=== PATIENT | male | born 1970 | race Caucasian/White ===

== ENCOUNTER 2023-11-21 22:45 | Emergency (ER) | payer OTHER, SELFPAY ==
--- NOTE | ~2023-11-21 | XR_ITS ---
EXAMINATION: XR FOOT, LEFT XR FOOT, RIGHT CLINICAL INDICATION: Reason for Exam pain question osteo over the index toe COMPARISON: None TECHNIQUE: 3 views of each foot. FINDINGS: Right foot: Osseous alignment is anatomic. There are degenerative changes of the midfoot. Plantar calcaneal spur is noted. No acute fracture is seen. No focal cortical irregularity to suggest osteomyelitis. There is suspected dorsal soft tissue swelling. Left foot: Osseous alignment is anatomic. No acute fracture seen. Posterior and plantar calcaneal spurs are present. Mild degenerative changes of the midfoot. No focal cortical irregularity to suggest osteomyelitis. No significant focal soft tissue abnormality identified. XR/XR foot LT min 3V IMPRESSION: No definite findings to suggest osteomyelitis though assessment on radiographs is relatively limited. If clinically warranted, this would be better assessed with MRI. Soft tissue swelling of the right foot.
--- NOTE | ~2023-11-21 | XR_ITS ---
EXAMINATION: XR FOOT, LEFT XR FOOT, RIGHT CLINICAL INDICATION: Reason for Exam pain question osteo over the index toe COMPARISON: None TECHNIQUE: 3 views of each foot. FINDINGS: Right foot: Osseous alignment is anatomic. There are degenerative changes of the midfoot. Plantar calcaneal spur is noted. No acute fracture is seen. No focal cortical irregularity to suggest osteomyelitis. There is suspected dorsal soft tissue swelling. Left foot: Osseous alignment is anatomic. No acute fracture seen. Posterior and plantar calcaneal spurs are present. Mild degenerative changes of the midfoot. No focal cortical irregularity to suggest osteomyelitis. No significant focal soft tissue abnormality identified. XR/XR foot RT min 3V IMPRESSION: No definite findings to suggest osteomyelitis though assessment on radiographs is relatively limited. If clinically warranted, this would be better assessed with MRI. Soft tissue swelling of the right foot.
[2023-11-21 22:52] VITALS: BP 160/86; PULSE 100; RESP 18; TEMP 36.9; O2SAT 96; BMI 39.4
[2023-11-22 01:06] LABS: MANUAL DIFF FLAG NO
[2023-11-22 01:07] LABS: Basophils Absolute Auto 0.1 X10*3/uL (0.0-0.2); Eosinophils Absolute Auto 0.6 X10*3/uL (0.0-0.4); Eosinophils Percent Auto 6.2 % (0-4); Hematocrit 34.8 % (42.0-52.0); Hemoglobin 10.3 g/dl (14.0-18.0); Imm Gran Abs Auto 0.02 X10*3/uL (0.00-0.03); Imm Gran Pct Auto 0.2 % (0.0-0.4); Lymphocytes Absolute Auto 1.4 X10*3/uL (1.2-4.9); Lymphocytes Percent Auto 13.3 % (20-40); Mean Corpuscular HGB Conc 29.6 g/dl (31.0-36.0); Mean Corpuscular Volume 70.9 fL (80.0-98.0); Mean Platelet Volume 10.4 fL (9.4-12.4); Monocytes Absolute Auto 0.9 X10*3/uL (0.1-1.2); Monocytes Percent Auto 8.9 % (2-11); Neutrophils Absolute Auto 7.3 x10*3/uL (2.0-8.3); Neutrophils Percent Auto 70.4 % (45-73); Platelet Count 353 X10*3/uL (160-400); Red Blood Count 4.91 X10*6/uL (4.60-5.80); Red Cell Distribution Width 16.3 % (11.0-16.0); White Blood Count 10.4 X10*3/uL (4.8-10.8)
[2023-11-22 01:24] LABS: Alanine Aminotransferase 15 U/L (0-40); Albumin Level 4.5 g/dL (3.5-5.0); Alkaline Phosphatase 73 U/L (39-117); Anion Gap 15 (12-20); Aspartate Amino Transferase 19 U/L (5-37); Bilirubin Total 0.2 mg/dL (0.0-1.0); Blood Urea Nitrogen 15 mg/dL (9-16); Carbon Dioxide 24 mmol/L (22-29); Chloride 107 mmol/L (96-108); Creatinine Clr Calc Pharmacy 107.7; Estimated Glomerular Filt Rate > 60; Glucose Random 152 mg/dL (60-115); Potassium 4.4 mmol/L (3.3-5.1); Sodium 142 mmol/L (135-145); Total Protein 7.2 g/dL (6.5-8.0)
--- NOTE | 2023-11-22 01:48 | ED.LOWEXIN ---
HPI - Extremity Injury (Lower) General Chief Complaint: Extremity Injury, Lower Stated Complaint: feet wounds/bleeding/swelling Time Seen by Provider: 11/22/23 01:15 History of Present Illness HPI Narrative: Patient is a 53-year-old male presents today with having bilateral foot pain that has been ongoing for a few months. Patient is from [place] been lost to the [facility] was [facility]. Patient was rescheduled for November. Complaining of pain continuing. There is redness to the index toe bilaterally. There is redness to the dorsum of bilateral feet. Patient denies any fever chills. No systemic complaints. Been compliant with taking his metformin. No nausea no vomiting. No chest pain or shortness of breath. No calf pain. Patient claims the gabapentin is not working Related Data Previous Rx's ?Medication ?Instructions ?Recorded doxycycline hyclate 100 mg capsule 100 mg PO BID cough 10 days #20 11/22/23 caps Allergies Allergy/AdvReac Type Severity Reaction Status Date / Time morphine Allergy Headache Verified 11/21/23 22:59 Review of Systems Review of Systems: Positive pain to bilateral feet PMFSH Past Medical History Attestation statement: The following information was validated with the patient. Social History Social History Advance Directives: No Advance Directives Information Provided: Yes Do you have a plan to hurt others: No Plan Physical Exam Vital Signs: Vital Signs: Last Vital Signs Temp 98.5 F 11/21/23 22:52 Pulse 100 11/21/23 22:52 Resp 18 11/21/23 22:52 BP 160/86 H 11/21/23 22:52 Pulse Ox 96 11/21/23 22:52 O2 Del Method Room Air 11/21/23 22:52 BMI result Body Mass Index 39.4 Appearance: Alert. Oriented X3. No acute distress. Eyes: Pupils equal, round and reactive to light. ENT: Pharynx normal. Neck: Normal inspection. Neck supple. No lymph nodes noted. No crepitus CVS: Normal heart rate and rhythm. Pulses normal. Normal S1 and S2 Respiratory: No respiratory distress. Breath sounds normal. No Wheezing. No rales Abdomen: Soft and nontender. No rigidity. No distention. good BS x4 Skin: See below Extremities: Examination of the bilateral feet show good pulses at dorsalis pedis bilaterally. Sensation over the toes intact bilaterally. Examination of the right foot showed a small abrasion over the dorsum of the right foot approximately 3 cm x 2 cm in size. There is mild surrounding erythema. There is no warmth to touch. There is redness over the index toe. No warmth to touch. Examination of the left foot also showed a small abrasion over the dorsum of the left foot. This 1 is more lateral the proximally 2 cm x 2 cm in size. Slight erythema noted surrounding the area. There is also area of redness surrounding the index and great toe. Neuro: Oriented X 3. No motor deficit. No sensory deficit. Moving all extermities. No slurred speech Medications Administered Discontinued Medications Generic Name Dose Route Start Last Admin Trade Name Freq PRN Reason Stop Dose Admin Doxycycline Monohydrate 100 mg 11/22/23 02:59 11/22/23 03:14 Doxycycline Monohydrate 100 Mg Capsule PO 11/22/23 03:00 100 mg ONCE ONE Administration Gabapentin 300 mg 11/22/23 02:04 11/22/23 02:12 Gabapentin 300 Mg Capsule PO 11/22/23 02:05 300 mg ONCE ONE Administration Medical Decision Making Medical Decision Making [facility] Narrative: X-ray of bilateral foot showed no acute evidence of fracture no signs of osteo. Patient's sed rate is normal. No evidence for osteo. White count is normal. Area of redness but patient claims it has been there for a long time. Patient's symptoms been ongoing for months. Will start patient on doxycycline for empiric coverage of possible cellulitis. Patient's wound was cleaned subsequently dressed. Will refer patient to wound care for further evaluation explained to patient if he develop fever worsening condition to return to the ED immediately. Currently in stable condition. Differential Diagnosis Differential Diagnoses: The differential diagnosis associated with the presentation includes Cellulitis, osteomyelitis Admission/Observation Consideration of admission/observation: Escalation of care including admission/observation considered Lab Data [facility] Lab Attestation statement: I reviewed the patient's lab results. 11/22/23 01:01 11/22/23 01:01 Labs: Lab Results 11/22/23 Range/Units 01:01 WBC 10.4 (4.8-10.8) X10*3/uL RBC 4.91 (4.60-5.80) X10*6/uL Hgb 10.3 L (14.0-18.0) g/dl Hct 34.8 L (42.0-52.0) % MCV 70.9 L (80.0-98.0) fL MCH 21.0 L (27.0-33.0) pg MCHC 29.6 L (31.0-36.0) g/dl RDW 16.3 H (11.0-16.0) % Plt Count 353 (160-400) X10*3/uL MPV 10.4 (9.4-12.4) fL Immature Gran % (Auto) 0.2 (0.0-0.4) % Neut % (Auto) 70.4 (45-73) % Lymph % (Auto) 13.3 L (20-40) % [place] % (Auto) 8.9 (2-11) % Eos % (Auto) 6.2 H (0-4) % Baso % (Auto) 1.0 (0-2) % Lymph # (Auto) 1.4 (1.2-4.9) X10*3/uL [place] # (Auto) 0.9 (0.1-1.2) X10*3/uL Eos # (Auto) 0.6 H (0.0-0.4) X10*3/uL Baso # (Auto) 0.1 (0.0-0.2) X10*3/uL Abs Immat Gran (auto) 0.02 (0.00-0.03) X10*3/uL Absolute Neuts (auto) 7.3 (2.0-8.3) x10*3/uL Absolute Nucleated RBC 0.000 (0.0-0.012) X10*3/uL Nucleated RBC % (auto) 0.0 (0.0-0.2) /100WBC ESR 7 (0-15) MM/HR Sodium 142 (135-145) mmol/L Potassium 4.4 (3.3-5.1) mmol/L Chloride 107 (96-108) mmol/L Carbon Dioxide 24 (22-29) mmol/L Anion Gap 15 (12-20) BUN 15 (9-16) mg/dL Creatinine 1.07 (0.5-1.4) mg/dL Estim Creat Clear Calc 107.7 Estimated GFR > 60 Random Glucose 152 H (60-115) mg/dL Calcium 10.0 (8.4-10.2) mg/dL Total Bilirubin 0.2 (0.0-1.0) mg/dL AST 19 (5-37) U/L ALT 15 (0-40) U/L Alkaline Phosphatase 73 (39-117) U/L Total Protein 7.2 (6.5-8.0) g/dL Albumin 4.5 (3.5-5.0) g/dL Independent Interpretation I performed an independent interpretation of an: Plain X-Ray (X-ray bilateral feet were both negative) Radiology Impression Discussion of test interpretation with radiology: I have reviewed the radiologist's reading. Chronic Conditions Patient?s care impacted by: Diabetes Discharge Plan Discharge Clinical Impression: Abrasion foot/toe, Diabetic foot infection Patient Disposition: Home, Self-Care Instructions: Cellulitis (ED), Foot Care for People with Diabetes (ED), Diabetes and Your Skin (ED) Prescriptions: New doxycycline hyclate 100 mg capsule 100 mg PO BID 10 Days Qty: 20 0RF Referrals: [facility] Group] (Diabetic foot management) Print Language: Nepali
[2023-11-22] MEDS: Gabapentin 300 MG CAPSULE PO (02:12)
[2023-11-22 02:31] LABS: Erythrocyte Sedimentation Rate 7 MM/HR (0-15)
[2023-11-22] MEDS: Doxycycline Monohydrate 100 MG CAPSULE PO (03:14)
[2023-11-22 04:01] VITALS: BP 129/78; PULSE 82; RESP 20; TEMP 36.8; O2SAT 98
[2023-11-22] MEDS: Bacitracin Oint 0.9 GM PACKET 1 APPL TOPICAL (04:16)
[2023-11-22 04:41] VITALS: BP 129/78; PULSE 82; RESP 20; TEMP 36.8; O2SAT 98
--- OUTSIDE RECORDS SUMMARY | 2023-11-22 11:28 | XMS_ITS | Continuity of Care Document ---
Author Organization [facility] Address [address] [address] Care Team Providers Care Senior Manufacturing Engineer Name Role Phone [facility], PCP Primary Care Physician Unavailab le Encounter [facility] [id number] Date(s): 07/18/20 - 07/18/20 [facility] [address] [address] [place] Encounter Diagnosis Degenerative arthritis of knee, bilateral(Discharge Diagnosis) - 07/14/20 Discharge Disposition: Discharged to Home Attending Physician: MD Stanton Vishnu Referring Physician: MD Stanton Vishnu Allergies, Adverse Reactions, Alerts Substance Reaction Severity Status morphine MIGRAINE Mild Active Assessment and Plan Future Scheduled Tests Referral* Return to Clinic - Orthopaedics 01/11/20 * Return to Clinic - Orthopaedics 01/11/20 * Return to Clinic - Orthopaedics 07/18/20 * Return to Clinic - Orthopaedics 12/10/19 Referrals to Other Providers Referred by: MD Satnton Vishnu Referred by: MD Stanton Vishnu Referred by: MD Stanton Vishnu Referred by: MD Stanton Vishnu Medications CeleBREX 1 tab, Oral, BID, 0 Refill(s) Start Date: 08/10/19 Status: Ordered traMADol 1 tab, Oral, every 6 hr, PRN pain-mild (1 to 3 pain scale), 0 Refill(s) Start Date: 09/15/19 Status: Ordered Voltaren 1% topical gel 2 g, Topical, QID, PRN as needed for pain, not to exceed 16 grams/day/single joint of lower extremities, # 100 g, 2 Refill(s), Pharmacy: [id number], [id number], 05/17/20 14:13:00 EST, Height/Length Measured, cm, 106.9, 05/17/20 14:13:00 EST, Weigh... Start Date: 05/17/20 Status: Ordered Voltaren 1% topical gel 2 g, Topical, QID, PRN as needed for pain, not to exceed 16 grams/day/single joint of lower extremities, # 100 g, 3 Refill(s), Pharmacy: [id number], [id number], 11/02/19 14:06:00 EDT, Height/Length Measured, cm, 121.4, 11/02/19 14:06:00 EDT, Weigh... Start Date: 11/02/19 Status: Ordered Problem List Condition Effective Dates Status Health Status Inform ant Degenerative arthritis of kn ee, bilateral(Confirmed) Active Bowel obstruction(Confirmed) Active Bilateral [place]-Schlatter's disease(Confirmed) Active Bilateral primary osteoarthr itis of knee(Confirmed) Active Procedures Procedure Date Related Diagnosis Body Site Status Hip 1 Completed Tendon 2 Completed Tonsillectomy Completed 1BILATERAL 2RIGHT THUMB Social History Social History Type Response Smoking Status Never (less than 100 in lifetime) entered on: 11/02/19 Sex
--- OUTSIDE RECORDS SUMMARY | 2023-11-22 11:28 | XMS_ITS | Continuity of Care Document ---
Author Organization [facility] Address [address] [place] [id number] Care Team Providers Care Interior Design Professor Name Role Phone [facility], PCP Primary Care Physician Unavailab le Encounter [facility] Date(s): 09/15/19 - 09/15/[address] [address] Discharge Disposition: Discharged to Home Attending Physician: MD Meza John B Admitting Physician: MD Meza John B Referring Physician: MD Meza John B Allergies, Adverse Reactions, Alerts Substance Reaction Severity Status morphine MIGRAINE Mild Active Assessment and Plan Future Appointments Appointment Date:10/06/2019 02:45:00 PM Scheduled Provider:MD Meza John B Location:[facility] Main OR Appointment Type:Surgery Medications CeleBREX 1 tab, Oral, BID, 0 Refill(s) Start Date: 08/10/19 Status: Ordered traMADol 1 tab, Oral, every 6 hr, PRN pain-mild (1 to 3 pain scale), 0 Refill(s) Start Date: 09/15/19 Status: Ordered Problem List Condition Effective Dates Status Health Status Inform ant Bowel obstruction(Confirmed) Active Procedures Procedure Date Related Diagnosis Body Site Status Hip 1 Completed Tendon 2 Completed Tonsillectomy Completed 1BILATERAL 2RIGHT THUMB Results Most recent to oldest [Reference Range]: 1 Height/Length Measured [124.5-243.8 cm] 178 cm (09/15/19 9:58 AM) Systolic Blood Pressure [90-140 mmHg] 15 0 mmHg *HI* (09/15/19 9:58 AM) Diastolic Blood Pressure [60-90 mmHg] 90 mmHg (09/15/19 9:58 AM) Respiratory Rate [14-20 br/min] 16 br/mi n (09/15/19 9:58 AM) Temperature Oral [35.8-37.3 Deg C] 37.1 Deg C (09/15/19 9:58 AM) Vital Signs Most recent to oldest [Reference Range]: 1 Temperature Oral [35.8-37.3 Deg C] 37.1 Deg C (09/15/19 9:58 AM) Peripheral Pulse Rate [60-100] 83 (09/15/19 9:58 AM) Respiratory Rate [14-20 br/min] 16 br/mi n (09/15/19 9:58 AM) Blood Pressure [90-140/60-90 mmHg] 150/9 0mmHg *HI* (09/15/19 9:58 AM) Social History Social History Type Response Smoking Status Never (less than 100 in lifetime) entered on: 08/10/19 Sex
--- OUTSIDE RECORDS SUMMARY | 2023-11-22 11:28 | XMS_ITS | Continuity of Care Document ---
Author Organization [facility] Address [address] [place] [address] Care Team Providers Care Central Processing Technician Name Role Phone [facility], PCP Primary Care Physician Unavail le Encounter [facility] [id number] Date(s): 11/25/19 - 11/25/19 [facility], [facility] [address] [place], [place] [address]- [phone] Encounter Diagnosis Incisional hernia without obstruction or gangrene(Discharge Diagnosis) - 11/25/19 Discharge Disposition: Discharged to Home Attending Physician: MD Meza John B Referring Physician: [facility], PCP Allergies, Adverse Reactions, Alerts Substance Reaction Severity Status morphine MIGRAINE Mild Active Assessment and Plan Future Appointments Appointment Date:02/01/2020 01:05:00 PM Scheduled Provider:MD Stanton Vishnu Location: Ortho Appointment Type:Ortho Est Patient Future Scheduled Tests Referral* Return to Clinic - Orthopaedics 02/01/20 Referrals to Other Providers Referred by: MD Stanton Vishnu Medications CeleBREX [...] extremities, # 100 g, 3 Refill(s), Pharmacy: [id number], [id number], 11/02/19 14:06:00 EDT, Height/Length [...] Most recent to oldest [Reference Range]: 1 Weight Measured 106.9 kg (11/25/19 11:38 AM) Height/Length Measured [124.5-243.8 cm] 172 cm (11/25/19 11:38 AM) Body Mass Index Measured 36.13 kg/m2 (11/25/19 11:38 AM) Systolic Blood Pressure [90-140 mmHg] 12 0 mmHg (11/25/19 11:38 AM) Diastolic Blood Pressure [60-90 mmHg] 75 mmHg (11/25/19 11:38 AM) Respiratory Rate [14-20 br/min] 18 br/mi n (11/25/19 11:38 AM) Temperature Oral [35.8-37.3 Deg C] 37.0 Deg C (11/25/19 11:38 AM) Vital Signs Most recent to oldest [Reference Range]: 1 Temperature Oral [35.8-37.3 Deg C] 37.0 Deg C (11/25/19 11:38 AM) Temperature Oral [place] AMB 98.6 Deg F (11/25/19 11:38 AM) Peripheral Pulse Rate [60-100] 100 (11/25/19 11:38 AM) Respiratory Rate [14-20 br/min] 18 br/mi n (11/25/19 11:38 AM) Blood Pressure [90-140/60-90 mmHg] 120/7 5mmHg (11/25/19 11:38 AM) Social History Social History Type Response Smoking Status Never (less than 100 in lifetime) entered on: 11/02/19 Sex
--- OUTSIDE RECORDS SUMMARY | 2023-11-22 11:28 | XMS_ITS | Continuity of Care Document ---
Author Organization [facility], [facility] Address [address] [address] Care Team Providers Care Habitat Management Coordinator Name Role Phone David Jaquez Primary Care Physician Unavailab le Encounter [facility] Date(s): 08/10/19 - 08/10/[address] [facility], [facility] [address] [address]- Encounter Diagnosis Incarcerated umbilical hernia(Discharge Diagnosis) - 08/10/19 Discharge Disposition: Discharged to Home Attending Physician: MD Meza John B Referring Physician: MD Jaquez Derralyn Allergies, Adverse Reactions, Alerts Substance Reaction Severity Status morphine Mild Active Assessment and Plan Future Appointments Appointment Date:08/24/2019 12:30:00 PM Scheduled Provider:MD Meza John B Location: [facility]Care Appointment Type:Surgical Care Est Patient Medications CeleBREX Oral, 0 Refill(s) Start Date: 08/10/19 Status: Ordered Problem List Condition Effective Dates Status Health Status Inform ant Bowel obstruction(Confirmed) Active Procedures Procedure Date Related Diagnosis Body Site Status Hip Completed Results Most recent to oldest [Reference Range]: 1 Weight Measured 121.4 kg (08/10/19 1:49 PM) Height/Length Measured [124.5-243.8 cm] 178 cm (08/10/19 1:49 PM) Body Mass Index Measured 38.32 kg/m2 (08/10/19 1:49 PM) Systolic Blood Pressure [90-140 mmHg] 16 3 mmHg *HI* (08/10/19 1:49 PM) Diastolic Blood Pressure [60-90 mmHg] 91 mmHg *HI* (08/10/19 1:49 PM) Respiratory Rate [14-20 br/min] 18 br/mi n (08/10/19 1:49 PM) Temperature Oral [35.8-37.3 Deg C] 36.8 Deg C (08/10/19 1:49 PM) Vital Signs Most recent to oldest [Reference Range]: 1 Temperature Oral [35.8-37.3 Deg C] 36.8 Deg C (08/10/19 1:49 PM) Temperature Oral [place] AMB 98.24 Deg F (08/10/19 1:49 PM) Peripheral Pulse Rate [60-100] 87 (08/10/19 1:49 PM) Respiratory Rate [14-20 br/min] 18 br/mi n (08/10/19 1:49 PM) Blood Pressure [90-140/60-90 mmHg] 163/9 1mmHg *HI* (08/10/19 1:49 PM) Social History Social History Type Response Smoking Status Never (less than 100 in lifetime) entered on: 08/10/19 Sex
--- OUTSIDE RECORDS SUMMARY | 2023-11-22 11:28 | XMS_ITS | Continuity of Care Document ---
Author Organization [facility] Address [address] [address] Care Team Providers Care Manager Resource Name Role Phone [facility], PCP Primary Care Physician Unavailab le Encounter [facility] [id number] Date(s): 01/11/20 - 01/11/20 [facility] [address] [address] [place] Discharge Disposition: Discharged to Home Attending Physician: MD Stanton Vishnu Referring Physician: MD Stanton Vishnu Allergies, Adverse Reactions, Alerts Substance Reaction Severity Status morphine MIGRAINE Mild Active Assessment and Plan Future Scheduled Tests Referral* Return to Clinic - Orthopaedics 01/11/20 * Return to Clinic - Orthopaedics 01/11/20 * Return to Clinic - Orthopaedics 12/10/19 Referrals to Other Providers Referred by: MD Stanton Vishnu Referred by: [...] extremities, # 100 g, 3 Refill(s), Pharmacy: [id number], [id number], 11/02/19 14:06:00 EDT, Height/Length Measured, cm, 121.4, 11/02/19 14:06:00 EDT, Weigh... Start Date: 11/02/19 Status: Ordered Problem List Condition Effective Dates Status Health Status Inform ant Degenerative arthritis of kn ee, bilateral(Confirmed) Active Bowel obstruction(Confirmed) Active Bilateral [place]-Schlatter's disease(Confirmed) Active Bilateral primary osteoarthr itis of knee(Confirmed) Active Procedures Procedure Date Related Diagnosis Body Site Status Hip 1 Completed Tendon 2 Completed Tonsillectomy Completed 1BILATERAL 2RIGHT THUMB Results Most recent to oldest [Reference Range]: 1 Weight Measured 106.9 kg (01/11/20 2:17 PM) Height/Length Measured [124.5-243.8 cm] 172 cm (01/11/20 2:17 PM) Body Mass Index Measured 36.13 kg/m2 (01/11/20 2:17 PM) Social History Social History Type Response Smoking Status Never (less than 100 in lifetime) entered on: 11/02/19 Sex
--- OUTSIDE RECORDS SUMMARY | 2023-11-22 11:28 | XMS_ITS | Continuity of Care Document ---
Author Organization [facility] Address [address] [address] Care Team Providers Care Circulating Process Inspector Name Role Phone VA, PCP Primary Care Physician Unavailab le Encounter [facility] [id number] Date(s): 11/02/19 - 11/02/19 [facility] [address] [facility] [address] [address] [place] Encounter Diagnosis Degenerative arthritis of knee, bilateral(Discharge Diagnosis) - 11/02/19 Bilateral primary osteoarthritis of knee(Discharge Diagnosis) - 11/02/19 Bilateral [place]-Schlatter's disease(Discharge Diagnosis) - 11/02/19 Discharge Disposition: Discharged to Home Attending Physician: MD Stanton Vishnu Referring Physician: Bora Ruvalcaba Allergies, Adverse Reactions, Alerts Substance Reaction Severity Status morphine MIGRAINE Mild Active Assessment and Plan Future Appointments Appointment Date:12/01/2019 06:15:00 AM Scheduled Provider:MD Meza John B Location:[facility] Main OR Appointment Type:Surgery Appointment Date:02/01/2020 01:05:00 PM Scheduled Provider:MD Stanton [...] extremities, # 100 g, 3 Refill(s), Pharmacy: [id number], 178, 11/02/19 14:06:00 EDT, Height/Length [...] [Reference Range]: 1 Weight Measured 121.4 kg (11/02/19 2:06 PM) Height/Length Measured [124.5-243.8 cm] 178 cm (11/02/19 2:06 PM) Body Mass Index Measured 38.32 kg/m2 (11/02/19 2:06 PM) Social History Social History Type Response Smoking Status Never (less than 100 in lifetime) entered on: 11/02/19 Sex
--- OUTSIDE RECORDS SUMMARY | 2023-11-22 11:28 | XMS_ITS | Continuity of Care Document ---
Author Organization [email or web address] Address [address] [address] Care Team Providers Care Cooker Operator Name Role Phone [facility], PCP Primary Care Physician Unavailab le Encounter [facility] [id number] Date(s): 12/10/19 - 12/10/19 [facility] [address] [address] [place] Encounter Diagnosis Bilateral primary osteoarthritis of knee(Discharge Diagnosis) - 12/09/19 Discharge Disposition: Discharged to Home Attending Physician: MD Stanton Vishnu Referring Physician: MD Stanton Vishnu Allergies, Adverse Reactions, Alerts Substance Reaction Severity Status morphine MIGRAINE Mild Active Assessment and Plan Future Scheduled Tests Referral* Return to Clinic - Orthopaedics 12/10/19 Referrals [...] extremities, # 100 g, 3 Refill(s), [id number] 178, 11/02/19 14:06:00 EDT, Height/Length [...]
--- OUTSIDE RECORDS SUMMARY | 2023-11-22 11:28 | XMS_ITS | Continuity of Care Document ---
Author Organization [facility] Surg[facility] [place], [facility] Address [address] [address] Care Team Providers Care Optical Coating Technician Name Role Phone David Jaquez Primary Care Physician Unavailab le Encounter STFR Date(s): 08/24/19 - 08/24/19 [facility] Surgical Care, [facility] [address] [facility] [address] [address]- [phone] Discharge Disposition: Discharged to Home Attending Physician: MD Meza John B Referring Physician: MD Jaquez Derralyn Allergies, Adverse Reactions, Alerts Substance Reaction Severity Status morphine Mild Active Assessment and Plan Future Appointments Appointment Date:09/15/2019 01:00:00 PM Scheduled Provider: Location:[facility] PAT Appointment Type:Surgery PAT - STFR Appointment Date:09/22/2019 06:00:00 AM Scheduled Provider:MD Meza John B Location:[facility] Main OR Appointment Type:Surgery Medications CeleBREX Oral, 0 Refill(s) Start Date: 08/10/19 Status: Ordered Problem List Condition Effective Dates Status Health Status Inform ant Bowel obstruction(Confirmed) Active Procedures Procedure Date Related Diagnosis Body Site Status Hip Completed Social History Social History Type Response Smoking Status Never (less than 100 in lifetime) entered on: 08/10/19 Sex
== END 2023-11-22 04:20 | disposition home or self-care (01) ==
PROVIDERS: Emergency Provider Emergency Medicine Emergency Medical Services
DX: S90.811A Abrasion, right foot, initial encounter (principal); S90.812A Abrasion, left foot, initial encounter; M79.672 Pain in left foot; M79.671 Pain in right foot; X58.XXXA Exposure to other specified factors, initial encounter; Y93.9 Activity, unspecified; Y92.9 Unspecified place or not applicable; Y99.8 Other external cause status; Z79.899 Other long term (current) drug therapy; Z79.84 Long term (current) use of oral hypoglycemic drugs
CPT/HCPCS: 36415; 73630; 80053; 85025; 85652; 99283; 99284

== ENCOUNTER 2024-01-13 14:15 | Outpatient (RCR) | payer OTHER, SELFPAY | END 2024-04-24 14:58 | disposition other institution (70) | LOC: HO.WCC 14:15 | PROVIDERS: Visit Provider Physician Assistant | DX: I87.331 Chronic venous hypertension (idiopathic) with ulcer and inflammation of right lower extremity (principal); L97.512 Non-pressure chronic ulcer of other part of right foot with fat layer exposed; L97.312 Non-pressure chronic ulcer of 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; L97.521 Non-pressure chronic ulcer of other part of left foot limited to breakdown of skin; I73.9 Peripheral vascular disease, unspecified; G62.9 Polyneuropathy, unspecified; Z79.899 Other long term (current) drug therapy | CPT/HCPCS: 11042; 97602; 99212; 99213; 99214 ==

== ENCOUNTER 2024-05-18 16:51 | Outpatient (REF) | payer OTHER, SELFPAY ==
[2024-05-18 17:23] LABS: Blood Urea Nitrogen 14 mg/dL (9-16); Estimated Glomerular Filt Rate > 60
== END 2024-05-18 16:52 | disposition home or self-care (01) ==
LOC: HO.LAB 16:51
PROVIDERS: Visit Provider Radiology Vascular & Interventional Radiology
DX: R79.89 Other specified abnormal findings of blood chemistry (principal); R94.4 Abnormal results of kidney function studies
CPT/HCPCS: 36415; 82565; 84520

== ENCOUNTER 2024-08-24 14:13 | Outpatient (AMB) | payer OTHER, SELFPAY ==
--- NOTE | 2024-08-24 14:14 | A.OFFVIS_ITS ---
Vital Signs 08/24/24 14:15 Height 5 ft 11 in Weight 233 lb 4 oz BMI 32.5 BP 163/85 H Blood Pressure Location Rt brachial Position Sitting Respiration 16 Pulse 73 Pulse Source Pulse Oximeter Pulse Oximetry (%) 96 Oxygen Delivery Method Room Air Intake Visit Reasons: Bilateral Knee pain Jukebox Route Driver Required: No Allergies morphine Allergy (Verified 08/24/24 14:21) Headache HPI Comments Details: Boo is very pleasant 54 years old gentleman who presents in my office with complains on pain in bilateral knees. He is [employer] and he is referred here by [facility]. He reports his pain severity 6 to 7/10. Because of his pain he is unable to do activities of daily living of function normally. But he can take care of himself and he can not sleep normally. 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 Movements aggravate his pain. Topical medications and oral medications make his pain better. In terms of tissue damage he describes his pain as pulsing throbbing pounding, dull, sore, hurting, aching, heavy sensation. He in the past had multiple images of the bilateral knees. He had multiple sessions of physical therapy and he continues home exercise program. He reports minimal help for short period of time after home exercises, he received multiple steroid injections and Hyalgan/Synvisc injections. He reports that steroid injections help him for about 45 days and hyaluronic acid preparations help him for 2-3 m onths. He received at [facility] genicular nerve block diagnostic and reported great results pain absent for 3 days. He is here in my office to discuss radiofrequency ablation of bilateral knees. Past medical history: Diabetes past surgical history uncomplicated bilateral total hip replacement. Denies smoking cigarettes drinks 2 drinks of alcohol every other day, drinks 1 cup of coffee a day and denies recreational drugs. He is currently taking metformin for diabetes. He is taking diclofenac, tramadol, and gabapentin. [facility] Social History Alcohol intake: unknown Review of Systems Const All systems reviewed & are unremarkable except as noted in HPI and below ENT Reports Normal hearing present Neuro Reports Normal hearing present, Denies Abnormal speech present, Denies confusion and Denies Sensory deficit (Neuro) Psych Denies confusion Physical Exam Vital Signs: Last Vital Signs Pulse 73 08/24/24 14:15 Resp 16 08/24/24 14:15 BP 163/85 H 08/24/24 14:15 Pulse Ox 96 08/24/24 14:15 Oxygen Delivery Method Room Air 08/24/24 14:15 BMI result Body Mass Index 32.5 Const General: no acute distress; No confusion Orientation/consciousness: patient oriented x3 and No confusion Eyes General: appearance normal, both eyes and all related structures Pupils: Equal, round and reactive pupils present EOM: EOMs intact bilaterally Neck Neck: Yes full ROM Chest Chest palpation & inspection: normal inspection of the chest Resp Effort & Inspection: normal respiratory effort, able to speak in complete sentences, normal respiratory pattern, no audible wheezes and no cough Cardio Jugular venous distension: no JVD GI Inspection: Yes normal to inspection Neuro General: patient oriented x3, gait normal and No confusion Cranial nerves: Yes CN's II-XII intact bilaterally, Yes Equal, round and reactive pupils present, Yes Normal hearing present and Yes Ability to bilaterally elevate shoulders present Speech: No Abnormal speech present Gait exam (Neuro): Normal gait present Motor exam (neuro): 5/5 motor strength present throughout Sensory Exam: No Sensory deficit (Neuro) Extrem Other: Full range of motion of bilateral knees. The gait is not affected. General: No pedal edema Psych Speech and movement: Normal speech and movement present Affect: normal affect Attitude: cooperative Thought process: Normal thought process present Thought content: Normal thought content present Insight: Good insight present (Psych) Judgement: Good judgement present (Psych) Assessment & Plan Assessment & Plan (1) Bilateral knee pain: Code(s): M25.561 - Pain in right knee; M25.562 - Pain in left knee Category: Medical (2) Osteoarthritis of knees, bilateral: Code(s): M17.0 - Bilateral primary osteoarthritis of knee Category: Medical (3) Chronic pain syndrome: Code(s): G89.4 - Chronic pain syndrome Category: Medical Plan The patient was asking multiple questions about different other ways to treat his pain in the knees. Peripheral nerve stimulation was explained to the patient. Platelet rich plasma was explained to the patient. I will schedule the patient for right and after that left radiofrequency ablation of genicular nerves. Risks and benefits were explained to the patient. Alternatives were explained to the patient as above. Patient Instructions: I hereby testify that I spent 48 minutes in conversation with this patient as well as planning his care and organizing this note. Coding Level of Care Code New Pt Level 4 (95526) Diagnoses Bilateral knee pain M25.561; M25.562 Osteoarthritis of knees, bilateral M17.0 Chronic pain syndrome G89.4
[2024-08-24 14:15] VITALS: BP 163/85; PULSE 73; RESP 16; O2SAT 96; BMI 32.5
--- OUTSIDE RECORDS SUMMARY | 2024-08-24 16:16 | XMS_ITS ---
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 05/07/2024 Goals Goal Patient Goal Type Associated Problems Recent Progress Patient-Stated? Author Decrease Wound Volume by X% by date (in notes) Care Plan Impaired Tissue On track( 025 3:57 PM EST) No Jadyn Altamirano, RN Note: 07/02/24- paper rx for optilock [facility]. Pt states he only needs optilock at this time 08/13/24- unable to tolerate debridement, stating he's been saving a couple antibiotics every time he's been prescribed them and has been taking the left overs for the past 10 days. 08/20/24- Puraply AM 2x2 #1 Patient and Caregiver Understand Wound Care Education Care Plan Impaired Tissue On track( 025 2:55 PM EST) No Jadyn Altamirano, fitness director volume breakdown reduced by X% by week 4 Care Plan Impaired Tissue No Jadyn Altamirano, fitness director volume breakdown reduced by X% by week 8 Care Plan Impaired Tissue No Jadyn Altamirano RN Wound volume breakdown reduced by X% by week 12 Care Plan Impaired Tissue No Jadyn Altamirano RN Quit using tobacco (cigarettes, smokeless, etc) Care Plan Education needed on impact of smoking on wound No Jadyn Altamirano RN Reduce tobacco use (cigarettes, smokeless, etc) Care Plan Education needed on impact of smoking on wound No Jadyn Altamirano RN Decrease Wound Volume by X% by date (in notes) Care Plan Education needed on impact of smoking on wound No Jadyn Altamirano RN Patient and Caregiver Understand Wound Care Education Care Plan Education needed related to ulceration/comp romised skin integrity. No Jadyn Altamirano RN Interventions Care Plan Interventions Intervention Entry Date Outcome Provide caregiver with wound care procedure information 05/07/2024 Educate caregiver on proper wound care procedures 05/07/2024 Give provider list of wound care supplies 05/07/2024 Refill wound care supplies 05/07/2024 Send Wound Care Supplies 05/07/2024 Give provider list of wound care supplies 05/07/2024 Refill wound care supplies 05/07/2024 Send Wound Care Supplies 05/07/2024 Provide caregiver with wound care procedure information 05/07/2024 Educate caregiver on proper wound care procedures 05/07/2024 Document patient eligibility for HBO 05/07/2024 Assess patient for HBO treatment 05/07/2024 Record wound depth 05/07/2024 Record total wound area 05/07/2024 Measure wound progress 05/07/2024 Create an action plan identifying patient strengths and supports 05/07/2024 Establish quit date with patient 05/07/2024 Discuss prior cessation attempts 05/07/2024 Discuss preferred method of cessation and plan 05/07/2024 Discuss barriers to smoking cessation 05/07/2024 Discuss smoking status with patient 05/07/2024 Create an action plan identifying patient strengths and supports 05/07/2024 Establish quit date with patient 05/07/2024 Discuss prior cessation attempts 05/07/2024 Discuss preferred method of cessation and plan 05/07/2024 Discuss barriers to smoking cessation 05/07/2024 Discuss smoking status with patient 05/07/2024 Provide caregiver with wound care procedure information 05/07/2024 Educate caregiver on proper wound care procedures 05/07/2024 Document patient eligibility for HBO 05/07/2024 Assess patient for HBO treatment 05/07/2024 Record wound depth 05/07/2024 Record total wound area 05/07/2024 Measure wound progress 05/07/2024 Provide caregiver with wound care procedure information 05/07/2024 Educate caregiver on proper wound care procedures 05/07/2024 Document patient eligibility for HBO 05/07/2024 Assess patient for HBO treatment 05/07/2024 Record wound depth 05/07/2024 Record total wound area 05/07/2024 Measure wound progress 05/07/2024 Provide caregiver with wound care procedure information 05/07/2024 Educate caregiver on proper wound care procedures 05/07/2024 Document patient eligibility for HBO 05/07/2024 Assess patient for HBO treatment 05/07/2024 Record wound depth 05/07/2024 Record total wound area 05/07/2024 Measure wound progress 05/07/2024 Provide caregiver with wound care procedure information 05/07/2024 Educate caregiver on proper wound care procedures 05/07/2024 Give provider list of wound care supplies 05/07/2024 Refill wound care supplies 05/07/2024 Send Wound Care Supplies 05/07/2024 Give provider list of wound care supplies 05/07/2024 Refill wound care supplies 05/07/2024 Send Wound Care Supplies 05/07/2024 Provide caregiver with wound care procedure information 05/07/2024 Educate caregiver on proper wound care procedures 05/07/2024 Document patient eligibility for HBO 05/07/2024 Assess patient for HBO treatment 05/07/2024 Record wound depth 05/07/2024 Record total wound area 05/07/2024 Measure wound progress 05/07/2024 Related Goals and Interventions Goal Associated Intervent ions Decrease Wound Volume by X% by date (in notes) Give provider list of wound care supplie s; Refill wound care supplies; Send Wound Care Supplies; Provide caregiver with wound care procedure information; Educate caregiver on proper wound care procedures; Document patient eligibility for HBO; Assess patient for HBO treatment; Record wound depth; Record total wound area; Measure wound progress Patient and Caregiver Unders tand Wound Care Education Provide caregiver with wound care proced ure information; Educate caregiver on proper wound care procedures; Give provider list of wound care supplies; Refill wound care supplies; Send Wound Care Supplies Wound volume breakdown reduc ed by X% by week 4 Provide caregiver with wound care proced ure information; Educate caregiver on proper wound care procedures; Document patient eligibility for HBO; Assess patient for HBO treatment; Record wound depth; Record total wound area; Measure wound progress Wound volume breakdown reduc ed by X% by week 8 Provide caregiver with wound care proced ure information; Educate caregiver on proper wound care procedures; Document patient eligibility for HBO; Assess patient for HBO treatment; Record wound depth; Record total wound area; Measure wound progress Wound volume breakdown reduc ed by X% by week 12 Provide caregiver with wound care proced ure information; Educate caregiver on proper wound care procedures; Document patient eligibility for HBO; Assess patient for HBO treatment; Record wound depth; Record total wound area; Measure wound progress Quit using tobacco (cigarett es, smokeless, etc) Create an action plan identifying patien t strengths and supports; Establish quit date with patient; Discuss prior cessation attempts; Discuss preferred method of cessation and plan; Discuss barriers to smoking cessation; Discuss smoking status with patient Reduce tobacco use (cigarett es, smokeless, etc) Create an action plan identifying patien t strengths and supports; Establish quit date with patient; Discuss prior cessation attempts; Discuss preferred method of cessation and plan; Discuss barriers to smoking cessation; Discuss smoking status with patient Decrease Wound Volume by X% by date (in notes) Give provider list of wound care supplie s; Refill wound care supplies; Send Wound Care Supplies; Provide caregiver with wound care procedure information; Educate caregiver on proper wound care procedures; Document patient eligibility for HBO; Assess patient for HBO treatment; Record wound depth; Record total wound area; Measure wound progress Patient and Caregiver Unders tand Wound Care Education Provide caregiver with wound care proced ure information; Educate caregiver on proper wound care procedures; Give provider list of wound care supplies; Refill wound care supplies; Send Wound Care Supplies
--- OUTSIDE RECORDS SUMMARY | 2024-08-24 16:16 | XMS_ITS | Encounter Summary ---
[facility] Organization [facility] Address [id number] [place] [phone] Care Team Providers Care Knife Cutter Name Role Phone Unavailable Primary Care Provider Unavailabl e Reason for Referral * Other Medical (Routine) - Pending Review Specialty Diagnoses / Procedures Referred By Contac t Referred To Contact Wound Care Diagnoses Type 2 diabetes mellitus with foot ulcer, unspecified whether roasterman insulin use (CMS/HCC) Non-pressure chronic ulcer of 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 (CMS/[facility]) Procedures Cellular Tissue Based Product Jameson Saravia MD [address] [place] [id number] Phone: tel: fax: Referral ID Status Reason Start Date Expiration Date V isits Requested Visits Authorized [id number] Pending Review 08/20/2024 08/20/2025 1 1 Reason for Visit * Reason Comments Wound Care * Auth/Cert (Routine) Specialty Diagnoses / Procedures Referred By Contac t Referred To Contact Diagnoses Abrasion, unspecified foot, initial encounter Procedures INITIAL INPATIENT CONSULT NEW/ESTAB PT 80 MIN [facility] [address] [place] [phone] Phone: tel: fax: Referral ID Status Reason Start Date Expiration Date Visits Re quested Visits Authorized [id number] Encounter Details Date Type Department Care Team (Late st Contact Info) Description 08/20/2024 2:00 PM EST Office Visit [facility] [address] [place] [phone] Jameson Saravia MD [address] [place] [phone] Type 2 diabetes mellitus with foot ulcer, unspecified whether chcf insulin use ([facility]) (Primary Dx); Non-pressure chronic ulcer of 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 ([facility]) Social History Tobacco Use Types Packs/Day Years Used Date Smoking Tobacco: Never Smokeless Tobacco: Never Alcohol Use Standard Drinks/Week Comments Yes 1 (1 standard drink = 0.6 oz pur e alcohol) Sex and Gender Information Value Date Recorded Sex Assigned at Male 04/30/2024 1:23 PM EST Legal Sex Male 3:44 PM EDT Gender Identity Male 04/30/2024 1:23 PM EST Sexual Orientation Straight 04/30/2024 1: 23 PM EST documented as of this encounter Last Filed Vital Signs Vital Sign Reading Time Taken Comments Blood Pressure 144/69 08/20/2024 3:10 PM EST Pulse 66 08/20/2024 3:10 PM EST Temperature 36.6 ??C (97.9 ??F) 08/20/2024 3:10 PM ES T Respiratory Rate 16 08/20/2024 3:10 PM EST Oxygen Saturation 100% 08/20/2024 3:10 PM EST Inhaled Oxygen Concentration - - Weight - - Height - - Body Mass Index - - documented in this encounter Progress Notes * Jadyn Altamirano RN - 08/20/2024 2:00 PM EST PHYSICIAN ORDERS Go to ER if you are presenting with fever, chills, increased redness, pain, swelling, warmth aroundwound area and/or foul smelling odor. If you have any questions or concerns, please contact the [facility] at . Follow up(s)/ Referrals: Vascular: [facility]- as scheduled [facility]: N/A Additional Orders: Patient to probiotics or live cultured yogurt daily while taking your antibiotic, Finish taking your antibiotic as prescribed, Increase protein in your diet to help promote wound healing, Maintain good blood sugar control Edema Control: (If your compression wrap(s) feel to tight, please elevate your leg(s) about heart level. If your wrap(s) are becoming painful and/or you loose sensation of toes/ are having toe discoloration (a change from your baseline), please remove / unwrap compression and notify [facility] at . ) Wear own home compression. Apply first thing in the morning prior to getting out of bed, OK to remove at bedtime. Offloading: Limit pressure to wound as much as possible Cellular/Tissue Based Products: Puraply AM, Cellular or tissue based product applied, protective layer applied over top. DO NOT REMOVE protective layer. May change outer dressing as directed. , Please keep dressing dry and intact. May change outer dressing ONLY as directed. DO NOT bathe without protective moisture barrier , DO NOT keep cellular or tissue product in place for more than 10 days. If you have not been seen at the wound care center in greater than 10 days and were not given removal instructions please call wound care center ([phone]). Bathing / Showering / Hygiene: May shower with protection but DO NOT get wound dressing(s) wet. Protect dressing(s) with water repellant cover ( for example- large plastic bag or cast bag) and then may take shower. Non-wound Condition/ Other Skin Care: Moisturize skin daily, avoiding wound area Wound Location(s): Wound #1 (Right Medial Ankle): Cleanser: N/A Periwound: N/A Topical: N/A Primary dressing: N/A Secondary dressing: Optilock Secure with: 4 conforming gauze roll , 1 paper tape Compression Therapy: Tubigrip E Dressing Change Frequency: Once each week ( if dressing has not been changed in 10 days call Wound Care Center [phone]) * Jessie Whipple RN - 08/20/2024 2:00 PM EST Patient states he had cortisone injections to bilateral knees this past Saturday. * Jameson Saravia MD - 08/20/2024 2:00 PM ESTAssociated Order(s): Debridement Diabetic Ulcer Right;Medial Ankle; Cellular Tissue Based Product Post-Procedure Diagnose(s): Non-pressure chronic ulcer of 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 (CMS/HCC); Type 2 diabetes mellitus with foot ulcer, unspecified whether roasterman insulin use (CMS/HCC) Images from the original note were not included. [facility] at [address] [phone] Office Visit Visit Date: 08/20/2024 Patient Name: Boo Hugo Date of : 1970 PCP: No primary care provider on file. HPI: Eitan is a 53-year-old male with history of lower extremity ulcers in the past, prediabetes but taking twice daily metformin has been seen at the wound care center since January for multiple wounds. Currently all wounds have healed except the right medial ankle wound. He has had multiple ablations done by endovascular and has been wearing compression and putting mupirocin on the wound bed. No fevers or chills. Taking Cipro as directed. Continued gentamicin to the wound bed and continues to report pain but thinks the wound is improving. No fevers or chills. Venous ultrasound, 02/05/2024, diffuse reflux and dilatation of GSV bilaterally Right GSV ablation, 02/18/2024, [facility] Below knee GSV ablation 02/26/24, [facility] Left GSV ablation, 03/11/24: [facility] Left below knee GSV ablation, 03/17/24, MIGUEL A Assessment and Plan: Right medial ankle ulcer with venous etiology has improved this week. He will complete the course of antibiotics and continue with wearing his compression stockings. PuraPly applied today and will follow-up in 1 week. Type 2 diabetes mellitus with foot ulcer, unspecified whether roasterman insulin use (CMS/HCC) (Primary) Non-pressure chronic ulcer of 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 (CMS/HCC) Other orders - Debridement - Debridement - Cellular Tissue Based Product All questions were answered to his satisfaction. He was counseled regarding my impressions, instructions for management, and the importance of compliance with treatment. Follow up in about 1 week (around 08/27/2024) for Puraply SUKHJINDER/ >>>>>>>>>>>>>>>>>>>>>>>>>>>>>>>>>>>>>>>>>>>>>>>>>>> Vital Signs: Visit Vitals BP (!) 141/77 (BP Location: Right arm, Patient Position: Sitting, BP Cuff Size: Adult) Pulse 67 Temp 36.6 ??C (97.9 ??F) (Temporal) Resp 16 Review of Systems: Review of Systems Constitutional: Negative for chills and fever. PHYSICAL EXAM Physical Exam Vitals and nursing note reviewed. Constitutional: Appearance: Normal appearance. He is not ill-appearing. Pulmonary: Effort: Pulmonary effort is normal. Skin: Comments: Right medial ankle ulcer has hypergranulation tissue within the wound bed with one 2 cm erythema surrounding the wound. Edema is well-controlled. No tunneling or undermining. WOUND ASSESSMENT If photograph of wound not visible on this note, please check under Media tab. Wound Diabetic Ulcer 01/14/24 Ankle Right;Medial (Active) Date First Assessed: 01/14/24 Primary Wound Type: Diabetic Ulcer Wound Approximate Age at First Assessment (Weeks): 6 weeks Hand Hygiene Completed: Yes Diabetic Ulcer Grading: Grade 1 Location: AnkleWound Location Orientation: Right;Medial Assessments 05/07/2024 11:03 AM 08/20/2024 2:25 PM Wound Image Wound Bed Tissue Assessment Granulation;Sloughing Granulation;Sloughing Stacy-Wound Assessment Clean;Maceration Red;Swollen (inflammed) Shape Irregular -- Wound Length (cm) 2.7 cm 2.4 cm Wound Width (cm) 2.4 cm 2.8 cm Wound Surface Area (cm^2) 6.48 cm^2 6.72 cm^2 Wound Depth (cm) 0.1 cm 0.1 cm Wound Volume (cm^3) 0.648 cm^3 0.672 cm^3 Wound Healing % -- -4 Drainage Description Serosanguineous Serosanguineous Drainage Amount Moderate Moderate Treatments Cleansed;Other (Comment) Cleansed Dressing -- Tubular stocking Dressing Status Old drainage -- Wound Bed Granulation (%) 25 % 50 % Wound Bed Epithelialization (%) 10 % 0 % Wound Bed Slough (%) 65 % 50 % Wound Bed Eschar (%) 0 % 0 % Tunneling 0 cm 0 cm Undermining -- 0 cm Edges Attached edges;Well-defined edges Well-defined edges;Attached edges Non-staged Wound Description -- Full thickness Active Orders Date Order Priority Status Authorizing Provider 08/20/24 1548 Debridement Routine Active Jameson Saravia MD 07/30/24 1457 Wound Care Supplies Routine Active Jameson Saravia MD - Wound Care Supplies: Optilock - Optilock Size: 4x4 - Days Supply:: 30 - Wound Care Refill Qty:: 1 - Debridement Performed:: Yes - Wound Drainage:: Moderate - Frequency of Dressing Change: daily - Face to face evaluation was performed on: 07/23/2024 Inactive Orders Date Order Priority Status Authorizing Provider 08/13/24 1518 Debridement Diabetic Ulcer Right;Medial Ankle Routine Completed Jameson Saravia MD 07/23/24 1523 Debridement Diabetic Ulcer Right;Medial Ankle Routine Completed Jameson Saravia MD 07/09/24 1441 Debridement Diabetic Ulcer Right;Medial Ankle Routine Completed JEREMIAH Garcia 07/02/24 1630 Debridement Diabetic Ulcer Right;Medial Ankle Routine Completed Jameson Saravia MD 06/12/24 1728 Cellular Tissue Based Product Diabetic Ulcer Right;Medial Ankle Routine Completed Jameson Saravia MD 06/12/24 1728 Debridement Diabetic Ulcer Right;Medial Ankle Routine Completed Jameson Saravia MD 06/04/24 1500 Cellular Tissue Based Product Diabetic Ulcer Right;Medial Ankle Routine Completed Jameson Saravia MD 06/04/24 1459 Debridement Diabetic Ulcer Right;Medial Ankle Routine Completed Jameson Saravia MD 05/26/24 1547 Debridement Diabetic Ulcer Right;Medial Ankle Routine Completed JEREMIAH Garcia 05/07/24 1210 Cellular Tissue Based Product Diabetic Ulcer Right;Medial Ankle Routine Completed Jameson Saravai MD 05/07/24 1210 Debridement Diabetic Ulcer Right;Medial Ankle Routine Completed Jameson Saravia MD Debridement Note: Debridement Diabetic Ulcer Right;Medial Ankle Performed by: Jameson Saravia MD Authorized by: Jameson Saravia MD Associated wounds: Wound Diabetic Ulcer 01/14/24 Ankle Right;Medial Consent: Consent obtained: Verbal Consent given by: Patient Risks discussed: Yes Time out: Immediately prior to the procedure a time out was called Debridement Details: Performed by: Physician Type: surgical Level: subcutaneous tissue Pain control: Lidocaine 4% Pain control administration: topical anesthesia Severity of Tissue Pre Debridement: Fat layer exposed Severity of Tissue Post Debridement: Fat layer exposed Time taken: 08/20/2024 2:25 PM Length (cm): 2.4 Width (cm): 2.8 Depth (cm): 0.1 Area (cm^2): 6.72 Time taken: 08/20/2024 2:26 PM Length (cm): 2.4 Width (cm): 2.8 Depth (cm): 0.2 Percent Debrided (%): 100 Surface Area (cm^2): 6.72 Area Debrided (cm^2): 6.72 Volume (cm^3): 1.34 Tissue and other material debrided: dermis, epidermis and subcutaneous tissue Devitalized tissue debrided: slough Instrument: Curette Amount of bleeding: small Hemostasis obtained with: Pressure Procedural pain: 0 Post-procedural pain: 0 Response to treatment: Procedure was tolerated well Cellular Tissue Based Product Date/Time: 08/20/2024 3:49 PM Performed by: Jameson Saravia MD Authorized by: Jameson Saravia MD Consent: Consent obtained: Written Consent given by: Patient Risks discussed: Bleeding, infection, poor cosmetic result and pain Alternatives discussed: No treatment, delayed treatment, observation and alternative treatment [place] protocol: Procedure explained and questions answered to patient or proxy's satisfaction: yes Relevant documents present and verified: yes Test results available and properly labeled: yes Imaging studies available: yes Immediately prior to procedure a time out was called: yes Patient identity confirmed: Verbally with patient Procedure details: Product applied: [employer] Product lot #: [id number] Product expiration: 10/26/2025 Amount used (cm^2): 4 Amount wasted (cm^2): 0 Secured: Yes Secured with: Mepitel, steri strips Post-procedure details: Patient tolerance of procedure: Tolerated well, no immediate complications PROVIDER ORDERS Patient Instructions PHYSICIAN ORDERS Go to ER if you are presenting with fever, chills, increased redness, pain, swelling, warmth aroundwound area and/or foul smelling odor. If you have any questions or concerns, please contact the [facility] at . Follow up(s)/ Referrals: Vascular: [facility]- as scheduled [facility]: N/A Additional Orders: Patient to probiotics or live cultured yogurt daily while taking your antibiotic, Finish taking your antibiotic as prescribed, Increase protein in your diet to help promote wound healing, Maintain good blood sugar control Edema Control: (If your compression wrap(s) feel to tight, please elevate your leg(s) about heart level. If your wrap(s) are becoming painful and/or you loose sensation of toes/ are having toe discoloration (a change from your baseline), please remove / unwrap compression and notify [facility] [place] at . ) Wear own home compression. Apply first thing in the morning prior to getting out of bed, OK to remove at bedtime. Offloading: Limit pressure to wound as much as possible Cellular/Tissue Based Products: Puraply AM, Cellular or tissue based product applied, protective layer applied over top. DO NOT REMOVE protective layer. May change outer dressing as directed. , Please keep dressing dry and intact. May change outer dressing ONLY as directed. DO NOT bathe without protective moisture barrier , DO NOT keep cellular or tissue product in place for more than 10 days. If you have not been seen at the wound care center in greater than 10 days and were not given removal instructions please call wound care center ([phone]). Bathing / Showering / Hygiene: May shower with protection but DO NOT get wound dressing(s) wet. Protect dressing(s) with water repellant cover ( for example- large plastic bag or cast bag) and then may take shower. Non-wound Condition/ Other Skin Care: Moisturize skin daily, avoiding wound area Wound Location(s): Wound #1 (Right Medial Ankle): Cleanser: N/A Periwound: N/A Topical: N/A Primary dressing: N/A Secondary dressing: Optilock Secure with: 4 conforming gauze roll , 1 paper tape Compression Therapy: Tubigrip E Dressing Change Frequency: Once each week ( if dressing has not been changed in 10 days call Wound Care Center [phone]) 08/20/2024 3:50 PM EST Jameson Saravia MD * Georgina Vargas RN - 08/20/2024 2:00 PM EST Discharge Patient directed to check out at ict help desk officer and collect visit summary with wound care directions and book follow up as directed. Dressings applied: Wound #1 (Right Medial Ankle): Primary dressing: Puraply AM, mepitel Secondary dressing: Optilock Secure with: 4 conforming gauze roll , 1 paper tape Compression Therapy: Tubigrip E Dressing technique was demonstrated and explained. Patient questions answered. Pt discharge from wound care center without issue or incidence. documented in this encounter Plan of Treatment Upcoming Encounters Date Type Department Care Team (Late st Contact Info) Description 08/27/2024 2:00 PM EDT Clinical Support [facility] [address] [place] [phone] 09/03/2024 2:15 PM EDT Clinical Support [facility] [address] [place] [phone] 09/10/2024 2:00 PM EDT Clinical Support [facility] [address] [phone] 09/17/2024 2:00 PM EDT Clinical Support [facility] [address] [place] [phone] 09/24/2024 2:00 PM EDT Clinical Support [facility] [address] [place] [phone] 10/01/2024 2:00 PM EDT Clinical Support [facility] [address] [place] [phone] 10/15/2024 2:00 PM EDT Clinical Support [facility] [address] [place] [phone] Scheduled Orders Name Type Priority Associated Diagnoses Orde r Schedule Debridement Procedures Routine Ordered: 11/2024 documented as of this encounter Goals Goal Patient Goal Type Associated Problems Recent Progress Patient-Stated? Author Decrease Wound Volume by X% by date (in notes) Care Plan Impaired Tissue On track( 3:57 PM EST) Jadyn Romero RN Note: 07/02/24- paper rx for optilock [...] Education Care Plan Impaired Tissue On track( 2:55 PM EST) Jadyn Romero RN Wound volume breakdown reduced by X% by week 4 Care Plan Impaired Tissue No Jadyn Altamirano [...] romised skin integrity. No Jadyn Altamirano RN documented as of this encounter Procedures Procedure Name Priority Date/Time Associated Diagnosis Comments CELLULAR TISSUE BASED PRODUCT Routine 08/20/2024 3:49 PM EST Type 2 diabetes mellitus with foot ulcer, unspecified whether roasterman insulin use ([facility]) Non-pressure chronic ulcer of 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 ([facility]) DEBRIDEMENT Routine 08/20/2024 2:00 PM EST Type 2 diabetes mellitus with foot ulcer, unspecified whether roasterman insulin use ([facility]) Non-pressure chronic ulcer of 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 (CMS/HCC) documented in this encounter Results * Cellular Tissue Based Product (08/20/2024 3:49 PM EST) Narrative Jameson Saravia MD - 08/20/2024 3:49 PM EST Jameson Saravia MD ? 08/20/2024 ??3:50 PM Cellular Tissue Based Product Date/Time: 08/20/2024 3:49 PM Performed by: Jameson Saravia MD Authorized by: Jameson Saravia MD ?? Consent: ??Consent obtained: ??Written ??Consent given by: ??Patient ??Risks discussed: ??Bleeding, infection, poor cosmetic result and pain ??Alternatives discussed: ??No treatment, delayed treatment, observation and alternative treatment [place] protocol: ??Procedure explained and questions answered to patient or proxy's satisfaction: yes ?Relevant documents present and verified: yes ?Test results available and properly labeled: yes ?Imaging studies available: yes ?Immediately prior to procedure a time out was called: yes ?Patient identity confirmed: ??Verbally with patient Procedure details: ??Product applied: ??PuraPly ??Product lot #: ??[id number] ??Product expiration: ??10/26/2025 ??Amount used (cm^2): ??4 ??Amount wasted (cm^2): ??0 ??Secured: Yes ?Secured with: ??Mepitel, steri strips Post-procedure details: ??Patient tolerance of procedure: ??Tolerated well, no immediate complications us Jaemson Saravia MD IN CLINIC/BEDSIDE ORDERAB LES Final Result * Debridement Diabetic Ulcer Right;Medial Ankle (08/20/2024 2:00 PM EST) Narrative Jameson Saravia MD - 08/20/2024 2:00 PM EST Jameson Saravia MD ? 08/20/2024 ??3:50 PM Debridement Diabetic Ulcer Right;Medial Ankle Performed by: Jameson Saravia MD Authorized by: Jameson Saravia MD ??Associated wounds: Wound Diabetic Ulcer 01/14/24 Ankle Right;Medial Consent: ??Consent obtained: ??Verbal ??Consent given by: ??Patient ??Risks discussed: Yes ?? Time out: Immediately prior to the procedure a time out was called ?? Debridement Details: ??Performed by: ??Physician ??Type: surgical ?Level: subcutaneous tissue ?Pain control: ??Lidocaine 4% ??Pain control administration: topical anesthesia ?Severity of Tissue Pre Debridement: ??Fat layer exposed ??Severity of Tissue Post Debridement: ??Fat layer exposed ??Time taken: ??08/20/2024 2:25 PM ??Length (cm): ??2.4 ??Width (cm): ??2.8 ??Depth (cm): ??0.1 ??Area (cm^2): ??6.72 ??Time taken: ??08/20/2024 2:26 PM ??Length (cm): ??2.4 ??Width (cm): ??2.8 ??Depth (cm): ??0.2 ??Percent Debrided (%): ??100 ??Surface Area (cm^2): ??6.72 ??Area Debrided (cm^2): ??6.72 ??Volume (cm^3): ??1.34 ??Tissue and other material debrided: dermis, epidermis and subcutaneous tissue ?Devitalized tissue debrided: slough ?Instrument: ??Curette ??Amount of bleeding: small ?Hemostasis obtained with: ??Pressure ??Procedural pain: ??0 ??Post-procedural pain: ??0 ??Response to treatment: ??Procedure was tolerated well us Jameson Saravia MD IN CLINIC/BEDSIDE ORDERAB LES Final Result documented in this encounter Visit Diagnoses Diagnosis Type 2 diabetes mellitus with foot ulcer, unspecified whether roasterman insulin use (CMS/HCC)- Primary Non-pressure chronic ulcer of 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 (CMS/HCC) documented in this encounter Additional Health Concerns Active Problems Noted Date Diagnosed Date Impaired Tissue 05/07/2024 Education needed on impact of smoking on wound 1 07/07/2023 Education needed related to ulceration/compromised skin integrity. 05/07/2024 documented as of this encounter
--- OUTSIDE RECORDS SUMMARY | 2024-08-24 16:16 | XMS_ITS | Clinical Summary ---
Author Organization [facility] Address [address] [place] [phone] Phone Care Team Providers Care Bookmaker'S Clerk Name Role Phone Unavailable Primary Care Provider Unavailabl e Allergies Active Allergy Reactions Criticality Noted Date Comments Morphine Headache High 05/07/2024 Medications diclofenac (VOLTAREN) 25 mg EC tablet Take 1 tablet (25 mg total) by mouth 2 (two) times a day. Do not crush, chew, or split. Active gabapentin (NEURONTIN) 100 mg capsule Take 1 capsule (100 mg total) by mouth 2 (two) times a day. Active metFORMIN (GLUCOPHAGE) 500 mg tablet Take 1 tablet (500 mg total) by mouth 2 (two) times a day. Active ferrous sulfate 325 mg (65 mg elemental iron) tablet Take 1 tablet (325 mg total) by mouth 1 (one) time each day with breakfast. Active gentamicin (GARAMYCIN) 0.1 % ointment Apply topically 3 (three) times a day. 15 g 2 5 07/02/19 26 Active ciprofloxacin (Cipro) 500 mg tablet Take 1 tablet (500 mg total) by mouth 2 (two) times a day for 10 days. 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 05/07/2024 Type 2 diabetes mellitus with foot ulcer 024 Chronic venous hypertension (idiopathic) with ulcer of right lower extremity 05/07/2024 Resolved Problems Problem Noted Date Diagnosed Date Resolved Date Type 2 diabetes mellitus with foot ulcer 05/07/2024 05/07/2024 Encounters Date Type Department Care Team Description 08/20/2024 2:00 PM EST Office Visit [facility] [address] [place] [phone] Jameson Saravia MD Type 2 diabetes mellitus with foot ulcer, unspecified whether exterminator insulin use (CMS/HCC) (Primary Dx); Non-pressure chronic ulcer of 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 (CMS/HCC) 08/13/2024 2:00 PM EST Office Visit [facility] [address] [place] [phone] Jameson Saravia MD Non-pressure chronic ulcer of 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 (CMS/HCC) (Primary Dx); Type 2 diabetes mellitus with foot ulcer, without long-term current use of insulin (CMS/HCC); Chronic venous hypertension (idiopathic) with ulcer of right lower extremity (CMS/HCC); Cellulitis of right lower leg 07/23/2024 1:45 PM EST Office Visit [facility] [address] [place] [phone] Jameson Saravia MD Non-pressure chronic ulcer of 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 (CMS/HCC) (Primary Dx); Type 2 diabetes mellitus with foot ulcer, without long-term current use of insulin (CMS/HCC); Chronic venous hypertension (idiopathic) with ulcer of right lower extremity (CMS/HCC) 07/09/2024 2:00 PM EST Office Visit [facility] [address] [place] [phone] Seng Paulson PA Non-pressure chronic ulcer of 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 (CMS/HCC) (Primary Dx); Type 2 diabetes mellitus with foot ulcer, without long-term current use of insulin (CMS/HCC) 07/02/2024 2:45 PM EST Office Visit [facility] [address] [place] [phone] Jameson Saravia MD Chronic venous hypertension (idiopathic) with ulcer of right lower extremity (CMS/HCC) (Primary Dx); Non-pressure chronic ulcer of 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 (CMS/HCC); Type 2 diabetes mellitus with foot ulcer, without long-term current use of insulin (CMS/HCC) 06/25/2024 2:00 PM EST Office Visit [facility] [address] [place] [phone] Jameson Saravia MD Chronic venous hypertension (idiopathic) with ulcer of right lower extremity (CMS/HCC) (Primary Dx); Non-pressure chronic ulcer of 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 (CMS/HCC) 06/18/2024 2:15 PM EST Office Visit [facility] [address] [place] [phone] Jameson Saravia MD Chronic venous hypertension (idiopathic) with ulcer of right lower extremity (CMS/HCC) (Primary Dx); Non-pressure chronic ulcer of 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 (CMS/HCC); Type 2 diabetes mellitus with foot ulcer, without long-term current use of insulin (CMS/HCC) 06/12/2024 2:15 PM EST Office Visit [facility] [address] [place] [phone] Jameson Saravia MD Chronic venous hypertension (idiopathic) with ulcer of right lower extremity (CMS/HCC) (Primary Dx); Non-pressure chronic ulcer of 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 (CMS/HCC); Type 2 diabetes mellitus with foot ulcer, without long-term current use of insulin (CMS/HCC) 06/04/2024 2:00 PM EST Office Visit [facility] [address] [place] [phone] Jameson Saravia MD Chronic venous hypertension (idiopathic) with ulcer of right lower extremity (CMS/HCC) (Primary Dx); Non-pressure chronic ulcer of 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 (CMS/HCC); Type 2 diabetes mellitus with foot ulcer, without long-term current use of insulin (CMS/HCC) 05/26/2024 3:00 PM EST Office Visit [facility] [address] [place] [phone] Seng Paulson PA Chronic venous hypertension (idiopathic) with ulcer of right lower extremity (CMS/HCC) (Primary Dx); Non-pressure chronic ulcer of 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 (CMS/HCC); Type 2 diabetes mellitus with foot ulcer, without long-term current use of insulin ([facility]) from Last 3 Months Surgical History Surgery Date Site/Laterality Comments REVISION TOTAL HIP ARTHROPLASTY 03/17/2019 - 04/16/2019 Bilateral Medical History Medical History Date Comments Arthritis Delayed wound healing Social History Tobacco Use Types Packs/Day Years Used Date Smoking Tobacco: Never Smokeless Tobacco: Never Tobacco Cessation:Counseling Given: Not Answered Alcohol Use Standard Drinks/Week Comments Yes 1 (1 standard drink = 0.6 oz pur e alcohol) Sex and Gender Information Value Date Recorded Sex Assigned at Male 04/30/2024 1:23 PM EST Legal Sex Male 3:44 PM EDT Gender Identity Male 04/30/2024 1:23 PM EST Sexual Orientation Straight 04/30/2024 1: 23 PM EST Obstetrics History Last Filed Vital Signs Vital Sign Reading Time Taken Comments Blood Pressure 144/69 08/20/2024 3:10 PM EST Pulse 66 08/20/2024 3:10 PM EST Temperature 36.6 ??C (97.9 ??F) 08/20/2024 3:10 PM ES T Respiratory Rate 16 08/20/2024 3:10 PM EST Oxygen Saturation 100% 08/20/2024 3:10 PM EST Inhaled Oxygen Concentration - - Weight 109 kg (240 lb) 05/07/2024 10:52 AM EST Height 180.3 cm (5' 11 ) 05/07/2024 10:52 AM EST Body Mass Index 33.47 05/07/2024 10:52 AM EST Plan of Treatment Upcoming Encounters Date Type Department Care Team (Late st Contact Info) Description 08/27/2024 2:00 PM EDT Clinical Support [facility] [address] [place] [phone] 09/03/2024 2:15 PM EDT Clinical Support [facility] [address] [place] [phone] 09/10/2024 2:00 PM EDT Clinical Support [facility] [address] [place] [phone] 09/17/2024 2:00 PM EDT Clinical Support [facility] [address] [place] [phone] 09/24/2024 2:00 PM EDT Clinical Support [facility] [address] [place] [phone] 10/01/2024 2:00 PM EDT Clinical Support [facility] [address] [place] [phone] 10/15/2024 2:00 PM EDT Clinical Support [facility] [address] [place] [phone] Health Maintenance Due Date Last Done Comments Diabetes: Annual GFR (Glomer ular Filtration Rate) 1969 Diabetes: Annual Foot Exam 1979 Diabetes: Annual Retina Eye Exam 1979 DTaP,Tdap,and Td Vaccines (1 - Tdap) 1988 Hepatitis B Vaccines (1 of 3 - 19+ 3-dose series) 1988 Pneumococcal Vaccine: 50+ Ye ars (1 of 2 - PCV) 1988 Pneumococcal Vaccine: Pediat rics (0 to 5 Years) and At-Risk Patients (6 to 64 Years) (1 of 2 - PCV) 1988 Zoster Vaccines (1 of 2) 2019 COVID-19 Vaccine (2023-2 5 season) 2024 Influenza Vaccine (#1) 2024 Cholesterol Screening (Lipid Panel) 03/25/2024 Colorectal Cancer Screening: Colonoscopy 03/25/2024 Depression Screening 03/25/2024 Diabetes: Annual Urine Albumin-Creatinine Ratio (uACR) 03/25/2024 Diabetes: Blood Sugar Contro l Test (HGBA1C) 03/25/2024 HIV Screening 03/25/2024 Hepatitis C Screening 03/25/2024 Social Influencers of Health Screening 03/25/2024 HIB Vaccines Aged Out No longer eligi ble based on patient's age to complete this topic HPV Vaccines Aged Out No longer eligi ble based on patient's age to complete this topic Hepatitis A Vaccines Aged Out No long er eligible based on patient's age to complete this topic IPV Vaccines Aged Out No longer eligi ble based on patient's age to complete this topic MMR Vaccines Aged Out No longer eligi ble based on patient's age to complete this topic Meningococcal ACWY Vaccine Aged Out N o longer eligible based on patient's age to complete this topic Meningococcal B Vacine Aged Out No lo nger eligible based on patient's age to complete this topic RSV Immunization Patients Un becky 20 months Aged Out No longer eligible b ased on patient's age to complete this topic Varicella Vaccines Aged Out No longer eligible based on patient's age to complete this topic Goals Goal Patient Goal Type Associated Problems Recent Progress Patient-Stated? Author Decrease Wound Volume by X% by date (in notes) Care Plan Impaired Tissue On track( 3:57 PM EST) No Jadyn Altamirano RN Note: 07/02/24- paper rx for optilock [...] Impaired Tissue On track( 2:55 PM EST) No Jadyn Altamirano RN Wound volume breakdown [...] to ulceration/comp romised skin integrity. No Jadyn Altamirano, sales branch manager Procedure Name Priority Date/Time Associated Diagnosis Comments CELLULAR TISSUE BASED PRODUCT Routine 08/20/2024 3:49 PM EST Type 2 diabetes mellitus with foot ulcer, unspecified whether exterminator insulin use (CMS/HCC) Non-pressure chronic ulcer of 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 (CMS/HCC) DEBRIDEMENT Routine 08/20/2024 2:00 PM EST Type 2 diabetes mellitus with foot ulcer, unspecified whether exterminator insulin use (CMS/HCC) Non-pressure chronic ulcer of 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 (CMS/HCC) DEBRIDEMENT Routine 08/13/2024 2:00 PM EST Non-pressure chronic ulcer of 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 (CMS/HCC) Type 2 diabetes mellitus with foot ulcer, without long-term current use of insulin (CMS/HCC) DEBRIDEMENT Routine 07/23/2024 1:45 PM EST Non-pressure chronic ulcer of 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 (CMS/HCC) Type 2 diabetes mellitus with foot ulcer, without long-term current use of insulin (CMS/HCC) Chronic venous hypertension (idiopathic) with ulcer of right lower extremity (CMS/HCC) DEBRIDEMENT Routine 07/09/2024 2:00 PM EST Non-pressure chronic ulcer of 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 (CMS/HCC) Type 2 diabetes mellitus with foot ulcer, without long-term current use of insulin (CMS/HCC) DEBRIDEMENT Routine 07/02/2024 2:45 PM EST Chronic venous hypertension (idiopathic) with ulcer of right lower extremity (CMS/HCC) Non-pressure chronic ulcer of 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 (CMS/HCC) Type 2 diabetes mellitus with foot ulcer, without long-term current use of insulin (CMS/HCC) CELLULAR TISSUE BASED PRODUCT Routine 06/12/2024 5:28 PM EST Chronic venous hypertension (idiopathic) with ulcer of right lower extremity (CMS/HCC) Non-pressure chronic ulcer of 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 (CMS/HCC) DEBRIDEMENT Routine 06/12/2024 2:15 PM EST Chronic venous hypertension (idiopathic) with ulcer of right lower extremity (CMS/HCC) Non-pressure chronic ulcer of 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 (CMS/HCC) CELLULAR TISSUE BASED PRODUCT Routine 06/04/2024 3:00 PM EST Chronic venous hypertension (idiopathic) with ulcer of right lower extremity (CMS/HCC) Non-pressure chronic ulcer of 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 (CMS/HCC) DEBRIDEMENT Routine 06/04/2024 2:00 PM EST Chronic venous hypertension (idiopathic) with ulcer of right lower extremity (CMS/HCC) Non-pressure chronic ulcer of 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 (CMS/HCC) DEBRIDEMENT Routine 05/26/2024 3:00 PM EST Chronic venous hypertension (idiopathic) with ulcer of right lower extremity (CMS/HCC) Non-pressure chronic ulcer of 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 (CMS/HCC) Type 2 diabetes mellitus with foot ulcer, without long-term current use of insulin (CMS/HCC) from Last 3 Months Results * Cellular Tissue Based Product (08/20/2024 [...] treatment, delayed treatment, observation and alternative treatment [facility] protocol: ??Procedure explained and questions answered to patient or proxy's satisfaction: yes ?Relevant documents present and verified: yes ?Test results available and properly labeled: yes ?Imaging studies available: yes ?Immediately prior to procedure a time out was called: yes ?Patient identity confirmed: ??Verbally with patient Procedure details: ??Product applied: ??PuraPly ??Product lot #: ??[id number] ??Product expiration: ??10/26/2025 ??Amount used (cm^2): ??4 ??Amount wasted (cm^2): ??0 ??Secured: Yes ?Secured with: ??Mepitel, steri strips Post-procedure details: ??Patient tolerance of procedure: ??Tolerated well, no immediate complications us Jameson Saravia MD IN CLINIC/BEDSIDE ORDERAB LES Final Result * Debridement Diabetic Ulcer Right;Medial Ankle (08/20/2024 2:00 PM EST) Jameson Metz MD - 08/20/2024 2:00 PM EST Jameson [...] Result * Debridement Diabetic Ulcer Right;Medial Ankle (08/13/2024 2:00 PM EST) Narrative Jameson Saravia MD - 08/13/2024 2:00 PM EST Jameson Saravia MD ? 08/14/2024 ??8:09 AM Debridement Diabetic Ulcer Right;Medial Ankle Performed by: [...] of Tissue Post Debridement: ??Fat layer exposed ??Length (cm): ??2.7 ??Width (cm): ??2.2 ??Depth (cm): ??0.1 ??Area (cm^2): ??5.94 ??Length (cm): ??2.7 ??Width (cm): ??2.2 ??Depth (cm): ??0.1 ??Percent Debrided (%): ??100 ??Surface Area (cm^2): ??5.94 ??Area Debrided (cm^2): ??5.94 ??Volume (cm^3): ??0.59 ??Tissue and other material debrided: dermis, epidermis and subcutaneous tissue ?Devitalized tissue debrided: slough ?Instrument: ??Curette ??Amount of bleeding: small ?Hemostasis obtained with: ??Pressure ??Procedural pain: ??0 ??Post-procedural pain: ??0 ??Response to treatment: ??Procedure was tolerated well us Jameson Saravia MD IN CLINIC/BEDSIDE ORDERAB LES Edited Result - Final * Debridement Diabetic Ulcer Right;Medial Ankle (07/23/2024 1:45 PM EST) Narrative Jameson Saravia MD - 07/23/2024 1:45 PM EST Jameson Saravia MD ? 07/23/2024 ??3:24 PM Debridement Diabetic Ulcer Right;Medial Ankle Performed by: Jameson Saravia MD Authorized by: Jameson Saravia MD ?? Associated wounds: Wound Diabetic Ulcer 01/14/24 Ankle [...] Post Debridement: ??Fat layer exposed ??Time taken: ??07/23/2024 2:08 PM ??Length (cm): ??2.9 ??Width (cm): ??2.4 ??Depth (cm): ??0.1 ??Area (cm^2): ??6.96 ??Time taken: ??07/23/2024 2:09 PM ??Length (cm): ??2.9 ??Width (cm): ??2.4 ??Depth (cm): ??0.1 ??Percent Debrided (%): ??100 ??Surface Area (cm^2): ??6.96 ??Area Debrided (cm^2): ??6.96 ??Volume (cm^3): ??0.7 ??Tissue and other material debrided: dermis, epidermis and subcutaneous tissue ?Devitalized tissue debrided: slough ?Instrument: ??Curette ??Amount of bleeding: small ?Hemostasis obtained with: ??Pressure ??Procedural pain: ??0 ??Post-procedural pain: ??0 ??Response to treatment: ??Procedure was tolerated well us Jameson Saravia MD IN CLINIC/BEDSIDE ORDERAB LES Final Result * Debridement Diabetic Ulcer Right;Medial Ankle (07/09/2024 2:00 PM EST) Narrative Jameson Saravia MD - 07/09/2024 2:00 PM EST JEREMIAH Garcia ? 07/09/2024 ??2:43 PM Debridement Diabetic Ulcer Right;Medial Ankle Performed by: JEREMIAH Garcia Authorized by: JEREMIAH Garcia ?? Associated wounds: Wound Diabetic Ulcer 01/14/24 Ankle Right;Medial Consent: ??Consent obtained: ??Verbal ??Consent given by: ??Patient ??Risks discussed: Yes ?? Time out: Immediately prior to the procedure a time out was called ?? Debridement Details: ??Performed by: ??PA ??Type: surgical ?Level: subcutaneous tissue ?Pain control: ??Lidocaine 4% ??Pain control administration: topical anesthesia ?Severity of Tissue Pre Debridement: ??Fat layer exposed ??Severity of Tissue Post Debridement: ??Fat layer exposed ??Time taken: ??07/09/2024 2:21 PM ??Length (cm): ??2.9 ??Width (cm): ??2.5 ??Depth (cm): ??0.1 ??Area (cm^2): ??7.25 ??Time taken: ??07/09/2024 2:22 PM ??Length (cm): ??2.9 ??Width (cm): ??2.5 ??Depth (cm): ??0.1 ??Percent Debrided (%): ??100 ??Surface Area (cm^2): ??7.25 ??Area Debrided (cm^2): ??7.25 ??Volume (cm^3): ??0.73 ??Tissue and other material debrided: dermis, epidermis and subcutaneous tissue ?Devitalized tissue debrided: biofilm and slough ?Instrument: ??Curette ??Amount of bleeding: none ?Hemostasis obtained with: ??Not applicable ??Procedural pain: ??4 ??Post-procedural pain: ??2 ??Response to treatment: ??Procedure was tolerated well us Seng DANIELS IN CLINIC/BEDSIDE ORDERABLE S Final Result * Debridement Diabetic Ulcer Right;Medial Ankle (07/02/2024 2:45 PM EST) Narrative Jameson Saravia MD - 07/02/2024 2:45 PM EST Jamesno Saravia MD ? 07/02/2024 ??4:30 PM Debridement Diabetic Ulcer Right;Medial Ankle Performed by: Jameson Saravia MD Authorized by: Jameson Saravia MD ?? Associated wounds: Wound Diabetic Ulcer 01/14/24 Ankle [...] Post Debridement: ??Fat layer exposed ??Time taken: ??07/02/2024 2:47 PM ??Length (cm): ??3.1 ??Width (cm): ??2.8 ??Depth (cm): ??0.1 ??Area (cm^2): ??8.68 ??Time taken: ??07/02/2024 2:48 PM ??Length (cm): ??3.1 ??Width (cm): ??2.8 ??Depth (cm): ??0.1 ??Percent Debrided (%): ??100 ??Surface Area (cm^2): ??8.68 ??Area Debrided (cm^2): ??8.68 ??Volume (cm^3): ??0.87 ??Tissue and other material debrided: dermis, epidermis and subcutaneous tissue ?Devitalized tissue debrided: slough ?Instrument: ??Curette ??Amount of bleeding: small ?Hemostasis obtained with: ??Pressure ??Procedural pain: ??0 ??Post-procedural pain: ??0 ??Response to treatment: ??Procedure was tolerated well us Jameson Saravia MD IN CLINIC/BEDSIDE ORDERAB LES Final Result * Cellular Tissue Based Product Diabetic Ulcer Right;Medial Ankle (06/12/2024 5:28 PM EST) Jameson Metz MD - 06/12/2024 5:28 PM EST Jameson Saravia MD ? 06/12/2024 ??5:30 PM Cellular Tissue Based Product Diabetic Ulcer Right;Medial Ankle Date/Time: 06/12/2024 5:28 PM Performed by: Jameson Saravia MD Authorized by: Jameson Saravia MD ?? Associated wounds: Wound Diabetic Ulcer 01/14/24 Ankle Right;Medial Consent: ??Consent obtained: ??Written ??Consent given by: ??Patient ??Risks discussed: ??Bleeding, infection, poor cosmetic result and pain ??Alternatives discussed: ??No treatment, delayed treatment, observation and alternative treatment [facility] protocol: ??Procedure explained and questions answered to patient or proxy's satisfaction: yes ?Relevant documents present and verified: yes ?Test results available and properly labeled: yes ?Imaging studies available: yes ?Immediately prior to procedure a time out was called: yes ?Patient identity confirmed: ??Verbally with patient Anesthesia (see MAR for exact dosages): ??Anesthesia method: ??Topical application ??Topical anesthetic: ??Lidocaine gel Procedure details: ??Product applied: ??Epifix ??Product lot #: ??[id number] ??Product expiration: ??12/15/2028 ??Amount used (cm^2): ??6 ??Amount wasted (cm^2): ??0 ??Secured: Yes ?Secured with: ??Mepitel, steri strips Post-procedure details: ??Patient tolerance of procedure: ??Tolerated well, no immediate complications us Jameson Saravia MD IN CLINIC/BEDSIDE ORDERAB LES Final Result * Debridement Diabetic Ulcer Right;Medial Ankle (06/12/2024 2:15 PM EST) Narrative Jameson Saravia MD - 06/12/2024 2:15 PM EST Jameson Saravia MD ? 06/12/2024 ??5:30 PM Debridement Diabetic Ulcer Right;Medial Ankle Performed by: Jameson Saravia MD Authorized by: Jameson Saravia MD ?? Associated wounds: Wound Diabetic Ulcer 01/14/24 Ankle [...] Post Debridement: ??Fat layer exposed ??Time taken: ??06/12/2024 2:57 PM ??Length (cm): ??3.6 ??Width (cm): ??3 ??Depth (cm): ??0.1 ??Area (cm^2): ??10.8 ??Time taken: ??06/12/2024 2:58 PM ??Length (cm): ??3.6 ??Width (cm): ??3.6 ??Depth (cm): ??0.1 ??Percent Debrided (%): ??100 ??Surface Area (cm^2): ??12.96 ??Area Debrided (cm^2): ??12.96 ??Volume (cm^3): ??1.3 ??Tissue and other material debrided: dermis, epidermis and subcutaneous tissue ?Devitalized tissue debrided: slough ?Instrument: ??Curette ??Amount of bleeding: small ?Hemostasis obtained with: ??Pressure ??Procedural pain: ??0 ??Post-procedural pain: ??0 ??Response to treatment: ??Procedure was tolerated well us Jameson Saravia MD IN CLINIC/BEDSIDE ORDERAB LES Final Result * Cellular Tissue Based Product Diabetic Ulcer Right;Medial Ankle (06/04/2024 3:00 PM EST) Narrative Jameson Saravia MD - 06/04/2024 3:00 PM EST Jameson Saravia MD ? 06/04/2024 ??3:40 PM Cellular Tissue Based Product Diabetic Ulcer Right;Medial Ankle Date/Time: 06/04/2024 3:00 PM Performed by: Jameson Saravia MD Authorized by: Jameson Saravia MD ?? Associated wounds: Wound Diabetic Ulcer 01/14/24 Ankle Right;Medial Consent: ??Consent obtained: ??Written ??Consent given by: ??Patient ??Risks discussed: ??Bleeding, infection, poor cosmetic result and pain ??Alternatives discussed: ??No treatment, delayed treatment, observation and alternative treatment [facility] protocol: ??Procedure explained and questions answered to patient or proxy's satisfaction: yes ?Relevant documents present and verified: yes ?Test results available and properly labeled: yes ?Imaging studies available: yes ?Immediately prior to procedure a time out was called: yes ?Patient identity confirmed: ??Verbally with patient Anesthesia (see MAR for exact dosages): ??Anesthesia method: ??Topical application ??Topical anesthetic: ??Lidocaine gel Procedure details: ??Product applied: ??Epifix ??Product lot #: ??[id number] ??Product expiration: ??11/15/2028 ??Amount used (cm^2): ??6 ??Amount wasted (cm^2): ??0 ??Secured: Yes ?Secured with: ??Mepitel, steri strips Post-procedure details: ??Patient tolerance of procedure: ??Tolerated well, no immediate complications us Jameson Saravia MD IN CLINIC/BEDSIDE ORDERAB LES Final Result * Debridement Diabetic Ulcer Right;Medial Ankle (06/04/2024 2:00 PM EST) Narrative Jameson Saravia MD - 06/04/2024 2:00 PM EST Jameson Saravia MD ? 06/04/2024 ??3:40 PM Debridement Diabetic Ulcer Right;Medial Ankle Performed by: Jameson Saravia MD Authorized by: Jameson Saravia MD ?? Associated wounds: Wound Diabetic Ulcer 01/14/24 Ankle [...] Post Debridement: ??Fat layer exposed ??Time taken: ??06/04/2024 2:16 PM ??Length (cm): ??3.1 ??Width (cm): ??3.2 ??Depth (cm): ??0.1 ??Area (cm^2): ??9.92 ??Time taken: ??06/04/2024 2:17 PM ??Length (cm): ??3.1 ??Width (cm): ??3.2 ??Depth (cm): ??0.1 ??Percent Debrided (%): ??100 ??Surface Area (cm^2): ??9.92 ??Area Debrided (cm^2): ??9.92 ??Volume (cm^3): ??0.99 ??Tissue and other material debrided: dermis, epidermis and subcutaneous tissue ?Devitalized tissue debrided: slough ?Instrument: ??Curette ??Amount of bleeding: small ?Hemostasis obtained with: ??Pressure ??Procedural pain: ??0 ??Post-procedural pain: ??0 ??Response to treatment: ??Procedure was tolerated well us Jameson Saravia MD IN CLINIC/BEDSIDE ORDERAB LES Final Result * Debridement Diabetic Ulcer Right;Medial Ankle (05/26/2024 3:00 PM EST) Jameson Metz MD - 05/26/2024 3:00 PM EST JEREMIAH Garcia ? 05/26/2024 ??3:51 PM Debridement Diabetic Ulcer Right;Medial Ankle Performed by: JEREMIAH Garcia Authorized by: JEREMIAH Garcia ?? Associated wounds: Wound Diabetic Ulcer 01/14/24 Ankle Right;Medial Consent: ??Consent obtained: ??Verbal ??Consent given by: ??Patient ??Risks discussed: Yes ?? Time out: Immediately prior to the procedure a time out was called ?? Debridement Details: ??Performed by: ??PA ??Type: selective ?Pain control: ??Lidocaine 4% ??Pain control administration: topical anesthesia ?Severity of Tissue Pre Debridement: ??Fat layer exposed ??Severity of Tissue Post Debridement: ??Fat layer exposed ??Time taken: ??05/26/2024 3:34 PM ??Length (cm): ??3.4 ??Width (cm): ??3 ??Depth (cm): ??0.1 ??Area (cm^2): ??10.2 ??Time taken: ??05/26/2024 3:35 PM ??Length (cm): ??3.4 ??Width (cm): ??3 ??Depth (cm): ??0.1 ??Percent Debrided (%): ??100 ??Surface Area (cm^2): ??10.2 ??Area Debrided (cm^2): ??10.2 ??Volume (cm^3): ??1.02 ??Tissue and other material debrided: hypergranulation and subcutaneous tissue ?Devitalized tissue debrided: biofilm, exudate, fibrin and slough ?Instrument: ??Curette ??Amount of bleeding: none ?Hemostasis obtained with: ??Not applicable ??Procedural pain: ??0 ??Post-procedural pain: ??0 ??Response to treatment: ??Procedure was not tolerated well Seng DANIELS IN CLINIC/BEDSIDE ORDERABLE S Final Result from Last 3 Months Additional Health Concerns Active Problems Noted Date Diagnosed Date Impaired Tissue 05/07/2024 Education needed on impact of smoking on wound 1 07/07/2023 Education needed related to ulceration/compromised skin integrity. 05/07/2024 Insurance [id number] [place] [address] [facility]
--- OUTSIDE RECORDS SUMMARY | 2024-08-24 16:16 | XMS_ITS | Encounter Summary ---
Author Organization [employer] Address [address] [place] [address] Care Team Providers Care [employer] Driver Name Role Phone Unavailable Primary Care Provider Unavailabl e Reason for Visit * Reason Comments Wound Care Encounter Details Date Type Department Care Team (Late st Contact Info) Description 07/23/2024 1:45 PM EST Office Visit 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) (Primary Dx); Type 2 diabetes mellitus with foot ulcer, without long-term current use of insulin (CMS/HCC); Chronic venous hypertension (idiopathic) with ulcer of right lower extremity (CMS/HCC) Social History Tobacco Use Types Packs/Day Years [...] Sign Reading Time Taken Comments Blood Pressure 133/82 07/23/2024 2:10 PM EST Pulse 86 07/23/2024 2:10 PM EST Temperature 36.7 ??C (98.1 ??F) 07/23/2024 2:10 PM ES T Respiratory Rate 17 07/23/2024 2:10 PM EST Oxygen Saturation 100% 07/23/2024 2:10 PM EST Inhaled Oxygen Concentration - - Weight - - Height - - Body Mass Index - - documented in this encounter Progress Notes * Cece Altamirano RN - 07/23/2024 1:45 PM EST PHYSICIAN ORDERS Go to ER if you are presenting with fever, chills, increased redness, pain, swelling, warmth aroundwound area and/or foul smelling odor. If you have any questions or concerns, please contact the [facility] at . Follow up(s)/ Referrals: Vascular: [facility]- as scheduled Snf: N/A Additional Orders: Increase protein in your diet to help promote wound healing, Maintain good blood sugar control Edema Control: (If your compression wrap(s) feel to tight, please elevate your leg(s) about heart level. If your wrap(s) are becoming painful and/or you loose sensation of toes/ are having toe discoloration (a change from your baseline), please remove / unwrap compression and notify [facility] at . ) Wear own home compression. Apply first thing in the morning prior to getting out of bed, OK to remove at bedtime. Offloading: Limit pressure to wound as much as possible Cellular/Tissue Based Products: N/A Bathing / Showering / Hygiene: May shower with protection but DO NOT get wound dressing(s) wet. Protect dressing(s) with water repellant cover ( for example- large plastic bag or cast bag) and then may take shower. Non-wound Condition/ Other Skin Care: Moisturize skin daily, avoiding wound area Wound Location(s): Wound #1 (Right Medial Ankle): Cleanser: N/A Periwound: Apply Zinc Oxide to stacy wound Topical: Gentamicin 0.1% ointment- Apply a thin layer to wound bed Primary dressing: N/A Secondary dressing: Optilock Secure with: 4 conforming gauze roll , 1 paper tape Compression Therapy: Tubigrip E Dressing Change Frequency: Daily * Cece Altamirano RN - 07/23/2024 1:45 PM ESTAddended by: CECE ALTAMIRANO on: 07/30/2024 02:58 PM Modules accepted: Orders * Jameson Saravia MD - 07/23/2024 1:45 PM ESTAssociated Order(s): Debridement Diabetic Ulcer Right;Medial Ankle Post-Procedure Diagnose(s): Non-pressure chronic ulcer of 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 (CMS/HCC); Chronic venous hypertension (idiopathic) with ulcer of right lower extremity (CMS/HCC); Type 2 diabetes mellitus with foot ulcer, without long-term current use of insulin (CMS/HCC) Images from the original note were not included. [facility] [place] [address] Office Visit Visit Date: 07/23/2024 Patient Name: Boo Hugo Date of : [...] the wound bed. No fevers or chills. Finished Cipro and has been using Santyl centrally on the wound bed with gentamicin around it. No fevers or chills. Continues to have some pain and some drainage from the wound bed. Venous ultrasound, 02/05/2024, diffuse reflux and dilatation of GSV bilaterally Right GSV ablation, 02/18/2024, [facility] Below knee GSV ablation 02/26/24, [facility] Left GSV ablation, 03/11/24: [facility] Left below knee GSV ablation, 03/17/24, MIGUEL A Assessment and Plan: Right medial ankle venous ulcer is improving with Santyl and gentamicin. I think gentamicin as a solo treatment would be appropriate. He will continue with compression with his own stockings. Follow-up in 1 week. Non-pressure chronic ulcer of 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 (CMS/HCC) (Primary) Type 2 diabetes mellitus with foot ulcer, without long-term current use of insulin (CMS/HCC) Chronic venous hypertension (idiopathic) with ulcer of right lower extremity (CMS/HCC) Other orders - Debridement All questions were answered to his satisfaction. He was counseled regarding my impressions, instructions for management, and the importance of compliance with treatment. Follow up in about 1 week (around 07/30/2024), or >>>>>>>>>>>>>>>>>>>>>>>>>>>>>>>>>>>>>>>>>>>>>>>>>>> Vital Signs: Visit Vitals BP 133/82 Pulse 86 Temp 36.7 ??C (98.1 ??F) (Temporal) Resp 17 Review of Systems: Review of Systems Constitutional: Negative for chills and fever. PHYSICAL EXAM Physical Exam Vitals and nursing note reviewed. Constitutional: Appearance: Normal appearance. He is not ill-appearing. Pulmonary: Effort: Pulmonary effort is normal. Skin: Comments: Right medial ankle venous ulcer has some hypergranulation tissue within the wound bed that is covered with yellow fibrinous exudate. The periwound erythema is much improved compared with last visit. 1+ edema to the leg. WOUND ASSESSMENT If photograph of wound not visible on this note, please check under Media tab. Wound Diabetic Ulcer 01/14/24 Ankle Right;Medial (Active) Date First Assessed: 01/14/24 Primary Wound Type: Diabetic Ulcer Wound Approximate Age at First Assessment (Weeks): 6 weeks Hand Hygiene Completed: Yes Diabetic Ulcer Grading: Grade 1 Location: AnkleWound Location Orientation: Right;Medial Assessments 05/07/2024 11:03 AM 07/23/2024 2:08 PM Wound Image Wound Bed Tissue Assessment Granulation;Sloughing Sloughing;Granulation Stacy-Wound Assessment Clean;Maceration Red;Macerated Shape Irregular -- Wound Length (cm) 2.7 cm 2.9 cm Wound Width (cm) 2.4 cm 2.4 cm Wound Surface Area (cm^2) 6.48 cm^2 6.96 cm^2 Wound Depth (cm) 0.1 cm 0.1 cm Wound Volume (cm^3) 0.648 cm^3 0.696 cm^3 Wound Healing % -- -7 Drainage Description Serosanguineous Serosanguineous Drainage Amount Moderate Moderate Treatments Cleansed;Other (Comment) Cleansed;Other (Comment) Dressing -- Tubular stocking Dressing Status Old drainage Removed Wound Bed Granulation (%) 25 % 10 % Wound Bed Epithelialization (%) 10 % -- Wound Bed Slough (%) 65 % 90 % Wound Bed Eschar (%) 0 % 0 % Tunneling 0 cm 0 cm Undermining -- 0 cm Edges Attached edges;Well-defined edges Well-defined edges;Attached edges Non-staged Wound Description -- Full thickness Active Orders Date Order Priority Status Authorizing Provider 07/23/24 1523 Debridement Routine Active Jameson Saravia MD Inactive Orders Date Order Priority Status Authorizing Provider 07/09/24 1441 Debridement Diabetic Ulcer Right;Medial Ankle [...] Right;Medial Ankle Routine Completed Jameson Saravia MD 05/07/24 1210 Debridement Diabetic Ulcer Right;Medial [...] Post Debridement: Fat layer exposed Time taken: 07/23/2024 2:08 PM Length (cm): 2.9 Width (cm): 2.4 Depth (cm): 0.1 Area (cm^2): 6.96 Time taken: 07/23/2024 2:09 PM Length (cm): 2.9 Width (cm): 2.4 Depth (cm): 0.1 Percent Debrided (%): 100 Surface Area (cm^2): 6.96 Area Debrided (cm^2): 6.96 Volume (cm^3): 0.7 Tissue and other material debrided: dermis, epidermis and subcutaneous tissue Devitalized tissue debrided: slough Instrument: Curette Amount of bleeding: small Hemostasis obtained with: Pressure Procedural pain: 0 Post-procedural pain: 0 Response to treatment: Procedure was tolerated well PROVIDER ORDERS Patient Instructions PHYSICIAN ORDERS Go to ER if you are presenting with fever, chills, increased redness, pain, swelling, warmth aroundwound area and/or foul smelling odor. If you have any questions or concerns, please contact the [facility] at . Follow up(s)/ Referrals: Vascular: [facility]- as scheduled Snf: N/A Additional Orders: Increase protein in your diet to help promote wound healing, Maintain good blood sugar control Edema Control: (If your compression wrap(s) feel to tight, please elevate your leg(s) about heart level. If your wrap(s) are becoming painful and/or you loose sensation of toes/ are having toe discoloration (a change from your baseline), please remove / unwrap compression and notify [facility] at . ) Wear own home compression. Apply first thing in the morning prior to getting out of bed, OK to remove at bedtime. Offloading: Limit pressure to wound as much as possible Cellular/Tissue Based Products: N/A Bathing / Showering / Hygiene: May shower with protection but DO NOT get wound dressing(s) wet. Protect dressing(s) with water repellant cover ( for example- large plastic bag or cast bag) and then may take shower. Non-wound Condition/ Other Skin Care: Moisturize skin daily, avoiding wound area Wound Location(s): Wound #1 (Right Medial Ankle): Cleanser: N/A Periwound: Apply Zinc Oxide to stacy wound Topical: Gentamicin 0.1% ointment- Apply a thin layer to wound bed Primary dressing: N/A Secondary dressing: Optilock Secure with: 4 conforming gauze roll , 1 paper tape Compression Therapy: Tubigrip E Dressing Change Frequency: Daily 07/23/2024 3:23 PM EST Jameson Saravia MD * Georgina Vargas RN - 07/23/2024 1:45 PM EST Discharge Patient directed to check out at front desk agent and collect visit summary with wound care directions and book follow up as directed. Dressings applied: Wound #1 (Right Medial Ankle): Cleanser: Normal saline Topical: Gentamicin 0.1% ointment- Apply a thin layer to wound bed Secondary dressing: Optilock Secure with: 4 conforming gauze roll , 1 paper tape Compression Therapy: Tubigrip E Dressing technique was demonstrated and explained. Patient questions answered. Pt discharge from wound care center without issue or incidence. documented in this encounter Plan of Treatment Upcoming Encounters Date Type Department Care Team (Late st Contact Info) Description 08/27/2024 2:00 PM EDT Clinical Support [facility] [address] [place] [phone] 09/03/2024 2:15 PM EDT Clinical Support [facility] [address] [place] [phone] 09/10/2024 2:00 PM EDT Clinical Support [facility] [address] [place] [phone] 09/17/2024 2:00 PM EDT Clinical Support [facility] [address] [place] [phone] 09/24/2024 2:00 PM EDT Clinical Support [facility] [address] [place] [phone] 10/01/2024 2:00 PM EDT Clinical Support [facility] [address] [place] [phone] 10/15/2024 2:00 PM EDT Clinical Support [facility] [address] [place] [phone] documented as of this encounter Goals Goal Patient Goal Type Associated Problems Recent Progress Patient-Stated? Author Decrease Wound Volume by X% by date (in notes) Care Plan Impaired Tissue On track( 3:57 PM EST) Cece Romero RN Note: 07/02/24- paper rx for [...] Tissue On track( 2:55 PM EST) No Cece Altamirano RN Wound volume breakdown reduced by X% by week 4 Care Plan Impaired Tissue No Cece Altamirano RN Wound volume breakdown reduced by X% by week 8 Care Plan Impaired Tissue No Cece Altamirano RN Wound volume breakdown reduced by X% by week 12 Care Plan Impaired Tissue No Cece Altamirano RN Quit using tobacco (cigarettes, smokeless, etc) Care Plan Education needed on impact of smoking on wound No Cece Altamirano RN Reduce tobacco use (cigarettes, smokeless, etc) Care Plan Education needed on impact of smoking on wound No Cece Altamirano RN Decrease Wound Volume by X% by date (in notes) Care Plan Education needed on impact of smoking on wound No Cece Altamirano RN Patient and Caregiver Understand Wound Care Education Care Plan Education needed related to ulceration/comp romised skin integrity. No Cece Altamirano, TYREE documented as of this encounter Procedures Procedure Name Priority Date/Time Associated Diagnosis Comments DEBRIDEMENT Routine 07/23/2024 1:45 PM EST Non-pressure chronic ulcer of 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 (CMS/HCC) Type 2 diabetes mellitus with foot ulcer, without long-term current use of insulin (CMS/HCC) Chronic venous hypertension (idiopathic) with ulcer of right lower extremity (CMS/HCC) documented in this encounter Results * Debridement Diabetic Ulcer Right;Medial Ankle (07/23/2024 1:45 PM EST) Jameson Metz MD - 07/23/2024 1:45 PM EST Jamesno Saravia MD ? 07/23/2024 ??3:24 PM Debridement [...] documented in this encounter Visit Diagnoses Diagnosis Non-pressure chronic ulcer of 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 (CMS/HCC)- Primary Type 2 diabetes mellitus with foot ulcer, without long-term current use of insulin (CMS/HCC) Chronic venous hypertension (idiopathic) with ulcer of right lower extremity (CMS/HCC) documented in this encounter Orders General Supply Count Last Ordered Date First Or dered Date WOUND CARE SUPPLIES 1 07/30/2024 documented in this encounter Additional Health Concerns Active Problems Noted Date Diagnosed Date Impaired Tissue 05/07/2024 Education needed on impact of smoking on wound 1 07/07/2023 Education needed related to ulceration/compromised skin integrity. 05/07/2024 documented as of this encounter
--- OUTSIDE RECORDS SUMMARY | 2024-08-24 16:16 | XMS_ITS | Encounter Summary ---
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) (Primary Dx); Type 2 diabetes mellitus with foot ulcer, without long-term current use of insulin (CMS/HCC); Chronic venous hypertension (idiopathic) with ulcer of right lower extremity (CMS/HCC); Cellulitis of right lower leg Social History Tobacco Use Types Packs/Day Years [...] Sign Reading Time Taken Comments Blood Pressure 139/85 08/13/2024 2:45 PM EST Pulse 81 08/13/2024 2:45 PM EST Temperature 36.6 ??C (97.8 ??F) 08/13/2024 2:45 PM ES T Respiratory Rate 18 08/13/2024 2:45 PM EST Oxygen Saturation 98% 08/13/2024 2:45 PM EST Inhaled Oxygen Concentration - - Weight - - Height - - Body Mass Index - - documented in this encounter Ordered Prescriptions Prescription Sig Dispense Quantity Refills Last Filled Start Date End Date ciprofloxacin (Cipro) 500 mg tablet Take 1 tablet (500 mg total) by mouth 2 (two) times a day for 10 days. 20 each 08/13/2024 08/23/2024 documented in this encounter Progress Notes * Jadyn Altamirano RN - 08/13/2024 2:00 PM EST PHYSICIAN ORDERS Go to ER if you are presenting with fever, chills, increased redness, pain, swelling, warmth aroundwound area and/or foul smelling odor. If you have any questions or concerns, please contact the [facility] at . Follow up(s)/ Referrals: Vascular: [facility]- as scheduled [facility]: N/A Additional Orders: Take your antibiotic as prescribed, Patient to probiotics or live cultured yogurt daily while taking your antibiotic, Increase protein in your diet to help promote wound healing, Maintain good blood sugar control Edema Control: (If your compression wrap(s) feel to tight, please elevate your leg(s) about heart level. If your wrap(s) are becoming painful and/or you loose sensation of toes/ are having toe discoloration (a change from your baseline), please remove / unwrap compression and notify [facility] at . ) Wear own home compression. [...] Location(s): Wound #1 (Right Medial Ankle): Cleanser: Cleanse with Normal Saline Periwound: Apply Zinc Oxide to stacy wound Topical: Gentamicin 0.1% ointment- Apply a thin layer to wound bed Primary dressing: N/A Secondary dressing: Optilock Secure with: 4 conforming gauze roll , 1 paper tape Compression Therapy: Tubigrip E Dressing Change Frequency: Daily * Jameson Guerrero MD - 08/13/2024 2:00 PM ESTAddended by: JAMESON GUERRERO on: 08/13/2024 04:10 PM Modules accepted: Orders * Jameson Guerrero MD - 08/13/2024 2:00 PM ESTAssociated Order(s): Debridement Diabetic Ulcer Right;Medial Ankle Post-Procedure Diagnose(s): Non-pressure chronic ulcer of 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 (CMS/HCC); Type 2 diabetes mellitus with foot ulcer, without long- term current use of insulin (CMS/HCC) Images from the original note were not included. [facility] [place] [address] Office Visit Visit Date: 08/13/2024 Patient Name: Boo Hugo Date of : [...] the wound bed. No fevers or chills. Continues to use Santyl and gentamicin on the wound bed. He has been wearing his compression stockings. Reports increased pain and redness surrounding the wound. No fevers or chills, but reports he has been taking low-dose antibiotics that he saved up over the course of the year once daily despite typical treatment regimens. Venous ultrasound, 02/05/2024, diffuse reflux and dilatation of GSV bilaterally Right GSV ablation, 02/18/2024, [facility] Below knee GSV ablation 02/26/24, [facility] Left GSV ablation, 03/11/24: [facility] Left below knee GSV ablation, 03/17/24, [facility] Assessment and Plan: Right medial ankle ulcer, venous etiology, complicated by recurrent infection. Will submit for PuraPly as the wound seems to be chronically infected and would likely benefit from decreased bacterial burden. Since he is already been taking antibiotics I will prescribe a course of antibiotics and we discussed that he needs to follow the complete treatment and take the whole course. He will continuewith his own compression. Will continue with gentamicin as solo treatment. Follow-up in 1 week. Non-pressure chronic ulcer of 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 (CMS/HCC) (Primary) - Debridement Diabetic Ulcer Right;Medial Ankle Type 2 diabetes mellitus with foot ulcer, without long-term current use of insulin (CMS/HCC) - Debridement Diabetic Ulcer Right;Medial Ankle Chronic venous hypertension (idiopathic) with ulcer of right lower extremity (CMS/HCC) Cellulitis of right lower leg Other orders - ciprofloxacin (Cipro) 500 mg tablet; Take 1 tablet (500 mg total) by mouth 2 (two) times a day for 10 days. Dispense: 20 each; Refill: 0 All questions were answered to his satisfaction. He was counseled regarding my impressions, instructions for management, and the importance of compliance with treatment. Follow up in about 1 week (around 08/20/2024). >>>>>>>>>>>>>>>>>>>>>>>>>>>>>>>>>>>>>>>>>>>>>>>>>>> Vital Signs: Visit Vitals BP 139/85 (BP Location: Left arm, Patient Position: Sitting, BP Cuff Size: Adult) Pulse 81 Temp 36.6 ??C (97.8 ??F) (Temporal) Resp 18 Review of Systems: Review of Systems Constitutional: Negative for chills and fever. PHYSICAL EXAM Physical Exam Vitals and nursing note reviewed. Constitutional: Appearance: Normal appearance. He is not ill-appearing. Pulmonary: Effort: Pulmonary effort is normal. Skin: Comments: Right medial ankle ulcer does not have much depth and has hypergranulation tissue within the wound bed as well as some slough and exudate. Periwound erythema is 1 to 2 inches surrounding the wound and there is slight induration as well. 1+ edema to the leg. WOUND ASSESSMENT [...] Location Orientation: Right;Medial Assessments 05/07/2024 11:03 AM 08/13/2024 2:05 PM Wound Image Wound Bed Tissue Assessment Granulation;Sloughing Granulation;Sloughing Stacy-Wound Assessment Clean;Maceration Red Shape Irregular -- Wound Length (cm) 2.7 cm 2.7 cm Wound Width (cm) 2.4 cm 2.2 cm Wound Surface Area (cm^2) 6.48 cm^2 5.94 cm^2 Wound Depth (cm) 0.1 cm 0.1 cm Wound Volume (cm^3) 0.648 cm^3 0.594 cm^3 Wound Healing % -- 8 Drainage Description Serosanguineous Serosanguineous Drainage Amount Moderate Small Treatments Cleansed;Other (Comment) Cleansed;Other (Comment) Dressing -- Tubular stocking Dressing Status Old drainage Removed Wound Bed Granulation (%) 25 % 40 % Wound Bed Epithelialization (%) 10 % -- Wound Bed Slough (%) 65 % 60 % Wound Bed Eschar (%) 0 % 0 % Tunneling 0 cm 0 cm Undermining -- 0 cm Edges Attached edges;Well-defined edges Well-defined edges;Attached edges Non-staged Wound Description -- Full thickness Active Orders Date Order Priority Status Authorizing Provider 07/30/24 1457 Wound Care Supplies Routine Active Jameson Guerrero MD - Wound Care Supplies: Optilock - Optilock Size: 4x4 - Days Supply:: 30 - Wound Care Refill Qty:: 1 - Debridement Performed:: Yes - Wound Drainage:: Moderate - Frequency of Dressing Change: daily - Face to face evaluation was performed on: 07/23/2024 Inactive Orders Date Order Priority Status Authorizing Provider 08/13/24 1518 Debridement Diabetic Ulcer Right;Medial Ankle Routine Completed Jameson Guerrero MD 07/23/24 1523 Debridement Diabetic Ulcer Right;Medial Ankle Routine Completed Jameson Guerrero MD 07/09/24 1441 Debridement Diabetic Ulcer Right;Medial Ankle Routine Completed JEREMIAH Garcia 07/02/24 1630 Debridement Diabetic Ulcer Right;Medial Ankle Routine Completed Jameson Guerrero MD 06/12/24 1728 Cellular Tissue Based Product Diabetic Ulcer Right;Medial Ankle Routine Completed Jameson Guerrero MD 06/12/24 1728 Debridement Diabetic Ulcer Right;Medial Ankle Routine Completed Jameson Guerrero MD 06/04/24 1500 Cellular Tissue Based Product Diabetic Ulcer Right;Medial Ankle Routine Completed Jameson Guerrero MD 06/04/24 1459 Debridement Diabetic Ulcer Right;Medial Ankle Routine Completed Jameson Guerrero MD 05/26/24 1547 Debridement Diabetic Ulcer Right;Medial Ankle Routine Completed JEREMIAH Garcia 05/07/24 1210 Cellular Tissue Based Product Diabetic Ulcer Right;Medial Ankle Routine Completed Jameson Guerrero MD 05/07/24 1210 Debridement Diabetic Ulcer Right;Medial Ankle Routine Completed Jameson Guerrero MD Debridement Note: Debridement Diabetic Ulcer Right;Medial Ankle Performed by: Jameson Guerrero MD Authorized by: Jameson Guerrero MD Associated wounds: Wound Diabetic Ulcer 01/14/24 [...] of Tissue Post Debridement: Fat layer exposed Length (cm): 2.7 Width (cm): 2.2 Depth (cm): 0.1 Area (cm^2): 5.94 Length (cm): 2.7 Width (cm): 2.2 Depth (cm): 0.1 Percent Debrided (%): 100 Surface Area (cm^2): 5.94 Area Debrided (cm^2): 5.94 Volume (cm^3): 0.59 Tissue and other material debrided: dermis, epidermis [...] any questions or concerns, please contact the [facility] at . Follow up(s)/ Referrals: Vascular: [facility]- as scheduled [facility]: N/A Additional Orders: Take your antibiotic as prescribed, Patient to probiotics or live cultured yogurt daily while taking your antibiotic, Increase protein in your diet to help promote wound healing, Maintain good blood sugar control Edema Control: (If your compression wrap(s) feel to tight, please elevate your leg(s) about heart level. If your wrap(s) are becoming painful and/or you loose sensation of toes/ are having toe discoloration (a change from your baseline), please remove / unwrap compression and notify [facility] at . ) Wear own home compression. 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 Dressings applied: Wound #1 (Right Medial Ankle): Cleanser: Cleanse with Normal Saline Periwound: Apply Zinc Oxide to stacy wound Topical: Gentamicin 0.1% ointment Secondary dressing: Optilock Secure with: 4 conforming gauze roll , 1 paper tape Compression Therapy: Tubigrip E Dressing technique was demonstrated and explained. Patient questions answered. Pt discharge from wound care center without issue or incidence. documented in this encounter Plan of Treatment Upcoming Encounters Date Type Department Care Team (Late st Contact Info) Description 08/27/2024 2:00 PM EDT Clinical Support [facility] [address] [place] [phone] 09/03/2024 2:15 PM EDT Clinical Support [facility] [address] [place] [phone] 09/10/2024 2:00 PM EDT Clinical Support [facility] [address] [place] [phone] 09/17/2024 2:00 PM EDT Clinical Support [facility] [address] [place] [phone] 09/24/2024 2:00 PM EDT Clinical Support [facility] [address] [place] [phone] 10/01/2024 2:00 PM EDT Clinical Support [facility] [address] [place] [phone] 10/15/2024 2:00 PM EDT Clinical Support [facility] [address] [place] [phone] documented as of this encounter Goals Goal Patient Goal Type Associated Problems Recent Progress Patient-Stated? Author Decrease Wound Volume by X% by date (in notes) Care Plan Impaired Tissue On track( 025 3:57 PM EST) Jadyn Romero RN Note: [...] Tissue On track( 025 2:55 PM EST) Jadyn Romero RN Wound [...] Priority Date/Time Associated Diagnosis Comments DEBRIDEMENT Routine 08/13/2024 2:00 PM EST Non-pressure chronic ulcer of 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 ([facility]) Type 2 diabetes mellitus with foot ulcer, without long-term current use of insulin ([facility]) documented in this encounter Results * Debridement Diabetic Ulcer Right;Medial Ankle (08/13/2024 2:00 PM EST) Narrative Jameson Guerrero MD - 08/13/2024 2:00 PM EST Jameson Guerrero MD ? 08/14/2024 ??8:09 AM Debridement Diabetic Ulcer Right;Medial Ankle Performed by: Jameson Guerrero MD Authorized by: Jameson Guerrero MD ??Associated wounds: Wound Diabetic Ulcer 01/14/24 [...] treatment: ??Procedure was tolerated well us Jameson Guerrero MD IN CLINIC/BEDSIDE ORDERAB LES Edited Result - Final documented in this encounter Visit Diagnoses Diagnosis Non-pressure chronic ulcer of 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 (CMS/HCC)- Primary Type 2 diabetes mellitus with foot ulcer, without long-term current use of insulin (CMS/HCC) Chronic venous hypertension (idiopathic) with ulcer of right lower extremity (CMS/HCC) Cellulitis of right lower leg documented in this encounter Additional Health Concerns Active Problems Noted Date Diagnosed Date Impaired Tissue 05/07/2024 Education needed on impact of smoking on wound 1 07/07/2023 Education needed related to ulceration/compromised skin integrity. 05/07/2024 documented as of this encounter
== END 2024-08-24 15:05 | disposition home or self-care (01) ==
PROVIDERS: Visit Provider Anesthesiology
DX: M25.561 Pain in right knee (principal); M25.562 Pain in left knee; M17.0 Bilateral primary osteoarthritis of knee; G89.4 Chronic pain syndrome
CPT/HCPCS: 99204

== ENCOUNTER → 2024-08-24 14:13 | Outpatient (BNVA) | payer OTHER, SELFPAY | PROVIDERS: Visit Provider Anesthesiology | DX: M25.561 Pain in right knee (principal); M25.562 Pain in left knee; M17.0 Bilateral primary osteoarthritis of knee; G89.4 Chronic pain syndrome | CPT/HCPCS: 99202 ==

== ENCOUNTER 2024-10-12 16:17 | Outpatient (REF) | payer OTHER, SELFPAY ==
[2024-10-12 17:34] LABS: Blood Urea Nitrogen 20 mg/dL (9-16); Estimated Glomerular Filt Rate > 60
--- OUTSIDE RECORDS SUMMARY | 2024-10-12 18:57 | XMS_ITS | Encounter Summary ---
Author Name [facility] [place] Organization [facility] [place] Address [address] [place] [address] Care Team Providers Care Cooperative Education Director Name Role Phone PIPO MEDEIROS Primary Care Provider LENY Suarez Primary Care Provider RICH Valencia Primary Care Provider Thien weber Selected Encounter This section includes the information on record at [place] for the Encounter. Date/Time Encounter Type Encounter Description Reason Pro vider Source November 08, 2023 02:45 PM Outpatient Encounter ADMIN PAT ACTIVTIES (MASNONCT) IHE Encounter Template Text not used by [place] Plan of Treatment: Future Appointments (+ 6 months) and Future Tests (+/- 45 days) The Plan of Treatment section includes future care activities for the patient from all [place] treatmentfacilities. This section includes future appointments and future orders which are active, pending or scheduled. Future Appointments This section includes appointments that were scheduled to occur 6 months from the date of the Encounter, up to a maximum of 20 appointments. The data comes from all [place] treatment facilities. Appointment Date/Time Appointment Type Appointme nt Facility Name Nov 28, 2023 07:30 AM [facility]ORY - [facility] Dec 02, 2023 01:30 PM [facility] Dec 11, 2023 02:00 PM [facility] Dec 11, 2023 02:30 PM [facility] Dec 11, 2023 02:45 PM [facility] Dec 13[facility] 2023 12:00 PM [facility] Dec 16, 2023 10:30 AM [facility] [place] Dec 16, 2023 11:45 AM [facility] Dec 23[facility] 2023 02:30 PM [facility] [place] Dec 26, 2023 07:30 AM [facility] Dec 30, 2023 02:30 PM AMBULATORY - NONE [facility] Jan 14, 2024 12:30 PM [facility] [place] Jan 29, 2024 03:00 PM [facility] [place] [facility] Jan 30, 2024 01:30 PM [facility] [place] [facility] Jan 31, 2024 03:30 PM [facility] [place] Feb 18, 2024 03:00 PM AMBULATORY - NONE [facility] [place] Feb 20, 2024 10:00 AM [facility] [place] [facility] Mar 13, 2024 12:30 PM [facility] [place] Mar 25, 2024 03:00 PM [facility] [place] Mar 27, 2024 08:00 AM AM[facility]ULATORY - [facility] Active, Pending, and Scheduled Orders This section includes a listing of several types of active, pending, and scheduled orders, including clinic medications orders, diagnostic test orders, procedure orders and consult orders; where the start date of the order is 45 days before the date of the Encounter or 45 days after the date of theEncounter. The data comes from all [place] treatment facilities. Test Date/Time Test Type Test Details Facility Name Nov 16, 2023 12:00 AM Laboratory - Chemi stry Order CBC (WITH DIFF)_ BLOOD (EDTA WB) [facility] Nov 16, 2023 12:00 AM Laboratory - Chemi stry Order B12 & FOLATE_ SERUM (GOLD) [facility] Nov 16, 2023 12:00 AM Laboratory - Chemi stry Order LIPID PROFILE_ SERUM (GOLD) [facility] Nov 16, 2023 12:00 AM Laboratory - Chemi stry Order IRON PANEL (FE & UIBC)_ SERUM (GOLD) [facility] Nov 16, 2023 12:00 AM Laboratory - Chemi stry Order BASIC METABOLIC PROFILE_ SERUM (GOLD) [facility] Nov 16, 2023 12:00 AM Laboratory - Chemi stry Order HEMOGLOBIN A1C BLOOD (EDTA WB) [facility] Nov 16, 2023 12:00 AM Laboratory - Chemi stry Order GENERAL TOX (URINE)_ URINE (TOX) [facility] Advance Directives: All historical and current Section Date Range: From patient's date of to the date document was created. This section includes ALL of a patient's completed or amended [place] Advance and Rescinded Directives. The entries below indicate that a directive exists for the patient, but an actual copy is not included with this document. The data comes from all [place] facilities. Date Advance Directives Provider Source November 12, 2023 ADVANCE DIRECTIVE DISCUSSION JESSICA MESA [facility] Encounter Notes: All associated encounter notes This section contains the clinical notes associated to the Encounter. Date/Time Encounter Note(s) Provider Source November 08, 2023 02:45 PM NURSING NOTE: LOCAL TITLE: TRAVELING/RELOCATING COORDINATOR STANDARD TITLE: NURSING NOTE DATE OF NOTE: NOVEMBER 08, 2023@14:45 ENTRY DATE: NOVEMBER 08, 2023@14:45:06 AUTHOR: JOSESITO VICENTE EXP COSIGNER: URGENCY: STATUS: COMPLETED To whom this may concern, Oanh reached out to me and told me he has traveled to [place] and he will probably be there for the remainder of the year. He stated his PCP Dr. Ruvalcaba has retired and he told his team that he would be traveling. He needs a traveling vet consult and states he has a lot going on, not to be seen by a PCP while there. The address where he is should be included on the consult: [address] [place] [address] [address], [place] [id number]. His phone # . /es/ JOSESITO LOCO RN Signed: 11/08/2023 14:51 Receipt Acknowledged By: 11/12/2023 12:19 /es/ Hermila Osorio M.D. Staff Physician, Primary Care for PIPO MEDEIROS 11/12/2023 09:16 /es/ JAMES EMMANUEL 11/08/2023 15:31 /es/ VINCE RITCHIE REGISTERED NURSE 11/08/2023 15:14 /es/ Gino Mesa LMSW PACT [employer] P[employer] Machine Operator JOSESITO VICENTE [facility]
--- OUTSIDE RECORDS SUMMARY | 2024-10-12 18:57 | XMS_ITS ---
Author Name [facility] [place] Organization [place] Address [address] [place] [address] Care Team Providers Care Campaign Director Name Role Phone DAVID JAQUEZ Primary Care Provider LENY Suarez Primary Care Provider RICH Valencia Primary Care Provider Thien weber Selected Encounter This section includes the information on record at [place] for the Encounter. Date/Time Encounter Type Encounter Description Reason Pro vider Source Nov 26, 2023 03:43 PM Outpatient Encounter ADMIN PAT ACTIVTIES (MASNONCT) IHE Encounter Template Text not used by [place] Plan of Treatment: Future Appointments (+ 6 months) and Future Tests (+/- 45 days) The Plan of Treatment section includes future care activities for the patient from all [place] treatmentfacilities. This section includes future appointments and future orders which are active, pending or scheduled. Future Appointments This section includes appointments that were scheduled to occur 6 months from the date of the Encounter, up to a maximum of 20 appointments. The data comes from all [place] treatment facilities. Appointment Date/Time Appointment Type Appointme nt Facility Name Nov 28, 2023 07:30 AM [facility]ATORY - [facility]INE [facility] Dec 02, 2023 01:30 PM [facility] [place] [facility] Dec 11, 2023 02:00 PM [facility] [place] [facility] Dec 11, 2023 02:30 PM [facility] Dec 11, 2023 02:45 PM [facility] Dec 13, 2023 12:00 PM [facility] Dec 16, 2023 10:30 AM [facility] [place] [facility] Dec 16, 2023 11:45 AM [facility] Dec 23, 2023 02:30 PM [facility] [place] [facility] Dec 26, 2023 07:30 AM [facility] Dec 30, 2023 02:30 PM AMBULATORY - NONE [facility] [place] [facility] Jan 14, 2024 12:30 PM [facility] MEDICINE [facility] [place] [facility] Jan 29, 2024 03:00 PM [facility]ICINE [facility] [place] [facility] Jan 30, 2024 01:30 PM [facility] MEDICINE [facility] [place] [facility] Jan 31, 2024 03:30 PM [facility] MEDICINE [facility] [place] [facility] Feb 18, 2024 03:00 PM AMBULATORY - NONE [facility] [place] [facility] Feb 20, 2024 10:00 AM [facility]ORY [facility] MEDICINE [facility] [place] [facility] Mar 13, 2024 12:30 PM [facility]ULAT[facility] MEDICINE [facility] [place] [facility] Mar 25, 2024 03:00 PM AM[facility]ORY [facility] MEDICINE [facility] [place] [facility] Mar 27, 2024 08:00 AM AMBULATORY - REHAB [facility] Active, Pending, and Scheduled Orders This section includes a listing of several types of active, pending, and scheduled orders, including clinic medications orders, diagnostic test orders, procedure orders and consult orders; where the start date of the order is 45 days before the date of the Encounter or 45 days after the date of theEncounter. The data comes from all [place] treatment facilities. Test Date/Time Test Type Test Details Facility Name Nov 16, 2023 12:00 AM Laboratory - Chemi stry Order CBC (WITH DIFF)_ BLOOD (EDTA WB) [facility] Nov 16, 2023 12:00 AM Laboratory - Chemi stry Order IRON PANEL (FE & UIBC)_ SERUM (GOLD) [facility] Nov 16, 2023 12:00 AM Laboratory - Chemi stry Order B12 & FOLATE_ SERUM (GOLD) [facility] Nov 16, 2023 12:00 AM Laboratory - Chemi stry Order LIPID PROFILE_ SERUM (GOLD) [facility] Nov 16, 2023 12:00 AM Laboratory - Chemi stry Order BASIC METABOLIC PROFILE_ SERUM (GOLD) [facility] Nov 16, 2023 12:00 AM Laboratory - Chemi stry Order HEMOGLOBIN A1C BLOOD (EDTA WB) [facility] Nov 16, 2023 12:00 AM Laboratory - Chemi stry Order GENERAL TOX (URINE)_ URINE (TOX) [facility] Lab Results: +/- 30 days of the encounter This section includes the Chemistry and Hematology Lab Results on record with [place] for the patient. Radiology Reports and Pathology Reports are provided separately, in subsequent sections. Lab Results This section contains the Chemistry/Hematology Results that were resulted 30 days before or 30 daysafter the date of the Encounter. Date/Time Source Result Type Result - Unit Interpretation Reference Range Specimen Type Comment Dec 24, 2023 02:35 PM [facility] LIPID PANEL FASTING SERUM Specimen Type: SERUM No comment entered. Ordering Provider: ELI DUDLEY Report Released Date/Time: Dec 23, 2023 04:10 PM Reporting Lab: [address] [address] Performing Lab: [address] [address] CHOLESTEROL 133 mg/dL TRIGLYCERIDE 74 mg/dL 0-150 LDL calculated 83 mg/dL 0-129 CHOL/HDL 3.8 HDL CHOLESTEROL 35 mg/dL L 40-60 Dec 24, 2023 02:35 PM [facility] LIVER FUNCTION SERUM Specimen Type: SERUM No comment entered. Ordering Provider: ELI DUDLEY Report Released Date/Time: Dec 23, 2023 04:10 PM Reporting Lab: [address] [address] Performing Lab: [facility] [address] [facility] [address] PROTEIN,TOTAL 7.1 g/dL 6.0-8.3 ALBUMIN 4.3 g/dL 3.5-5.0 ALKALINE PHOSPHATASE 69 U/L 40-150 AST 21 U/L 5-34 ALT 22 U/L BILIRUBIN, TOTAL 0.4 mg/dL 0.2-1.2 Dec 24, 2023 02:35 PM [facility] BASIC METABOLIC PANEL (fasting) SERUM Specime n Type: SERUM No comment entered. Ordering Provider: ELI DUDLEY Report Released Date/Time: Dec 23, 2023 04:11 PM Reporting Lab: [address] [address] Performing Lab: [address] [address] UREA NITROGEN 14 mg/dL 7-25 GLUCOSE 102 mg/dL H 65-100 SODIUM 140 mmol/L 135-145 POTASSIUM 4.8 mmol/L 3.5-5.0 CHLORIDE 107 mmol/L 100-110 CO2 22 meq/L 20-30 CREATININE, Serum 0.85 mg/dL 0.50-1.40 eGFR(CKD-EPI 2020) >90 mL/min >60 Dec 24, 2023 02:35 PM [facility] MICROALBUMIN CREATININE RATIO PANEL URINE Spe cimen Type: URINE No comment entered. Ordering Provider: ELI DUDLEY Report Released Date/Time: Dec 23, 2023 04:11 PM Reporting Lab: [facility] [address] [facility] [address] Performing Lab: [address] [address] MICROALBUMIN/CREATININE RATIO 8.2 mg/g 0 -29.9 MICROALBUMIN,QUANTITATIVE 1.2 mg/dL RR U NAVAIL CREATININE URINE 146.77 mg/dL Dec 24, 2023 02:35 PM [facility] HEMOGLOBIN A1C PANEL BLOOD Specimen Type: BLO OD Comment: Values obtained from A1C measurements can vary. For atypical A1C assays, a reported value of 7.0 could actually be between 6.72 and 7.28 if measured by a reference method. A reported value of 9.0 could actually be between 8.73 and 9.27. Ref: http://www.ngsp.org/CAPdata.asp Ordering Provider: ELI DUDLEY Report Released Date/Time: Dec 23, 2023 04:11 PM Reporting Lab: [facility] [address] [facility] [address] Performing Lab: [place] [facility] [address] [address] HEMOGLOBIN A1C 5.7 H 4.0-5.6 Dec 24, 2023 02:35 PM [facility] TSH SERUM Specimen Type: SERUM No comment entered. Ordering Provider: ELI DUDLEY Report Released Date/Time: Dec 23, 2023 04:11 PM Reporting Lab: [facility] [place] [address] [address] Performing Lab: [facility] [place] [facility] [address] [facility] [address] TSH 1.64 u[IU]/mL 0.35-5.00 Dec 24, 2023 02:35 PM [facility] PSA SERUM Specimen Type: SERUM No comment entered. Ordering Provider: ELI DUDLEY Report Released Date/Time: Dec 23, 2023 04:11 PM Reporting Lab: [facility] [place] [address] [address] Performing Lab: [facility] [address] [address] PSA 1.80 ng/mL 0.00-4.00 Dec 24, 2023 02:35 PM [facility] CBC AND DIFF (AUTO) BLOOD Specimen Type: BLOO D No comment entered. Ordering Provider: ELI DUDLEY Report Released Date/Time: Dec 23, 2023 04:11 PM Reporting Lab: [facility] [address] [address] Performing Lab: [facility] [address] [facility] [address] WBC 6.05 10*3/uL 4.50-11.00 RBC 4.99 10*6/uL 4.23-5.66 HGB 10.4 g/dL L 12.8-17 HCT 34.7 L 39.2-50.4 MCV 69.5 fL L 82-99 MCHC 30.0 g/dL L 30.8-35.1 PLT 373 10*3/uL H 140-360 RDW-CV 17.3 H 12.0-16.0 MONO, ABS 0.60 10*3/uL 0.30-1.10 MCH 20.8 pg L 26.2-32.6 NEUT % 67.6 43.7-75.8 LYMPH % 16.0 14.0-42.3 MONO % 9.9 5.1-13.7 EOS % 5.0 0.4-6.8 BASO % 1.0 0.1-2.0 NEUT, ABS 4.09 10*3/uL 2.20-7.60 LYMPH, ABS 0.97 10*3/uL L 1.00-3.20 EOS, ABS 0.30 10*3/uL 0.03-0.44 BASO, ABS 0.06 10*3/uL 0.01-0.13 IMMATURE GRAN % 0.5 0.0-0.7 IMMATURE GRAN, ABS 0.03 10*3/uL 0.00-0.0 6 NRBC % 0.5 H 0.0-0.0 NRBC, ABS 0.03 10*3/uL H 0.00-0.00 Dec 24, 2023 02:35 PM [facility] SMEAR EXAMINATION BLOOD Specimen Type: BLOOD Comment: LARGE PLATELETS SEEN Ordering Provider: ELI DUDLEY Report Released Date/Time: Dec 23, 2023 04:11 PM Reporting Lab: [address] [address] Performing Lab: [address] [address] PLT (smear review) ADEQ 10*3/uL MICROCYTOSIS 2+ HYPOCHROMIA 2+ OVALOCYTES 1+ Advance Directives: All historical and current Section Date Range: From patient's date of to the date document was created. This section includes ALL of a patient's completed or amended [place] Advance and Rescinded Directives. The entries below indicate that a directive exists for the patient, but an actual copy is not included with this document. The data comes from all [place] facilities. Date Advance Directives Provider Source November 12, 2023 ADVANCE DIRECTIVE DISCUSSION JESSICA MESA [facility] Encounter Notes: All associated encounter notes This section contains the clinical notes associated to the Encounter. Date/Time Encounter Note(s) Provider Source Nov 26, 2023 03:43 PM NURSING NOTE: LOCAL TITLE: TRAVELING/RELOCATING COORDINATOR STANDARD TITLE: NURSING NOTE DATE OF NOTE: NOV 26, 2023@15:43 ENTRY DATE: NOV 26, 2023@15:43:14 AUTHOR: JOSESITO VICENTE COSIGNER: URGENCY: STATUS: COMPLETED Hello Team, [place] Oanh is now assigned to your PACT Team, since Dr. Ruvalcaba has retired. The has relocated to [place]. The needs a traveling vet consult submitted as soon as possible and it should say to establish primary care. I put a note in [facility]S dated on 11/08/23 with all the details. Can someone submit a consult so that I can forward it over to [facility] and it should read, establish care on the consult along with destination address. Refer to note in CPRS dated for 11/08/23 with address details. Thank you. /jim/ JOSESITO LOCO RN Signed: 11/26/2023 15:48 Receipt Acknowledged By: 11/26/2023 17:10 /es/ David Jaquez M.D. Primary Care Physician 11/29/2023 10:57 /es/ VINCE RITCHIE REGISTERED NURSE 11/27/2023 09:27 /jim/ Gino Mesa LMSW PACT Embedded Software Programmer JOSESITO VICENTE [facility]
--- OUTSIDE RECORDS SUMMARY | 2024-10-12 18:57 | XMS_ITS | Encounter Summary ---
Author Name [facility] [place] Organization [place] Address [address] [place] [address] Care Team Providers Care Armature Winder Name Role Phone PIPO MEDEIROS Primary Care Provider LENY Suarez Primary Care Provider RICH Valencia Primary Care Provider Thien weber Selected Encounter This section includes the information on record at [place] for the Encounter. Date/Time Encounter Type Encounter Description Reason Provider Source Jul 21, 2024 01:00 PM [facility] IVNTJ GRP EA ADDL WEIGHT MGMT & MOVE! PROG - GRP ICD-10-CM E66.811 Obesity, class 1 UDAY MILLER Caitlin Encounter Template Text not used by [place] Assessments - Encounter Diagnoses This section includes the primary and secondary diagnoses documented for the Encounter. Date/Time Primary/Secondary Diagnosis Diagnosis Name Provider Source Jul 21, 2024 03:03 PM PRIMARY Obesity, class 1 UDAY MILLER ([facility]) Jul 21, 2024 03:03 PM SECONDARY Body mass index [BMI] 33.0-33.9, adult UDAY MILLER ([facility]) Plan of Treatment: Future Appointments (+ 6 months) and Future Tests (+/- 45 days) The Plan of Treatment section includes future care activities for the patient from all [place] [facility]. This section includes future appointments and future orders which are active, pending or scheduled. Future Appointments This section includes appointments that were scheduled to occur 6 months from the date of the Encounter, up to a maximum of 20 appointments. The data comes from all [place] treatment facilities. Appointment Date/Time Appointment Type Appointme nt Facility Name Jul 22, 2024 10:00 AM AMBULATORY [facility] MEDICINE [facility] [place] [facility] Jul 22, 2024 02:00 PM AMBULATORY - REHAB MEDICIN E [facility] [place] [facility] Jul 28, 2024 01:00 PM AMBULATORY - NONE [facility] Aug 04, 2024 01:00 PM AMBULATORY - NONE [facility] Aug 11, 2024 01:00 PM AMBULATORY - NONE [facility] Aug 17, 2024 07:15 AM AMBULATORY [facility] MEDICINE [facility] [place] [facility] Aug 24, 2024 02:00 PM AMBULATORY - MEDICINE [facility] [place] [facility] Aug 31, 2024 03:30 PM AMBULATORY - MEDICINE [facility] [place] [facility] Sep 14, 2024 11:30 AM AMBULATORY - MEDICINE [facility] [place] [facility] Sep 29, 2024 02:30 PM AMBULATORY - MEDICINE [facility] Oct 08, 2024 10:00 AM AMBULATORY - REHAB [facility]ICIN [facility] Oct 08, 2024 01:00 PM AMBULATORY - NONE [facility] [place] [facility] Oct 08, 2024 01:45 PM AMBULATORY - NONE [facility] [place] [facility] Oct 12, 2024 11:30 AM AMBULATORY - MEDICINE [facility] [place] [facility] October 15, 2024 07:00 AM AMBULATORY - MEDICINE [facility] [place] [facility] October 16, 2024 01:00 PM AMBULATORY - MEDICINE [facility] [place] [facility] October 21, 2024 03:00 PM AMBULATORY - MEDICINE [facility] [place] [facility] October 22, 2024 01:00 PM AMBULATORY - REHAB MEDICIN E [facility] [place] [facility] November 02, 2024 02:00 PM AMBULATORY - MEDICINE [facility] Nov 18, 2024 09:30 AM AMBULATORY - MEDICINE [facility] Active, Pending, and Scheduled Orders This section includes a listing of several types of active, pending, and scheduled orders, including clinic medications orders, diagnostic test orders, procedure orders and consult orders; where the start date of the order is 45 days before the date of the Encounter or 45 days after the date of theEncounter. The data comes from all [place] treatment facilities. Test Date/Time Test Type Test Details Facility Name Jun 12, 2024 02:35 PM Consult Order TELE-EYE S CREENING CONSULT - CBC [facility] Aug 03, 2024 01:06 PM Consult Order COMMUNITY CARE-PAIN MANAGEMENT [facility] Aug 24, 2024 12:00 AM Laboratory - Chemistry Order OCCULT BLOOD FIT X1 SCREEN (MFP ONLY) [facility]OOL [facility] Vital Signs: All taken on the encounter date This section contains inpatient and outpatient Vital Signs collected on the date of the Encounter. Date/Time Temperature Pulse Blood Pressure Respiratory Rate SP02 Pain Height Weight Body Mass Index Source Jul 21, 2024 01:00 PM 239 33 [facility] ([facility]) Advance Directives: All historical and current Section Date Range: From patient's date of to the date document was created. This section includes ALL of a patient's completed or amended [place] Advance and Rescinded Directives. The entries below indicate that a directive exists for the patient, but an actual copy is not included with this document. The data comes from all [place] facilities. Date Advance Directives Provider Source November 12, 2023 ADVANCE DIRECTIVE DISCUSSION JESSICA MESA [facility] Radiology Reports: +/- 30 days of the encounter Radiology Reports For cases when an order for radiology services may have been completed prior to the date of the Encounter, the report list includes the Radiology Reports that were completed up to 30 days before dateof the Encounter. For cases when an order for radiology services may have been completed after the date of the Encounter, the report list also includes the Radiology Reports that were completed up to30 days after date of the Encounter. The data comes from all [place] treatment facilities. Date/Time Radiology Report Provider Source Jul 22, 2024 02:20 PM FLUOROSCOPIC RODNEY NCE FOR NEEDLE PLACEMENT: COLLETTE ROSE [id number] [id number] M Exm Date: JUL 22, 2024@14:20 Req Phys: LEXI MONTOYA Pat Loc: [facility] MED REHAB BETY BORJAS MD (Req' Img Loc: [facility]/BUILDING 1 Service: [place] [address] (Case [id number] COMPLETE) FLUOROSCOPIC GUIDANCE FOR NEEDLE (RAD Detailed) CPT:46241 Reason for Study: genicular nerve block Clinical History: Report Status: Verified Date Reported: JUL 22, 2024 Date Verified: JUL 22, 2024 Roller Mechanic E-Sig:/ES/CLAUDIA MÉNDEZ JR Report: Study: Pain injection of the left knee. Findings: Fluoroscopic guidance was provided to Pain Management for interventional pain injection. No dictation provided for this study. Images captured for documentation only. Total fluoroscopy time used was 49.7 seconds. Total cumulative air kerma dose is 6.27 mGy. Impression: Fluoroscopic guidance for interventional pain injection. Primary Diagnostic Code: No immediate attention required Primary Interpreting Staff: CLAUDIA MÉNDEZ JR, Radiologist (Roller Mechanic) /CLAUDIA VALLES JR [facility] Encounter Notes: All associated encounter notes This section contains the clinical notes associated to the Encounter. Date/Time Encounter Note(s) Provider Source Jul 21, 2024 01:00 PM MOVE NOTE: LOCAL TITLE: WEIGHT MANAGEMENT/MOVE! OUTPATIENT GROUP NOTE STANDARD TITLE: MOVE NOTE DATE OF NOTE: JUL 21, 2024@13:00 ENTRY DATE: JUL 21, 2024@14:35 AUTHOR: UDAY MILLER COSIGNER: URGENCY: STATUS: COMPLETED Veterans participated in MOVE! Group Counseling via [facility] on: 07/21/24 The [place] was provided with information on VVC and has given verbal consent to use group VVC services for their healthcare. The copy of the Group Telehealth Agreement has been mailed to the [place]. The 's location/emergency contact number were confirmed. The Emergency Call Relay Center (E911) was available. The visit was locked for security and privacy. identified with 2 identifiers: [x] Full Name [x] Address Veterans attended the 60-minute MOVE! group session on this date via [facility] or by phone. MOVE! is a program designed to provide education about weight management skills to overweight and obese veterans. Veterans submitted their stated weights to staff. The group facilitators began the session by reviewing the previous weeks topic (Finesse Your Food). Participants were asked to share their respective progress toward achieving their respective goals and to share their experiences with keeping a food and physical activity log over the past week. Positive feedback was given to the Veterans for their efforts. Session #12 (Dust Yourself Off) was then conducted using the MOVE! Workbook. Facilitators discussed slips and setbacks that occur during a weight management program. Veterans were asked to share how theyve handled slips in the past and how it affected their success. Facilitators explained how to recognize when a slip is occurring and how to respond to a slip to prevent a relapse to old unhealthy behaviors and habits. The difference between a slip and relapse was explained. Finally, participants were encouraged to plan to prevent slips ahead of time. The objectives accomplished at todays session were: 1. Discussed that slips are a normal part of lifestyle change. 2. Assisted Veterans with recognizing what may trigger a slip. 3. Helped Veterans identify how to handle slips and get back on their feet to avoid relapsing. Participants were asked to set one healthy eating and physical activity goal to work on this week, continue recording weight daily, to log all food and beverages consumed daily, and to also log all physical activities daily. They were instructed to continue to bring their completed Food and Physical Activity Logs to every session. The next MOVE! group meeting will be held on 07/28/24. Today's Weight: 239 lb Weight Gain of + .0 lb from last visit Dx: Obesity, Class I E66.811, Z68.33 /jim/ Uday Miller, PhD Clinical Psychologist Signed: 07/21/2024 15:09 Receipt Acknowledged By: 07/21/2024 15:55 /jim/ SIMÓN CARVALHO RD,LDN STAFF DIETITIAN UDAY MILLER ([facility])
--- OUTSIDE RECORDS SUMMARY | 2024-10-12 18:57 | XMS_ITS ---
Author Name [facility] Organization [facility] [place] Address [address] [place] [address] Care Team Providers Care Aircraft Shipping Checker Name Role Phone PIPO MEDEIROS Primary Care Provider LENY Suarez Primary Care Provider RICH Valencia Primary Care Provider Thien weber Selected Encounter This section includes the information on record at [place] for the Encounter. Date/Time Encounter Type Encounter Description Reason Pro vider Source Jun 25, 2024 01:00 PM Outpatient Encounter AUDIOLOGY IHE Encounter Template Text not used by [place] Plan of Treatment: Future Appointments (+ 6 months) and Future Tests (+/- 45 days) The Plan of Treatment section includes future care activities for the patient from all [place] treatmentfacilities. This section includes future appointments and future orders which are active, pending or scheduled. Future Appointments This section includes appointments that were scheduled to occur 6 months from the date of the Encounter, up to a maximum of 20 appointments. The data comes from all [place] treatment facilities. Appointment Date/Time Appointment Type Appointme nt Facility Name Jul 03, 2024 02:00 PM AMBULATORY [facility]INE [facility] Jul 14, 2024 01:00 PM AMBULATORY - NONE [facility] ([facility]) Jul 21, 2024 01:00 PM AMBULATORY - NONE [place] ([facility]) Jul 22, 2024 10:00 AM [facility] [place] [facility] Jul 22, 2024 02:00 PM AMBULATORY - [facility]AB [facility]ICIN [facility] [place] [facility] Jul 28, 2024 01:00 PM AMBULATORY - NONE [place] ([facility]) Aug 04, 2024 01:00 PM AMBULATORY - NONE [place] [facility] ([facility]) Aug 11, 2024 01:00 PM AMBULATORY - NONE [place] [facility] ([facility]) Aug 17, 2024 07:15 AM [facility]UL[facility] [place] [facility] Aug 24, 2024 02:00 PM [facility] [place] [facility] Aug 31, 2024 03:30 PM [facility] [place] [facility] Sep 14, 2024 11:30 AM AM[facility]UL[facility]ORY [facility] [place] [facility] Sep 29, 2024 02:30 PM AMBULATORY - MEDICINE [facility] Oct 08, 2024 10:00 AM AMBULATORY - RE[facility]IN [facility] [place] Oct 08, 2024 01:00 PM AMBULATORY - NONE [facility] [place] [facility] Oct 08, 2024 01:45 PM AMBULATORY - NONE [facility] [place] [facility] Oct 12, 2024 11:30 AM AM[facility]UL[facility] [place] [facility] October 15, 2024 07:00 AM AMBULATORY - MEDICINE [facility] [place] [facility] October 16, 2024 01:00 PM AM[facility]ULATORY [facility] [place] [facility] October 21, 2024 03:00 PM AM[facility]ULATORY - [facility]IC[facility] [place] [facility] Active, Pending, and Scheduled Orders This section includes a listing of several types of active, pending, and scheduled orders, including clinic medications orders, diagnostic test orders, procedure orders and consult orders; where the start date of the order is 45 days before the date of the Encounter or 45 days after the date of theEncounter. The data comes from all [place] treatment facilities. Test Date/Time Test Type Test Details Facility Name Jun 12, 2024 02:35 PM Consult Order TELE-EYE S CREENING CONSULT - CBC Cons Electroencephalographic Technologist's [facility] Aug 03, 2024 01:06 PM Consult Order COMMUNITY CARE-PAIN MANAGEMENT Cons Electroencephalographic Technologist's [facility] Advance Directives: All historical and current Section Date Range: From patient's date of to the date document was created. This section includes ALL of a patient's completed or amended [place] Advance and Rescinded Directives. The entries below indicate that a directive exists for the patient, but an actual copy is not included with this document. The data comes from all [place] facilities. Date Advance Directives Provider Source November 12, 2023 ADVANCE DIRECTIVE DISCUSSION JESSICA MESA [facility] Radiology Reports: +/- 30 days of the [...] the Encounter. The data comes from all [place] treatment facilities. Date/Time Radiology Report Provider Source Jul 22, 2024 02:20 PM FLUOROSCOPIC RODNEY NCE FOR NEEDLE PLACEMENT: COLLETTE ROSE [id number] -[id number] M Ex Date: JUL 22, 2024@14:20 Req Phys: LEXI MONTOYA THI Pat Loc: [facility] MED REHAB SPN INDIO THOMAS (Req' Img Loc: [facility] 1 Service: [place] [address] (Case [id number] COMPLETE) FLUOROSCOPIC GUIDANCE FOR NEEDLE (RAD Detailed) CPT:28160 Reason for Study: genicular nerve block Clinical History: Report Status: Verified Date Reported: JUL 22, 2024 Date Verified: JUL 22, 2024 Supervisor Aircraft Cleaning E-Sig:/ES/CLAUDIA MÉNDEZ JR Report: Study: Pain injection [...] Primary Interpreting Staff: CLAUDIA MÉNDEZ JR, Radiologist (Supervisor Aircraft Cleaning) /CLAUDIA VALLES JR [facility] Encounter Notes: All associated encounter notes This section contains the clinical notes associated to the Encounter. Date/Time Encounter Note(s) Provider Source Jun 25, 2024 01:40 PM CLERICAL NOTE: LOCAL TITLE: APPOINTMENT NO SHOW STANDARD TITLE: CLERICAL NOTE DATE OF NOTE: JUN 25, 2024@13:40 ENTRY DATE: JUN 25, 2024@13:40:21 AUTHOR: DUSTY MICHELLE EXP COSIGNER: URGENCY: STATUS: COMPLETED Patient Name: COLLETTE ROSE Patient SSN: [id number] Date and time of Appointment No show : 06/25/24 13:00 PATIENT PHONE - PHONE NUMBER [CELLULAR] - Patient's medical record was reviewed. Follow-up actions were determined and initiated: Please check/complete as applies: [ ]Telephoned Directly [ ]Re-scheduled for next available appt [X]Sent a N0-show letter ( must call for appointment) [ ]Other (Emergent/Overbook, etc.): Additional Comments: Future Clinic Visits 06/25/2024 14:00 CWM/NO/OTOLARYNGOLOGY 06/29/2024 13:00 CWM/SO/PACT 1 COMMUNICATIONS LEAD 07/02/2024 15:30 CWM/SO/PHYSICAL THERAPY B 07/03/2024 14:00 CWM/SO/TELE/PHARM/PACT 1 07/22/2024 14:00 CWM/NO/MED REHAB/SPINE IN 10/21/2024 15:00 NHM/OPTOMETRY/GUERRA/ /jim/ Marcie CHOWDARY, [facility]-A STAFF PATROL DEPUTY SHERIFF Signed: 06/25/2024 13:40 Receipt Acknowledged By: 06/25/2024 13:41 /es/ ELI EATON LEAD MOBILE HEAVY EQUIPMENT MECHANIC DUSTY MICHELLE [facility]
--- OUTSIDE RECORDS SUMMARY | 2024-10-12 18:57 | XMS_ITS | Encounter Summary ---
Author Name [facility] Organization [facility] [place] [place] Address [address] [place] [address] Care Team Providers Care Hospital Secretary Name Role Phone PIPO MEDEIROS Primary Care Provider LENY Suarez Primary Care Provider RICH Valencia Primary Care Provider Thien weber Selected Encounter This section includes the information on record at [place] for the Encounter. Date/Time Encounter Type Encounter Description Reason Provider Source Dec 16, 2023 11:45 AM OFFICE O/P [facility] 30 MIN PODIATRY ICD-10-CM L60.0 Ingrowing nail PAUL JHA Caitlin Encounter Template Text not used by [place] Assessments - Encounter Diagnoses This section includes the primary and secondary diagnoses documented for the Encounter. Date/Time Primary/Secondary Diagnosis Diagnosis Name Provider Source Dec 16, 2023 04:41 PM PRIMARY Ingrowing nail PAUL JHA Dec 16, 2023 04:41 PM SECONDARY Type 2 diabetes w diabetic peripheral angiopath w/o gangrene PAUL JHA Plan of Treatment: Future Appointments (+ 6 months) and Future Tests (+/- 45 days) The Plan of Treatment section includes future care activities for the patient from all [facility] treatmentfacilities. This section includes future appointments and future orders which are active, pending or scheduled. Future Appointments This section includes appointments that were scheduled to occur 6 months from the date of the Encounter, up to a maximum of 20 appointments. The data comes from all [place] treatment facilities. Appointment Date/Time Appointment Type Appointme nt Facility Name Dec 23, 2023 02:30 PM [facility] Dec 26, 2023 07:30 AM AMBULATORY - MEDICINE [facility] Dec 30, 2023 02:30 PM AMBULATORY - NONE [facility] [place] [facility] Jan 14, 2024 12:30 PM AM[facility]ULATORY [facility] [place] [facility] Jan 29, 2024 03:00 PM AM[facility]ULATORY [facility]INE [facility] [place] [facility] Jan 30, 2024 01:30 PM [facility] [place] [facility] Jan 31, 2024 03:30 PM [facility] [place] [facility] Feb 18, 2024 03:00 PM AMBULATORY - NONE [facility] [place] [facility] Feb 20, 2024 10:00 AM [facility]ULATORY [facility] [place] [facility] Mar 13, 2024 12:30 PM [facility]ORY [facility] [place] [facility] Mar 25, 2024 03:00 PM [facility] [place] [facility] Mar 27, 2024 08:00 AM [facility] [place] [place] Apr 17, 2024 03:00 PM [facility] Apr 21, 2024 01:00 PM AMBULATORY - NONE [place] [facility] Apr 21, 2024 02:30 PM [facility] [place] Apr 23, 2024 01:00 PM AMBULATORY - [place]INE [place] [facility] [place] [facility] Apr 23, 2024 02:00 PM AMBULATORY - MEDICINE [place] [facility] [place] [facility] Apr 24, 2024 02:30 PM [facility] [place] Apr 28, 2024 01:00 PM AMBULATORY - NONE [place] [facility] Apr 28, 2024 02:30 [facility] Active, Pending, and Scheduled Orders This section includes a listing of several types of active, pending, and scheduled orders, including clinic medications orders, diagnostic test orders, procedure orders and consult orders; where the start date of the order is 45 days before the date of the Encounter or 45 days after the date of theEncounter. The data comes from all [facility] facilities. Test Date/Time Test Type Test Details Facility Name Nov 16, 2023 12:00 AM Laboratory - Chemi stry Order CBC (WITH DIFF)_ BLOOD (EDTA WB) [facility] Nov 16, 2023 12:00 AM Laboratory - Chemi stry Order B12 & FOLATE_ SERUM (GOLD) [facility] Nov 16, 2023 12:00 AM Laboratory - Chemi stry Order IRON PANEL (FE & UIBC)_ SERUM (GOLD) [facility] Nov 16, 2023 12:00 AM Laboratory - Chemi stry Order LIPID PROFILE_ SERUM (GOLD) [facility] Nov 16, 2023 12:00 AM Laboratory - Chemi stry Order BASIC METABOLIC PROFILE_ SERUM (GOLD) [facility] Nov 16, 2023 12:00 AM Laboratory - Chemi stry Order HEMOGLOBIN A1C BLOOD (EDTA WB) [facility] Nov 16, 2023 12:00 AM Laboratory - Chemi stry Order GENERAL TOX (URINE)_ URINE (TOX) [facility] Lab Results: +/- 30 days of the encounter This section includes the Chemistry and Hematology Lab Results on record with [place] for the patient. Radiology Reports and Pathology Reports are provided separately, in subsequent sections. Lab Results This section contains the Chemistry/Hematology Results that were resulted 30 days before or 30 daysafter the date of the Encounter. Date/Time Source Result Type Result - Unit Interpretation Reference Range Specimen Type Comment Dec 24, 2023 02:35 PM [facility] LIPID PANEL FASTING SERUM Specimen Type: SERUM No comment entered. Ordering Provider: ELI DUDLEY Report Released Date/Time: Dec 23, 2023 04:10 PM Reporting Lab: [facility] Taskmit [facility] [address] [address] Performing Lab: [address] [address] CHOLESTEROL 133 mg/dL TRIGLYCERIDE 74 mg/dL 0-150 LDL calculated 83 mg/dL 0-129 CHOL/HDL 3.8 HDL CHOLESTEROL 35 mg/dL L 40-60 Dec 24, 2023 02:35 PM [facility] LIVER FUNCTION SERUM Specimen Type: SERUM No comment entered. Ordering Provider: ELI DUDLEY Report Released Date/Time: Dec 23, 2023 04:10 PM Reporting Lab: [address] [address] Performing Lab: [address] [address] PROTEIN,TOTAL 7.1 g/dL 6.0-8.3 ALBUMIN 4.3 g/dL 3.5-5.0 ALKALINE PHOSPHATASE 69 U/L 40-150 AST 21 U/L 5-34 ALT 22 U/L BILIRUBIN, TOTAL 0.4 mg/dL 0.2-1.2 Dec 24, 2023 02:35 PM [facility] BASIC METABOLIC PANEL (fasting) SERUM Specime n Type: SERUM No comment entered. Ordering Provider: ELI DUDLEY Report Released Date/Time: Dec 23, 2023 04:11 PM Reporting Lab: [address] [address] Performing Lab: [address] [address] UREA NITROGEN 14 mg/dL 7-25 GLUCOSE 102 mg/dL H 65-100 SODIUM 140 mmol/L 135-145 POTASSIUM 4.8 mmol/L 3.5-5.0 CHLORIDE 107 mmol/L 100-110 CO2 22 meq/L 20-30 CREATININE, Serum 0.85 mg/dL 0.50-1.40 eGFR(CKD-EPI 2020) >90 mL/min >60 Dec 24, 2023 02:35 PM [facility] MICROALBUMIN CREATININE RATIO PANEL URINE Spe cimen Type: URINE No comment entered. Ordering Provider: ELI DUDLEY Report Released Date/Time: Dec 23, 2023 04:11 PM Reporting Lab: [address] [address] Performing Lab: [address] [place] [address] MICROALBUMIN/CREATININE RATIO 8.2 mg/g 0 -29.9 MICROALBUMIN,QUANTITATIVE 1.2 mg/dL RR U NAVAIL CREATININE URINE 146.77 mg/dL Dec 24, 2023 02:35 PM [facility] HEMOGLOBIN A1C PANEL BLOOD Specimen Type: BLO [...] Dec 23, 2023 04:11 PM Reporting Lab: [facility] [address] [address] Performing Lab: [facility] [address] [address] HEMOGLOBIN A1C 5.7 H 4.0-5.6 Dec 24, 2023 02:35 PM [facility] TSH SERUM Specimen Type: SERUM No comment entered. Ordering Provider: ELI DUDLEY Report Released Date/Time: Dec 23, 2023 04:11 PM Reporting Lab: [facility] [address] [address] Performing Lab: [facility] [address] [address] TSH 1.64 u[IU]/mL 0.35-5.00 Dec 24, 2023 02:35 PM [facility] PSA SERUM Specimen Type: SERUM No comment entered. Ordering Provider: ELI DUDLEY Report Released Date/Time: Dec 23, 2023 04:11 PM Reporting Lab: [facility] [address] [address] Performing Lab: [facility] [address] PSA 1.80 ng/mL 0.00-4.00 Dec 24, 2023 02:35 PM [facility] SMEAR EXAMINATION BLOOD Specimen Type: BLOOD Comment: LARGE PLATELETS SEEN Ordering Provider: ELI DUDLEY Report Released Date/Time: Dec 23, 2023 04:11 PM Reporting Lab: [address] [address] Performing Lab: [address] [address] PLT (smear review) ADEQ 10*3/uL MICROCYTOSIS 2+ HYPOCHROMIA 2+ OVALOCYTES 1+ Dec 24, 2023 02:35 PM [facility] CBC AND DIFF (AUTO) BLOOD Specimen Type: BLOO D No comment entered. Ordering Provider: ELI DUDLEY Report Released Date/Time: Dec 23, 2023 04:11 PM Reporting Lab: [address] [address] Performing Lab: [address] [address] WBC 6.05 10*3/uL 4.50-11.00 RBC 4.99 10*6/uL [...] 0.0-0.0 NRBC, ABS 0.03 10*3/uL H 0.00-0.00 Advance Directives: All historical and current Section Date Range: From patient's date of to the date document was created. This section includes ALL of a patient's completed or amended [place] Advance and Rescinded Directives. The entries below indicate that a directive exists for the patient, but an actual copy is not included with this document. The data comes from all [place] facilities. Date Advance Directives Provider Source November 12, 2023 ADVANCE DIRECTIVE DISCUSSION JESSICA MESA [facility] Radiology Reports: +/- 30 days of the [...] the Encounter. The data comes from all [place] treatment facilities. Date/Time Radiology Report Provider Source Dec 30, 2023 03:56 PM KNEE 3 VIEWS (LEFT ): COLLETTE ROSE [id number] -[phone] M Ex Date: DEC 30, 2023@15:56 Req Phys: ALEN SANCHEZ Pat Loc: COM CARE-RADIOLOGY X-RAY (Req' Img Loc: [facility] 1 Service: Unknown [facility] , (Case 64 COMPLETE) KNEE 1 OR 2 VIEWS (LEFT) (RAD Detailed) CPT:31244 Reason for Study: osteoarthritis knee (Case 65 COMPLETE) KNEES BILATERAL STANDING (RAD Detailed) CPT:61644 (Case 66 COMPLETE) KNEE 1 OR 2 VIEWS (RIGHT) (RAD Detailed) CPT:45349 Clinical History: Traveling request Report Status: Verified Date Reported: DEC 30, 2023 Date Verified: DEC 30, 2023 Oil Spot Washer E-Sig:/ES/CLAUDIA MÉNDEZ JR Report: Study: AP weight-bearing views of the knees with lateral and sunrise views of the left and right knees. Comparison: None. Findings: Severe bilateral lateral joint compartment degenerative osteoarthritic versus post traumatic arthritic changes are present with [id number] appearance of the lateral femur and the lateral tibia with prominent joint line hypertrophic osteophyte formation. There is compensatory widening of the medial joint compartments and valgus deformities of the lower legs resulting. Moderate to severe narrowing is present to the patellofemoral joints bilaterally with mild lateral subluxation of the right patella. Prominent hypertrophic osteophyte formation is present to the inferior and superior poles of both patellae. The left superior patellar enthesophyte shows a lucency through it with no displacement which could represent artifact versus nondisplaced fracture. Prominent degenerative hypertrophic bony changes are also seen to the distal femurs, right greater than left. No significant suprapatellar knee joint effusion is identified. Trace vascular calcifications are present bilaterally. Impression: Knee changes, as described above. Primary Diagnostic Code: No immediate attention required Primary Interpreting Staff: CLAUDIA MÉNDEZ JR, Radiologist (Oil Spot Washer) /CLAUDIA VALLES JR [facility] Encounter Notes: All associated encounter notes This section contains the clinical notes associated to the Encounter. Date/Time Encounter Note(s) Provider Source Dec 16, 2023 04:16 PM PODIATRY CONSULT: LOCAL TITLE: CONSULT REPORT/PODIATRY STANDARD TITLE: PODIATRY CONSULT DATE OF NOTE: DEC 16, 2023@16:16 ENTRY DATE: DEC 16, 2023@16:17:04 AUTHOR: PAUL JHA COSIGNER: URGENCY: STATUS: COMPLETED NAME: COLLETTE ROSE DATE: DEC 16, 2023 : Jul PCP: LAST SEEN: INITIAL CONSULT VISIT TODAY HPI: Pt. is a 53 yo alert WDWN CAUC MALE who presents for initial podiatric examination with Dr. Jha for treatment of a presenting complaint of painful ingrown toenails as well as several superficial wounds that were initially treated at our walk-in clinic and seen by Scar Lacey & Martha Cee with a referral to wound care for follow-up care at [facility]. Patient states that he does NOT have has TYPE II DM & is at risk of injury with self or other non- professional care whic is in contrast to his PMH(see below). HE IS SEEN TODAY AN EM[facility]Y [facility] FO IS LAST APPOINTMENT ON SATURDAY WITH A NEED TO BE RE-SCHEDULED. Patient has been referred by: MARTHA CEE NP Location of symptoms are: NAILS 1-2-3-4-5 BILATERAL. THERE IS A RESIDUAL HEALING LESION DORSUM RT FOOT THAT IS 2CM IN DIAMETER AND VERY SUPERFICIAL WITH NO EXUDATE NOTED. A SIMILAR LESION ON THE LEFT FOOT HAS RESOLVED. THERE IS A NEW CONCERN OF A MILD PAINFUL EXUDATE MEDIAL RT HEEL MEASURING 2CM IN DIAMETER WITH NO OPEN AREAS JUST A MILD SEROUS EXUDATE AND AN INTERDIGITAL SKIN CRACK BETWEEN 2ND AND 3RD LEFT TOES WITH BACITRACIN ON ALL AREAS SO IT IS DIFFICULT TO DETERMINE EXUDATE FROM BACITRACIN. Onset of symptoms has been several months(SINCE SEPTEMBER) due to this being a recent condition that has been exacerbating over the past few weeks. Duration of symptoms is daily with periods of exacerbation and remission. Description of symptoms is of an aching-nature. HE IS FROM [place] BUT IS HERE ON BUSINESS UNTIL THE END OF THE YEAR [facility] IS PLANNING TO OPEN A RESTAUR[employer] AT THE [employer] TO COMPLIMENT HIS FACILITY IN [place]. Contributing factors are: shoes and increased activity. Previous treatment: SEE TIFF'S NOTED AT WALK-IN. PMH: Active problems - Computerized Problem List is the source for the followin. Erectile dysfunction 2. Type 2 diabetes mellitus 3. Osteoarthritis 4. Umbilical hernia 5. Obesity 6. Edema 7. Colonoscopy Screening *NOTE: REVIEWED ABOVE, NOTING NON-CONTRIBUTORY TO THE CC OTHER THAN THE PRESENCE OF TYPE II DM Family History: Non-contributory Social History: N/A Current medications: Active Outpatient Medications (including Supplies): *NOTE: DENIES ANY RECENT CHANGES IN MEDS UPON QUESTIONING TODAY-SEE RECONCILIATION PERFOMED THIS DATE BELOW TOBACCO USE = NONE Active Outpatient Medications Status = 1) BACITRACIN 500 UNT/GM TOP OINT APPLY SMALL AMOUNT ACTIVE TOPICALLY TWICE DAILY FOR INFECTION APPLY TO FOOT WOUNDS 2) GABAPENTIN 300MG CAP TAKE ONE CAPSULE BY MOUTH THREE ACTIVE TIMES A DAY Active Non-VA Medications Status = 1) Non-VA DICLOFENAC NA 1% TOP GEL 2 GRAMS TOPICALLY ACTIVE FOUR TIMES A DAY 2) Non-VA DICLOFENAC NA 75MG EC TAB 75MG BY MOUTH TWICE ACTIVE DAILY 3) Non-VA METFORMIN (ONCE DAILY) TAB,SA 500MG BY MOUTH ACTIVE TWICE DAILY 4) Non-VA SILDENAFIL CITRATE 100MG TAB 100MG BY MOUTH ACTIVE ONCE DAILY NEEDED 6 Total Medications Allergies:CLINDAMYCIN, MORPHINE Previous Surgery/Hospitalization: N/A TO THE CC HEIGHT: WEIGHT: REVIEW OF SYSTEMS: DEFERRED BEING NON-CONTRIBUTORY TO THE CC & I HAVE REVIEWED THE PCP NOTES & PMH WELL. O: DERMATOLOGICAL: Exam reveals skin color & TEMP ARE WNL. TEXTURE IS THINAND SHINY WITH OPEN AREAS DESCRIBED ABOVE. There is absence of hair noted. Nails are WNLBUT ELONGATED AND IN NEED OF CARE. THE AFFECTED NAILS ARE 1-2-3-4-5 BILATERAL. There are NO superficial painful hyperkeratotic lesions noted at this time. There are no rashes, ulcers, indurations or nodules noted OTHER THAN DESCRIBED ABOVE. VASCULAR: Exam reveals DP & PT pulses to be absent non-palpable bilateral. CFT is <3 sec x 10. There are superficial varices noted and there is +2 edema noted BILATERAL. MUSCULOSKELETAL: Exam reveals muscle strength and tone to be equal & symmetrical bilaterally & WNL for an individual of this age and present physical-medical condition. There is pain free ROM at all joints distal to and including the ankle. NEUROLOGICAL: Exam DEFERRED DUE TO HYPERSENSITIVITY TO EVEN MILD TOUCH AND PATIENTS INDICATES THAT HE IS VERY APPREHENSIVE ABOUT TOUCH TO HIS FEET. BIOMECHANICAL: Exam is deferred at this time due to the presence of pain as WELL BEING non-contributory to the cc . A: Clinical Impression is painful onychocryptic nails in the presence of DM-PVD WELL OTHER WOUNDS. P: Treatment consists of TRIMMING-reduction of all nails via manual & electric means with excision of the offending nail borders. Additional treatment consists of THE APPLICATION OF PROMOGRAN AND MICROPORE TAPE WELL BACITRACIN AND OLIVER'S WOOL TO THE INTERSPACE BETWEEN TOES 2 & 3. All care rendered without complications & the patient is progressing well after podiatric care this date and A RATHER LENGTHY DISCUSSION WAS THEN ENGAGED I WAS ATTEMPTING TO HAVE HEV SEEN AT WOUND CARE AT [facility] AND HE INDICATES THAT HE HAD AN APPOINTMNET THERE TODAY BUT DID NOT GO SO HE COULD SEE ME. I ADVISED HIM THAT I COULD NOT CONTINUE WOUND CARE FOR HIS FEET I WAS AWAY AFTER SATURDAY AND THAT HE SHOULD BE SEEN AT WOUND CARE. HE THEN STATED THAT WOUND CARE INSISTED THAYT HE BE SEEN BY PODIATRY . I ADVISED HIM THAT I DID NOT HAVE THE AVAILABILITY TO SEE HIM PRIOR TO MY LEAVBING ON SATURDAY AND HE THEN INDICATED THAT HE HAS AN APPOINTMENT ON DECEMBER 22, WITH DR. DUDLEY. I DRESSED HIS WOUNDS AND SUGGESTED CHANGING IN 2 DAYS AND PROVIDED HIM WITH MATERIALS AND RONNIE CERTAIN TO SEE DR. DUDLEY TO DISCUSS FUTURE CARE AT THE WOUND CARE CENTER WHO CAN BEST PROVIDE THESERVICES THAT HE MIGHT REQUIRE. I AM NOT CERTAIN THAT HE HAS A FUKK GRASP OF HIS SITUATION HE HAS MISSED 2 PREVIOUS PCP VISITS WELL BEING LATE AND HAVING TO BE SEEN AT THE WALK-IN CLINIC LAST WEEK. NOTE: DURING NAIL CARE HE WAS EXTREMELY SENSITIVE BEYOND WHAT WOULD ORDINARILY BE EXPECTED THE NAILS WERE NORMAL IN NATURE BUT EVEN THE SLIGHTEST TOUCH ELICITED A PAINFUL OUTCRY. I DISCUSSED THE FINDINGS & PLAN WITH PATIENT (UNCHANGED SINCE PREVIOUS VISIT) & PATIENT AGREES AND UNDERSTANDS PLAN DUE TO CONVERSATION WAS NOT ABLE TO ENGAGE IN A SUICIDE SCREEN AT THIS TIME. PAVE Foot Check: A complete foot check was completed at this encounter. VISUAL INSPECTION: Includes inspection for skin breaks, deformity, erythema, trauma, pallor on elevation, dependent rubor, nail deformities, extensive callus and pitting edema. Visual exam results: Abnormal Observations: Non-healing wound PEDAL PULSES: Includes palpation of dorsalis and posterior tibial pulses and signs/symptoms of vascular compromise like pain, pallor, parasthesia or paralysis. Absent: Comment: DP & PT PULSES ARE ABSENT NON-PALPABLE BILAT SENSORY CHECK: Includes 10 gram Monofilament (Lindstrom-Paul) test of sensation. Intact (Greater than or equal to 80% of sites checked) Abnormal (Less than 80% of sites checked): Intact Comment: UNABLE TO DOCUMENT AT THIS TIME HIGH-RISK: HIGH RISK INFORMATION PROVIDED: 1. Advised patient that extra depth footwear with soft molded inserts and braces may be required. 2. Advised patient not to walk barefoot. 3. Explained the importance of daily foot checks. 4. Stressed the importance of daily foot hygiene, including bathing, complete drying and thorough inspection for changes. Patient is established patient of Podiatry and/or Vascular: Last scheduled appointment: DEC 13, 2023@12:00 GERTRUDE/JAMEL/PODIATRY/ABHIJEET Comment: 12/16/2023 /jim/ PAUL JHA DPM SENIOR LANDSCAPE ARCHITECT Signed: 12/16/2023 16:43 PAUL JHA
--- OUTSIDE RECORDS SUMMARY | 2024-10-12 18:57 | XMS_ITS | Encounter Summary ---
Author Name [facility] [place] Organization [place] Address [address] [place] [address] Care Team Providers Care Bridge Teacher Name Role Phone PIPO MEDEIROS Primary Care Provider LENY Suarez Primary Care Provider RICH Valencia Primary Care Provider Thien weber Selected Encounter This section includes the information on record at [place] for the Encounter. Date/Time Encounter Type Encounter Description Reason Pro vider Source Oct 12, 2024 01:24 PM Outpatient Encounter TELEPHONE TRIAGE IHE Encounter Template Text not used by [place] Plan of Treatment: Future Appointments (+ 6 months) and Future Tests (+/- 45 days) The Plan of Treatment section includes future care activities for the patient from all [place] treatmentfacilities. This section includes future appointments and future orders which are active, pending or scheduled. Future Appointments This section includes appointments that were scheduled to occur 6 months from the date of the Encounter, up to a maximum of 20 appointments. The data comes from all [place] treatment facilities. Appointment Date/Time Appointment Type Appointme nt Facility Name October 15, 2024 07:00 AM AMBULATORY [facility] MEDICINE [facility] October 16, 2024 01:00 PM AMBULATORY - MEDICINE [facility] October 21, 2024 03:00 PM AM[facility] [place] [facility] October 22, 2024 01:00 PM AMBULATORY - REHAB MEDICIN [facility] [place] [facility] November 02, 2024 02:00 PM AMBULATORY - MEDICINE [facility] Nov 18, 2024 09:30 AM [facility] Active, Pending, and Scheduled Orders This section includes a listing of several types of active, pending, and scheduled orders, including clinic medications orders, diagnostic test orders, procedure orders and consult orders; where the start date of the order is 45 days before the date of the Encounter or 45 days after the date of theEncounter. The data comes from all [place] treatment facilities. Test Date/Time Test Type Test Details Facility Name Sep 13, 2024 10:39 AM Consult Order COMMUNITY CARE-VASCULAR SURGERY Cons Manufacturing Systems Engineer's Choice [facility] Sep 29, 2024 12:00 AM Laboratory - Chemi stry Order VITAMIN D (25-OH) BLOOD (SST-SERUM) [facility] Sep 29, 2024 12:00 AM Laboratory - Chemi stry Order CBC AND DIFF (AUTO) BLOOD (LAV-BLOOD) [facility] Sep 29, 2024 12:00 AM Laboratory - Chemi stry Order TSH BLOOD (SST-SERUM) [facility] Sep 29, 2024 12:00 AM Laboratory - Chemi stry Order HEMOGLOBIN A1C PANEL BLOOD (LAV-BLOOD) [facility] Sep 29, 2024 12:00 AM Laboratory - Chemi stry Order PSA BLOOD (SST-SERUM) [facility] Sep 29, 2024 12:00 AM Laboratory - Chemi stry Order LIPID PANEL FASTING BLOOD (SST-SERUM) [facility] Sep 29, 2024 12:00 AM Laboratory - Chemi stry Order BASIC METABOLIC PANEL (fasting) BLOOD (SST-SERUM) [facility] Sep 29, 2024 12:00 AM Laboratory - Chemi stry Order LIVER FUNCTION BLOOD (SST-SERUM) [facility] Sep 29, 2024 12:00 AM Laboratory - Chemi stry Order MICROALBUMIN CREATININE RATIO PANEL URINE (RANDOM) [facility] Oct 08, 2024 06:02 PM Consult Order COMMUNITY CARE-ORTHO SURGICAL Cons Manufacturing Systems Engineer's [facility] Advance Directives: All historical and current Section Date Range: From patient's date of to the date document was created. This section includes ALL of a patient's completed or amended [place] Advance and Rescinded Directives. The entries below indicate that a directive exists for the patient, but an actual copy is not included with this document. The data comes from all [place] facilities. Date Advance Directives Provider Source November 12, 2023 ADVANCE DIRECTIVE DISCUSSION JESSICA MESA [facility] Radiology Reports: +/- 30 days of the [...] the Encounter. The data comes from all [place] treatment facilities. Date/Time Radiology Report Provider Source Oct 08, 2024 02:23 PM SHOULDER,COMPLETE(RIGHT): COLLETTE ROSE SYLVAIN [id number] -1970 M Ex Date: OCT 08, 2024@14:23 Req Phys: LENY AGUILERA Loc: [facility] PACT 1 ZIPPER SLIDE ATTACHER (Req'g Loc) Img Loc: [facility] 1 Service: Unknown [facility] [place] [address] (Case [id number] COMPLETE) SHOULDER,COMPLETE(RIGHT) (RAD Detailed) CPT:88168 Reason for Study: Possible biceps tendinopathy. Unable to lift right arm Clinical History: Report Status: Verified Date Reported: OCT 08, 2024 Date Verified: OCT 08, 2024 General Foreman E-Sig:/ES/CLAUDIA MÉNDEZ JR Report: Study: AP internally and externally rotated and Axillary views of the right shoulder. Comparison: None. Findings: The visualized lung and ribs appear normal. The bony mineralization is normal. There is an abnormal high riding appearance to the proximal humerus beneath the acromion which can be seen with full-thickness rotator cuff tears. 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 There is marginal spurring arising from the undersurface of the AC joint. In the correct clinical scenario, this could cause impingement upon the shoulder rotator cuff tendons and be a source of pain and/or tendinopathy. Clinical correlation is recommended. There is no bony fracture, dislocation or subluxation. Impression: Shoulder changes, as described above. Primary Diagnostic Code: No immediate attention required Primary Interpreting Staff: CLAUDIA MÉNDEZ JR, Radiologist (General Foreman) /EAD CLAUDIA MÉNDEZ JR [facility] Oct 08, 2024 01:14 PM MRI SHOULDER W/O CONTRAST (RIGHT): COLLETTE ROSE [id number] -1970 M Ex Date: OCT 08, 2024@13:14 Req Phys: LENY AGUILERA Loc: [facility] PACT 1 ZIPPER SLIDE ATTACHER (Req'g Loc) Img Loc: [facility] MRI Service: [place] [address] (Case [id number] COMPLETE) MRI SHOULDER W/O CONTRAST (RIGHT)(MRI Detailed) CPT:64865 Reason for Study: Possible biceps tendon tear. Unknown trauma. Clinical History: Unable to lift right arm Report Status: Verified Date Reported: OCT 08, 2024 Date Verified: OCT 08, 2024 General Foreman E-Sig:/ES/CLAUDIA MÉNDEZ JR Report: Study: MRI of the right shoulder. Comparison: Right shoulder radiographs from October 08, 2024. Technique: Multisequence and multiplanar imaging was performed through the shoulder without the use of gadolinium contrast agent. Findings: The study is suboptimal secondary to patient motion despite repetitive coaching. 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 There is a small AC joint effusion present. Prominent bony hyperostotic changes are also present superiorly from the AC joint. There is an abnormal high riding appearance to the proximal humerus again present secondary to chronic-appearing full-thickness tears of the supraspinatus and infraspinatus tendons with retraction of the torn tendons to the level of the glenoid. There is significant supraspinatus and infraspinatus muscular atrophy. The teres minor tendon appears intact with mild teres minor muscular atrophy. The subscapularis tendon appears intact with mild atrophy of the subscapularis muscle. There is moderate degenerative thinning and maceration of the glenoid present without focal glenoid tear. Prominent medial head compensatory osteophyte of the humerus secondary to osteoarthritic changes of the glenohumeral joint space again seen. There is a small joint effusion present. The long head of the biceps tendon is not well seen within the bicipital groove or within the rotator cuff interval and may be torn. No acute bony abnormality is seen. The suprascapular and spinoglenoid notches are normal. Impression: Abnormal shoulder findings, as described above. Primary Diagnostic Code: Significant Abnormality Attention Needed Primary Interpreting Staff: CLAUDIA MÉNDEZ JR, Radiologist (General Foreman) /EAD CLAUDIA MÉNDEZ JR [facility] Encounter Notes: All associated encounter notes This section contains the clinical notes associated to the Encounter. Date/Time Encounter Note(s) Provider Source Oct 12, 2024 01:24 PM RN PROGRESS NOTE: LOCAL TITLE: CCC: CLINICAL TRIAGE STANDARD TITLE: RN PROGRESS NOTE DATE OF NOTE: OCT 12, 2024@13:24:14 ENTRY DATE: OCT 12, 2024@13:24:15 AUTHOR: ISAAC NEVES COSIGNER: URGENCY: STATUS: COMPLETED Caller Verification Call Back Number: [phone] Caller/Recipient Relation to Patient: Self Caller Name: COLLETTE ROSE Emergency Contact: RAFAELA ROSE Triage Summary Utilized the Triage Tool: No Patient Disposition Patient/Caregiver agrees to plan of care: Yes Patient WHERE: Clinic/[facility] Nursing Plan and Disposition Unable to assist patient Comments: Pt contacted PACT here, is traveling in end of October. Other course(s) of action Generated msg to PACT/Provider Provided guidance for worsening symptoms: *Caller/Patient* advised to call facilities [place] Clinical Contact Center or seek immediate medical attention for new or worsening symptoms Nurse Summary Nurse Summary: PT states he is calling for a traveling vet consult. Pt states he lives in [facility], states he is living there, but is only temporarily here for work. He states he is temporary status in [place]. He states he used to be established in [place]. Declines need for triage. He states he spoke with his [place] provider team advised him to contact the provider in [place] provider, he returns back to [place] in the end of October. He was told to update the provider team here with the information. She advised. PT may be reached at [phone]. Non-Triage/Non-Symptom Call Provided patient w/ administrative Info Generated msg to PACT/Provider-NonTriage Clinical Contact Center Codes Clinic/Location: V1 CWM PHONE DEEPAK RN IMPORTANT: This note was created by [facility] Clinical Contact Center staff. Please do not alert the staff member by adding them as a signer for future communications. Alerts are not monitored by this user. /jim/ ISAAC NEVES RN,BSN VISN 1 DEEPAK RN Signed: 10/12/2024 13:24 Receipt Acknowledged By: * AWAITING SIGNATURE * VALENTE ELIZONDO * AWAITING SIGNATURE * TANIA CALDERON [facility]
--- OUTSIDE RECORDS SUMMARY | 2024-10-12 18:57 | XMS_ITS ---
Author Name [facility] [place] Organization [place] Address [address] [place] [address] Care Team Providers Care Kettle Cook Name Role Phone WALDEMAR PIPO Primary Care Provider LENY Suarez Primary Care Provider RICH Valencia Primary Care Provider Thien weber Selected Encounter This section includes the information on record at [place] for the Encounter. Date/Time Encounter Type Encounter Description Reason Pro vider Source Aug 10, 2024 03:45 PM Outpatient Encounter ADMIN PAT ACTIVTIES (MASNONCT) [...] Date/Time Appointment Type Appointme nt Facility Name Aug 11, 2024 01:00 PM AMBULATORY - NONE [facility] ([facility]) Aug 17, 2024 07:15 AM AMBULATORY [place] MEDICINE [facility] [place] [facility] Aug 24, 2024 02:00 PM AMBULATORY - MEDICINE [facility] [place] [facility] Aug 31, 2024 03:30 PM AMBULATORY - MEDICINE [facility] [place] [facility] Sep 14, 2024 11:30 AM AMBULATORY - MEDICINE [facility] [place] [facility] Sep 29, 2024 02:30 PM AMBULATORY - MEDICINE [facility] Oct 08, 2024 10:00 AM AMBULATORY - REHAB MEDICIN E [place] Oct 08, 2024 01:00 PM AMBULATORY - NONE [facility] [place] [facility] Oct 08, 2024 01:45 PM AMBULATORY - NONE [facility] [place] [facility] Oct 12, 2024 11:30 AM AMBULATORY - MEDICINE [facility] [place] [place] [facility] October 15, 2024 07:00 AM AMBULATORY - MEDICINE [facility] [place] [facility] October 16, 2024 01:00 PM AMBULATORY - MEDICINE [facility] [place] [facility] October 21, 2024 03:00 PM AMBULATORY - MEDICINE [facility] [place] [facility] October 22, 2024 01:00 PM AMBULATORY - REHAB MEDICIN E [facility] [place] [facility] November 02, 2024 02:00 PM AMBULATORY - MEDICINE [facility] Nov 18, 2024 09:30 AM AMBULATORY - MEDICINE [facility] [place] [facility] Active, Pending, and Scheduled Orders This section [...] Date/Time Test Type Test Details Facility Name Aug 03, 2024 01:06 PM Consult Order COMMUNITY CARE-PAIN MANAGEMENT Cons Customer Engineering Specialist's Choice [facility] [place] [facility] Aug 24, 2024 12:00 AM Laboratory - Chemistry Order OCCULT BLOOD FIT X1 SCREEN (MFP ONLY) [facility] [place] Sep 13, 2024 10:39 AM Consult Order COMMUNITY CARE-VASCULAR SURGERY Cons Customer Engineering Specialist's Choice [place] Advance Directives: All historical and current Section Date Range: From patient's date of to the date document was created. This section includes ALL of a patient's completed or amended [place] Advance and Rescinded Directives. The entries below indicate that a directive exists for the patient, but an actual copy is not included with this document. The data comes from all [place] facilities. Date Advance Directives Provider Source November 12, 2023 ADVANCE DIRECTIVE DISCUSSION JESSICA MESA [facility] Radiology Reports: +/- 30 days of the [...] the Encounter. The data comes from all [place] treatment facilities. Date/Time Radiology Report Provider Source Jul 22, 2024 02:20 PM FLUOROSCOPIC RODNEY NCE FOR NEEDLE PLACEMENT: COLLETTE ROSE [id number] -1970 M Ex Date: JUL 22, 2024@14:20 Req Phys: LEXI MONTOYA THI Pat Loc: [facility] REH[facility] SPN INDIO THOMAS (Req' Img Loc: [facility] 1 Service: [place] [address] (Case [id number] COMPLETE) FLUOROSCOPIC GUIDANCE FOR NEEDLE (RAD Detailed) CPT:75658 Reason for Study: genicular nerve block Clinical History: Report Status: Verified Date Reported: JUL 22, 2024 Date Verified: JUL 22, 2024 Public Relations Director E-Sig:/ES/CLAUDIA MÉNDEZ JR Report: Study: Pain injection [...] Primary Interpreting Staff: CLAUDIA MÉNDEZ JR, Radiologist (Public Relations Director) /CLAUDIA VALLES JR [facility] Encounter Notes: All associated encounter notes This section contains the clinical notes associated to the Encounter. Date/Time Encounter Note(s) Provider Source Aug 25, 2024 12:41 PM ADDENDUM: LOCAL TITLE: Addendum STANDARD TITLE: ADDENDUM DATE OF NOTE: AUG 25, 2024@12:41:06 ENTRY DATE: AUG 25, 2024@12:41:08 AUTHOR: TATIANA JOSEPH EXP COSIGNER: URGENCY: STATUS: COMPLETED Please note; again requesting renewals for: [id number] KERLIX 4.5IN STERILE [id number] TAPE,MEDIPORE H SOFT 1IN X 10YD 3M#[id number] GAUZE PAD 4IN X 4IN 8-PLY STER[place] Please review and renew if appropriate. If renewals are not appropriate, please consider updating [place]. /es/ Tatiana Joseph CPhT Criminal Judge, [place]/Pharmacy Customer Care Signed: 08/25/2024 12:42 Receipt Acknowledged By: 08/25/2024 14:45 /es/ VALENTE ELIZONDO REGISTERED NURSE 08/25/2024 12:55 /es/ LENY AGUILERA NP NURSE PRACTITIONER ====== --- Original Document --- 08/10/24 V1 PHARMACY CUSTOMER CARE MEDICATION RENEWAL: Date: Jul Division: [facility] referred by Pharmacy Call Center for medication renewal: Non-controlled/maintenan ce medication , Controlled substance Medications requested: [id number] METFORMIN HCL 500MG 24HR SA TAB [id number] KERLIX 4.5IN STERILE [id number] TAPE,MEDIPORE H SOFT 1IN X 10YD 3M#[id number] GAUZE PAD 4IN X 4IN 8-PLY STERILE [id number] PHENTERMINE 7.5/TOPIRAMATE 46MG SA CAP Defer to primary care provider To be mailed . Please review and renew if appropriate. *This note was generated by [facility] Pharmacy Customer Care. If you have any questions or need assistance, do not contact this author. Please refer all questions to your local, on-site pharmacy departments. /jim/ AYSE SANTIZO CPhT Criminal Judge, [place]/Pharmacy Customer Care Signed: 08/10/2024 15:45 Receipt Acknowledged By: 08/10/2024 16:01 /jim/ LEORA LYNNN,RN-BC REGISTERED NURSE (RN) for VALENTE ELIZONDO 08/12/2024 12:06 /jim/ LENY AGUILERA NP NURSE PRACTITIONER [facility] Aug 10, 2024 03:46 PM PHARMACY NOTE: LOCAL TITLE: V1 PHARMACY CUSTOMER CARE MEDICATION RENEWAL STANDARD TITLE: PHARMACY NOTE DATE OF NOTE: AUG 10, 2024@15:46 ENTRY DATE: AUG 10, 2024@15:46:11 AUTHOR: AYSE SANTIZO EXP COSIGNER: URGENCY: STATUS: COMPLETED Date: Jul Division: [place] Pt referred by Pharmacy Call Center for medication renewal: Controlled substance Medications requested: [id number] TRAMADOL HCL 50MG TAB Defer to specialty clinic To be mailed . Please review and renew if appropriate. *This note was generated by [facility] Pharmacy Customer Care. If you have any questions or need assistance, do not contact this author. Please refer all questions to your local, on-site pharmacy departments. /jim/ AYSE SANTIZO CPhT Criminal Judge, [place]/Pharmacy Customer Care Signed: 08/10/2024 15:46 Receipt Acknowledged By: 08/10/2024 15:52 /jim/ BRIAN HERRERA PAC,[facility] AYSE [facility]IZO [facility] Aug 10, 2024 03:45 PM PHARMACY NOTE: LOCAL TITLE: V1 PHARMACY CUSTOMER CARE MEDICATION RENEWAL STANDARD TITLE: PHARMACY NOTE DATE OF NOTE: AUG 10, 2024@15:45 ENTRY DATE: AUG 10, 2024@15:45:38 AUTHOR: AYSE SANTIZO EXP COSIGNER: URGENCY: STATUS: COMPLETED V1 PHARMACY CUSTOMER CARE MEDICATION RENEWAL Has ADDENDA Date: Jul Division: [place] Pt referred by Pharmacy Call Center for medication renewal: Non-controlled/maintenan ce medication , Controlled substance Medications requested: [id number] METFORMIN HCL 500MG 24HR SA TAB [id number] KERLIX 4.5IN STERILE [id number] TAPE,MEDIPORE H SOFT 1IN X 10YD 3M#[id number] GAUZE PAD 4IN X 4IN 8-PLY STER[place] [id number] PHENTERMINE 7.5/TOPIRAMATE 46MG SA CAP Defer to primary care provider To be mailed . Please review and renew if appropriate. *This note was generated by [facility]/[place] Pharmacy Customer Care. If you have any questions or need assistance, do not contact this author. Please refer all questions to your local, on-site pharmacy departments. /jim/ AYSE SANTIZO CPhT Criminal Judge, [place]/Pharmacy Customer Care Signed: 08/10/2024 15:45 Receipt Acknowledged By: 08/10/2024 16:01 /jim/ LEORA LYNNN,RN-BC REGISTERED NURSE (RN) for VALENTE ELIZONDO 08/12/2024 12:06 /jim/ LENY AGUILERA NP NURSE PRACTITIONER 08/25/2024 ADDENDUM STATUS: COMPLETED Please note; [place] again requesting renewals for: [id number] KERLIX 4.5IN STERILE [id number] TAPE,MEDIPORE H SOFT 1IN X 10YD 3M#[id number] GAUZE PAD 4IN X 4IN 8-PLY ST[place] Please review and renew if appropriate. If renewals are not appropriate, please consider updating [place]. /jim/ Tatiana Joseph CPhT Criminal Judge, [place]/Pharmacy Customer Care Signed: 08/25/2024 12:42 Receipt Acknowledged By: * AWAITING SIGNATURE * VALENTE ELIZONDO * AWAITING SIGNATURE * LENY AGUILERA [facility]
--- OUTSIDE RECORDS SUMMARY | 2024-10-12 18:57 | XMS_ITS | Encounter Summary ---
Author Name [facility] [place] [place] Address [address] [place] [address] Care Team Providers Care Press Worker Helper Name Role Phone PIPO MEDEIROS Primary Care Provider LENY Suarez Primary Care Provider RICH Valencia Primary Care Provider Thien weber Selected Encounter This section includes the information on record at [place] for the Encounter. Date/Time Encounter Type Encounter Description Reason Pro vider Source Apr 14, 2024 03:00 PM Outpatient Encounter PHYSICAL THERAPY [facility] Encounter Template Text not used by [place] Plan of Treatment: Future Appointments (+ 6 months) and Future Tests (+/- 45 days) The Plan of Treatment section includes future care activities for the patient from all [place] treatmentfacilities. This section includes future appointments and future orders which are active, pending or scheduled. Future Appointments This section includes appointments that were scheduled to occur 6 months from the date of the Encounter, up to a maximum of 20 appointments. The data comes from all [place] treatment facilities. Appointment Date/Time Appointment Type Appointme nt Facility Name Apr 17, 2024 03:00 PM AMBULATORY - REHAB MEDICIN [facility] Apr 21, 2024 01:00 PM AMBULATORY - NONE [place] [facility] Apr 21, 2024 02:30 PM AMBULATORY - RE[facility]AB MEDICIN [facility] [place] Apr 23, 2024 01:00 PM [facility] [place] [facility] Apr 23, 2024 02:00 PM [facility] [place] [facility] Apr 24, 2024 02:30 PM AMBULATORY - REHAB MEDICIN [facility] [place] Apr 28, 2024 01:00 PM AMBULATORY - NONE [place] [facility] Apr 28, 2024 02:30 PM AMBULATORY - REHAB MEDICIN [facility] [place] Apr 29, 2024 01:30 PM [facility] May 04, 2024 03:30 PM [facility]INE [facility] May 05, 2024 01:00 PM AMBULATORY - NONE [place] [facility] May 12, 2024 01:00 PM AMBULATORY - NONE [place] [facility] May 13, 2024 01:30 PM [facility] [place] [facility] May 20, 2024 01:00 PM AMBULATORY - REHAB MEDICIN [facility] [place] [facility] May 21, 2024 03:00 PM AMBULATORY - REHAB MEDICIN [facility] [place] Jun 02, 2024 01:00 PM AMBULATORY - NONE [place] [facility] Jun 05, 2024 02:30 PM AMBULATORY - REHAB MEDICIN [facility] [place] Jun 19, 2024 07:30 AM [facility]ORY [facility] [place] [facility] Jun 23, 2024 11:30 AM AM[facility]ULATORY [facility] MEDIC[facility] [place] [facility] Jun 25, 2024 01:00 PM [facility] Active, Pending, and Scheduled Orders This section includes a listing of several types of active, pending, and scheduled orders, including clinic medications orders, diagnostic test orders, procedure orders and consult orders; where the start date of the order is 45 days before the date of the Encounter or 45 days after the date of theEncounter. The data comes from all [place] treatment facilities. Test Date/Time Test Type Test Details Facility Name Apr 01, 2024 09:23 AM Consult Order COMMUNITY CARE-WOUND Cons Flatbed Press Operator's Choice [place] May 08, 2024 12:00 AM Laboratory - Chemi stry Order URINE DRUG PROFILE_ UA CUP URINE SP [facility] May 08, 2024 12:00 AM Laboratory - Chemi stry Order CBC (WITH DIFF)_ BLOOD (EDTA WB) [facility] May 08, 2024 12:00 AM Laboratory - Chemi stry Order LIPID PROFILE_ SERUM (GOLD) [facility] May 08, 2024 12:00 AM Laboratory - Chemi stry Order TSH SERUM (GOLD) [facility] May 08, 2024 12:00 AM Laboratory - Chemi stry Order MICROALBUMIN:CREAT RATIO_ UA CUP URINE [facility] May 08, 2024 12:00 AM Laboratory - Chemi stry Order HEMOGLOBIN A1C BLOOD (EDTA WB) SP [facility] May 08, 2024 12:00 AM Laboratory - Chemi stry Order COMP.METABOLIC PROFILE_ SERUM (GOLD) [facility] May 08, 2024 12:00 AM Laboratory - Chemi stry Order URINALYSIS_ UA CUP URINE [facility] Lab Results: +/- 30 days of the encounter This section includes the Chemistry and Hematology Lab Results on record with [place] for the patient. Radiology Reports and Pathology Reports are provided separately, in subsequent sections. Lab Results This section contains the Chemistry/Hematology Results that were resulted 30 days before or 30 daysafter the date of the Encounter. Date/Time Source Result Type Result - Unit Interpretation Reference Range Specimen Type Comment Apr 23, 2024 03:19 PM [facility] IRON & TIBC PANEL SERUM Specimen Type: SERUM No comment entered. Ordering Provider: ELI DUDLEY Report Released Date/Time: Feb 20, 2024 06:51 AM Reporting Lab: [facility] [address] [facility] [address] Performing Lab: [facility] [address] [facility] [address] TIBC 528 ug/dL H 204-475 IRON 25 ug/dL L 40-160 Transferrin Saturation 4.7 L 20.0-50.0 Transferrin (TRF) 400 mg/dL H 200-360 Apr 23, 2024 03:19 PM [facility] FERRITIN SERUM Specimen Type: SERUM No comment entered. Ordering Provider: ELI DUDLEY Report Released Date/Time: Feb 20, 2024 06:51 AM Reporting Lab: [facility] [address] [facility] [address] Performing Lab: [facility] [address] [facility] [address] FERRITIN 7 ng/mL L 20-300 Apr 23, 2024 03:19 PM [facility] CBC AND DIFF (AUTO) BLOOD Specimen Type: BLOO D No comment entered. Ordering Provider: ELI DUDLEY Report Released Date/Time: Feb 20, 2024 06:51 AM Reporting Lab: [facility] [address] [facility] [address] Performing Lab: [facility] [address] [facility] [address] WBC 8.03 10*3/uL 4.50-11.00 RBC 4.88 10*6/uL 4.23-5.66 HGB 10.6 g/dL L 12.8-17 HCT 35.1 L 39.2-50.4 MCV 71.9 fL L 82-99 MCHC 30.2 g/dL L 30.8-35.1 PLT 340 10*3/uL 140-360 RDW-CV 16.2 H 12.0-16.0 MONO, ABS 0.73 10*3/uL 0.30-1.10 MCH 21.7 pg L 26.2-32.6 NEUT % 74.6 43.7-75.8 LYMPH % 12.5 L 14.0-42.3 MONO % 9.1 5.1-13.7 EOS % 3.0 0.4-6.8 BASO % 0.6 0.1-2.0 NEUT, ABS 5.99 10*3/uL 2.20-7.60 LYMPH, ABS 1.00 10*3/uL 1.00-3.20 EOS, ABS 0.24 10*3/uL 0.03-0.44 BASO, ABS 0.05 10*3/uL 0.01-0.13 IMMATURE GRAN % 0.2 0.0-0.7 IMMATURE GRAN, ABS 0.02 10*3/uL 0.00-0.0 6 NRBC % 0.0 0.0-0.0 NRBC, ABS 0.00 10*3/uL 0.00-0.00 Apr 23, 2024 03:19 PM [facility] RETICULOCYTES BLOOD Specimen Type: BLOOD No comment entered. Ordering Provider: ELI DUDLEY Report Released Date/Time: Feb 20, 2024 06:51 AM Reporting Lab: [facility] [address] [facility] [address] Performing Lab: [facility] [address] [facility] [address] RETIC % 0.8 0.6-2.0 RETIC, ABS 37.6 10*3/uL 30.0-90.0 RET-HE % 24.1 L 27.9-42.0 Social History: Smoking Status (Most current) and Tobacco Use (All prior to encounter date) This section includes the most current, and the historical, smoking and tobacco- related health factors from the [place] facility where the Encounter took place. Current Smoking Status This section includes the most current smoking, or tobacco-related health factor, from the [place] facility where the Encounter took place. Date/Time Current Smoking Status Comment Izyz ramirez Dec 23, 2023 02:30 PM VA-TOBACCO NEVER USED [place] Advance Directives: All historical and current Section Date Range: From patient's date of to the date document was created. This section includes ALL of a patient's completed or amended [place] Advance and Rescinded Directives. The entries below indicate that a directive exists for the patient, but an actual copy is not included with this document. The data comes from all [place] facilities. Date Advance Directives Provider Source November 12, 2023 ADVANCE DIRECTIVE DISCUSSION JESSICA MESA [facility] Encounter Notes: All associated encounter notes This section contains the clinical notes associated to the Encounter. Date/Time Encounter Note(s) Provider Source Apr 14, 2024 03:36 PM CLERICAL NOTE: LOCAL TITLE: APPOINTMENT NO SHOW STANDARD TITLE: CLERICAL NOTE DATE OF NOTE: APR 14, 2024@15:36 ENTRY DATE: APR 14, 2024@15:36:18 AUTHOR: LISSET MENJIVAR COSIGNER: URGENCY: STATUS: COMPLETED APPOINTMENT NO SHOW Has ADDENDA Patient Name: COLLETTE ROSE Patient SSN: [id number] Date and time of Appointment No show : 04/14/24 15:00 PATIENT PHONE - PHONE NUMBER [CELLULAR] - Patient's medical record was reviewed. Follow-up actions were determined and initiated: Please check/complete as applies: [ ]Telephoned Directly [ ]Re-scheduled for next available appt [X]Sent a N0-show letter ( must call for appointment) [ ]Other (Emergent/Overbook, etc.): Additional Comments: Future Clinic Visits 04/17/2024 15:00 CWM/SO/PHYSICAL THERAPY B 04/21/2024 13:00 CWM/GO/VVC/MOVE GROUP 04/21/2024 14:30 CWM/SO/PHYSICAL THERAPY B 04/23/2024 13:00 CWM/NO/OTOLARYNGOLOGY 04/23/2024 14:00 CWM/NO/MED REHAB 1 PA 04/24/2024 14:30 CWM/SO/PHYSICAL THERAPY B 04/28/2024 14:30 CWM/SO/PHYSICAL THERAPY B 04/29/2024 13:30 V01 PH [facility] PACT CPS 02 05/01/2024 14:30 CWM/SO/PHYSICAL THERAPY B 05/04/2024 15:30 CWM/SO/PACT 1 VP DIRECTOR OF FINANCE 10/21/2024 15:00 NHM/OPTOMETRY/GUERRA/ /jim/ LISSET MENJIVAR DPT Physical Therapist Signed: 04/14/2024 15:36 Receipt Acknowledged By: 04/14/2024 15:38 /es/ JACQUELINE OLIVARES 04/14/2024 ADDENDUM STATUS: COMPLETED [place] called at 3:22 to cancel his 3 pm appointment. /jim/ LISSET MENJIVAR DPT Physical Therapist Signed: 04/14/2024 15:40 04/14/2024 ADDENDUM STATUS: COMPLETED Called at 3:22 to cancel appt /jim/ JACQUELINE OLIVARES Signed: 04/14/2024 15:40 LISSET MENJIVAR [place]
--- OUTSIDE RECORDS SUMMARY | 2024-10-12 18:57 | XMS_ITS | Encounter Summary ---
Author Name [facility] [place] [place] Organization [place] Address [address] [place] [address] Care Team Providers Care Milled Lumber Grader Name Role Phone PIPO MEDEIROS Primary Care Provider LENY Suarez Primary Care Provider RICH Valencia Primary Care Provider Thien weber Selected Encounter This section includes the information on record at [place] for the Encounter. Date/Time Encounter Type Encounter Description Reason Pro vider Source May 04, 2024 03:30 PM Outpatient Encounter PRIMARY CARE/MEDICINE E Encounter Template Text not used by [place] Plan of Treatment: Future Appointments (+ 6 months) and Future Tests (+/- 45 days) The Plan of Treatment section includes future care activities for the patient from all [place] treatmentfacilities. This section includes future appointments and future orders which are active, pending or scheduled. Future Appointments This section includes appointments that were scheduled to occur 6 months from the date of the Encounter, up to a maximum of 20 appointments. The data comes from all [place] treatment facilities. Appointment Date/Time Appointment Type Appointme nt Facility Name May 05, 2024 01:00 PM AMBULATORY - NONE [facility] May 12, 2024 01:00 PM AMBULATORY - NONE [place] [facility] May 13, 2024 01:30 PM AMBULATORY - MEDICINE [facility] [place] [facility] May 20, 2024 01:00 PM AMBULATORY - REHAB MEDICIN [place] [facility] [place] [facility] May 21, 2024 03:00 PM AMBULATORY - REHAB MEDICIN E [place] Jun 02, 2024 01:00 PM AMBULATORY - NONE [place] [facility] Jun 05, 2024 02:30 PM AMBULATORY - REHAB MEDICIN E [place] Jun 19, 2024 07:30 AM AMBULATORY - MEDICINE [place] [facility] [place] [facility] Jun 23, 2024 11:30 AM AMBULATORY - MEDICINE [place] [place] [facility] Jun 25, 2024 01:00 PM AMBULATORY - REHAB MEDICIN E [place] [facility] [place] [facility] Jun 25, 2024 02:00 PM AMBULATORY - MEDICINE [place] [facility] [place] [facility] Jul 03, 2024 02:00 PM AMBULATORY - MEDICINE [place] [facility] [place] [facility] Jul 14, 2024 01:00 PM AMBULATORY - NONE [place] [facility] Jul 21, 2024 01:00 PM AMBULATORY - NONE [place] [facility] Jul 22, 2024 10:00 AM AMBULATORY - MEDICINE [place] [facility] [place] [facility] Jul 22, 2024 02:00 PM AMBULATORY - REHAB MEDICIN E [facility] [place] [facility] Jul 28, 2024 01:00 PM AMBULATORY - NONE [place] [facility] Aug 04, 2024 01:00 PM AMBULATORY - NONE [place] [facility] Aug 11, 2024 01:00 PM AMBULATORY - NONE [place] [facility] Aug 17, 2024 07:15 AM AMBULATORY - MEDICINE [facility] [place] [facility] Active, Pending, and Scheduled Orders This section includes a listing of several types of active, pending, and scheduled orders, including clinic medications orders, diagnostic test orders, procedure orders and consult orders; where the start date of the order is 45 days before the date of the Encounter or 45 days after the date of theEncounter. The data comes from all [place] treatment facilities. Test Date/Time Test Type Test Details Facility Name Apr 01, 2024 09:23 AM Consult Order COMMUNITY CARE-WOUND Cons Fine Arts Chair's Choice [place] May 08, 2024 12:00 AM Laboratory - Chemi stry Order URINE DRUG PROFILE_ UA CUP URINE [facility] May 08, 2024 12:00 AM Laboratory - Chemi stry Order LIPID PROFILE_ SERUM (GOLD) [facility] May 08, 2024 12:00 AM Laboratory - Chemi stry Order CBC (WITH DIFF)_ BLOOD (EDTA WB) [facility] May 08, 2024 12:00 AM Laboratory - Chemi stry Order TSH SERUM (GOLD) [facility] May 08, 2024 12:00 AM Laboratory - Chemi stry Order HEMOGLOBIN A1C BLOOD (EDTA WB) [facility] May 08, 2024 12:00 AM Laboratory - Chemi stry Order MICROALBUMIN:CREAT RATIO_ UA CUP URINE [facility] May 08, 2024 12:00 AM Laboratory - Chemi stry Order COMP.METABOLIC PROFILE_ SERUM (GOLD) [facility] May 08, 2024 12:00 AM Laboratory - Chemi stry Order URINALYSIS_ UA CUP URINE [facility] Jun 12, 2024 02:35 PM Consult Order TELE-EYE S CREENING CONSULT - CBC Cons Fine Arts Chair's [facility] Lab Results: +/- 30 days of the encounter This section includes the Chemistry and Hematology Lab Results on record with [place] for the patient. Radiology Reports and Pathology Reports are provided separately, in subsequent sections. Lab Results This section contains the Chemistry/Hematology Results that were resulted 30 days before or 30 daysafter the date of the Encounter. Date/Time Source Result Type Result - Unit Interpretation Reference Range Specimen Type Comment Apr 23, 2024 03:19 PM [facility] IRON & TIBC PANEL SERUM Specimen Type: SERUM No comment entered. Ordering Provider: ELI DUDLEY Report Released Date/Time: Feb 20, 2024 06:51 AM Reporting Lab: [address] [address] Performing Lab: [address] [address] TIBC 528 ug/dL H 204-475 IRON 25 ug/dL L 40-160 Transferrin Saturation 4.7 L 20.0-50.0 Transferrin (TRF) 400 mg/dL H 200-360 Apr 23, 2024 03:19 PM [facility] CBC AND DIFF (AUTO) BLOOD Specimen Type: BLOO D No comment entered. Ordering Provider: ELI DUDLEY Report Released Date/Time: Feb 20, 2024 06:51 AM Reporting Lab: [address] [address] Performing Lab: [facility] [address] [facility] [address] WBC 8.03 10*3/uL 4.50-11.00 RBC 4.88 10*6/uL [...] 10*3/uL 0.00-0.00 Apr 23, 2024 03:19 PM [facility] FERRITIN SERUM Specimen Type: SERUM No comment entered. Ordering Provider: ELI DUDLEY Report Released Date/Time: Feb 20, 2024 06:51 AM Reporting Lab: [facility] [place] [facility] [address] [facility] [address] Performing Lab: [facility] [address] [facility] [address] FERRITIN 7 ng/mL L 20-300 Apr 23, 2024 03:19 PM [facility] RETICULOCYTES BLOOD Specimen Type: BLOOD No comment entered. Ordering Provider: ELI DUDLEY Report Released Date/Time: Feb 20, 2024 06:51 AM Reporting Lab: [place] [facility] [address] [facility] [address] Performing Lab: [facility] [address] [facility] [address] RETIC % 0.8 0.6-2.0 RETIC, ABS 37.6 10*3/uL 30.0-90.0 RET-HE % 24.1 L 27.9-42.0 Social History: Smoking Status (Most current) and Tobacco Use (All prior to encounter date) This section includes the most current, and the historical, smoking and tobacco- related health factors from the [place] facility where the Encounter took place. Current Smoking Status This section includes the most current smoking, or tobacco-related health factor, from the [place] facility where the Encounter took place. Date/Time Current Smoking Status Comment Izzy ramirez Dec 23, 2023 02:30 PM VA-TOBACCO NEVER USED [place] Advance Directives: All historical and current Section Date Range: From patient's date of to the date document was created. This section includes ALL of a patient's completed or amended [place] Advance and Rescinded Directives. The entries below indicate that a directive exists for the patient, but an actual copy is not included with this document. The data comes from all [place] facilities. Date Advance Directives Provider Source November 12, 2023 ADVANCE DIRECTIVE DISCUSSION JESSICA MESA [facility] Encounter Notes: All associated encounter notes This section contains the clinical notes associated to the Encounter. Date/Time Encounter Note(s) Provider Source May 04, 2024 03:51 PM ADMINISTRATIVE NOT E: LOCAL TITLE: ADMINISTRATIVE NOTE STANDARD TITLE: ADMINISTRATIVE NOTE DATE OF NOTE: MAY 04, 2024@15:51 ENTRY DATE: MAY 04, 2024@15:51:53 AUTHOR: TANIA CALDERON EXP COSIGNER: URGENCY: STATUS: COMPLETED was a no show for today's scheduled appointment. /jim/ TANIA CALDERON LPN LPN Signed: 05/04/2024 15:52 TANIA CALDERON [place]
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
--- OUTSIDE RECORDS SUMMARY | 2024-10-12 18:58 | XMS_ITS | Encounter Summary ---
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 Date/Time Encounter Type Encounter Description Reason Provider Source Apr 21, 2024 01:00 PM [facility] IVNTJ GRP EA ADDL WEIGHT MGMT & MOVE! PROG - GRP ICD-10-CM E66.812 Obesity, class 2 UDAY MILLER Caitlin Encounter Template Text not used by [place] Assessments - Encounter Diagnoses This section includes the primary and secondary diagnoses documented for the Encounter. Date/Time Primary/Secondary Diagnosis Diagnosis Name Provider Source Apr 22, 2024 04:31 PM PRIMARY Obesity, class 2 UDAY MILLER ([facility]) Apr 22, 2024 04:31 PM SECONDARY Body mass index [BMI] 35.0-35.9, adult UDAY MILLER ([facility]) Plan of Treatment: Future Appointments (+ 6 months) and Future Tests (+/- 45 days) The Plan of Treatment section includes future care activities for the [facility] This section includes future appointments and future orders which are active, pending or scheduled. Future Appointments This section includes appointments that were scheduled to occur 6 months from the date of the Encounter, up to a maximum of 20 appointments. The data comes from all [place] treatment facilities. Appointment Date/Time Appointment Type Appointme nt Facility Name Apr 23, 2024 01:00 PM [facility] [place] [facility] [place] [facility] Apr 23, 2024 02:00 PM [facility] [place] [place] [facility] [place] [facility] Apr 24, 2024 02:30 PM AMBULATORY - [facility] Apr 28, 2024 01:00 PM AMBULATORY - NONE [facility] ([facility]) Apr 28, 2024 02:30 PM [facility]ULATORY - [facility] Apr 29, 2024 01:30 PM [facility] [place] [facility] [place] [facility] May 04, 2024 03:30 PM AMBULATORY - MEDICINE [facility] May 05, 2024 01:00 PM AMBULATORY - NONE [place] [facility] ([facility]) May 12, 2024 01:00 PM AMBULATORY - NONE [place] ([facility]) May 13, 2024 01:30 PM AM[facility]UL[facility]ORY [place] [facility] [place] [facility] May 20, 2024 01:00 PM AMBUL[facility] - [facility] [place] [facility] May 21, 2024 03:00 PM [facility]BULATORY - [facility] [place] Jun 02, 2024 01:00 PM AMBULATORY - NONE [facility] ([facility]) Jun 05, 2024 02:30 PM AMBULATORY - [facility] [place] Jun 19, 2024 07:30 AM AM[facility] [place] [place] [facility] [place] [facility] Jun 23, 2024 11:30 AM AM[facility]UL[facility]ORY [place] [facility] [place] [facility] Jun 25, 2024 01:00 PM AMBULATORY - REHAB MEDICIN [facility] [place] [facility] Jun 25, 2024 02:00 PM AMBULATORY - MEDICINE [facility] [place] [facility] Jul 03, 2024 02:00 PM AM[facility]ORY [place]INE [place] [facility] [place] [facility] Jul 14, 2024 01:00 PM AMBULATORY - NONE [facility] ([facility]) Active, Pending, and Scheduled Orders This section includes a listing of several types of active, pending, and scheduled orders, including clinic medications orders, diagnostic test orders, procedure orders and consult orders; where the start date of the order is 45 days before the date of the Encounter or 45 days after the date of theEncounter. The data comes from all [place] treatment facilities. Test Date/Time Test Type Test Details Facility Name Apr 01, 2024 09:23 AM Consult Order COMMUNITY CARE-WOUND Cons Fleet Administrator's Choice [facility] May 08, 2024 12:00 AM Laboratory - Chemi stry Order URINE DRUG PROFILE_ UA CUP URINE [facility] May 08, 2024 12:00 AM Laboratory - Chemi stry Order LIPID PROFILE_ SERUM (GOLD) [facility] May 08, 2024 12:00 AM Laboratory - Chemi stry Order CBC (WITH DIFF)_ BLOOD (EDTA WB) [facility] May 08, 2024 12:00 AM Laboratory - Chemi stry Order TSH SERUM (GOLD) [facility] May 08, 2024 12:00 AM Laboratory - Chemi stry Order HEMOGLOBIN A1C BLOOD (EDTA WB) [facility] May 08, 2024 12:00 AM Laboratory - Chemi stry Order MICROALBUMIN:CREAT RATIO_ UA CUP URINE [facility] May 08, 2024 12:00 AM Laboratory - Chemi stry Order COMP.METABOLIC PROFILE_ SERUM (GOLD) [facility] May 08, 2024 12:00 AM Laboratory - Chemi stry Order URINALYSIS_ UA CUP URINE [facility] Lab Results: +/- 30 days of the encounter This section includes the Chemistry and Hematology Lab Results on record with [place] for the patient. Radiology Reports and Pathology Reports are provided separately, in subsequent sections. Lab Results This section contains the Chemistry/Hematology Results that were resulted 30 days before or 30 daysafter the date of the Encounter. Date/Time Source Result Type Result - Unit Interpretation Reference Range Specimen Type Comment Apr 23, 2024 03:19 PM [place] [employer] [facility] [place] [facility] IRON & TIBC PANEL SERUM Specimen Type: SERUM No comment entered. Ordering Provider: ELI DUDLEY Report Released Date/Time: Feb 20, 2024 06:51 AM Reporting Lab: [facility] [address] [address] Performing Lab: [facility] [place] [facility] [address] [address] TIBC 528 ug/dL H 204-475 IRON 25 ug/dL L 40-160 Transferrin Saturation 4.7 L 20.0-50.0 Transferrin (TRF) 400 mg/dL H 200-360 Apr 23, 2024 03:19 PM [facility] FERRITIN SERUM Specimen Type: SERUM No comment entered. Ordering Provider: ELI DUDLEY Report Released Date/Time: Feb 20, 2024 06:51 AM Reporting Lab: [facility] [address] [address] Performing Lab: [facility] [address] [address] FERRITIN 7 ng/mL L 20-300 Apr 23, 2024 03:19 PM [facility] RETICULOCYTES BLOOD Specimen Type: BLOOD No comment entered. Ordering Provider: ELI DUDLEY Report Released Date/Time: Feb 20, 2024 06:51 AM Reporting Lab: [address] [address] Performing Lab: [facility] [address] [address] RETIC % 0.8 0.6-2.0 RETIC, ABS 37.6 10*3/uL 30.0-90.0 RET-HE % 24.1 L 27.9-42.0 Apr 23, 2024 03:19 PM [facility] CBC AND DIFF (AUTO) BLOOD Specimen Type: BLOO D No comment entered. Ordering Provider: ELI DUDLEY Report Released Date/Time: Feb 20, 2024 06:51 AM Reporting Lab: [facility] [place] [place] [facility] [address] [address] Performing Lab: [facility] [address] [address] WBC 8.03 10*3/uL 4.50-11.00 RBC 4.88 10*6/uL [...] Height Weight Body Mass Index Source Apr 21, 2024 02:49 PM 253 [address] [facility] Advance Directives: All historical and current Section Date Range: From patient's date of to the date document was created. This section includes ALL of a patient's completed or amended [place] Advance and Rescinded Directives. The entries below indicate that a directive exists for the patient, but an actual copy is not included with this document. The data comes from all [place] facilities. Date Advance Directives Provider Source November 12, 2023 ADVANCE DIRECTIVE DISCUSSION JESSICA MESA [facility] Encounter Notes: All associated encounter notes This section contains the clinical notes associated to the Encounter. Date/Time Encounter Note(s) Provider Source Apr 25, 2024 01:26 PM MOVE CONSULT: LOCAL TITLE: CONSULT REPORT/MOVE! STANDARD TITLE: MOVE CONSULT DATE OF NOTE: APR 25, 2024@13:26 ENTRY DATE: APR 25, 2024@13:26:50 AUTHOR: SIMÓN CARVALHO EXP COSIGNER: URGENCY: STATUS: COMPLETED Patient attended MOVE group on 04/21/24. Please see Weight Managment note of 04/21/24. /es/ SIMÓN CARVALHO, LIBIA,LDN STAFF DIETITIAN Signed: 04/25/2024 13:27 SIMÓN CARVALHO ([facility]) Apr 21, 2024 01:00 PM MOVE NOTE: LOCAL TITLE: WEIGHT MANAGEMENT/MOVE! OUTPATIENT GROUP NOTE STANDARD TITLE: MOVE NOTE DATE OF NOTE: APR 21, 2024@13:00 ENTRY DATE: APR 22, 2024@16:22:06 AUTHOR: UDAY MILLER EXP COSIGNER: URGENCY: STATUS: COMPLETED Veterans participated in MOVE! Group Counseling via VVC on: 04/21/2024 The [place] was provided with information on VVC and has given verbal consent to use group VVC services for their healthcare. The copy of the Group Telehealth Agreement has been mailed to the . The 's location/emergency contact number were confirmed. The Emergency Call Relay Center (E911) was available. The visit was locked for security and privacy. [place] identified with 2 identifiers: [x] Full Name [x] Address Veterans attended the first 60-minute MOVE! group session on this date via VVC or by phone. MOVE! is a program designed to provide education about weight management skills to overweight and obese veterans. Group members submitted their stated weighted to group facilitators. It was explained that the weights are collected for demonstrating patterns to each individual over time. Group facilitators then introduced themselves. Session #1 (Welcome to MOVE!) was conducted at today's MOVE! group meeting using the MOVE! [place] Workbook. The group facilitators explained the MOVE! Program along with the program guidelines, reviewed motivation and reasons for weight loss, and explored ambivalence for change using Motivational Interviewing techniques. Steps to behavior change were reviewed along with the keys to weight management success. Finally, the importance of goal setting was explained, and opportunities were provided to set program goals. The objectives accomplished at today's session were: 1. Discussed [place] motivation and reasons for losing weight. 2. Described the behavior-change process. 3. Assisted Veterans in setting weight-loss goals. The group participants were provided with the MOVE! Workbook by mail prior to today's session and were instructed to have it available during each subsequent [facility] MOVE! group meeting. The MOVE! Food and Physical Activity Log was also mailed to the [place] prior to today's session. Participants were asked to begin recording weight daily, to log all food and beverages consumed daily, and to also log all physical activities daily. They were instructed to have their Food and Physical Activity Log to available during each session. Additional Materials Provided by mail: MOVE Participant Guidelines handout My Weight Sheet Chart [facility] Group Consent The next [facility] MOVE! group meeting will be held on 04/28/2024. Today's Weight: 253 lb Dx: Obesity, Class II E66.812, Z68.35 /es/ Uday Miller, PhD Clinical Psychologist Signed: 04/22/2024 16:36 Receipt Acknowledged By: 04/22/2024 17:15 /es/ SIMÓN CARVALHO RD,LDN STAFF DIETITIAN UDAY MILLER ([facility])
--- OUTSIDE RECORDS SUMMARY | 2024-10-12 18:58 | XMS_ITS | Data Portability ---
Author Organization [place] - [facility], Main Office - [facility] Address [address] [place] [address] Assessment No assessment recorded. Plan of Treatment Reminders Order Date Submit Date Provider Last Modified By Organization Details Last Modified Time Details Appointments None recorded. Lab None recorded. Referral occupationa l therapist referral - Continue Routine Therapy 2012 013 [facility] ([facility]), [address] [place] [address], [phone], 3 04:08:22 occupationa l therapist referral - Continue Routine Therapyincr ease flexion on the dorsal block please stay in contact with BRITTON Boggs/Rimma, T for protocol 2012 013 [facility] [address] [place] [address], [phone], 3 04:05:47 Procedures None recorded. Surgeries None recorded. Imaging None recorded. Medication Orders None recorded. Patient TargetsNo targets recorded. Patient Instructions Encounter Date Encounter Id Patient Instructions Last Modified By Organization Details Last Modified Time 09/24/2012 [id number] Right thumb FPL and ulnar digital nerve repair August 28: he is seeing the therapist at the [facility]. Has adynamic traction dorsal blocking splint. Tendon repair is intact. Continue routine therapy splinting precautions restrictions. Work restrictions: No use right hand, splint mandatory. Impairment deferred, MMI 4-6 months. [email or web address] Not available 09/24/2012 14:24:52 10/27/2012 [id number] Right thumb FPL and ulnar digital nerve repair August 28: He is done extremely well. FPL repair is functioning well. no sign of neuroma formation. continue routine therapy precautions restrictions Work restrictions: No use right hand splint mandatory impairment deferred MMI 3-4 months [email or web address] Not available 10/27/2012 14:05:12 11/24/2012 [id number] right thumb FPL and ulnar digital nerve repair August 28 weeks: He continues to do very well. FPL repair is functioning well. He does have some decreased pull-through of the tendon is very strong. Still with altered sensation ulnar digital nerve. Absolutely no sign of neuroma or CRPS. Plan: He can continue with therapy on his own at home. Progress activity as tolerated Work restrictions: He can return to work without restriction. Splint is optional. Impairment deferred, MMI 1-2 months. I anticipate that he will have an impairment of the thumb secondary to the loss of motion and sensation. We willschedule an impairment rating when I place him at [facility]. [email or web address] Not available 11/24/2012 09:44:57 12/22/2012 [id number] right thumb FPL and ulnar digital nerve repair August 28: overall doing well. He has an advancing Tinel's on examination today. 2. discrimination approximately 10 mm. FPL is intact with excellent strength. He can continue with home exercises. Work restrictions: He can return to work without restriction. impairment deferred, MMI4 weeks. [email or web address] Not available 12/22/2012 09:58:21 01/19/2013 [id number] right thumb FPL and ulnar digital nerve repair August 28: Overall he is doing very well. He believes he is noticing some return of his sensation. Tendon is working well. He can progress activity as tolerated. Return as needed Work restrictions: He can return to work without restriction. He has reached MMI. we will obtain an impairment rating if requested to do so. [email or web address] Not available 01/19/2013 13:42:21 Reason for Referral Continue Routine Therapyincr ease flexion on the dorsal block please stay in contact with BRITTON Boggs/Rimma, T for protocol [phone] Referring Physician: Nirav Membreno, Orthopedic Surgery, Encounter Date: 09/24/2012 Continue Routine Therapy Referring Physician: Nirav Membreno, Orthopedic Surgery, Encounter Date: 10/27/2012 Problems Name Problem SNOMED Code Status Onset Date Resolution Date Notes Provider Name and Address Organization Details Recorded Time Open wound of finger with tendon involvement [id number] Active Not Available [facility] 3 03:06:01 Pain of joint of hand [id number] Active Not Available [facility] 3 03:06:01 Problem Notes None recorded. Procedures Surgical History Date Name Laterality Status Provider Name and Address Organization Details Recorded Time Tonsillectomy/Ad enoidectomy completed Julia Fleming [facility] 08/27/2012 14:24:18 Knee Arthroscopy completed Julia Fleming [facility] 08/27/2012 14:24:18 Imaging Results None recorded. Procedure Notes None recorded. Medical Equipment None Reported. Allergies No known drug allergies Medications Name Sig Start Date Stop Date Status Note LastModified by Organization Details LastModified Time hydrocodone 5 mg-acetamin ophen 325 mg tablet Take 1-2 tablet by oral route every 4-6 hours as needed for pain 2012 active called into pharmacy Not Available Not Available Not Available Percocet Dosage Unknown active Not Available Not Available No t Available Vitals None Recorded Social History Question Answer Notes LastModified by Organizat ion Details LastModified Time Tobacco Smoking Status [facility] 14:24:18 Do You Have An Advance Directive? No [email or web address] Information not available 08/27/2012 What Is Your Level Of Alcohol Consumption? Occasional [email or web address] Information not available 08/27/2012 How Many Years Have You Consumed Alcohol? 0 [email or web address] Information not available 08/27/2012 Is Blood Transfusion Acceptable In An Emergency? Yes [email or web address] Information not available 08/27/2012 How Much Tobacco Do You Chew? None [email or web address] Information not available 08/27/2012 Are You Currently Employed? Yes [email or web address] Information not available 08/27/2012 Which Illicit Or Recreational Drugs Have You Used? 0 [email or web address] Information not available 08/27/2012 Who Is Your Employer? 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 Right [email or web address] Information not available 08/27/2012 Single Or Multi-level Home/work? Single Level Home [email or web address] Information not available 08/27/2012 How Many Years Have You Used Illicit Or Recreational Drugs? 0 [email or web address] Information not available 08/27/2012 Live Alone Or With Others? With Others [email or web address] Information not available 08/27/2012 Orthodoxy Preference Hindu [email or web address] Information not available 08/27/2012 Ethnic Identity [email or web address] Informati on not available 08/27/2012 Diet Type Regular [email or web address] Information no t available 08/27/2012 Education Level High School [email or web address] Informat ion not available 08/27/2012 Marital Status [email or web address] Informatio n not available 08/27/2012 How Many Children Do You Have? 1 [email or web address] Information not available 08/27/2012 At What Age Did You Start Smoking Tobacco? 0 [email or web address] Information not available 08/27/2012 How Much Tobacco Do You Smoke? No [email or web address] Information not available 08/27/2012 What Types Of Sporting Activities Do You Participate In? None Information not available 08/27/2012 General Stress Level Low [email or web address] Information not available 08/27/2012 Sex: Unknown Functional Status Question Answer Note LastModified by Organization D etails LastModified Time Are you able to care for yourself? Yes Information n ot available 08/27/2012 What is your exercise level? None [email or web address] Information not available 08/27/2012 Mental Status None recorded. Family History Nothing Reported Notes:Per patient No Family Medical History....08/27/2012...reviewed with patient...ccw Medical History Condition Response Pancreatitis N HEME - Anemia N Gout N Hyperthyroidism N Rheumatoid arthritis N Osteoarthrosis N Irritable bowel syndrome N HEENT - Wears corrective lenses Y Depression N COPD N Pneumonia N History of head and neck tumor N Peptic ulcer disease N NEURO - Cerebral palsy N Skin infection N Active aids N Mitral valve prolapse N Renal failure N HIV positive N GI - GERD N Joint injury N Hypercholesterolemia N Hypoparathyroidism N MS - Fracture N Fibromyalgia N Cerebrovascular accident N PSYCHE - Claustrophobia N Neuromuscular disease N Poliomyelitis / post polio N ENDOCRINE - Obesity N Hearing impairment N Dysvascular amputation LE N Other diagnosis N Anxiety disorder N Deformity N CHEST - Sleep apnea N Crohn's disease N Pulmonary embolism N Psychosis N Chronic venous stasis disease N Coagulopathy N Asthma N Cardiac valvular disease N Fragility fracture N Vertigo N Hepatitis N Coronary artery disease N Pressure sore N Diabetes Type II (NIDDM) N Skin ulceration N Bipolar disorder N Legally blind N Glaucoma N Hypothyroidism N Peripheral vascular disease N Pacemaker N Sinusitis / sinus infection N Cystic fibrosis N Cholecystitis N Sickle cell N VASCULAR - Deep venous thrombosis N Osteomyelitis N SKIN - Rash N INFECTIOUS - Current active infection N Heart murmur N Previous myocadial infarction N Itp / ttp N Lupus Arthritis N Congestive heart failure N Skin bruising N Diabetes Type I (IDDM) N HEART - Arrhythmia N Chemically anticoagulated N Fracture non-union N Dental caries / gingivitis N Dysvascular gangrene N - Cystitis N Renal dialysis N Dementia N Diverticulitis N Ulcerative colitis N MISC - Cancer N Seizure disorder N Organ transplant N Hypertension N Osteoporosis N Past Encounters Encounter ID Performer Location Encounter Start Date Encounter Closed Date Diagnosis/Indication Diagnosis SNOMED-CT Code Diagnosis ICD10 Code Diagnosis Note [id number] Nirav Membreno MD [address] [address] 08/27/2012 12:14:51 08/27/2012 13:53:34 [id number] Bruce Allen [address] [address] 09/10/2012 15:30:54 09/10/2012 17:29:22 [id number] Nirav Membreno MD [address] [address] 09/24/2012 13:29:59 09/24/2012 14:30:21 [id number] Nirav Membreno MD [address] [address] 10/27/2012 13:44:48 10/27/2012 14:24:31 [id number] Nirav Membreno MD [address] [address] 11/24/2012 09:13:25 11/24/2012 09:49:45 [id number] Nirav Membrneo MD Main [address] [address] 12/22/2012 09:22:55 12/22/2012 10:06:01 [id number] Bell Villalobos [facility] Office - [facility] [address] [place] [address] 01/19/2013 13:15:37 01/19/2013 15:14:44 Health Concerns Section Related Observation LastModified by Organization Detai ls LastModified Time None Recorded Concern Status LastModified by Organization Details LastModified Time None Recorded Advance Directives Directive N: Payers Encounter Date Sequence Insurance Name Policy Number Policy Dinero Covered Member ID Dinero Member ID Guarantor Name 09/24/2012 1 *SELF PAY* Ja mes T Hugo 10/27/2012 1 *SELF PAY* Ja mes T Hugo 11/24/2012 1 *SELF PAY* Ja mes T Hugo 12/22/2012 1 *SELF PAY* Ja mes T Hugo 01/19/2013 1 *SELF PAY* Ja mes T Hugo Notes Date Note Type Note Provider Name and Address Organization Details Recorded Time 09/24/2012 text/html Over all doing well. He is currently participating in OT at [facility]. He is here today in a well fitting custom fabricated orthosis. Nirav Membreno MD [address] [place] [address], [phone], [facility], 09/24/2012 14:38:44 10/27/2012 text/html HPI None recorded. Nirav Membreno MD [address] [place] [address], [phone], [facility], 10/27/2012 14:08:31 11/24/2012 text/html Patient states h is thumb is improving. Nirav Membreno MD [address] [place] [address], [phone], [facility], 11/24/2012 10:43:27 12/22/2012 text/html Over all doing well. He states he has seen no significant change in the right thumb from his previous visit. Nirav Membreno MD [address] [place], [phone], [facility], 12/22/2012 10:46:29 01/19/2013 text/html Over all doing well. No significant complaints. No significant changes from previous visit. Nirav Membreno MD [address] [facility], [place], [phone], [facility] - [facility], 01/19/2013 14:38:04
--- OUTSIDE RECORDS SUMMARY | 2024-10-12 18:58 | XMS_ITS | Encounter Summary ---
Author Name [facility] [place] [facility] [place] [facility] [place] Address [address] [place] [address] Care Team Providers Care Oil Lease Broker Name Role Phone WALDEMAR PIPO Primary Care Provider LENY Suarez Primary Care Provider RICH Valencia Primary Care Provider Thien weber Selected Encounter This section includes the information on record at [place] for the Encounter. Date/Time Encounter Type Encounter Description Reason Provider Source Aug 17, 2024 07:15 AM OFFICE O/P EST LOW 20 MIN PM&RS PHYSICIAN ICD-10-CM M17.0 Bilateral primary osteoarthritis of knee CONSTANTIN THAYER [facility] Encounter Template Text not used by [place] Assessments - Encounter Diagnoses This section includes the primary and secondary diagnoses documented for the Encounter. Date/Time Primary/Secondary Diagnosis Diagnosis Name Provider Source Aug 17, 2024 07:42 AM PRIMARY Bilateral primary osteoarthritis of knee [place]ST[place] THAYER [place] [facility] Aug 17, 2024 07:42 AM SECONDARY Obesity, class 1 [place] THAYER [place] [facility] [facility] [facility] Plan of Treatment: Future Appointments (+ 6 months) and Future Tests (+/- 45 days) The Plan of Treatment section includes future care activities for the patient from all [place] treatmentfacilities. This section includes future appointments and future orders which are active, pending or scheduled. Future Appointments This section includes appointments that were scheduled to occur 6 months from the date of the Encounter, up to a maximum of 20 appointments. The data comes from all [place] treatment [facility]. Appointment Date/Time Appointment Type Appointme nt Facility Name Aug 24, 2024 02:00 PM AM[place]ULATORY [place]ICINE [place] [facility] [place] [facility] Aug 31, 2024 03:30 PM AM[place]ATORY [place]IC[place] [facility] [place] [facility] Sep 14, 2024 11:30 AM AM[place]UL[place]ORY [place] [facility] [place] [facility] Sep 29, 2024 02:30 PM AMBULATORY - MEDICINE [facility] Oct 08, 2024 10:00 AM AMBULATORY - REHAB MEDICIN [facility] Oct 08, 2024 01:00 PM AMBULATORY - NONE [place] [facility] [place] [facility] Oct 08, 2024 01:45 PM AMBULATORY - NONE [place] [facility] [facility] Oct 12, 2024 11:30 AM AM[place]UL[place]ORY [place] [facility] [place] [facility] October 15, 2024 07:00 AM AM[place]UL[place]ORY [place]INE [place] [facility] [place] [facility] October 16, 2024 01:00 PM AMBUL[place]ORY [place]ICINE [place] [facility] [facility] October 21, 2024 03:00 PM AM[place]UL[place]ORY [place] [facility] [place] [facility] October 22, 2024 01:00 PM AMBULATORY - [place]ICIN [place] [facility] [place] [facility] November 02, 2024 02:00 PM AMBULATORY - MEDICINE [facility] Nov 18, 2024 09:30 AM AM[place]UL[place]ORY [place] [facility] [facility] Active, Pending, and Scheduled Orders This section includes a listing of several types of active, pending, and scheduled orders, including clinic medications orders, diagnostic test orders, procedure orders and consult orders; where the start date of the order is 45 days before the date of the Encounter or 45 days after the date of theEncounter. The data comes from all [facility]. Test Date/Time Test Type Test Details Facility Name Aug 03, 2024 01:06 PM Consult Order COMMUNITY CARE-PAIN MANAGEMENT Cons Machine Adjuster Helper's Choice [facility] [place] [facility] Aug 24, 2024 12:00 AM Laboratory - Chemistry Order OCCULT BLOOD FIT X1 SCREEN (MFP ONLY) [facility] Sep 13, 2024 10:39 AM Consult Order [facility] Cons Machine Adjuster [facility] Sep 29, 2024 12:00 AM Laboratory - Chemistry Order VITAMIN D (25-OH) BLOOD (SST-SERUM) [facility] Sep 29, 2024 12:00 AM Laboratory - Chemistry Order CBC AND DIFF (AUTO) BLOOD (LAV-BLOOD) [facility] Sep 29, 2024 12:00 AM Laboratory - Chemistry Order TSH BLOOD (SST-SERUM) [facility] Sep 29, 2024 12:00 AM Laboratory - Chemistry Order HEMOGLOBIN A1C PANEL BLOOD (LAV-BLOOD) [facility] Sep 29, 2024 12:00 AM Laboratory - Chemistry Order PSA BLOOD (SST-SERUM) [facility] Sep 29, 2024 12:00 AM Laboratory - Chemistry Order LIPID PANEL FASTING BLOOD (SST-SERUM) [facility] Sep 29, 2024 12:00 AM Laboratory - Chemistry Order BASIC METABOLIC PANEL (fasting) BLOOD (SST-SERUM) [facility] Sep 29, 2024 12:00 AM Laboratory - Chemistry Order LIVER FUNCTION BLOOD (SST-SERUM) [facility] Sep 29, 2024 12:00 AM Laboratory - Chemistry Order MICROALBUMIN CREATININE RATIO PANEL URINE (RANDOM) [facility] Vital Signs: All taken on the encounter date This section contains inpatient and outpatient Vital Signs collected on the date of the Encounter. Date/Time Temperature Pulse Blood Pressure Respiratory Rate SP02 Pain Height Weight Body Mass Index Source Aug 17, 2024 07:17 AM 6 [facility] Advance Directives: All historical and current Section Date Range: From patient's date of to the date document was created. This section includes ALL of a patient's completed or amended [place] Advance and Rescinded Directives. The entries below indicate that a directive exists for the patient, but an actual copy is not included with this document. The data comes from all [place] facilities. Date Advance Directives Provider Source November 12, 2023 ADVANCE DIRECTIVE DISCUSSION JESSICA MESA [facility] Radiology Reports: +/- 30 days of the [...] the Encounter. The data comes from all [place] treatment facilities. Date/Time Radiology Report Provider Source Jul 22, 2024 02:20 PM FLUOROSCOPIC RODNEY NCE FOR NEEDLE PLACEMENT: COLLETTE ROSE [id number] -[id number] M Exm Date: JUL 22, 2024@14:20 Req Phys: LEXI MONTOYA THI Pat Loc: [facility] MED REHAB SPN INDIO THOMAS (Req' Img Loc: [facility]/BUILDING 1 Service: [place] [address] (Case [id number] COMPLETE) FLUOROSCOPIC GUIDANCE FOR NEEDLE (RAD Detailed) CPT:65818 Reason for Study: genicular nerve block Clinical History: Report Status: Verified Date Reported: JUL 22, 2024 Date Verified: JUL 22, 2024 Oil Burner Installer E-Sig:/ES/CLAUDIA MÉNDEZ JR Report: Study: Pain injection [...] Interpreting Staff: CLAUDIA MÉNDEZ JR, Radiologist (Oil Burner Installer) /CLAUDIA VALLES JR [facility] Encounter Notes: All associated encounter notes This section contains the clinical notes associated to the Encounter. Date/Time Encounter Note(s) Provider Source Aug 17, 2024 07:31 AM PHYSICAL MEDICINE REHAB NOTE: LOCAL TITLE: PM&R BACK/JOINT PROCEDURE NOTE STANDARD TITLE: PHYSICAL MEDICINE REHAB NOTE DATE OF NOTE: AUG 17, 2024@07:31 ENTRY DATE: AUG 17, 2024@07:31:26 AUTHOR: JIMMIE THAYER COSIGNER: URGENCY: STATUS: COMPLETED PROCEDURE: Bilateral intra-articular knee injection with cortisone. INDICATION: Knee pain. ANESTHESIA: None. INFORMED CONSENT: Obtained verbally, and through [facility]. I had a lengthy conversation with on Saturday afternoon regarding his care. He was frustrated with the inability to get corticosteroid injections. He has an ulcer in the foot that is currently under care from wound program. No infection. No fevers or chills over the weekend. This has been many months that it is taken for healing. He has had a revascularization procedure to of the legs. He continues to get some swelling in the legs. Pain in the knee has been fairly significant and he is anxiously awaiting an opportunity to move forward with total joint replacement. He had a diagnostically positive genicular nerve block and would like to proceed with Coulee procedure. He had 3 months of relief with the previous hyaluronic acid injection and then symptoms recurred with the same degree of intensity. He is involved in the moves program and is working on weight management. Current weight is down quite a bit and he would be within acceptable range for total joint replacement if it were not for the ulcer in the lower extremity. Knee examination shows tenderness over the medial joint line and lateral joint line. Parapatellar tenderness was noted. Positive patella compression test. Range of motion is 120 degrees of flexion with terminal extension. He has a great deal of external rotation at the hips despite bilateral hip replacement. He ambulates with a waddling gait. There is no effusion redness or warmth of the knees today. The steps of the procedure, potential risks and benefits of the intra-articular knee injection, as well as alternatives were discussed with patient. The potential risks include, but not limited to: local injection reaction, pain, bruising/hematoma, nerve damage, temporary increase in blood sugar (if applicable), adverse side effects to cortisone or lidocaine including rash/itching, infection, and swelling of the knee. Patient agreed to proceed with the injection. TIME OUT NOTE TIME:Aug@07:20 [place] correctly stated: [X]Full name: COLLETTE ROSE [X]Last of #: [id number] [X]: Jul PROVIDER NAME: Jimmie Thayer PA-c STAFF NAME: Doretha Marte RN Lot #: [id number] Exp: May 2025 The procedure was performed with the patient in the seated position. Chlorhexidine x 3 to the right knee. Anteromedial approach with a 25-gauge 1-1/2 inch needle. Needle was directed into the intercondylar notch. With loss of resistance injected with 2 cc of 1% lidocaine 1 cc of bupivacaine and 40 mg of triamcinolone. Needle was withdrawn and Band-Aid applied. Attention then to the left knee. The same procedure was then performed using an anteromedial approach. No complications. No blood loss. The patient tolerated the procedure well without any immediate adverse side effects. Patient was instructed on the use of ice prn post injection pain/swelling. The patient was able to ambulate out of the office today, and was discharged home with instructions to monitor for any adverse reactions/side effects, and to contact me with any issues. Pre-procedure pain level: 610 Post-procedure pain level: 210 Assessment and plan: 54-year-old here for bilateral osteoarthritis of the knees. Recommendation was made to proceed with Coolief procedure. Specifically due to the impaired vascularization of the lower extremities we did discuss the risk of infection associated with chronic corticosteroid use. Article regarding infection risk and safety of corticosteroid use in chronic rheumatological infections was also discussed. He understands and assumes the risk. We discussed the option of foregoing on injection and moving towards the procedure but he felt that he would like to get the relief and now and minimize the use of pain medication. Currently he is using the Ultram at 50 mg daily. He is using this in anticipation of exercise and has found it to be helpful. PDMP was reviewed prior to fill. /jim/ [facility] Signed: 08/17/2024 07:42 [place]E THAYER [place] [facility]
--- OUTSIDE RECORDS SUMMARY | 2024-10-12 18:58 | XMS_ITS ---
Author Name [facility] [place] Organization [facility] [place] [facility] [place] Address [address] [place] [address] Care Team Providers Care Senior Cisco Network Engineer Name Role Phone WALDEMAR PIPO Primary Care Provider LENY Suarez Primary Care Provider RICH Valencia Primary Care Provider Thien weber Selected Encounter This section includes the information on record at [place] for the Encounter. Date/Time Encounter Type Encounter Description Reason Provider Source Apr 23, 2024 02:00 PM OFFICE O/P NEW [place] 60 MIN PM&RS PHYSICIAN ICD-10-CM M19.90 Unspecified osteoarthritis, unspecified site KADY THAYER [facility] Encounter Template Text not used by [place] Assessments - Encounter Diagnoses This section includes the primary and secondary diagnoses documented for the Encounter. Date/Time Primary/Secondary Diagnosis Diagnosis Name Provider Source Apr 23, 2024 03:39 PM PRIMARY Unspecified osteoarthritis, unspecified site [facility] [place] [facility] Apr 23, 2024 03:39 PM SECONDARY Obesity, unspecified [facility] [place] [facility] Plan of Treatment: Future Appointments (+ 6 months) and Future Tests (+/- 45 days) The Plan of Treatment section includes future care activities for the patient from all [place] [facility] hospital. This section includes future appointments and [...] 02:30 PM AMBULATORY - REHAB MEDICIN E [place] Apr 28, 2024 01:00 PM AMBULATORY - NONE [facility] ([facility] Apr 28, 2024 02:30 PM AMBULATORY - REHAB MEDICIN E [place] Apr 29, 2024 01:30 PM AMBULATORY - MEDICINE [place] [facility] [place] [facility] May 04, 2024 03:30 PM AMBULATORY - MEDICINE [facility] May 05, 2024 01:00 PM AMBULATORY - NONE [place] [facility] ([facility] May 12, 2024 01:00 PM AMBULATORY - NONE [place] [facility] May 13, 2024 01:30 PM AMBULATORY - MEDICINE [place] [facility] [place] [facility] May 20, 2024 01:00 PM AMBULATORY - REHAB MEDICIN E [place] [facility] [place] [facility] May 21, 2024 03:00 PM AMBULATORY - REHAB MEDICIN E [place] Jun 02, 2024 01:00 PM AMBULATORY - NONE [place] [facility] Jun 05, 2024 02:30 PM AMBULATORY - REHAB MEDICIN E [place] Jun 19, 2024 07:30 AM AMBULATORY - MEDICINE [place] [facility] [place] [facility] Jun 23, 2024 11:30 AM AMBULATORY - MEDICINE [place] [facility] [place] [facility] Jun 25, 2024 01:00 PM AMBULATORY - REHAB MEDICIN E [facility] [place] [facility] Jun 25, 2024 02:00 PM AMBULATORY - MEDICINE [place] [facility] [place] [facility] Jul 03, 2024 02:00 PM AMBULATORY - MEDICINE [place] [facility] [place] [facility] Jul 14, 2024 01:00 PM AMBULATORY - NONE [place] [facility] Jul 21, 2024 01:00 PM AMBULATORY - NONE [place] [facility] Jul 22, 2024 10:00 AM AMBULATORY - MEDICINE [facility] C [facility] Active, Pending, and Scheduled Orders This [...] 09:23 AM Consult Order COMMUNITY CARE-WOUND Cons [facility] [place] May 08, 2024 12:00 AM Laboratory - Chemi stry Order URINE DRUG PROFILE_ UA CUP URINE [facility]IC[facility] May 08, 2024 12:00 AM Laboratory - Chemi stry Order LIPID PROFILE_ SERUM (GOLD) [facility] May 08, 2024 12:00 AM Laboratory - Chemi stry Order CBC (WITH DIFF)_ BLOOD (EDTA WB) [facility] May 08, 2024 12:00 AM Laboratory - Chemi stry Order TSH SERUM (GOLD) [facility] May 08, 2024 12:00 AM Laboratory - Chemi stry Order HEMOGLOBIN A1C BLOOD (EDTA WB) [facility] May 08, 2024 12:00 AM Laboratory - Chemi stry Order MICROALBUMIN:CREAT RATIO_ UA CUP URINE [facility] May 08, 2024 12:00 AM Laboratory - Chemi stry Order COMP.METABOLIC PROFILE_ SERUM (GOLD) [facility] May 08, 2024 12:00 AM Laboratory - Chemi stry Order URINALYSIS_ UA CUP URINE [facility] Lab Results: +/- 30 days of the encounter This section includes the Chemistry and Hematology Lab Results on record with [place] for the patient. Radiology Reports and Pathology Reports are provided separately, in subsequent sections. Lab Results This section contains the Chemistry/Hematology Results that were resulted 30 days before or 30 daysafter the date of the Encounter. Date/Time Source Result Type Result - Unit Interpretation Reference Range Specimen Type Comment Apr 23, 2024 03:19 PM [place] [employer] [facility] IRON & TIBC PANEL SERUM Specimen Type: SERUM No comment entered. Ordering Provider: ELI DUDLEY Report Released Date/Time: Feb 20, 2024 06:51 AM Reporting Lab: [facility] [place] [facility] [address] [address] Performing Lab: [facility] [address] [address] TIBC 528 ug/dL H 204-475 IRON 25 ug/dL L 40-160 Transferrin Saturation 4.7 L 20.0-50.0 Transferrin (TRF) 400 mg/dL H 200-360 Apr 23, 2024 03:19 PM [facility] FERRITIN SERUM Specimen Type: SERUM No comment entered. Ordering Provider: ELI DUDLEY Report Released Date/Time: Feb 20, 2024 06:51 AM Reporting Lab: [address] [address] Performing Lab: [facility]USE[address] [address] FERRITIN 7 ng/mL L 20-300 Apr 23, 2024 03:19 PM [facility] RETICULOCYTES BLOOD Specimen Type: BLOOD No comment entered. Ordering Provider: ELI DUDLEY Report Released Date/Time: Feb 20, 2024 06:51 AM Reporting Lab: [address] [address] Performing Lab: [facility]PITALUSETS [address] [address] RETIC % 0.8 0.6-2.0 RETIC, ABS 37.6 10*3/uL 30.0-90.0 RET-HE % 24.1 L 27.9-42.0 Apr 23, 2024 03:19 PM [facility] CBC AND DIFF (AUTO) BLOOD Specimen Type: BLOO D No comment entered. Ordering Provider: ELI DUDLEY Report Released Date/Time: Feb 20, 2024 06:51 AM Reporting Lab: [facility]PITALUSETS [address] [address] Performing Lab: [facility] [address] [address] WBC 8.03 10*3/uL 4.50-11.00 RBC 4.88 10*6/uL [...] Apr 23, 2024 02:07 PM 140/90 3 [facility] Apr 23, 2024 01:40 PM 98 65 152/66 18 97 0 253.2 35 [facility] Advance Directives: All historical and current Section Date Range: From patient's date of to the date document was created. This section includes ALL of a patient's completed or amended [place] Advance and Rescinded Directives. The entries below indicate that a directive exists for the patient, but an actual copy is not included with this document. The data comes from all [place] facilities. Date Advance Directives Provider Source November 12, 2023 ADVANCE DIRECTIVE DISCUSSION JESSICA MESA [facility] Encounter Notes: All associated encounter notes This section contains the clinical notes associated to the Encounter. Date/Time Encounter Note(s) Provider Source Apr 23, 2024 03:06 PM PHYSICAL MEDICINE REHAB CONSULT: LOCAL TITLE: CONSULT REPORT/PM&R STANDARD TITLE: PHYSICAL MEDICINE REHAB CONSULT DATE OF NOTE: APR 23, 2024@15:06 ENTRY DATE: APR 23, 2024@15:07:06 AUTHOR: JIMMIE THAYER EXP COSIGNER: URGENCY: STATUS: COMPLETED CONSULT REPORT/PM&R Has ADDENDA APR 23, 2024 COLLETTE ROSE is a 53 y/o RHD WHITE MALE, previously in [employer] FROM Mar TO Aug from [employer]IOD OF [employer]ICE - [employer], who was seen today for consultation requested by _ today for chief complaint of bilateral knee pain. had avascular necrosis bilaterally of the hips and has severe arthritis of the knees. Has been treated in [place] as well as [place] help with injections. Corticosteroid injections as well as hyaluronic acid injections. He found that the hyaluronic acid injections were more helpful but this was only for a few months. More recently he had a vascular procedure done to address the bilateral lower extremity swelling and impaired vascularity to the lower extremities. He had an ulcer over the medial malleolus which is now healing things to the wound clinic. Last injection was provided in June. He states that it did help for a few weeks. He is currently going to physical therapy for his hips. He had total joint replacement for the hips in 2017 2018. He never completed physical therapy and he is walking much better now that he has been participating in physical therapy. 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 He has several locations that is quite a bit of traveling. Daily activities/exercise: He enjoys participating in physical therapy. He additionally has started appointment with the move group. His weight currently is 250 and is highest it was 288. After his hip surgery he really felt quite a bit better and weight was down around 218. In the past he did use low-dose tramadol periodically for severe pain. He did ask whether this might be possible. No previous history of alcoholism. No history of addiction. No family history by his report. Pertinent prior procedures and/or imaging: PMHx as obtained from Chart: Active problems - Computerized Problem List is the source for the followin. Erectile dysfunction 2. Type 2 diabetes mellitus 3. Osteoarthritis 4. Umbilical hernia 5. Obesity 6. Edema 7. Colonoscopy Screening PSxHx: Bilateral total hip replacement. Radiofrequency ablation bilateral lower extremities. Right knee arthroscopy 1996 Fam Hx: Noncontributory Soc Hx: MARITAL STATUS - [employer] FROM Mar TO Aug Service Connected Disabilities with % Eligibility: NSC VERIFIED ALL: CLINDAMYCIN, MORPHINE MEDS: Active Outpatient Medications (including Supplies): COLLAGENASE [...] WOUND TAPE,MEDIPORE H SOFT 1IN X 10YD 3M#1098 USE 1 PIECE ACTIVE TOPICALLY ONCE DAILY FOR WOUND CARE DIRECTED TRAMADOL HCL 50MG TAB TAKE ONE TABLET BY MOUTH TWICE DAILY PENDING NEEDED Non-VA DICLOFENAC NA 1% TOP GEL 2 GRAMS TOPICALLY FOUR ACTIVE TIMES A DAY Non-VA DICLOFENAC NA 75MG EC TAB 75MG BY MOUTH TWICE DAILY ACTIVE Non-VA METFORMIN (ONCE DAILY) TAB,SA 500MG BY MOUTH TWICE ACTIVE DAILY Non-VA SILDENAFIL CITRATE 100MG TAB 100MG BY MOUTH ONCE ACTIVE DAILY NEEDED Active Medications from [employer] GABAPENTIN 300MG CAP Sig: TAKE ONE CAPSULE BY MOUTH THREE TIMES A DAY NEEDED FOR CHRONIC PAIN. Quantity: 90 Days Supply: 30 Original # of Refills: 5 Rx Expiration: 05/20/24 Last filled 01/23/24 at [facility] (Active) METFORMIN HCL 500MG 24HR TAB,SA Sig: TAKE ONE TABLET BY MOUTH TWICE A DAY FOR PREDIABETES. *QUANTITY REDUCED DUE TO LIMITED SUPPLY* Quantity: 60 Days Supply: 30 Original # of Refills: 2 Rx Expiration: 01/20/25 Last filled 04/13/24 at [facility] (Active) SILDENAFIL CITRATE 100MG TAB Sig: TAKE ONE TABLET BY MOUTH EVERY DAY NEEDED FOR ERECTILE DYSFUNCTION 1 HOUR PRIOR TO SEXUAL ACTIVITY (DO NOT EXCEED ONE DOSE IN A 24 HOUR PERIOD) Quantity: 18 Days Supply: 90 Original # of Refills: 1 Rx Expiration: 04/14/25 Last filled 04/13/24 at [facility] (Active) DICLOFENAC NA 75MG TAB,EC Sig: TAKE ONE TABLET BY MOUTH TWICE A DAY WITH MEALS FOR OSTEOARTHRITIS (DON'T CRUSH,BREAK OR CHEW) Quantity: 180 Days Supply: 90 Original # of Refills: 3 Rx Expiration: 08/27/24 Last filled 05/15/24 at [facility] (Active/Suspended) ROS: Constitutional - Denies fever or chills, night sweats, or unexplained weight loss. Head/Eyes/Ears/Neck- Denies headaches, dizziness, visual changes. Cardiovascular - Denies chest pain/palpitations, lower extremity swelling. Respiratory - Denies shortness of breath, or cough. GI - Denies nausea, vomiting, or loss of bowel fx/control. - Denies urinary difficulties or loss of bladder function. Musculoskeletal - See HPI. Neuro - See HPI. Psychiatric - See PMHx. Denies mood swings or change in behavior. Sleep - Denies nocturnal pain or excessive daytime fatigue. Skin/integuments - Denies rashes, lesions, or skin breakdown in the extremities. All other systems reviewed and are negative. PHYSICAL EXAMINATION: Vitals in chart. GEN: WD, WN. Awake, alert, cooperative with exam. In NAD. PSYCH: Good eye contact. Normal mood. Appropriately concerned. CVS: Extremities warm/well perfused. No lower extremity edema appreciated. PULM: Breathing unlabored, no accessory muscle use. ABD: Nondistended. EXTREMITIES: No cyanosis or edema of bilateral upper and lower extremities. SKIN: No rashes, lesions, or skin breakdown over exposed areas. MUSCULOSKELETAL/NEURO EXAM: Exam shows that he walks with a wide-based gait. Somewhat of a waddle. He is not experiencing any back pain. Lumbar maneuvers are tolerated well. Hips are slightly externally rotated. Bilateral valgus alignment right greater than left. There is crepitus with flexion and extension as well as with valgus stress. No significant effusion noted. Lower extremities are covered. Compression stockings were brought down and he has trace pedal edema. The wound was not undressed. Gait: abnormal, symmetric, negative Trendelenburg. Not Able to perform tandem walk and heel/toe walk. Labs: Collection DT Spec WBC HGB HCT PLT K+/Pot Sodium HGBA1c 12/24/2023 14:35 BLOOD 5.7 H 12/24/2023 14:35 BLOOD 6.05 10.4 L 34.7 L 373 H 12/24/2023 14:35 SERUM 4.8 140 Collection DT Spec GLUCOSE CREATIN AST ALT T BILI ALK PEGGY CHOL 12/24/2023 14:35 SERUM 102 H 0.85 21 22 0.4 69 133 Collection DT Spec LDL-c HDL TRIG TSH 12/24/2023 14:35 SERUM 83 35 L 74 1.64 CHEM 7 TREND LAB CUMULATIVE SELECTED Collection DT Spec GLUCOSE BUN CREATIN Sodium K+/Pot CL CO2 12/24/2023 14:35 SERUM 102 H 14 0.85 140 4.8 107 22 LAB CUMULATIVE SELECTED 2 No selection items chosen for this component. CHEM 7 Results Collection DT Spec Sodium K+/Pot CL CO2 GLUCOSE BUN 12/24/2023 14:35 SERUM 140 4.8 107 22 102 H 14 Liver Function Tests Collection DT Spec AST ALT ALK PEGGY ALBUMIN T BILI T. PROT 12/24/2023 14:35 SERUM 21 22 69 4.3 0.4 7.1 HEMOGLOBIN A1C TREND Collection DT Spec HGBA1c 12/24/2023 14:35 BLOOD 5.7 H Diagnostic Studies: X-rays show severe lateral compartment arthritis with severe patellofemoral arthrosis. ASSESSMENT/PLAN: Patient is a 53-year-old that presents with bilateral severe osteoarthritis. He is improvement was very temporary with hyaluronic acid injections as well as with cortisone. Recommendation was made to consider genicular nerve block and possible Coolief procedure. Additionally the lateral compartment is relatively well-preserved. Would suggest offloader braces bilaterally. He is involved in physical therapy and he can be sized there. He would like to hold off for at least another year before considering total joint replacement. His work schedule currently is very arduous. We did discuss risks and benefits to opioid use and he is going to be afforded tramadol 10-day supply 50 mg twice daily as needed. PDMP completed. FOLLOW-UP: After MBB without steroid. Potential risks and side effects of any medication(s) prescribed today was reviewed with . Patient had many excellent questions, which I answered to the best of my ability and to patient's apparent satisfaction. MDM: 60 minutes which includes reviewing records, evaluating patient, documenting in medical record, educating, counseling and coordinating care. Medication Reconciliation: Outpatient: Has the patient been taking medications as documented in the EMLR? YES: The patient has been taking medications as documented in the EMLR. Essential Medication List for Review used to complete this medication reconciliation. INCLUDED IN THIS LIST: Alphabetical list of active outpatient prescriptions dispensed from this [facility] (local) and dispensed from another VA or DoD facility (remote) as well as [...] Allergies/ADRs (Tool #5) FACILITY ALLERGY/ADR -------- [facility] CLINDAMYCIN [facility] CLINDAMYCIN [facility] MORPHINE Med Recon NoGlossary (Tool #1) INCLUDED IN THIS LIST: Alphabetical list of active outpatient prescriptions dispensed from this [place] (local) and dispensed from another [place] or [facility] facility (remote) as well as inpatient orders (local pending and active), local clinic medications, locally documented non-VA medications, and local prescriptions that have or been discontinued in the past 90 days. Non-VA Meds Last Documented On: Dec 02, 2023 NOTE The display of VA prescriptions dispensed from another VA or DoD facility (remote) is limited to active outpatient prescription entries matched to National Drug File at the originating site and may not include some items such as investigational drugs, compounds, etc. NOT INCLUDED IN THIS LIST: Medications self-entered by the patient into personal health records (i.e. [employer]) are NOT included in this list. Non-VA medications documented outside this [place], remote inpatient orders (regardless of status) and remote clinic medications are NOT included in this list. The patient and provider must always discuss medications the patient is taking, regardless of where the medication was dispensed or obtained. OUTPT BACITRACIN 500 UNT/GM TOP OINT (Status = ) APPLY SMALL AMOUNT TOPICALLY TWICE DAILY FOR INFECTION APPLY TO FOOT WOUNDS Rx# [id number] Last Released: 12/11/23 Qty/Days Supply: 90 Rx Expiration Date: 03/10/24 Refills Remainin Indication: FOR INFECTION OUTPT CETIRIZINE HCL 10MG TAB (Status = ) TAKE ONE TABLET BY MOUTH ONCE DAILY FOR ALLERGIES Rx# [id number] Last Released: 12/23/23 Qty/Days Supply: 90 Rx Expiration Date: 03/22/24 Refills Remainin Indication: FOR ALLERGIES OUTPT COLLAGENASE 250 UNT/GM TOP OINT (Status = Active) APPLY NICKEL-THICK LAYER TOPICALLY ONCE DAILY TO FOOT WOUNDS Rx# [id number] Last Released: 04/22/24 Qty/Days Supply: 150/30 Rx Expiration Date: 01/27/25 Refills Remainin Indication: FOR SKIN ULCER Non-VA DICLOFENAC NA 1% TOP GEL APPLY 2 GRAMS TOPICALLY FOUR TIMES A DAY Patient wants to buy from Non-VA pharmacy. [...] OR CHEW) Last Filled: 05/15/24 (Active/Suspended at [facility]) Rx Expiration Date: 08/27/24 Days Supply: 90 OUTPT FLUTICASONE PROP 50MCG 120D NASAL INHL (Status = Pending) INSTILL 1 SPRAY INTO EACH NOSTRIL TWICE DAILY [employer] Login Date: 04/23/24 Qty/Days Supply: Refills Ordered: 3 Remote GABAPENTIN 300MG CAP TAKE ONE CAPSULE BY MOUTH THREE TIMES A DAY NEEDED FOR CHRONIC PAIN. Last Filled: 01/23/24 (Active at [facility]) Rx Expiration Date: 05/20/24 Days Supply: 30 OUTPT GABAPENTIN 300MG CAP (Status = ) TAKE ONE CAPSULE BY MOUTH THREE TIMES A DAY Rx# [id number] Last Released: 12/11/23 Qty/Days Supply: 270/90 Rx Expiration Date: 03/10/24 Refills Remainin Indication: FOR NERVE PAIN OUTPT LEVOFLOXACIN 500MG TAB (Status = ) TAKE ONE TABLET BY MOUTH ONCE DAILY FOR 14 DAYS FOR INFECTION CAUSED BY BACTERIA Rx# [id number] Last Released: Qty/Days Supply: Rx Expiration Date: 02/29/24 Refills Remainin Indication: FOR INFECTION CAUSED BY BACTERIA OUTPT LIDOCAINE HCL 4% TOP SOLN (Status = ) APPLY DIRECTED TOPICALLY ONCE DAILY PRIOR TO DRESSING CHANGE Rx# [id number] Last Released: 01/28/24 Qty/Days Supply: 100 Rx Expiration Date: 02/21/24 Refills Remainin Non-VA METFORMIN (ONCE DAILY) TAB,SA TAKE 500MG BY MOUTH TWICE DAILY Patient wants to buy from Non-[place] pharmacy. Medication prescribed by Non-[place] provider. Indication: FOR TYPE 2 DIABETES MELLITUS OUTPT METFORMIN HCL 500MG 24HR SA TAB (Status = Active) TAKE ONE TABLET BY MOUTH TWICE DAILY Rx# [id number] Last Released: 03/25/24 Qty/Days Supply: 180/ Rx Expiration Date: 01/10/25 Refills Remainin Indication: FOR TYPE 2 DIABETES MELLITUS Remote METFORMIN HCL 500MG 24HR TAB,SA TAKE ONE TABLET BY MOUTH TWICE A DAY FOR PREDIABETES. *QUANTITY REDUCED DUE TO LIMITED SUPPLY* Last Filled: 04/13/24 (Active at [facility]) Rx Expiration Date: 01/20/25 Days Supply: 30 OUTPT METHYLPREDNISOLONE 4MG TAB (Status = Pending) TAKE SIX TABLETS BY MOUTH ONCE DAILY FOR 1 DAYS THEN TAKE FIVE TABLETS BY MOUTH ONCE DAILY FOR 1 DAYS THEN TAKE FOUR TABLETS BY MOUTH ONCE DAILY FOR 1 DAYS THEN TAKE THREE TABLETS BY MOUTH ONCE DAILY FOR 1 DAYS THEN TAKE TWO TABLETS BY MOUTH ONCE DAILY FOR 1 DAYS THEN TAKE ONE TABLET BY MOUTH ONCE DAILY FOR 1 DAYS Take 6 pills x 1 day 5 pills x 1 day 4 pills x 1 day 3 pills x 1 day 2 pills x 1 day 1 pill x 1 day Login Date: 04/23/24 Qty/Days Supply: 05/12 Refills Ordered: 0 OUTPT MUPIROCIN 2% OINT (Status = Active) APPLY SMALL AMOUNT TOPICALLY ONCE DAILY FOR OPEN WOUNDS Rx# [id number] Last Released: 04/22/24 Qty/Days Supply: Rx Expiration Date: 02/13/25 Refills Remainin Indication: FOR OPEN WOUNDS Remote SILDENAFIL CITRATE 100MG TAB TAKE ONE TABLET BY MOUTH EVERY DAY NEEDED FOR ERECTILE DYSFUNCTION 1 HOUR PRIOR TO SEXUAL ACTIVITY (DO NOT EXCEED ONE DOSE IN A 24 HOUR PERIOD) Last Filled: 04/13/24 (Active at [facility]) Rx Expiration Date: 04/14/25 Days Supply: 90 Non-RI SILDENAFIL CITRATE 100MG TAB TAKE ONE TABLET BY MOUTH ONCE DAILY NEEDED Patient wants to buy from Non-[place] pharmacy. Medication prescribed by Non-[place] provider. Indication: FOR ERECTILE DYSFUNCTION OUTPT SODIUM CHLORIDE 0.9% PF INJ SYR 10ML (Status = Active) INJECT 1 SYRINGE TOPICALLY ONCE DAILY PER WOUND Rx# [id number] Last Released: 04/17/24 Qty/Days Supply: Rx Expiration Date: 02/13/25 Refills Remainin Indication: CLEAN WOUND OUTPT TRAMADOL HCL 50MG TAB (Status = Pending) TAKE ONE TABLET BY MOUTH TWICE DAILY NEEDED call for refill Login Date: 04/23/24 Qty/Days Supply: 20 Refills Ordered: 0 SUPPLIES OUTPT GAUZE PAD 2IN X 2IN 8-PLY STERILE (Status = Active) APPLY 1 PAD TOPICALLY ONCE DAILY FOR WOUND CARE Rx# [id number] Last Released: 04/17/24 Qty/Days Supply: 100 Rx Expiration Date: 02/13/25 Refills Remainin Indication: FOR WOUND CARE OUTPT GAUZE PAD 4IN X 4IN 8-PLY STERILE (Status = Active) APPLY GAUZE TOPICALLY ONCE DAILY FOR WOUND CARE Rx# [id number] Last Released: 04/16/24 Qty/Days Supply: Rx Expiration Date: 02/13/25 Refills Remainin Indication: FOR WOUND CARE OUTPT GLOVE VINYL LARGE PWDR-FREE NONSTERILE (Status = Active) USE GLOVE(S) ONCE DAILY NEEDED TO PROTECT HANDS Rx# [id number] Last Released: 04/16/24 Qty/Days Supply: Rx Expiration Date: 02/13/25 Refills Remainin Indication: TO PROTECT HANDS OUTPT KERLIX 4.5IN STERILE (Status = Active) USE 1 ROLL TOPICALLY ONCE DAILY FOR WOUND CARE DIRECTED Rx# [id number] Last Released: 04/16/24 Qty/Days Supply: 04/15 Rx Expiration Date: 02/13/25 Refills Remainin Indication: FOR WOUND CARE OUTPT TAPE,MEDIPORE H SOFT 1IN X 10YD 3M#2861 (Status = Active) USE 1 PIECE TOPICALLY ONCE DAILY FOR WOUND CARE DIRECTED Rx# [id number] Last Released: 04/16/24 Qty/Days Supply: 04/15 Rx Expiration Date: 02/13/25 Refills Remainin Indication: FOR WOUND CARE /jim/ JIMMIE TAHYER [facility] Signed: 04/23/2024 15:39 05/26/2024 ADDENDUM STATUS: COMPLETED Spoke with patient on the phone - he mentioned that he had a tramadol prescription, and it was very helpful with his knee pain. He was hoping to get a refill. /es/ TYSON YUSUF Clinical Industry Segment Specialist Signed: 05/26/2024 13:25 08/10/2024 ADDENDUM STATUS: COMPLETED [place] requested DILL injections but they were only helpful for a couple months so would not be indicated with suboptimal relief. /jim/ JIMMIE THAYER [facility] Signed: 08/10/2024 16:27 JIMMIE THAYER [place] [facility] [place] [facility] Apr 23, 2024 02:37 PM ACCOUNTING OF DISCLOSURES NOTE: LOCAL TITLE: STATE PRESCRIPTION DRUG MONITORING PROGRAM STANDARD TITLE: ACCOUNTING OF DISCLOSURES NOTE DATE OF NOTE: APR 23, 2024@14:37:22 ENTRY DATE: APR 23, 2024@14:37:22 AUTHOR: JIMMIE THAYER EXP COSIGNER: URGENCY: STATUS: COMPLETED This PDMP query was submitted by Jimmie Thayer. The clinical justification for this PDMP query is to review controlled substances prescribed outside of the [facility], and any additional information that may become available, as an important component of standard clinical care, and in accordance with [facility] policy. Patient information was shared with the PDMP [place]. No prescription(s) for controlled substances outside the [facility] were found in the last 90 days. /jim/ JIMMIE THAYER [facility] Signed: 04/23/2024 14:48 JIMMIE THAYER RI [facility]
--- OUTSIDE RECORDS SUMMARY | 2024-10-12 18:58 | XMS_ITS | Encounter Summary ---
Author Name [facility] [place] Organization [place] Address [address] [place] [address] Care Team Providers Care Relationship Management Lead Name Role Phone PIPO MEDEIROS Primary Care Provider LENY Suarez Primary Care Provider RICH Valencia Primary Care Provider Thien weber Selected Encounter This section includes the information on record at [place] for the Encounter. Date/Time Encounter Type Encounter Description Reason Provider Source Oct 11, 2024 02:25 PM Outpatient Encounter TELEPHONE TRIAGE DELONTE RUSSELL Caitlin Encounter Template Text not used by [place] Plan of Treatment: Future Appointments (+ 6 months) and Future Tests (+/- 45 days) The Plan of Treatment section includes future care activities for the patient from all [place] treatmentfacilities. This section includes future appointments and future orders which are active, pending or scheduled. Future Appointments This section includes appointments that were scheduled to occur 6 months from the date of the Encounter, up to a maximum of 20 appointments. The data comes from all [place] treatment facilities. Appointment Date/Time Appointment Type Appointme nt Facility Name Oct 12, 2024 11:30 AM AMBULATORY - MEDICINE [facility] October 15, 2024 07:00 AM AMBULATORY - MEDICINE [facility] October 16, 2024 01:00 PM [facility]ATORY [facility]ICINE [facility] [place] [facility] October 21, 2024 03:00 PM AMBULATORY [facility] MEDICINE [facility] [place] [facility] October 22, 2024 01:00 PM AMBULATORY - REHAB MEDICIN E [facility] [place] [facility] November 02, 2024 02:00 PM [facility]ORY - MEDICINE [facility] Nov 18, 2024 09:30 AM [facility] Active, Pending, and Scheduled Orders This section includes a listing of several types of active, pending, and scheduled orders, including clinic medications orders, diagnostic test orders, procedure orders and consult orders; where the start date of the order is 45 days before the date of the Encounter or 45 days after the date of theEncounter. The data comes from all [place] treatment facilities. Test Date/Time Test Type Test Details Facility Name Sep 13, 2024 10:39 AM Consult Order COMMUNITY CARE-VASCULAR SURGERY Cons [facility] Sep 29, 2024 12:00 AM Laboratory - Chemi stry Order VITAMIN D (25-OH) BLOOD (SST-SERUM) [facility] Sep 29, 2024 12:00 AM Laboratory - Chemi stry Order CBC AND DIFF (AUTO) BLOOD (LAV-BLOOD) [facility] Sep 29, 2024 12:00 AM Laboratory - Chemi stry Order TSH BLOOD (SST-SERUM) [facility] Sep 29, 2024 12:00 AM Laboratory - Chemi stry Order HEMOGLOBIN A1C PANEL BLOOD (LAV-BLOOD) [facility] Sep 29, 2024 12:00 AM Laboratory - Chemi stry Order PSA BLOOD (SST-SERUM) [facility] Sep 29, 2024 12:00 AM Laboratory - Chemi stry Order LIPID PANEL FASTING BLOOD (SST-SERUM) [facility] Sep 29, 2024 12:00 AM Laboratory - Chemi stry Order BASIC METABOLIC PANEL (fasting) BLOOD (SST-SERUM) [facility] Sep 29, 2024 12:00 AM Laboratory - Chemi stry Order LIVER FUNCTION BLOOD (SST-SERUM) [facility] Sep 29, 2024 12:00 AM Laboratory - Chemi stry Order MICROALBUMIN CREATININE RATIO PANEL URINE (RANDOM) [facility] Oct 08, 2024 06:02 PM Consult Order COMMUNITY CARE-ORTHO SURGICAL Cons [facility] Advance Directives: All historical and current Section Date Range: From patient's date of to the date document was created. This section includes ALL of a patient's completed or amended VA Advance and Rescinded Directives. The entries below indicate that a directive exists for the patient, but an actual copy is not included with this document. The data comes from all [place] facilities. Date Advance Directives Provider Source November 12, 2023 ADVANCE DIRECTIVE DISCUSSION JESSICA MESA [facility] Radiology Reports: +/- 30 days of the [...] the Encounter. The data comes from all [place] treatment facilities. Date/Time Radiology Report Provider Source Oct 08, 2024 02:23 PM SHOULDER,COMPLETE(RIGHT): ROSECOLLETTE NARAYAN [id number] -[id number] M Ex Date: OCT 08, 2024@14:23 Req Phys: LENY AGUILERA Loc: [facility] PACT 1 SWAHILI TEACHER (Req'g Loc) [facility] Loc: [facility] Service: Unknown [place] [address] (Case [id number] COMPLETE) SHOULDER,COMPLETE(RIGHT) (RAD Detailed) CPT:22379 Reason for Study: Possible biceps tendinopathy. Unable to lift right arm Clinical History: Report Status: Verified Date Reported: OCT 08, 2024 Date Verified: OCT 08, 2024 Enterprise Systems Architect E-Sig:/ES/CLAUDIA MÉNDEZ JR Report: Study: AP internally [...] Primary Interpreting Staff: CLAUDIA MÉNDEZ JR, Radiologist (Enterprise Systems Architect) /EACLAUDIA BOWMAN JR [facility] Oct 08, 2024 01:14 PM MRI SHOULDER W/O CONTRAST (RIGHT): COLLETTE ROSE [id number] -1970 M [facility] Date: OCT 08, 2024@13:14 Req Phys: LENY AGUILERA Loc: [facility] PACT 1 SWAHILI TEACHER (Req'g Loc) Img Loc: [facility] MRI Service: [place] [address] (Case [id number] COMPLETE) MRI SHOULDER W/O CONTRAST (RIGHT)(MRI Detailed) CPT:87411 Reason for Study: Possible biceps tendon tear. Unknown trauma. Clinical History: Unable to lift right arm Report Status: Verified Date Reported: OCT 08, 2024 Date Verified: OCT 08, 2024 Enterprise Systems Architect E-Sig:/ES/CLAUDIA MÉNDEZ JR Report: Study: MRI of [...] Primary Interpreting Staff: CLAUDIA MÉNDEZ JR, Radiologist (Enterprise Systems Architect) /CLAUDIA VALLES JR [facility] Encounter Notes: All associated encounter notes This section contains the clinical notes associated to the Encounter. Date/Time Encounter Note(s) Provider Source Oct 11, 2024 01:25 PM RN PROGRESS NOTE: LOCAL TITLE: CCC: CLINICAL TRIAGE STANDARD TITLE: RN PROGRESS NOTE DATE OF NOTE: OCT 11, 2024@13:25:32 ENTRY DATE: OCT 11, 2024@13:25:32 AUTHOR: DELONTE RUSSELL COSIGNER: URGENCY: STATUS: COMPLETED Caller Verification Call Back Number: [phone] Caller/Recipient Relation to Patient: Self Caller Name: COLLETTE ROSE Emergency Contact: RAFAELA ROSE Patient Disposition Patient/Caregiver agrees to plan of care: Yes Nursing Plan and Disposition Other course(s) of action Alternative course of action Alternative courses of action: Administrative information provided, Message to new pt POC Nurse Summary Nurse Summary: [place]'s identity verified by full name, , and address. Received call from requesting a new PACT assignment at the [facility], [address] [place] [phone] Alerting new patient POCs to f/u with regarding a new appointment and time with PCP. Please assist. Non-Triage/Non-Symptom Call Provided patient w/ administrative Info Clinical Contact Center Codes Clinic/Location: VISN7 CAV PHONE CCC RN IMPORTANT: This note was created by [facility] Clinical Contact Center staff. Please do not alert the staff member by adding them as a signer for future communications. Alerts are not monitored by this user. /jim/ DELONTE RUSSELL DNP, RN VISN 07 [facility] CLINICAL TRIAGE NURSE Signed: 10/11/2024 13:25 Receipt Acknowledged By: * AWAITING SIGNATURE * ELVA MEDEIROS 10/12/2024 15:51 /jim/ STEPAN SIMMS Lead DELONTE DOWNING [facility]
--- OUTSIDE RECORDS SUMMARY | 2024-10-12 18:58 | XMS_ITS | Encounter Summary ---
Author Name [place] Organization [place] Address [address] [place] [address] Care Team Providers Care Resident Services Supervisor Name Role Phone PIPO MEDEIROS Primary Care Provider LENY Suarez Primary Care Provider RICH Valencia Primary Care Provider Thien weber Selected Encounter This section includes the information on record at [place] for the Encounter. Date/Time Encounter Type Encounter Description Reason Pro vider Source IHE Encounter Template Text not used by VA Advance Directives: All historical and current Section Date Range: From patient's date of to the date document was created. This section includes ALL of a patient's completed or amended VA Advance and Rescinded Directives. The entries below indicate that a directive exists for the patient, but an actual copy is not included with this document. The data comes from all [place] facilities. Date Advance Directives Provider Source November 12, 2023 ADVANCE DIRECTIVE DISCUSSION JESSICA MESA [facility]
--- OUTSIDE RECORDS SUMMARY | 2024-10-12 18:58 | XMS_ITS | Encounter Summary ---
Author Name [place] Address [address] [place] [address] Care Team Providers Care Belt Operator Name Role Phone PIPO MEDEIROS Primary Care Provider LENY Suarez Primary Care Provider RICH Valencia Primary Care Provider Thien weber Selected Encounter This section includes the information on record at [place] for the Encounter. Date/Time Encounter Type Encounter [...] this document. The data comes from all [place] facilities. Date Advance Directives Provider Source November 12, 2023 ADVANCE DIRECTIVE DISCUSSION JESSICA MESA [facility]
--- OUTSIDE RECORDS SUMMARY | 2024-10-12 18:58 | XMS_ITS | Encounter Summary ---
Author Name [facility] [place] Address [address] [place] [address] Care Team Providers Care Family Practice Nurse Practitioner Name Role Phone PIPO MEDEIROS Primary Care Provider LENY Suarez Primary Care Provider RICH Valencia Primary Care Provider Thien weber Selected Encounter This section includes the information on record at [place] for the Encounter. Date/Time Encounter Type Encounter Description Reason Pro vider Source Apr 28, 2024 02:30 PM Outpatient Encounter PHYSICAL THERAPY IHE Encounter Template Text not used by [place] Plan of Treatment: Future Appointments (+ 6 months) and Future Tests (+/- 45 days) The Plan of Treatment section includes future care activities for the patient from all [place] treatmentfacilities. This section includes future appointments and future orders which are active, pending or scheduled. Future Appointments This section includes appointments that were scheduled to occur 6 months from the date of the Encounter, up to a maximum of 20 appointments. The data comes from all [place] treatment facilities. Appointment Date/Time Appointment Type Appointme nt Facility Name Apr 29, 2024 01:30 PM AMBULATORY - MEDICINE [place] [facility] [place] [facility] May 04, 2024 03:30 PM AMBULATORY - MEDICINE [place] [place] May 05, 2024 01:00 PM AMBULATORY - NONE [facility] May 12, 2024 01:00 PM [facility]BULATORY - NONE [facility] May 13, 2024 01:30 PM AM[facility]ULATORY - MEDICINE [facility] [place] [facility] May 20, 2024 01:00 PM AMBULATORY - REHAB MEDICIN E [facility] [place] [facility] May 21, 2024 03:00 PM AMBULATORY - REHAB MEDICIN E [place] Jun 02, 2024 01:00 PM AMBULATORY - NONE [place] [facility] Jun 05, 2024 02:30 PM AMBULATORY - REHAB MEDICIN E [place] Jun 19, 2024 07:30 AM AMBULATORY - MEDICINE [facility] [place] [facility] Jun 23, 2024 11:30 AM AMBULATORY - MEDICINE [facility] [place] [facility] Jun 25, 2024 01:00 PM AMBULATORY - REHAB MEDICIN E [facility] [place] [facility] Jun 25, 2024 02:00 PM AMBULATORY - MEDICINE [facility] [place] [facility] Jul 03, 2024 02:00 PM AMBULATORY - MEDICINE [facility] [place] [facility] Jul 14, 2024 01:00 PM AMBULATORY - NONE [place] [facility] Jul 21, 2024 01:00 PM AMBULATORY - NONE [place] [facility] Jul 22, 2024 10:00 AM AMBULATORY - MEDICINE [facility] [place] [facility] Jul 22, 2024 02:00 PM AMBULATORY - REHAB MEDICIN E [facility] [place] [facility] Jul 28, 2024 01:00 PM AMBULATORY - NONE [place] [facility]) Aug 04, 2024 01:00 PM AMBULATORY - NONE [place]) Active, Pending, and Scheduled Orders This section includes a listing of several types of active, pending, and scheduled orders, including clinic medications orders, diagnostic test orders, procedure orders and consult orders; where the start date of the order is 45 days before the date of the Encounter or 45 days after the date of theEncounter. The data comes from all [place] treatment [facility]. Test Date/Time Test Type Test Details Facility Name Apr 01, 2024 09:23 AM Consult Order COMMUNITY CARE-WOUND Cons Change Of Address Clerk's Choice [place] May 08, 2024 12:00 AM Laboratory - Chemi stry Order CBC (WITH DIFF)_ BLOOD (EDTA WB) [facility] May 08, 2024 12:00 AM Laboratory - Chemi stry Order URINE DRUG PROFILE_ UA CUP URINE [facility] May 08, 2024 12:00 AM Laboratory - Chemi stry Order LIPID PROFILE_ SERUM (GOLD) [facility] May 08, 2024 12:00 AM Laboratory - Chemi stry Order HEMOGLOBIN A1C BLOOD (EDTA WB) [facility] May 08, 2024 12:00 AM Laboratory - Chemi stry Order TSH SERUM (GOLD) [facility] May 08, 2024 12:00 AM Laboratory - Chemi stry Order MICROALBUMIN:CREAT RATIO_ UA CUP URINE [facility] May 08, 2024 12:00 AM Laboratory - Chemi stry Order URINALYSIS_ UA CUP URINE [facility] May 08, 2024 12:00 AM Laboratory - Chemi stry Order COMP.METABOLIC PROFILE_ SERUM (GOLD) [facility] Jun 12, 2024 02:35 PM Consult Order TELE-EYE S CREENING CONSULT - CBC Cons Change Of Address Clerk's [facility] Lab Results: +/- 30 days of [...] Type Comment Apr 23, 2024 03:19 PM [facility] IRON & TIBC PANEL SERUM Specimen Type: SERUM No comment entered. Ordering Provider: ELI DUDLEY Report Released Date/Time: Feb 20, 2024 06:51 AM Reporting Lab: [address] [address] Performing Lab: [address] [address] TIBC 528 ug/dL H 204-475 IRON 25 ug/dL L 40-160 Transferrin Saturation 4.7 L 20.0-50.0 Transferrin (TRF) 400 mg/dL H 200-360 Apr 23, 2024 03:19 PM [facility] FERRITIN SERUM Specimen Type: SERUM No comment entered. Ordering Provider: ELI DUDLEY Report Released Date/Time: Feb 20, 2024 06:51 AM Reporting Lab: [facility] [address] [facility] [address] Performing Lab: [address] [address] FERRITIN 7 ng/mL L 20-300 Apr 23, 2024 03:19 PM [facility] CBC AND DIFF (AUTO) BLOOD Specimen Type: BLO OD No comment entered. Ordering Provider: ELI DUDLEY Report Released Date/Time: Feb 20, 2024 06:51 AM Reporting Lab: [facility] [address] [facility] [address] Performing Lab: [facility] [address] [facility] [address] WBC 8.03 10*3/uL 4.50-11.00 RBC 4.88 10*6/uL [...] 0.00-0.00 Apr 23, 2024 03:19 PM [facility] [place] [facility] RETICULOCYTES BLOOD Specimen Type: BLOOD No comment entered. Ordering Provider: ELI DUDLEY Report Released Date/Time: Feb 20, 2024 06:51 AM Reporting Lab: [facility] [address] [facility] [address] Performing Lab: [facility] [address] [facility] [address] RETIC % 0.8 0.6-2.0 RETIC, ABS 37.6 10*3/uL 30.0-90.0 RET-HE % 24.1 L 27.9-42.0 Social History: Smoking Status (Most current) and Tobacco Use (All prior to encounter date) This section includes the most current, and the historical, smoking and tobacco- related health factors from the [place] facility where the Encounter took place. Current Smoking Status This section includes the most current smoking, or tobacco-related health factor, from the [place] facility where the Encounter took place. Date/Time Current Smoking Status Comment Facil ity Dec 23, 2023 02:30 PM VA-TOBACCO NEVER USED [place] Advance Directives: All historical and current Section [...] 2023 ADVANCE DIRECTIVE DISCUSSION JESSICA MESA [facility] Encounter Notes: All associated encounter notes This section contains the clinical notes associated to the Encounter. Date/Time Encounter Note(s) Provider Source Apr 28, 2024 02:55 PM CLERICAL NOTE: LOCAL TITLE: APPOINTMENT NO SHOW STANDARD TITLE: CLERICAL NOTE DATE OF NOTE: APR 28, 2024@14:55 ENTRY DATE: APR 28, 2024@14:55:13 AUTHOR: LISSET MENJIVAR COSIGNER: URGENCY: STATUS: COMPLETED Patient Name: COLLETTE ROSE Patient SSN: [id number] Date and time of Appointment No show : 04/28/24 14:30 PATIENT PHONE - PHONE NUMBER [CELLULAR] - Patient's medical record was reviewed. Follow-up actions were determined and initiated: Please check/complete as applies: [ ]Telephoned Directly [ ]Re-scheduled for next available appt [X]Sent a N0-show letter ( must call for appointment) [ ]Other (Emergent/Overbook, etc.): Additional Comments: Future Clinic Visits 04/29/2024 13:30 V01 PH [facility] PACT CPS 02 05/04/2024 15:30 CWM/SO/PACT 1 ARBORICULTURIST 05/18/2024 14:30 CWM/SO/PHYSICAL THERAPY B 05/20/2024 13:00 CWM NO AUDIO EVAL D 05/20/2024 14:00 CWM/NO/OTOLARYNGOLOGY 05/21/2024 15:00 CWM/SO/PHYSICAL THERAPY B 06/19/2024 07:30 CWM/NO/OPTOMETRY 1 AM 07/22/2024 14:00 CWM/NO/MED REHAB/SPINE IN 10/21/2024 15:00 NHM/OPTOMETRY/GUERRA/ /es/ LISSET MENJIVAR DPT Physical Therapist Signed: 04/28/2024 15:27 Receipt Acknowledged By: 04/28/2024 15:42 /es/ LISSET ZAYAS [place]
--- OUTSIDE RECORDS SUMMARY | 2024-10-12 18:58 | XMS_ITS | Clinical Summary ---
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 ([facility] V24, [facility] V28) 05/07/2024 Type 2 diabetes mellitus wit h foot ulcer ([facility] V24, [facility] V28) 05/07/2024 Chronic venous hypertension (idiopathic) with ulcer of right lower extremity ([facility] V24, [facility] V28) 05/07/2024 Resolved Problems Problem Noted Date Diagnosed Date Resolved Date Type 2 diabetes mellitus wit h foot ulcer ([facility] V24, [facility] V28) 05/07/2024 05/07/2024 Encounters Date Type Department Care Team Description 10/01/2024 2:00 PM EDT Office Visit [facility] [address] [place] [phone] Jameson Saravia MD Non-pressure chronic ulcer of 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 ([facility] V24, [facility] V28) (Primary Dx); Type 2 diabetes mellitus with foot ulcer, without long-term current use of insulin ([facility]/HCC V24, [facility] V28) 09/17/2024 2:00 PM EDT Office Visit [facility] [address] [place] [phone] Jameson Saravia MD Type 2 diabetes mellitus with foot ulcer, unspecified whether long chain dyeing machine operator insulin use ([facility] V24, [facility] V28) (Primary Dx); Non-pressure chronic ulcer of 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 ([facility]/HCC V24, [facility] V28) 09/03/2024 2:15 PM EDT Office Visit [facility] [address] [place] [phone] Jameson Saravia MD Type 2 diabetes mellitus with foot ulcer, unspecified whether long chain dyeing machine operator insulin use ([facility] V24, [facility] V28) (Primary Dx); Non-pressure chronic ulcer of 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 ([facility] V24, [facility] V28) 08/27/2024 2:00 PM EDT Office Visit [facility] [address] [place] [phone] Jameson Saravia MD Non-pressure chronic ulcer of 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 ([facility] V24, [facility] V28) (Primary Dx); Type 2 diabetes mellitus with foot ulcer, without long-term current use of insulin ([facility] V24, [facility] V28) 08/20/2024 2:00 PM EST Office Visit [facility] [address] [place] [phone] Jameson Saravia MD Type 2 diabetes mellitus with foot ulcer, unspecified whether halfway insulin use ([facility] V24, [facility] V28) (Primary Dx); Non-pressure chronic ulcer of 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 ([facility] V24, [facility]/HCC V28) 08/13/2024 2:00 PM EST Office Visit [facility] [address] [place] [phone] Jameson Saravia MD Non-pressure chronic ulcer of 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 ([facility] V24, [facility]/H[facility] V28) (Primary Dx); Type 2 diabetes mellitus with foot ulcer, without long-term current use of insulin ([facility] V24, [facility] V28); Chronic venous hypertension (idiopathic) with ulcer of right lower extremity ([facility] V24, [facility] V28); Cellulitis of right lower leg 07/23/2024 1:45 PM EST Office Visit [facility] [address] [place] [phone] Jameson Saravia MD Non-pressure chronic ulcer of 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 ([facility] V24, [facility] V28) (Primary Dx); Type 2 diabetes mellitus with foot ulcer, without long-term current use of insulin ([facility] V24, [facility] V28); Chronic venous hypertension (idiopathic) with ulcer of right lower extremity ([facility] V24, [facility] V28) from Last 3 Months Surgical History Surgery [...] Sign Reading Time Taken Comments Blood Pressure 147/92 10/01/2024 3:21 PM EDT Pulse 82 10/01/2024 3:21 PM EDT Temperature 36.6 ??C (97.8 ??F) 10/01/2024 3:21 PM ED T Respiratory Rate 18 10/01/2024 3:21 PM EDT Oxygen Saturation 97% 10/01/2024 3:21 PM EDT Inhaled Oxygen Concentration - - Weight 109 kg (240 lb) 05/07/2024 10:52 AM EST Height 180.3 cm (5' 11 ) 05/07/2024 10:52 AM EST Body Mass Index 33.47 05/07/2024 10:52 AM EST Plan of Treatment Upcoming Encounters Date Type Department Care Team (Late st Contact Info) Description 10/15/2024 2:00 PM EDT Clinical Support [facility] [address] [place] [phone] 10/23/2024 2:00 PM EDT Clinical Support [facility] [address] [place] [phone] 10/30/2024 2:00 PM EDT Clinical Support [facility] [address] [place] [phone] Health Maintenance Due Date Last Done Comments [...] Vaccines (1 of 2) 2019 COVID-19 Vaccine ( - 2023-2 5 season) 2024 Cholesterol Screening (Lipid Panel) 03/25/2024 Colorectal Cancer Screening: Colonoscopy 03/25/2024 Depression Screening 03/25/2024 Diabetes: Annual Urine Albumin-Creatinine Ratio (uACR) 03/25/2024 Diabetes: Blood Sugar Contro l Test (HGBA1C) 03/25/2024 HIV Screening 03/25/2024 Hepatitis C Screening 03/25/2024 Social Influencers of Health Screening 03/25/2024 Influenza Vaccine (Season Ended) 2025 HIB Vaccines Aged Out No longer eligi [...] age to complete this topic Meningococcal B Vaccine Aged Out No l onger eligible based on patient's age to complete [...] date (in notes) Care Plan Impaired Tissue No change(2024 3:04 PM EDT) No Jadyn Altamirano, RN Note: 07/02/24- paper [...] 10 days. 08/20/24- Puraply AM 2x2 #1 08/27/24- Puraply AM kept in place Patient and Caregiver Understand Wound Care Education Care Plan Impaired Tissue On track( 025 3:04 PM EDT) No Jadyn Altamirano, digital media sales consultant volume breakdown reduced by X% by week 4 Care Plan Impaired Tissue No Jadyn Altamirano, digital media sales consultant volume breakdown reduced by X% by week 8 Care Plan Impaired Tissue No Jadyn Altamirano, digital media sales consultant volume breakdown reduced by X% by week 12 Care Plan Impaired Tissue No Jadyn Altamirano, RN Quit using tobacco (cigarettes, smokeless, etc) Care Plan Education needed on impact of smoking on wound No Jaydn Altamirano, RN Reduce tobacco use (cigarettes, smokeless, etc) [...] romised skin integrity. No Jadyn Altamirano RN Procedures Procedure Name Priority Date/Time Associated Diagnosis Comments WOUND CARE PROCEDURE Routine 10/01/2024 3:08 PM EDT Non-pressure chronic ulcer of 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 ([facility]/HCC V24, [facility]/HCC V28) Type 2 diabetes mellitus with foot ulcer, without long-term current use of insulin ([facility]/HCC V24, [facility]/HCC V28) CELLULAR TISSUE BASED PRODUCT Routine 09/03/2024 4:53 PM EDT Type 2 diabetes mellitus with foot ulcer, unspecified whether halfway insulin use ([facility]/HCC V24, [facility]/HCC V28) Non-pressure chronic ulcer of 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 ([facility]/HCC V24, [facility]/HCC V28) WOUND CARE PROCEDURE Routine 09/03/2024 3:16 PM EDT Type 2 diabetes mellitus with foot ulcer, unspecified whether long chain dyeing machine operator insulin use (CMS/HCC V24, [facility]/HCC V28) Non-pressure chronic ulcer of 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 (CMS/HCC V24, [facility]/HCC V28) DEBRIDEMENT Routine 09/03/2024 2:15 PM EDT Type 2 diabetes mellitus with foot ulcer, unspecified whether long chain dyeing machine operator insulin use (CMS/HCC V24, [facility]/HCC V28) Non-pressure chronic ulcer of 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 (CMS/HCC V24, [facility]/HCC V28) CELLULAR TISSUE BASED PRODUCT Routine 08/20/2024 3:49 PM EST Type 2 diabetes mellitus with foot ulcer, unspecified whether long chain dyeing machine operator insulin use (CMS/HCC V24, [facility]/HCC V28) Non-pressure chronic ulcer of 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 (CMS/HCC V24, [facility]/HCC V28) DEBRIDEMENT Routine 08/20/2024 2:00 PM EST Type 2 diabetes mellitus with foot ulcer, unspecified whether long chain dyeing machine operator insulin use (CMS/HCC V24, [facility]/HCC V28) Non-pressure chronic ulcer of 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 (CMS/HCC V24, [facility]/HCC V28) DEBRIDEMENT Routine 08/13/2024 2:00 PM EST Non-pressure chronic ulcer of 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 (CMS/HCC V24, [facility]/HCC V28) Type 2 diabetes mellitus with foot ulcer, without long-term current use of insulin (CMS/HCC V24, [facility]/HCC V28) DEBRIDEMENT Routine 07/23/2024 1:45 PM EST Non-pressure chronic ulcer of 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 (CMS/HCC V24, [facility]/HCC V28) Type 2 diabetes mellitus with foot ulcer, without long-term current use of insulin (CMS/HCC V24, [facility]/HCC V28) Chronic venous hypertension (idiopathic) with ulcer of right lower extremity ([facility]/HCC V24, [facility]/HCC V28) from Last 3 Months Results * Wound Care Procedure Diabetic Ulcer Right;Medial Ankle (10/01/2024 3:08 PM EDT) Jameson Metz MD - 10/01/2024 3:08 PM EDT Jameson Saravia MD ? 10/01/2024 ??4:39 PM Wound Care Procedure Diabetic Ulcer Right;Medial Ankle Date/Time: 10/01/2024 3:08 PM Performed by: Georgina Vargas RN Authorized by: Jameson Saravia MD ??Associated wounds: Wound Diabetic Ulcer 01/14/24 Ankle Right;Medial Consent: ??Consent obtained: ??Verbal ??Consent given by: ??Patient ??Risks, benefits, and alternatives were discussed: yes ?Risks discussed: ??Infection and pain ??Alternatives discussed: ??Delayed treatment Agency protocol: ??Procedure explained and questions answered to patient or proxy's satisfaction: yes ?Relevant documents present and verified: yes ?Patient identity confirmed: ??Verbally with patient Sedation: ??Sedation type: ??None Anesthesia: ??Anesthesia method: ??None Procedure details: ??Indications: open wounds ?Wound location: ??Leg ??Leg location: ??R lower leg ??Wound age (days): ??>14 Dressing: ??Dressing applied: ??Unna's boot Post-procedure details: ??Procedure completion: ??Tolerated us Jmaeson Saravia MD IN CLINIC/BEDSIDE ORDERAB LES Final Result * Cellular Tissue Based Product Diabetic Ulcer Right;Medial Ankle (09/03/2024 4:53 PM EDT) Narrative Jameson Saravia MD - 09/03/2024 4:53 PM EDT Jameson Saravia MD ? 09/03/2024 ??4:54 PM Cellular Tissue Based Product Diabetic Ulcer Right;Medial Ankle Date/Time: 09/03/2024 4:53 PM Performed by: Jameson Saravia MD Authorized by: Jameson Saravia MD ??Associated wounds: Wound Diabetic Ulcer 01/14/24 Ankle Right;Medial Consent: ??Consent obtained: ??Written ??Consent given by: ??Patient ??Risks discussed: ??Bleeding, infection, poor cosmetic result and pain ??Alternatives discussed: ??No treatment, delayed treatment, observation and alternative treatment Agency protocol: ??Procedure explained and questions answered to patient or proxy's satisfaction: yes ?Relevant documents present and verified: yes ?Test results available and properly labeled: yes ?Imaging studies available: yes ?Immediately prior to procedure a time out was called: yes ?Patient identity confirmed: ??Verbally with patient Anesthesia (see MAR for exact dosages): ??Anesthesia method: ??Topical application ??Topical anesthetic: ??Lidocaine gel Procedure details: ??Product applied: ??PuraPly ??Product lot #: ??[id number] ??Product expiration: ??11/30/2025 ??Amount used (cm^2): ??4 ??Amount wasted (cm^2): ??0 ??Secured: Yes ?Secured with: ??Mepitel Post-procedure details: ??Patient tolerance of procedure: ??Tolerated well, no immediate complications us Jameson Saravia MD IN CLINIC/BEDSIDE ORDERAB LES Final Result * Wound Care Procedure Diabetic Ulcer Right;Medial Ankle (09/03/2024 3:16 PM EDT) Narrative Jameson Saravia MD - 09/03/2024 3:16 PM EDT Jameson Saravia MD ? 09/03/2024 ??4:54 PM Wound Care Procedure Diabetic Ulcer Right;Medial Ankle Date/Time: 09/03/2024 3:16 PM Performed by: Jadyn Altamirano RN Authorized by: Jameson Saravia MD ??Associated wounds: Wound Diabetic Ulcer 01/14/24 Ankle Right;Medial Consent: ??Consent obtained: ??Verbal ??Consent given by: ??Patient ??Risks, benefits, and alternatives were discussed: yes ?Risks discussed: ??Infection and pain ??Alternatives discussed: ??Delayed treatment Agency protocol: ??Procedure explained and questions answered to patient or proxy's satisfaction: yes ?Relevant documents present and verified: yes ?Patient identity confirmed: ??Verbally with patient Sedation: ??Sedation type: ??None Anesthesia: ??Anesthesia method: ??None Procedure details: ??Indications: open wounds ?Wound location: ??Leg ??Leg location: ??R lower leg ??Wound age (days): ??>14 Dressing: ??Dressing applied: ??Unna's boot Post-procedure details: ??Procedure completion: ??Tolerated us Jameson Saravia MD IN CLINIC/BEDSIDE ORDERAB LES Final Result * Debridement Diabetic Ulcer Right;Medial Ankle (09/03/2024 2:15 PM EDT) Narrative Jameson Saravia MD - 09/03/2024 2:15 PM EDT Jameson Saravia MD ? 09/03/2024 ??4:54 PM Debridement Diabetic Ulcer Right;Medial Ankle Performed [...] Post Debridement: ??Fat layer exposed ??Time taken: ??09/03/2024 2:23 PM ??Length (cm): ??2.7 ??Width (cm): ??2.4 ??Depth (cm): ??0.1 ??Area (cm^2): ??6.48 ??Time taken: ??09/03/2024 2:24 PM ??Length (cm): ??2.7 ??Width (cm): ??2.4 ??Depth (cm): ??0.2 ??Percent Debrided (%): ??100 ??Surface Area (cm^2): ??6.48 ??Area Debrided (cm^2): ??6.48 ??Volume (cm^3): ??1.3 ??Tissue and other material debrided: dermis, epidermis and subcutaneous tissue ?Devitalized tissue debrided: slough ?Instrument: ??Curette ??Amount of bleeding: small ?Hemostasis obtained with: ??Pressure ??Procedural pain: ??0 ??Post-procedural pain: ??0 ??Response to treatment: ??Procedure was tolerated well us Jameson Saravia MD IN CLINIC/BEDSIDE ORDERAB LES Final Result * Cellular Tissue Based Product (08/20/2024 3:49 [...] treatment, delayed treatment, observation and alternative treatment Agency protocol: ??Procedure explained and questions answered to patient or proxy's satisfaction: yes ?Relevant documents present and verified: yes ?Test results available and properly labeled: yes ?Imaging studies available: yes ?Immediately prior to procedure a time out was called: yes ?Patient identity confirmed: ??Verbally with patient Procedure details: ??Product applied: ??PuraPly ??Product lot #: ??[id number] ??Product expiration: ??10/26/2025 ??Amount used (cm^2): ??4 [...] MD IN CLINIC/BEDSIDE ORDERAB LES Final Result from Last 3 Months Additional Health Concerns Active Problems Noted Date Diagnosed Date Impaired Tissue 05/07/2024 Education needed on impact of smoking on wound 1 07/07/2023 Education needed related to ulceration/compromised skin integrity. 05/07/2024 Insurance #[id number] [place] [address] [facility]LY [facility]
--- OUTSIDE RECORDS SUMMARY | 2024-10-12 18:58 | XMS_ITS | Encounter Summary ---
Author Name [facility] [place] Organization [facility] [place] Address [address] [place] [address] Care Team Providers Care Manager Erp Name Role Phone PIPO MEDEIROS Primary Care Provider LENY Suarez Primary Care Provider RICH Valencia Primary Care Provider Thien weber Selected Encounter This section includes the information on record at [place] for the Encounter. Date/Time Encounter Type Encounter Description Reason Provider Source Oct 12, 2024 11:30 AM MTMS BY PHARM LIFTER DRIVER 15 MIN TELEPHONE PRIMARY CARE ICD-10-CM E66.9 Obesity, unspecified CANDIDA,YARED E Encounter Template Text not used by [place] Assessments - Encounter Diagnoses This section includes the primary and secondary diagnoses documented for the Encounter. Date/Time Primary/Secondary Diagnosis Diagnosis Name Provider Source Oct 12, 2024 11:30 AM PRIMARY Obesity, unspecified CANDIDA,YARED DALIA Plan of Treatment: Future Appointments (+ 6 [...] 20 appointments. The data comes from all [facility]. Appointment Date/Time Appointment Type Appointme nt Facility Name October 15, 2024 07:00 AM AMBULATORY - MEDICINE [facility] [place] [facility] October 16, 2024 01:00 PM AMBULATORY - MEDICINE [facility] [place] [facility] October 21, 2024 03:00 PM AMBULATORY - MEDICINE [facility] [place] [facility] October 22, 2024 01:00 PM AMBULATORY - REHAB MEDICIN E [facility] [place] [facility] November 02, 2024 02:00 PM AMBULATORY - MEDICINE [facility] Nov 18, 2024 09:30 AM AMBULATORY - MEDICINE [place] [facility] [place] [facility] Active, Pending, and Scheduled Orders This section includes a listing of several types of active, pending, and scheduled orders, including clinic medications orders, diagnostic test orders, procedure orders and consult orders; where the start date of the order is 45 days before the date of the Encounter or 45 days after the date of theEncounter. The data comes from all [facility]. Test Date/Time Test Type Test Details Facility Name Sep 13, 2024 10:39 AM Consult Order COMMUNITY CARE-VASCULAR SURGERY Cons [facility] [place] Sep 29, 2024 12:00 AM Laboratory - Chemi stry Order CBC AND DIFF (AUTO) BLOOD (LAV-BLOOD) [facility] Sep 29, 2024 12:00 AM Laboratory - Chemi stry Order VITAMIN D (25-OH) BLOOD (SST-SERUM) [facility] Sep 29, 2024 12:00 AM Laboratory - Chemi stry Order HEMOGLOBIN A1C PANEL BLOOD (LAV-BLOOD) [facility] Sep 29, 2024 12:00 AM Laboratory - Chemi stry Order TSH BLOOD (SST-SERUM) [facility] Sep 29, 2024 12:00 AM Laboratory - Chemi stry Order PSA BLOOD (SST-SERUM) [facility] Sep 29, 2024 12:00 AM Laboratory - Chemi stry Order LIPID PANEL FASTING BLOOD (SST-SERUM) [facility] Sep 29, 2024 12:00 AM Laboratory - Chemi stry Order BASIC METABOLIC PANEL (fasting) BLOOD (SST-SERUM) [facility] Sep 29, 2024 12:00 AM Laboratory - Chemi stry Order LIVER FUNCTION BLOOD (SST-SERUM) [facility] Sep 29, 2024 12:00 AM Laboratory - Chemi stry Order MICROALBUMIN CREATININE RATIO PANEL URINE (RANDOM) [facility] Oct 08, 2024 06:02 PM Consult Order COMMUNITY CARE-ORTHO SURGICAL Cons [facility] [place] Social History: Smoking Status (Most current) and Tobacco Use (All prior to encounter date) This section includes the most current, and the historical, smoking and tobacco- related health factors from the [place] facility where the Encounter took place. Current Smoking Status This section includes the most current smoking, or tobacco-related health factor, from the [place] facility where the Encounter took place. Date/Time Current Smoking Status Comment Facil ity Dec 23, 2023 02:30 PM VA-TOBACCO NEVER USED [place] Advance Directives: All historical and current Section Date Range: From patient's date of to the date document was created. This section includes ALL of a patient's completed or amended VA Advance and Rescinded Directives. The entries below indicate that a directive exists for the patient, but an actual copy is not included with this document. The data comes from all [place] facilities. Date Advance Directives Provider Source November 12, 2023 ADVANCE DIRECTIVE DISCUSSION JESSICA M[facility] Radiology Reports: +/- 30 days of the [...] the Encounter. The data comes from all [place] treatment facilities. Date/Time Radiology Report Provider Source Oct 08, 2024 02:23 PM SHOULDER,COMPLETE(RIGHT): COLLETTE ROSE [id number] -[id number] M Ex Date: OCT 08, 2024@14:23 Req Phys: LENY AGUILERA Loc: [facility] PACT 1 LIFTER DRIVER (Req'g Loc) Img Loc: [facility]BUILD[facility] 1 Service: Unknown [place] [address] (Case [id number] COMPLETE) SHOULDER,COMPLETE(RIGHT) (RAD Detailed) CPT:22719 Reason for Study: Possible biceps tendinopathy. Unable to lift right arm Clinical History: Report Status: Verified Date Reported: OCT 08, 2024 Date Verified: OCT 08, 2024 Tableau Lead E-Sig:/ES/CLAUDIA MÉNDEZ JR Report: Study: AP internally [...] Primary Interpreting Staff: CLAUDIA MÉNDEZ JR, Radiologist (Tableau Lead) /CLAUDIA VALLES JR [facility] Oct 08, 2024 01:14 PM MRI SHOULDER W/O CONTRAST (RIGHT): COLLETTE ROSE [id number] -1970 M [facility] Date: OCT 08, 2024@13:14 Req Phys: LENY AGUILERA Loc: [facility] PACT 1 LIFTER DRIVER (Req'g Loc) Im Loc: [facility] MRI Service: [place] [address] (Case [id number] COMPLETE) MRI SHOULDER W/O CONTRAST (RIGHT)(MRI Detailed) CPT:30407 Reason for Study: Possible biceps tendon tear. Unknown trauma. Clinical History: Unable to lift right arm Report Status: Verified Date Reported: OCT 08, 2024 Date Verified: OCT 08, 2024 Tableau Lead E-Sig:/ES/CLAUDIA MÉNDEZ JR Report: Study: MRI of [...] Primary Interpreting Staff: CLAUDIA MÉNDEZ JR, Radiologist (Tableau Lead) /CLAUDIA VALLES JR [facility] Encounter Notes: All associated encounter notes This section contains the clinical notes associated to the Encounter. Date/Time Encounter Note(s) Provider Source Oct 12, 2024 11:40 AM ADDENDUM: LOCAL TITLE: Addendum STANDARD TITLE: ADDENDUM DATE OF NOTE: OCT 12, 2024@11:40:18 ENTRY DATE: OCT 12, 2024@11:40:18 AUTHOR: YARED SCHROEDER COSIGNER: URGENCY: STATUS: COMPLETED Will ask PCP to please renew; thank you! 09/14/2024 12:14 New Order entered by LENY AGUILERA (NURSE PRACTITIO) Order Text: PHENTERMINE/TOPIRAMATE PA-F CAP,SA PHENTERMINE 11.25/TOPIRAMATE 69MG SA CAP TAKE 1 CAPSULE BY MOUTH EVERY MORNING WITH OR WITHOUT FOOD Quantity: 30 Refills: 0 Indication: FOR WEIGHT LOSS MANAGEMENT Nature of Order: ELECTRONICALLY ENTERED Dig Signature: LENY AGUILERA (NURSE PRACTITIO) on 09/14/2024 12:15 /jim/ Yared Schroeder PharmD Clinical Pharmacy Practitioner Signed: 10/12/2024 11:41 Receipt Acknowledged By: 10/12/2024 14:45 /jim/ LENY AGUILERA NP NURSE PRACTITIONER == --- Original Document --- 10/12/24 PHARMACY CLINIC NOTE: COLLETTE ROSE is a 54 yo MALE transitioning care to PACT 1 CPP. HPI: S: At time of last visit, phentermine/topiramate was increased. Pt has not yet picked up RX that was mailed but will do so. Denies ADRs. Notes BP <140/90. Denies cardiac s/sx. Mostly interested in GLP-1 agonist but understands he does not meet current allocation guidelines at [facility]. Active problems - Computerized Problem List is the source for the followin. Erectile dysfunction 2. Type 2 diabetes mellitus 3. Osteoarthritis 4. Umbilical hernia 5. Obesity 6. Edema 7. Colonoscopy Screening BP: 131/84 (09/29/2024 14:51) HR: 78 (09/29/2024 14:51) HT: 71 in [180.3 cm] (09/29/2024 14:51) WT: 225 lb [102.06 kg] (09/29/2024 14:51) BMI: BMI: 31.4 Weight-related comorbidities: OA, HTN, pre-diabetes Weight Change: 03/13/2024: 264.6 lbs 04/23/2024: 253.2 lbs 05/12/2024: 253.0 lbs 06/23/2024: 242 lbs 07/22/24: 239 lbs 08/31/24: 230 lbs 09/14/24: 224 lbs 09/29/24: [address] note dated 02/18/2024: Food/Nutrition Related History: Met with who is concerned about his weight and risk for diabetes. He notes he has lost ~25 lbs recently. He notes he achieved this by decreasing his carb and added sugar intake. He notes he does the cooking and shopping. Eats 1 meals per day and some snacks. Drinks 3-4 cups of coffee and water during the day. 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 24 hour recall: L: egg bites, triple esspresso D: oysters, rice, water snacks: nutrigrain bar, protein shake Active Outpatient Medications (including Supplies): Active Outpatient Medications Status == 1) ASCORBIC ACID 500MG TAB TAKE ONE TABLET BY MOUTH ONCE DAILY ACTIVE FOR VITAMIN/NUTRITION SUPPLEMENT Indication: FOR INADEQUATE VITAMIN C 2) BACITRACIN 500 UNT/GM TOP OINT APPLY SMALL AMOUNT TOPICALLY ACTIVE TWICE DAILY APPLY TO FOOT WOUNDS Indication: FOR INFECTION 3) CETIRIZINE HCL 10MG TAB TAKE ONE TABLET BY MOUTH ONCE DAILY ACTIVE (S) Indication: FOR ALLERGIES 4) COLLAGENASE 250 UNT/GM TOP OINT APPLY NICKEL-THICK LAYER ACTIVE TOPICALLY ONCE DAILY TO FOOT WOUNDS Indication: FOR SKIN ULCER 5) DRESSING,OPTILOCK 4IN X 4IN #[id number] APPLY 1 DRESSING ACTIVE TOPICALLY ONCE DAILY 6) FERROUS SULFATE 325MG TAB TAKE ONE TABLET BY MOUTH ONCE ACTIVE DAILY Indication: TO SUPPLEMENT IRON 7) FLUTICASONE PROP 50MCG 120D NASAL INHL INSTILL 1 SPRAY INTO ACTIVE EACH NOSTRIL TWICE DAILY Indication: RHINITIS 8) GABAPENTIN 300MG CAP TAKE ONE CAPSULE BY MOUTH THREE TIMES A ACTIVE (S) DAY Indication: FOR NERVE PAIN 9) GAUZE PAD 2IN X 2IN 8-PLY STERILE APPLY 1 PAD TOPICALLY ONCE ACTIVE DAILY Indication: FOR WOUND CARE 10) GAUZE PAD 4IN X 4IN 8-PLY STERILE APPLY GAUZE TOPICALLY ONCE ACTIVE DAILY Indication: FOR WOUND CARE 11) GLOVE VINYL LARGE PWDR-FREE NONSTERILE USE GLOVE(S) ONCE ACTIVE DAILY NEEDED Indication: TO PROTECT HANDS 12) KERLIX 4.5IN STERILE USE 1 ROLL TOPICALLY ONCE DAILY ACTIVE DIRECTED Indication: FOR WOUND CARE 13) METFORMIN HCL 500MG 24HR SA TAB TAKE ONE TABLET BY MOUTH ACTIVE (S) TWICE DAILY Indication: FOR TYPE 2 DIABETES MELLITUS 14) MUPIROCIN 2% OINT APPLY SMALL AMOUNT TOPICALLY ONCE DAILY ACTIVE Indication: FOR OPEN WOUNDS 15) PHENTERMINE 11.25/TOPIRAMATE 69MG SA CAP TAKE 1 CAPSULE BY ACTIVE MOUTH EVERY MORNING WITH OR WITHOUT FOOD Indication: FOR WEIGHT LOSS MANAGEMENT 16) SODIUM CHLORIDE 0.9% PF INJ SYR 10ML INJECT 1 SYRINGE ACTIVE TOPICALLY ONCE DAILY PER WOUND Indication: CLEAN WOUND 17) TAPE,MEDIPORE H SOFT 1IN X 10YD 3M#[id number] USE 1 PIECE ACTIVE TOPICALLY ONCE DAILY DIRECTED Indication: FOR WOUND CARE Active Non-VA Medications Status == 1) Non-VA DICLOFENAC NA 1% TOP GEL 2 GRAMS TOPICALLY FOUR TIMES ACTIVE A DAY Indication: FOR OSTEOARTHRITIS 2) Non-VA DICLOFENAC NA 75MG EC TAB 75MG BY MOUTH TWICE DAILY ACTIVE Indication: osteoarthritis 3) Non-VA SILDENAFIL CITRATE 100MG TAB 100MG BY MOUTH ONCE ACTIVE DAILY NEEDED Indication: FOR ERECTILE DYSFUNCTION HEMOGLOBIN A1C TREND Collection DT Spec HGBA1c 12/24/2023 14:35 BLOOD 5.7 H LIPID PANEL TREND Collection DT Spec CHOL HDL CHO/HDL LDL-c TRIG 12/24/2023 14:35 SERUM 133 35 L 3.8 83 74 CREATININE-EGFR 12/24/23 14:35 0.85 A/P: From Previous Visits: ==== 03/25/2024: Patient with BMI of 37 seeking weight loss medication management. He is awaiting initial appointment with [facility]OVE! program in early April. We reviewed different medication options during today's visit. [place] option would be GLP-1 therapy given patient's BMI and A1c in pre-diabetic range (5.7%). If Wegovy remains unavailable at follow-up, could consider another oral option. Caution with use of either phentermine/topiramate or bupropion/naltrexone given recent elevated blood pressure reading in clinic, patient notes BP is typically elevated when he first arrives at clinic but is improved upon repeat check. Patient is willing to start monitoring BP at home, entered prosthetics consult and reviewed home BP technique with patient. 04/29/2024: Patient took home reading during phone call. Started out elevated, repeat was closer to goal of <130/80 mmHg. Patient to monitor home readings over the next two weeks prior to consideration of Qsymia prior authorization. GLP1 not currently an option as patient does not meet current scarce resource allocation priority groups. 05/13/2024: Patient reports home blood pressure readings have been right around 140/70 mmHg or below most days and are similar when taken in clinic. He is agreeable to continuing to monitor BP with addition of Qsymia and will contact clinic if BP readings increase. Would consider initiation of ACEi/ARB for BP management if home readings are any higher at follow-up. No contraindications to use of Qsymia. No history of glaucoma, hyperthyroidism, recent cardiac/cerebrovascular events, kidney stones, gall stones, denies SI. Enrolled in [facility]! program, last seen 05/12/2024. Will enter NF, if approved will work with PCP for prescribing. 07/03/23: Qysmia d/c'd d/t ADRs. Advised to monitor and ensure ADRs resolve and monitor BP. Osmar LI denied; use of tramadol. 07/22/24: Continued on Qysmia (pt never d/c'd). 08/31/24: Continued on Qysmia. 09/14/24: Increase Qysmia dose. ==== Today: Pt would like to continue Qysmia; tolerating without ADRs and intersted in dose increase. Weight loss reported. Pt will burr picker RX at post office today for increased dose. Continue with LSMs; has completed MOVE. Report if BP trending >140/90. Will further titrate at f/u if tolerated. ==== Follow-up: 4 weeks (telephone) Time Spent: 20 minutes PBM PharmD Pharmacotherapy Rem V12: PHARMACIST INTERVENTIONS: OBESITY/WEIGHT MANAGEMENT Medication monitoring, no dosage change required, continue to monitor and assess Medication reconciliation (changes to active VA and non-VA medication lists to reconcile differences) No changes to medication lists made (medication review completed, no discrepancies identified) /jim/ Yared Schroeder PharmD Clinical Pharmacy Practitioner Signed: 10/12/2024 11:34 YARED SCHROEDER [place] Oct 12, 2024 11:11 AM PHARMACY OUTPATIEN T NOTE: LOCAL TITLE: PHARMACY CLINIC NOTE STANDARD TITLE: PHARMACY OUTPATIENT NOTE DATE OF NOTE: OCT 12, 2024@11:11 ENTRY DATE: OCT 12, 2024@11:11:55 AUTHOR: YARED SCHROEDER EXP COSIGNER: URGENCY: STATUS: COMPLETED PHARMACY CLINIC NOTE Has ADDENDA COLLETTE ROSE is a 54 yo MALE transitioning care to PACT 1 CPP. HPI: S: At time of last visit, phentermine/topiramate was increased. Pt has not yet picked up RX that was mailed but will do so. Denies ADRs. Notes BP <140/90. Denies cardiac s/sx. Mostly interested in GLP-1 agonist but understands he does not meet current allocation guidelines at [facility]. Active problems - Computerized Problem List is the source for the followin. Erectile dysfunction 2. Type 2 diabetes mellitus 3. Osteoarthritis 4. Umbilical hernia 5. Obesity 6. Edema 7. Colonoscopy Screening BP: 131/84 (09/29/2024 14:51) HR: 78 (09/29/2024 14:51) HT: 71 in [180.3 cm] (09/29/2024 14:51) WT: 225 lb [102.06 kg] (09/29/2024 14:51) BMI: BMI: 31.4 Weight-related comorbidities: OA, HTN, pre-diabetes Weight Change: 03/13/2024: 264.6 lbs 04/23/2024: 253.2 lbs 05/12/2024: 253.0 lbs 06/23/2024: 242 lbs 07/22/24: 239 lbs 08/31/24: 230 lbs 09/14/24: 224 lbs 09/29/24: [address] note dated 02/18/2024: Food/Nutrition Related History: Met with who is concerned about his weight and risk for diabetes. He notes he has lost ~25 lbs recently. He notes he achieved this by decreasing his carb and added sugar intake. He notes he does the cooking and shopping. Eats 1 meals per day and some snacks. Drinks 3-4 cups of coffee and water during the day. 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 24 hour recall: L: egg bites, triple esspresso D: oysters, rice, water snacks: nutrigrain bar, protein shake Active Outpatient Medications (including Supplies): Active Outpatient Medications Status == 1) ASCORBIC ACID 500MG TAB TAKE ONE TABLET BY MOUTH ONCE DAILY ACTIVE FOR VITAMIN/NUTRITION SUPPLEMENT Indication: FOR INADEQUATE VITAMIN C 2) BACITRACIN 500 UNT/GM TOP OINT APPLY SMALL AMOUNT TOPICALLY ACTIVE TWICE DAILY APPLY TO FOOT WOUNDS Indication: FOR INFECTION 3) CETIRIZINE HCL 10MG TAB TAKE ONE TABLET BY MOUTH ONCE DAILY ACTIVE (S) Indication: FOR ALLERGIES 4) COLLAGENASE 250 UNT/GM TOP OINT APPLY NICKEL-THICK LAYER ACTIVE TOPICALLY ONCE DAILY TO FOOT WOUNDS Indication: FOR SKIN ULCER 5) DRESSING,OPTILOCK 4IN X 4IN #[id number] APPLY 1 DRESSING ACTIVE TOPICALLY ONCE DAILY 6) FERROUS SULFATE 325MG TAB TAKE ONE TABLET BY MOUTH ONCE ACTIVE DAILY Indication: TO SUPPLEMENT IRON 7) FLUTICASONE PROP 50MCG 120D NASAL INHL INSTILL 1 SPRAY INTO ACTIVE EACH NOSTRIL TWICE DAILY Indication: RHINITIS 8) GABAPENTIN 300MG CAP TAKE ONE CAPSULE BY MOUTH THREE TIMES A ACTIVE (S) DAY Indication: FOR NERVE PAIN 9) GAUZE PAD 2IN X 2IN 8-PLY STERILE APPLY 1 PAD TOPICALLY ONCE ACTIVE DAILY Indication: FOR WOUND CARE 10) GAUZE PAD 4IN X 4IN 8-PLY STERILE APPLY GAUZE TOPICALLY ONCE ACTIVE DAILY Indication: FOR WOUND CARE 11) GLOVE VINYL LARGE PWDR-FREE NONSTERILE USE GLOVE(S) ONCE ACTIVE DAILY NEEDED Indication: TO PROTECT HANDS 12) KERLIX 4.5IN STERILE USE 1 ROLL TOPICALLY ONCE DAILY ACTIVE DIRECTED Indication: FOR WOUND CARE 13) METFORMIN HCL 500MG 24HR SA TAB TAKE ONE TABLET BY MOUTH ACTIVE (S) TWICE DAILY Indication: FOR TYPE 2 DIABETES MELLITUS 14) MUPIROCIN 2% OINT APPLY SMALL AMOUNT TOPICALLY ONCE DAILY ACTIVE Indication: FOR OPEN WOUNDS 15) PHENTERMINE 11.25/TOPIRAMATE 69MG SA CAP TAKE 1 CAPSULE BY ACTIVE MOUTH EVERY MORNING WITH OR WITHOUT FOOD Indication: FOR WEIGHT LOSS MANAGEMENT 16) SODIUM CHLORIDE 0.9% PF INJ SYR 10ML INJECT 1 SYRINGE ACTIVE TOPICALLY ONCE DAILY PER WOUND Indication: CLEAN WOUND 17) TAPE,MEDIPORE H SOFT 1IN X 10YD #2861 USE 1 PIECE ACTIVE TOPICALLY ONCE DAILY DIRECTED Indication: FOR WOUND CARE Active Non-VA Medications Status == 1) Non-VA DICLOFENAC NA 1% TOP GEL 2 GRAMS TOPICALLY FOUR TIMES ACTIVE A DAY Indication: FOR OSTEOARTHRITIS 2) Non-VA DICLOFENAC NA 75MG EC TAB 75MG BY MOUTH TWICE DAILY ACTIVE Indication: osteoarthritis 3) Non-VA SILDENAFIL CITRATE 100MG TAB 100MG BY MOUTH ONCE ACTIVE DAILY NEEDED Indication: FOR ERECTILE DYSFUNCTION HEMOGLOBIN A1C TREND Collection DT Spec HGBA1c 12/24/2023 14:35 BLOOD 5.7 H LIPID PANEL TREND Collection DT Spec CHOL HDL CHO/HDL LDL-c TRIG 12/24/2023 14:35 SERUM 133 35 L 3.8 83 74 CREATININE-EGFR 12/24/23 14:35 0.85 A/P: From Previous Visits: ==== 03/25/2024: Patient with BMI of 37 seeking weight loss medication management. He is awaiting initial appointment with [facility]! program in early April. We reviewed different medication options during today's visit. [place] option would be GLP-1 therapy given patient's BMI and A1c in pre-diabetic range (5.7%). If Wegovy remains unavailable at follow-up, could consider another oral option. Caution with use of either phentermine/topiramate or bupropion/naltrexone given recent elevated blood pressure reading in clinic, patient notes BP is typically elevated when he first arrives at clinic but is improved upon repeat check. Patient is willing to start monitoring BP at home, entered prosthetics consult and reviewed home BP technique with patient. 04/29/2024: Patient took home reading during phone call. Started out elevated, repeat was closer to goal of <130/80 mmHg. Patient to monitor home readings over the next two weeks prior to consideration of Qsymia prior authorization. GLP1 not currently an option as patient does not meet current scarce resource allocation priority groups. 05/13/2024: Patient reports home blood pressure readings have been right around 140/70 mmHg or below most days and are similar when taken in clinic. He is agreeable to continuing to monitor BP with addition of Qsymia and will contact clinic if BP readings increase. Would consider initiation of ACEi/ARB for BP management if home readings are any higher at follow-up. No contraindications to use of Qsymia. No history of glaucoma, hyperthyroidism, recent cardiac/cerebrovascular events, kidney stones, gall stones, denies SI. Enrolled in MOVE! program, last seen 05/12/2024. Will enter NF, if approved will work with PCP for prescribing. 07/03/23: Qysmia d/c'd d/t ADRs. Advised to monitor and ensure ADRs resolve and monitor BP. Osmar DANIELS-Shlomo denied; use of tramadol. 07/22/24: Continued on Qysmia (pt never d/c'd). 08/31/24: Continued on Qysmia. 09/14/24: Increase Qysmia dose. ==== Today: Pt would like to continue Qysmia; tolerating without ADRs and intersted in dose increase. Weight loss reported. Pt will burr picker RX at post office today for increased dose. Continue with LSMs; has completed MOVE. Report if BP trending >140/90. Will further titrate at f/u if tolerated. ==== Follow-up: 4 weeks (telephone) Time Spent: 20 minutes PBM PharmD Pharmacotherapy Rem V12: PHARMACIST INTERVENTIONS: OBESITY/WEIGHT MANAGEMENT Medication monitoring, no dosage change required, continue to monitor and assess Medication reconciliation (changes to active VA and non-VA medication lists to reconcile differences) No changes to medication lists made (medication review completed, no discrepancies identified) /jim/ Yared Schroeder PharmD Clinical Pharmacy Practitioner Signed: 10/12/2024 11:34 10/12/2024 ADDENDUM STATUS: COMPLETED Will ask PCP to please renew; thank you! 09/14/2024 12:14 New Order entered by LENY AGUILERA (NURSE PRACTITIO) Order Text: PHENTERMINE/TOPIRAMATE PA-F CAP,SA PHENTERMINE 11.25/TOPIRAMATE 69MG SA CAP TAKE 1 CAPSULE BY MOUTH EVERY MORNING WITH OR WITHOUT FOOD Quantity: 30 Refills: 0 Indication: FOR WEIGHT LOSS MANAGEMENT Nature of Order: ELECTRONICALLY ENTERED Dig Signature: LENY AGUILERA (NURSE PRACTITIO) on 09/14/2024 12:15 /jim/ Yraed Schroeder PharmD Clinical Pharmacy Practitioner Signed: 10/12/2024 11:41 Receipt Acknowledged By: * AWAITING SIGNATURE * LENY AGUILERA [place]
--- OUTSIDE RECORDS SUMMARY | 2024-10-12 18:58 | XMS_ITS ---
Author Name [facility] of Vetera Affairs ([place]) Organization [facility] of Veter[facility] ([place]) Address [address] [place] [address] Care Team Providers Care Screen Room Operator Name Role Phone PIPO MEDEIROS Primary Care Provider LENY Suarez Primary Care Provider RICH Valencia Primary Care Provider Thien weber Selected Encounter This section includes the information on record at ID for the Encounter. Date/Time Encounter Type Encounter Description Reason Pro vider Source Aug 19, 2024 02:30 PM Outpatient Encounter PM&RS PHYSICIAN IHE Encounter Template Text not used by ID Plan of Treatment: Future Appointments (+ 6 months) and Future Tests (+/- 45 days) The Plan of Treatment section includes future care activities for the patient from all ID treatmentfacilities. This section includes future appointments and future orders which are active, pending or scheduled. Future Appointments This section includes appointments that were scheduled to occur 6 months from the date of the Encounter, up to a maximum of 20 appointments. The data comes from all ID treatment facilities. Appointment Date/Time Appointment Type Appointme nt Facility Name Aug 24, 2024 02:00 PM [facility] Aug 31, 2024 03:30 PM [facility] [place] [facility] Sep 14, 2024 11:30 AM AMBULATORY - MEDICINE [facility] [place] [facility] Sep 29, 2024 02:30 PM AM[facility]ATORY - MEDICINE [facility] Oct 08, 2024 10:00 AM AMBULATORY - REHAB MEDICIN E [facility] Oct 08, 2024 01:00 PM AMBULATORY - NONE [facility] [place] [facility] Oct 08, 2024 01:45 PM AMBULATORY - NONE [facility] [place] [facility] Oct 12, 2024 11:30 AM AMBULATORY - MEDICINE [facility] [place] [facility] October 15, 2024 07:00 AM AMBULATORY - MEDICINE [facility] [place] [facility] October 16, 2024 01:00 PM AMBULATORY - MEDICINE [facility] [place] [facility] October 21, 2024 03:00 PM AMBULATORY - MEDICINE [facility] [place] [facility] October 22, 2024 01:00 PM AMBULATORY - REHAB MEDICIN E [facility] [place] [facility] November 02, 2024 02:00 PM AMBULATORY - MEDICINE [facility] Nov 18, 2024 09:30 AM AMBULATORY - MEDICINE [facility] [place] [facility] Active, Pending, and Scheduled Orders This section includes a listing of several types of active, pending, and scheduled orders, including clinic medications orders, diagnostic test orders, procedure orders and consult orders; where the start date of the order is 45 days before the date of the Encounter or 45 days after the date of theEncounter. The data comes from all ID treatment facilities. Test Date/Time Test Type Test Details Facility Name Aug 03, 2024 01:06 PM Consult Order COMMUNITY CARE-PAIN MANAGEMENT Cons Store Operations Associate's Choice ID [facility] [place] [facility] Aug 24, 2024 12:00 AM Laboratory - Chemistry Order OCCULT BLOOD FIT X1 SCREEN (MFP ONLY) STOOL FECES [facility] Sep 13, 2024 10:39 AM Consult Order COMMUNITY CARE-VASCULAR SURGERY Cons Store Operations Associate's Choice [facility] Sep 29, 2024 12:00 AM Laboratory - Chemistry Order VITAMIN D (25-OH) BLOOD (SST-SERUM) SP ONCE [facility] Sep 29, 2024 12:00 AM Laboratory - Chemistry Order HEMOGLOBIN A1C PANEL BLOOD (LAV-BLOOD) [facility] Sep 29, 2024 12:00 AM Laboratory - Chemistry Order CBC AND DIFF (AUTO) BLOOD (LAV-BLOOD) [facility] Sep 29, 2024 12:00 AM Laboratory - Chemistry Order TSH BLOOD (SST-SERUM) [facility] Sep 29, 2024 12:00 AM Laboratory - Chemistry Order PSA BLOOD (SST-SERUM) [facility] Sep 29, 2024 12:00 AM Laboratory - Chemistry Order LIPID PANEL FASTING BLOOD (SST-SERUM) [facility] Sep 29, 2024 12:00 AM Laboratory - Chemistry Order BASIC METABOLIC PANEL (fasting) BLOOD (SST-SERUM) [facility] Sep 29, 2024 12:00 AM Laboratory - Chemistry Order LIVER FUNCTION BLOOD (SST-SERUM) [facility] Sep 29, 2024 12:00 AM Laboratory - Chemistry Order MICROALBUMIN CREATININE RATIO PANEL URINE (RANDOM) [facility] Advance Directives: All historical and current Section Date Range: From patient's date of to the date document was created. This section includes ALL of a patient's completed or amended ID Advance and Rescinded Directives. The entries below indicate that a directive exists for the patient, but an actual copy is not included with this document. The data comes from all [facility]. Date Advance Directives Provider Source November 12, 2023 ADVANCE DIRECTIVE DISCUSSION JESSICA MESA [facility] Radiology Reports: +/- 30 days of the [...] the Encounter. The data comes from all ID treatment facilities. Date/Time Radiology Report Provider Source Jul 22, 2024 02:20 PM FLUOROSCOPIC RODNEY NCE FOR NEEDLE PLACEMENT: COLLETTE ROSE [id number] -[id number] M Ex Date: JUL 22, 2024@14:20 Req Phys: LEXI MONTOYA Pat Loc: [facility] MED REHAB BETY BORJAS MD (Req' Img Loc: [facility]/BUILDING 1 Service: Unknown [facility] [place] [address] (Case [id number] COMPLETE) FLUOROSCOPIC GUIDANCE FOR NEEDLE (RAD Detailed) CPT:73116 Reason for Study: genicular nerve block Clinical History: Report Status: Verified Date Reported: JUL 22, 2024 Date Verified: JUL 22, 2024 Stock And Station Agent E-Sig:/JIM/CLAUDIA MÉNDEZ JR Report: Study: Pain injection of [...] Primary Interpreting Staff: CLAUDIA MÉNDEZ JR, Radiologist (Stock And Station Agent) /CLAUDIA VALLES JR [facility] Encounter Notes: All associated encounter notes This section contains the clinical notes associated to the Encounter. Date/Time Encounter Note(s) Provider Source Sep 09, 2024 01:48 PM ACCOUNTING OF DISCLOSURES NOTE: LOCAL TITLE: STATE PRESCRIPTION DRUG MONITORING PROGRAM STANDARD TITLE: ACCOUNTING OF DISCLOSURES NOTE DATE OF NOTE: SEP 09, 2024@13:48:07 ENTRY DATE: SEP 09, 2024@13:48:07 AUTHOR: JIMMIE HERRERA EXP COSIGNER: URGENCY: STATUS: COMPLETED This PDMP query was submitted by Jimmie Herrera. The clinical justification for this PDMP query is to review controlled substances prescribed outside of the ID, and any additional information that may become available, as an important component of standard clinical care, and in accordance with [facility] policy. Patient information was shared with the PDMP [employer] [place]. No prescription(s) for controlled substances outside the ID were found in the last 90 days. /jim/ JIMMIE HERRERA [facility] Signed: 09/09/2024 13:48 JIMMIE HERRERA [facility] Aug 14, 2024 04:31 PM ACCOUNTING OF DISCLOSURES NOTE: LOCAL TITLE: [facility] PRESCRIPTION DRUG MONITORING PROGRAM STANDARD TITLE: ACCOUNTING OF DISCLOSURES NOTE DATE OF NOTE: AUG 14, 2024@16:31:32 ENTRY DATE: AUG 14, 2024@16:31:32 AUTHOR: JIMMIE HERRERA EXP COSIGNER: URGENCY: STATUS: COMPLETED This PDMP query was submitted by Jimmie Herrera. The clinical justification for this PDMP query is to review controlled substances prescribed outside of the [facility], and any additional information that may become available, as an important component of standard clinical care, and in accordance with [facility] policy. Patient information was shared with the PDMP [employer] [place]. No prescription(s) for controlled substances outside the VA were found in the last 90 days. /jim/ JIMMIE HERRERA [facility] Signed: 08/14/2024 16:31 JIMMIE HERRERA ID [facility]
--- OUTSIDE RECORDS SUMMARY | 2024-10-12 18:58 | XMS_ITS ---
Author Name Department of Vetera ns Affairs ([place]) Organization Department of Vetera Affairs ([place]) Address [address] [place] [address] Care Team Providers Care Laborer Syrup Machine Name Role Phone WALDEMAR PIPO Primary Care Provider LENY Suarez Primary Care Provider RICH Valencia Primary Care Provider Thien weber Selected Encounter This section includes the information on record at OR for the Encounter. Date/Time Encounter Type Encounter Description Reason Pro vider Source Sep 08, 2024 12:49 PM Outpatient Encounter ADMIN PAT ACTIVTIES (MASNONCT) IHE Encounter Template Text not used by OR Plan of Treatment: Future Appointments (+ 6 months) and Future Tests (+/- 45 days) The Plan of Treatment section includes future care activities for the patient from all OR treatmentfacilities. This section includes future appointments and future orders which are active, pending or scheduled. Future Appointments This section includes appointments that were scheduled to occur 6 months from the date of the Encounter, up to a maximum of 20 appointments. The data comes from all [place] treatment facilities. Appointment Date/Time Appointment Type Appointme nt Facility Name Sep 14, 2024 11:30 AM AMBULATORY - MEDICINE [facility] Sep 29, 2024 02:30 PM AMBULATORY - MEDICINE [facility] Oct 08, 2024 10:00 AM AMBULATORY - REHAB MEDICIN E [facility] Oct 08, 2024 01:00 PM AMBULATORY - NONE [facility] [place] [facility] Oct 08, 2024 01:45 PM AMBULATORY - NONE [facility] [place] [facility] Oct 12, 2024 11:30 AM AMBULATORY - MEDICINE [facility] [place] [facility] October 15, 2024 07:00 AM AMBULATORY - MEDICINE [facility] [place] [facility] October 16, 2024 01:00 PM AMBULATORY - MEDICINE [facility] [place] [facility] October 21, 2024 03:00 PM AMBULATORY - MEDICINE [facility] [place] [facility] October 22, 2024 01:00 PM AMBULATORY - REHAB MEDICIN E [facility] [place] [facility] November 02, 2024 02:00 PM AMBULATORY - MEDICINE [facility] Nov 18, 2024 09:30 AM AMBULATORY - MEDICINE [facility] [place] [facility] Active, Pending, and Scheduled Orders This section includes a listing of several types of active, pending, and scheduled orders, including clinic medications orders, diagnostic test orders, procedure orders and consult orders; where the start date of the order is 45 days before the date of the Encounter or 45 days after the date of theEncounter. The data comes from all [place] treatment facilities. Test Date/Time Test Type Test Details Facility Name Aug 03, 2024 01:06 PM Consult Order COMMUNITY CARE-PAIN MANAGEMENT Cons Underwater Roboticist's Choice [place] [facility] [place] [facility] Aug 24, 2024 12:00 AM Laboratory - Chemistry Order OCCULT BLOOD FIT X1 SCREEN (MFP ONLY) STOOL FECES [facility] Sep 13, 2024 10:39 AM Consult Order COMMUNITY CARE-VASCULAR SURGERY Cons Underwater Roboticist's Choice [facility] Sep 29, 2024 12:00 AM Laboratory - Chemistry Order CBC AND DIFF (AUTO) BLOOD (LAV-BLOOD) [facility] Sep 29, 2024 12:00 AM Laboratory - Chemistry Order VITAMIN D (25-OH) BLOOD (SST-SERUM) SP ONCE [facility] Sep 29, 2024 12:00 AM Laboratory - Chemistry Order HEMOGLOBIN A1C PANEL BLOOD (LAV-BLOOD) [facility] Sep 29, 2024 12:00 AM Laboratory - Chemistry Order TSH BLOOD (SST-SERUM) [facility] Sep 29, 2024 12:00 AM Laboratory - Chemistry Order PSA BLOOD (SST-SERUM) [facility] Sep 29, 2024 12:00 AM Laboratory - Chemistry Order LIPID PANEL FASTING BLOOD (SST-SERUM) [facility] Sep 29, 2024 12:00 AM Laboratory - Chemistry Order BASIC METABOLIC PANEL (fasting) BLOOD (SST-SERUM) [facility] Sep 29, 2024 12:00 AM Laboratory - Chemistry Order LIVER FUNCTION BLOOD (SST-SERUM) [facility] Sep 29, 2024 12:00 AM Laboratory - Chemistry Order MICROALBUMIN CREATININE RATIO PANEL URINE (RANDOM) [facility] Oct 08, 2024 06:02 PM Consult Order [facility] SURGICAL Cons Underwater Roboticist's Choice [facility] Advance Directives: All historical and current Section Date Range: From patient's date of to the date document was created. This section includes ALL of a patient's completed or amended OR Advance and Rescinded Directives. The entries below indicate that a directive exists for the patient, but an actual copy is not included with this document. The data comes from all [facility]. Date Advance Directives Provider Source November 12, 2023 ADVANCE DIRECTIVE DISCUSSION JESSICA MESA [facility] Radiology Reports: +/- 30 days of [...] the Encounter. The data comes from all OR treatment facilities. Date/Time Radiology Report Provider Source Oct 08, 2024 02:23 PM SHOULDER,COMPLETE(RIGHT): COLLETTE ROSE [id number] -1970 M Ex Date: OCT 08, 2024@14:23 Req Phys: LENY AGUILERA Loc: SPR PACT 1 SENIOR ANALYST DEVELOPER (Req'g Loc) Img Loc: [facility] 1 Service: Unknown [facility] [address] (Case [id number] COMPLETE) SHOULDER,COMPLETE(RIGHT) (RAD Detailed) CPT:36906 Reason for Study: Possible biceps tendinopathy. Unable to lift right arm Clinical History: Report Status: Verified Date Reported: OCT 08, 2024 Date Verified: OCT 08, 2024 Plaster Machine Tender E-Sig:/ES/CLAUDIA MÉNDEZ JR Report: Study: AP internally [...] Primary Interpreting Staff: CLAUDIA MÉNDEZ JR, Radiologist (Plaster Machine Tender) /CLAUDIA VALLES JR [facility] Oct 08, 2024 01:14 PM MRI SHOULDER W/O CONTRAST (RIGHT): COLLETTE ROSE [id number] -1970 M [facility] Date: OCT 08, 2024@13:14 Req Phys: LENY AGUILERA Loc: [facility] PACT 1 SENIOR ANALYST DEVELOPER (Req'g Loc) Img Loc: [facility] MRI Service: [place] [address] (Case [id number] COMPLETE) MRI SHOULDER W/O CONTRAST (RIGHT)(MRI Detailed) CPT:64597 Reason for Study: Possible biceps tendon tear. Unknown trauma. Clinical History: Unable to lift right arm Report Status: Verified Date Reported: OCT 08, 2024 Date Verified: OCT 08, 2024 Plaster Machine Tender E-Sig:/ES/CLAUDIA MÉNDEZ JR Report: Study: MRI of [...] Primary Interpreting Staff: CLAUDIA MÉNDEZ JR, Radiologist (Plaster Machine Tender) /CLAUDIA VALLES JR [facility] Encounter Notes: All associated encounter notes This section contains the clinical notes associated to the Encounter. Date/Time Encounter Note(s) Provider Source Sep 08, 2024 12:49 PM PHARMACY NOTE: LOCAL TITLE: PHARMACY CUSTOMER CARE MEDICATION RENEWAL STANDARD TITLE: PHARMACY NOTE DATE OF NOTE: SEP 08, 2024@12:49 ENTRY DATE: SEP 08, 2024@12:49:35 AUTHOR: ELIEZER ALVAREZ COSIGNER: URGENCY: STATUS: COMPLETED Date: Aug Division: [facility] referred by Pharmacy Call Center for medication renewal: Controlled substance Medications requested: [id number] TRAMADOL HCL 50MG TAB Defer to specialty clinic To be mailed . Please review and renew if appropriate. *This note was generated by [facility] [facility] Customer Care. If you have any questions or need assistance, do not contact this author. Please refer all questions to your local, on-site pharmacy departments. /jim/ ELIEZER ALVAREZ [facility], [place]/Pharmacy Customer Care Signed: 09/08/2024 12:50 Receipt Acknowledged By: 09/09/2024 14:14 /jim/ BRIAN KRUEGER,ELIEZER ESTES [facility]
--- OUTSIDE RECORDS SUMMARY | 2024-10-12 18:58 | XMS_ITS ---
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 ([facility] V24, [facility] V28) 05/07/2024 Type 2 diabetes mellitus wit h foot ulcer ([facility] V24, [facility] V28) 05/07/2024 Chronic venous hypertension (idiopathic) with ulcer of right lower extremity ([facility] V24, [facility] V28) 05/07/2024 Resolved Problems Problem Noted Date Diagnosed Date Resolved Date Type 2 diabetes mellitus wit h foot ulcer ([facility] V24, [facility] V28) 05/07/2024 05/07/2024 Additional Health Concerns Active Problems [...] track( 025 3:04 PM EDT) No Jadyn Altamirano RN Wound volume breakdown [...]
--- OUTSIDE RECORDS SUMMARY | 2024-10-12 18:58 | XMS_ITS | Encounter Summary ---
Author Name [facility] of Vetera Affairs ([place]) Organization [facility] [place] [place] Address [address] [place] [id number] Care Team Providers Care Baccarat Manager Name Role Phone PIPO MEDEIROS Primary Care [...] this document. The data comes from all OR facilities. Date Advance Directives Provider Source November 12, 2023 ADVANCE DIRECTIVE DISCUSSION JESSICA MESA [facility]
--- OUTSIDE RECORDS SUMMARY | 2024-10-12 18:58 | XMS_ITS | Encounter Summary ---
Author Name [facility] [place] Organization [facility] [place] Address [address] [place] [address] Care Team Providers Care Magazine Filler Name Role Phone PIPO MEDEIROS Primary Care Provider LENY Suarez Primary Care Provider RICH Valencia Primary Care Provider Thien weber Selected Encounter This section includes the information on record at [place] for the Encounter. Date/Time Encounter Type Encounter Description Reason Provider Source Dec 11, 2023 02:45 PM OFFICE O/P NEW MOD 45 MIN PRIMARY CARE/MEDICINE ICD-10-CM S91.302S Unspecified open wound, left foot, sequMARTHA Roberts Caitlin Encounter Template Text not used by [place] Assessments - Encounter Diagnoses This section includes the primary and secondary diagnoses documented for the Encounter. Date/Time Primary/Secondary Diagnosis Diagnosis Name Provider Source Dec 11, 2023 03:43 PM PRIMARY Unspecified open wound, left foot, sequMARTHA Roberts DALIA Dec 11, 2023 03:43 PM SECONDARY Edema, unspecified MARTHA LINN [place] Dec 11, 2023 03:43 PM SECONDARY Elevated blood-pressure reading, w/o diagnosis of htn MARTHA LINN Dec 11, 2023 03:43 PM SECONDARY Peripheral vascular disease, unspecified MARTHA LINN [place] Dec 11, 2023 03:43 PM SECONDARY Pt noncompl with other med trtmt and regimen for other rsn KAVEHMARTHA [place] Dec 11, 2023 03:43 PM SECONDARY Type 2 diabetes mellitus without complications KAVEHMARTHA [place] Dec 11, 2023 03:43 PM SECONDARY Type 2 diabetes w diabetic autonomic (poly)neuropathy KAVEHMARTHA [place] Dec 11, 2023 03:43 PM SECONDARY Unspecified open wound, right foot, sequela MARTHA LINN [place] Plan of Treatment: Future Appointments (+ 6 months) and Future Tests (+/- 45 days) The Plan of Treatment section includes future care activities for the [facility] [place] [facility] This section includes future appointments and future orders which are active, pending or scheduled. Future Appointments This section includes appointments that were scheduled to occur 6 months from the date of the Encounter, up to a maximum of 20 appointments. The data comes from all [place] treatment facilities. Appointment Date/Time Appointment Type Appointme nt Facility Name Dec 13, 2023 12:00 PM AMBULATORY - [facility]ICINE [facility] Dec 16, 2023 10:30 AM [facility] [place] [facility] Dec 16, 2023 11:45 AM [facility] Dec 23, 2023 02:30 PM [facility]ULATORY [facility]INE [facility] [place] [facility] Dec 26, 2023 07:30 AM AMBULATORY - MEDICINE [facility] Dec 30, 2023 02:30 PM AMBULATORY - NONE [facility] [place] [facility] Jan 14, 2024 12:30 PM AMBULATORY [facility] [place] [facility] Jan 29, 2024 03:00 PM [facility]ULATORY [facility] [place] [facility] Jan 30, 2024 01:30 PM [facility]ULATORY [facility]INE [facility] [place] [facility] Jan 31, 2024 03:30 PM AM[facility]ULATORY - MEDICINE [facility] [place] [facility] Feb 18, 2024 03:00 PM AMBULATORY - NONE [facility] [place] [facility] Feb 20, 2024 10:00 AM AMBULATORY - [facility]ICINE [facility] [place] [facility] Mar 13, 2024 12:30 PM AMBULATORY [facility] MEDICINE [facility] [place] [facility] Mar 25, 2024 03:00 PM AMBULATORY - MEDICINE [place] [facility] [place] [facility] Mar 27, 2024 08:00 AM AMBULATORY - [facility] [place] Apr 17, 2024 03:00 PM AMBULATORY - [facility] [place] Apr 21, 2024 01:00 PM AMBULATORY - NONE [facility] Apr 21, 2024 02:30 PM AMBULATORY - RE[facility]AB MED[facility] [place] Apr 23, 2024 01:00 PM AMBULATORY - MEDICINE [place] [facility] [place] [facility] Apr 23, 2024 02:00 PM AMBULATORY - MEDICINE [facility] [place] [facility] Active, Pending, and Scheduled Orders This section includes a listing of several types of active, pending, and scheduled orders, including clinic medications orders, diagnostic test orders, procedure orders and consult orders; where the start date of the order is 45 days before the date of the Encounter or 45 days after the date of theEncounter. The data comes from all [facility]. Test Date/Time Test Type Test Details Facility Name Nov 16, 2023 12:00 AM Laboratory - Chemi stry Order CBC (WITH DIFF)_ BLOOD (EDTA WB) [facility] Nov 16, 2023 12:00 AM Laboratory - Chemi stry Order B12 & FOLATE_ SERUM (GOLD) [facility] Nov 16, 2023 12:00 AM Laboratory - Chemi stry Order IRON PANEL (FE & UIBC)_ SERUM (GOLD) [facility] Nov 16, 2023 12:00 AM Laboratory - Chemi stry Order LIPID PROFILE_ SERUM (GOLD) [facility] Nov 16, 2023 12:00 AM Laboratory - Chemi stry Order BASIC METABOLIC PROFILE_ SERUM (GOLD) [facility] Nov 16, 2023 12:00 AM Laboratory - Chemi stry Order HEMOGLOBIN A1C BLOOD (EDTA WB) [facility] Nov 16, 2023 12:00 AM Laboratory - Chemi stry Order GENERAL TOX (URINE)_ URINE (TOX) [facility] Lab Results: +/- 30 days of the encounter This section includes the Chemistry and Hematology Lab Results on record with [facility] for the patient. Radiology Reports and Pathology Reports are provided separately, in subsequent sections. Lab Results This section contains the Chemistry/Hematology Results that were resulted 30 days before or 30 daysafter the date of the Encounter. Date/Time Source Result Type Result - Unit Interpretation Reference Range Specimen Type Comment Dec 24, 2023 02:35 PM [facility] LIPID PANEL FASTING SERUM Specimen Type: SERUM No comment entered. Ordering Provider: ELI DUDLEY Report Released Date/Time: Dec 23, 2023 04:10 PM Reporting Lab: [address] [address] Performing Lab: [address] [address] CHOLESTEROL 133 mg/dL TRIGLYCERIDE 74 mg/dL 0-150 LDL calculated 83 mg/dL 0-129 CHOL/HDL 3.8 HDL CHOLESTEROL 35 mg/dL L 40-60 Dec 24, 2023 02:35 PM [facility] LIVER FUNCTION SERUM Specimen Type: SERUM No comment entered. Ordering Provider: ELI DUDLEY Report Released Date/Time: Dec 23, 2023 04:10 PM Reporting Lab: [address] [address] Performing Lab: [address] [address] PROTEIN,TOTAL 7.1 g/dL 6.0-8.3 ALBUMIN 4.3 g/dL 3.5-5.0 ALKALINE PHOSPHATASE 69 U/L 40-150 AST 21 U/L 5-34 ALT 22 U/L BILIRUBIN, TOTAL 0.4 mg/dL 0.2-1.2 Dec 24, 2023 02:35 PM [facility] BASIC METABOLIC PANEL (fasting) SERUM Specime n Type: SERUM No comment entered. Ordering Provider: ELI DUDLEY Report Released Date/Time: Dec 23, 2023 04:11 PM Reporting Lab: [address] [address] Performing Lab: [address] [address] UREA NITROGEN 14 mg/dL 7-25 GLUCOSE 102 mg/dL H 65-100 SODIUM 140 mmol/L 135-145 POTASSIUM 4.8 mmol/L 3.5-5.0 CHLORIDE 107 mmol/L 100-110 CO2 22 meq/L 20-30 CREATININE, Serum 0.85 mg/dL 0.50-1.40 eGFR(CKD-EPI 2020) >90 mL/min >60 Dec 24, 2023 02:35 PM [facility] MICROALBUMIN CREATININE RATIO PANEL URINE Spe cimen Type: URINE No comment entered. Ordering Provider: ELI DUDLEY Report Released Date/Time: Dec 23, 2023 04:11 PM Reporting Lab: [facility] [address] [address] Performing Lab: [address] [address] MICROALBUMIN/CREATININE RATIO 8.2 mg/g 0 -29.9 MICROALBUMIN,QUANTITATIVE 1.2 mg/dL RR U NAVAIL CREATININE URINE 146.77 mg/dL Dec 24, 2023 02:35 PM [facility] HEMOGLOBIN A1C PANEL BLOOD Specimen Type: [...] Dec 23, 2023 04:11 PM Reporting Lab: [facility] [address] [address] Performing Lab: [address] [address] HEMOGLOBIN A1C 5.7 H 4.0-5.6 Dec 24, 2023 02:35 PM [facility] TSH SERUM Specimen Type: SERUM No comment entered. Ordering Provider: ELI DUDLEY Report Released Date/Time: Dec 23, 2023 04:11 PM Reporting Lab: [facility] [address] [address] Performing Lab: [facility] [address] [address] TSH 1.64 u[IU]/mL 0.35-5.00 Dec 24, 2023 02:35 PM [facility] PSA SERUM Specimen Type: SERUM No comment entered. Ordering Provider: ELI DUDLEY Report Released Date/Time: Dec 23, 2023 04:11 PM Reporting Lab: [facility] [address] [address] Performing Lab: [facility] [address] [address] PSA 1.80 ng/mL 0.00-4.00 Dec 24, 2023 02:35 PM [facility] CBC AND DIFF (AUTO) BLOOD Specimen Type: BLOO D No comment entered. Ordering Provider: ELI DUDLEY Report Released Date/Time: Dec 23, 2023 04:11 PM Reporting Lab: [facility] [address] [address] Performing Lab: [facility] [address] [address] WBC 6.05 10*3/uL 4.50-11.00 RBC 4.99 10*6/uL [...] H 0.00-0.00 Dec 24, 2023 02:35 PM [facility] SMEAR EXAMINATION BLOOD Specimen Type: BLOOD Comment: LARGE PLATELETS SEEN Ordering Provider: ELI DUDLEY Report Released Date/Time: Dec 23, 2023 04:11 PM Reporting Lab: [facility] [address] [address] Performing Lab: [address] [address] PLT (smear review) ADEQ 10*3/uL MICROCYTOSIS 2+ HYPOCHROMIA 2+ OVALOCYTES 1+ Vital Signs: All taken on the encounter date This section contains inpatient and outpatient Vital Signs collected on the date of the Encounter. Date/Time Temperature Pulse Blood Pressure Respiratory Rate SP02 Pain Height Weight Body Mass Index Source Dec 11, 2023 03:12 PM 134/90 [place] Dec 11, 2023 02:50 PM 98.8 98 170/[address] [facility] Advance Directives: All historical and current [...] DIRECTIVE DISCUSSION JESSICA MESA [facility] Radiology Reports: +/- 30 days of the [...] KNEE 3 VIEWS (LEFT ): COLLETTE ROSE [id number] -1970 M Exm Date: DEC 30, 2023@15:56 Req Phys: MAYITO-FLORINDA,ALEN Flores Loc: COM CARE-RADIOLOGY X-RAY (Req' Img Loc: [facility] 1 Service: Unknown [place] [facility] [place] [facility] , (Case 64 COMPLETE) KNEE 1 OR 2 VIEWS (LEFT) (RAD Detailed) CPT:78291 Reason for Study: osteoarthritis knee (Case 65 COMPLETE) KNEES BILATERAL STANDING (RAD Detailed) CPT:26016 (Case 66 COMPLETE) KNEE 1 OR 2 VIEWS (RIGHT) (RAD Detailed) CPT:76915 Clinical History: Traveling request Report Status: Verified Date Reported: DEC 30, 2023 Date Verified: DEC 30, 2023 Core Cleaner E-Sig:/ES/CLAUDIA MÉNDEZ JR Report: Study: AP weight-bearing views of the knees with lateral and sunrise views of the left and right knees. Comparison: None. Findings: Severe bilateral lateral joint compartment degenerative osteoarthritic versus post traumatic arthritic changes are present with [id number] appearance of the lateral femur and the [...] No immediate attention required Primary Interpreting Staff: EDWARD A MÉNDEZ JR, Radiologist (Core Cleaner) /EAD CLAUDIA MÉNDEZ JR [place] [facility] Encounter Notes: All associated encounter notes This section contains the clinical notes associated to the Encounter. Date/Time Encounter Note(s) Provider Source Dec 11, 2023 02:42 PM NURSE PRACTITIONER NOTE: LOCAL TITLE: NURSE PRACTIONER/SICK VISIT STANDARD TITLE: NURSE PRACTITIONER NOTE DATE OF NOTE: DEC 11, 2023@14:42 ENTRY DATE: DEC 11, 2023@14:42:14 AUTHOR: MARTHA LINN EXP COSIGNER: URGENCY: STATUS: COMPLETED SICK CALL VISIT COLLETTE SYLVAIN ROSE is a 53 y/o WHITE MALE who presents to [facility] sick call with c[place]. Missed his initial PCP visit today, has been rescheduled twice already. Insistent on being seen for foot issues. Reports wounds to both feet. Was seen at [place] ED a few weeks ago, referred to [facility]. Had one visit with wound clinic, was instructed to use topical bacitracin and cover wounds. States he is doing this but they're not healed yet. Has underlying DM2, last A1c in May was 6.8. Has PVD, not on anticoagulation. Works on his feet all day and has chronic peripheral edema. Has chronic neuropathic pain to BLE, reports stinging, burning, pins and needles. Denies numbness. Has gabapentin order for TID PRN but states he takes it once or twice a day. Has been taking oral diclofenac once or twice a day as well. States he also takes ibuprofen and naproxen several times a day for pain. Wants to see podiatry, was told community chest officer is at least 3 month wait. BP is elevated in clinic, 170/100. States it was high in ED too, 160/?. Denies DILL, dizziness, chest pain, palpitations. [facility] PCP: ======= traveling from [place] VITAL SIGNS: Blood Pressure: 134/90 (12/11/2023 15:12). Recheck, manual. Pain: 6 (12/11/2023 14:50) Patient Height: Patient Weight: Pulse: 98 (12/11/2023 14:50) Respiration: 20 (12/11/2023 14:50) Temperature: 98.8 F [37.1 C] (12/11/2023 14:50) REVIEW OF SYSTEMS: see HPI PHYSICAL EXAMINATION: General: Well-appearing in no obvious distress. Obese. Mental Status: Alert and oriented x4. Lungs: CTAB. Normal chest excursion. Eupneic respirations. CV: Heart tones S1, S2. RRR. No M/G/R. 1+ edema BLE. Vascular changes noted BLE, + pedal pulses. Neuro: sensation intact BLE Integument: Skin of BLE warm and dry, scaly, peeling. Minimal erythema noted. Multiple small, shallow open wounds to anterior feet, between several toes. Psych: Normal mood and affect. Normal judgment. Cooperative with exam, follows commands. ASSESSMENT/PLAN: 1. Shallow wounds b/l feet - continue antibiotic ointment topically, cover wounds with dry dressings. Has been treated with oral ATB recently. Instructed to f/u as scheduled with wound clinic. Referral also placed to [place] podiatry. OK to continue oral diclofenac PRN for pain. 2. Edema BLE - instructed on RADHA wrapping for compression. Elevated BLE when able. Has compression socks but hasn't been wearing. Reduce salt intake. 3. PVD - not on anticoagulation, will defer this decision to PCP. Wound healing may be delayed d/t condition. 4. DM2 - A1c in May was 6.8. Continue oral therapy. Wound healing may be delayed d/t condition. 5. diabetic neuropathy - refilled gabapentin, instructed to take TID for symptoms relief. 6. medication noncompliance - discussed side effects of NSAIDs and instructed to avoid naproxen and ibuprofen while taking oral diclofenac. 7. elevated BP w/o hx HTN - recheck of BP improved. Provided with BP monitor and instructed to take daily, keep a log for review when he f/u with PCP. BP goal < 130/80. MEDICATIONS reviewed with FOLLOW UP: Return to clinic 3-5 days if no improvement in symptoms. UPCOMING APPOINTMENTS: No data available /jim/ HUGH ALEMAN CERTIFIED NURSE PRACTITIONER Signed: 12/11/2023 15:44 MARTHA LINN [place]
--- OUTSIDE RECORDS SUMMARY | 2024-10-12 18:58 | XMS_ITS | Encounter Summary ---
Author Name [facility] [place] Organization [facility] [place] [facility] [place] Address [address] [place] [address] Care Team Providers Care Prototype Engineer Name Role Phone PIPO MEDEIROS Primary Care Provider LENY Suarez Primary Care Provider RICH Valencia Primary Care Provider Thien weber Selected Encounter This section includes the information on record at [place] for the Encounter. Date/Time Encounter Type Encounter Description Reason Provider Source Mar 13, 2024 12:30 PM OFFICE O/P EST LOW 20 MIN PRIMARY CARE/MEDICINE ICD-10-CM Z96.643 Presence of artificial hip joint, bilateral ELI DUDLEY Caitlin Encounter Template Text not used by [place] Assessments - Encounter Diagnoses This section includes the primary and secondary diagnoses documented for the Encounter. Date/Time Primary/Secondary Diagnosis Diagnosis Name Provider Source Mar 13, 2024 02:01 PM PRIMARY Presence of artificial hip joint, bilateral ELI DUDLEY DALIA Plan of Treatment: Future Appointments (+ [...] 20 appointments. The data comes from all [facility]. Appointment Date/Time Appointment Type Appointme nt Facility Name Mar 25, 2024 03:00 PM AMBULATORY - MEDICINE [place] [facility] [place] [facility] Mar 27, 2024 08:00 AM AMBULATORY - REHAB MEDICIN [facility] Apr 17, 2024 03:00 PM AMBULATORY - REHAB MEDICIN [facility] Apr 21, 2024 01:00 PM AMBULATORY - NONE [facility] Apr 21, 2024 02:30 PM AMBULATORY - REHAB MEDICIN [facility] Apr 23, 2024 01:00 PM AMBULATORY - MEDICINE [place] [facility] [place] [facility] Apr 23, 2024 02:00 PM AMBULATORY - MEDICINE [place] [facility] [place] [facility] Apr 24, 2024 02:30 PM AMBULATORY - REHAB MEDICIN [facility] Apr 28, 2024 01:00 PM AMBULATORY - NONE [facility] Apr 28, 2024 02:30 PM AMBULATORY - REHAB MEDICIN [facility] Apr 29, 2024 01:30 PM AMBULATORY - MEDICINE [place] [facility] [facility] May 04, 2024 03:30 PM AMBULATORY - MEDICINE [facility] May 05, 2024 01:00 PM AMBULATORY - NONE [facility] May 12, 2024 01:00 PM AMBULATORY - NONE [facility] May 13, 2024 01:30 PM AMBULATORY - MEDICINE [place] [facility] [place] [facility] May 20, 2024 01:00 PM AMBULATORY - REHAB MEDICIN E [place] [facility] [place] [facility] May 21, 2024 03:00 PM AMBULATORY - REHAB MEDICIN [facility] Jun 02, 2024 01:00 PM AMBULATORY - NONE [facility] Jun 05, 2024 02:30 [facility] Jun 19, 2024 07:30 AM [facility]UL[facility] [place] [place] [facility] Active, Pending, and Scheduled Orders This section includes a listing of several types of active, pending, and scheduled orders, including clinic medications orders, diagnostic test orders, procedure orders and consult orders; where the start date of the order is 45 days before the date of the Encounter or 45 days after the date of theEncounter. The data comes from all [place] treatment facilities. Test Date/Time Test Type Test Details Facility Name Feb 20, 2024 12:00 AM Laboratory - Chemi stry Order OCCULT BLOOD FIT X1 SCREEN(IN-HOUSE) STOOL FECES SP [place] [facility] [place] [place] [facility] Apr 01, 2024 09:23 AM Consult Order COMMUNITY CARE-WOUND Cons Radio Tester's Choice [facility] Social History: Smoking Status (Most current) and Tobacco Use (All prior to encounter date) This section includes the most current, and the historical, smoking and tobacco- related health factors from the [place] facility where the Encounter took place. Current Smoking Status This section includes the most current smoking, or tobacco-related health factor, from the [place] facility where the Encounter took place. Date/Time Current Smoking Status Comment Facil ity Dec 23, 2023 02:30 PM VA-TOBACCO NEVER USED [place] Advance Directives: All historical and current Section Date Range: From patient's date of to the date document was created. This section includes ALL of a patient's completed or amended [place] Advance and Rescinded Directives. The entries below indicate that a directive exists for the patient, but an actual copy is not included with this document. The data comes from all [place] facilities. Date Advance Directives Provider Source November 12, 2023 ADVANCE DIRECTIVE DISCUSSION JESSICA MESA [facility] Encounter Notes: All associated encounter notes This section contains the clinical notes associated to the Encounter. Date/Time Encounter Note(s) Provider Source Mar 18, 2024 11:41 AM ADDENDUM: LOCAL TITLE: Addendum STANDARD TITLE: ADDENDUM DATE OF NOTE: MAR 18, 2024@11:41:32 ENTRY DATE: MAR 18, 2024@11:41:33 AUTHOR: ARNAUD WORKMAN COSIGNER: URGENCY: STATUS: COMPLETED Please change banner to SO PACT 1. Thank you! /jim/ ARNAUD WORKMAN NP NURSE PRACTITIONER Signed: 03/18/2024 11:42 Receipt Acknowledged By: 03/18/2024 13:02 /jim/ DAMON [facility] Plumber Pipe Fitting 03/18/2024 15:28 /jim/ ISAAC PEREZ DEVELOPMENTAL SPECIALIST TRANSITION LEAD --- Original Document --- 03/13/24 AMBULATORY/OUTPATIENT CARE NOTE: Karolina presented to the clinic today for his appointment 10 mins late today. with a laundry list of complaints. Prior to today's visit nursing called Feli to ask what it was that we can do for him at his appointment as he was seen in December. 2023, and consults were placed. He would not answer nursing on the phone. and hung up. Feli has a history of documented non-compliance with appointments. Vets list for today included the followin. Left ear pain 2. He wants foam in his knees- Physiatry consult placed NS X2. 3. Has complaints of his wounds on his ankles and feet- established with wound care 4. Wants PT for his hips that were replaced in 2017 and 2018 MD offered but he could not tell us why he needed to see PT. All he did was laugh and said my legs don't work right. 5. Wants an umbilical hernia binder 6. Wants podiatry consult- he is already established. Nursing accompanied MD to the appointment as requested. Feli was talking round. and round in circles and would not give any straight answers to the MD. MD politely asked Feli how she could help him today. He stated well I need primary care and I have a list of problems. All his problems above are being addressed with outside consults. Provider placed his requested PT consult. At the time of the provider visit Karolina did not remember that he asked for an umbilical hernia binder. Karolina would continue to laugh and make derogatory statements like how else am I going to explain things, I'm not a Doctor or Physical Therapist. /jim/ MARIA GUADALUPE DOWD LPN PACOtoniel 10 Signed: 03/13/2024 13:55 ARNAUD WORKMAN Mar 13, 2024 01:22 PM PRIMARY CARE OUTPA TIENT NOTE: LOCAL TITLE: AMBULATORY/OUTPATIENT CARE NOTE STANDARD TITLE: PRIMARY CARE OUTPATIENT NOTE DATE OF NOTE: MAR 13, 2024@13:22 ENTRY DATE: MAR 13, 2024@13:22:29 AUTHOR: MARIA GUADALUPE DOWD EXP COSIGNER: URGENCY: STATUS: COMPLETED AMBULATORY/OUTPATIENT CARE NOTE Has ADDENDA Karolina presented to the clinic today for his appointment 10 mins late today. with a laundry list of complaints. Prior to today's visit nursing called Feli to ask what it was that we can do for him at his appointment as he was seen in December. 2023, and consults were placed. He would not answer nursing on the phone. and hung up. Feli has a history of documented non-compliance with appointments. Vets list for today included the followin. Left ear pain 2. He wants foam in his knees- Physiatry consult placed NS X2. 3. Has complaints of his wounds on his ankles and feet- established with wound care 4. Wants PT for his hips that were replaced in 2018 and 2018 MD offered but he could not tell us why he needed to see PT. All he did was laugh and said my legs don't work right. 5. Wants an umbilical hernia binder 6. Wants podiatry consult- he is already established. Nursing accompanied MD to the appointment as requested. Feli was talking round. and round in circles and would not give any straight answers to the MD. MD politely asked Feli how she could help him today. He stated well I need primary care and I have a list of problems. All his problems above are being addressed with outside consults. Provider placed his requested PT consult. At the time of the provider visit Karolina did not remember that he asked for an umbilical hernia binder. Karolina would continue to laugh and make derogatory statements like how else am I going to explain things, I'm not a Doctor or Physical Therapist. /jim/ MARIA GUADALUPE DOWD LPN PACT 10 Signed: 03/13/2024 13:55 03/18/2024 ADDENDUM STATUS: COMPLETED Please change banner to SO PACT 1. Thank you! /jim/ ARNAUD WORKMAN NP NURSE PRACTITIONER Signed: 03/18/2024 11:42 Receipt Acknowledged By: * AWAITING SIGNATURE * DAMON BROWN * AWAITING SIGNATURE * ISAAC PEREZTTEMARIA GUADALUPE Mar 13, 2024 12:51 PM PHYSICIAN NOTE: LOCAL TITLE: MD NOTE STANDARD TITLE: PHYSICIAN NOTE DATE OF NOTE: MAR 13, 2024@12:51 ENTRY DATE: MAR 13, 2024@12:51:54 AUTHOR: ELI DUDLEY EXP COSIGNER: URGENCY: STATUS: COMPLETED HISTORY OF PRESENT ILLNESS: COLLETTE SYLVAIN ROSE is a 53 yo MALE who presents at the [facility] 10 mins late to check in. He stated he had a long list of issues to address . Pact COOLING TOWER TECHNICIAN reviewed his issues in detail and determined that he has upcoming appts to address his issues (several of which he actually cancelled and had rescheduled). He did request physical therapy for his legs bc they don't do what I want them to . He did not elaborate when asked for more detail on what that meant. He states he had hip replacements in 2018 & 2019. He underwent some PT but did not continue it. He was going to start PT before he left [place] but never did. Unable to get a clear answer from him on this issue. He requested endovascular consults for his knees. Advised him he has appt w/physiatry (he cancelled twice on them already). Advised Endovascular is not an apporiate consult to place for his knees and there is sequential order of treatment that is traditionally followed for ailments. He can discuss injection options with physiatry at his appt. Kimberlee DIMAS spoke with [facility] to inquire about his last and next appts. When she told her this patient's name, she said I know EXACTLY who you're talking about . This patient would continually talk in circles amidst constant chuckling and laughing for no reason. At one point he threatened to videotape our conversation bc he claimed I was shaking my head at him. At that comment I told him the visit was over and left the room immediately. This encounter was witnessed by Pact 10 COOLING TOWER TECHNICIAN who was in the room with me. Active problems - Computerized Problem List is the source for the followin. Erectile dysfunction 2. Type 2 diabetes mellitus 3. Osteoarthritis 4. Umbilical hernia 5. Obesity 6. Edema 7. Colonoscopy Screening The following VA and Non-VA meds were reconciled with patient: Active Outpatient Medications (including Supplies): Issue Date Status Last Fill Active Outpatient Medications Refills Expiration 1) CETIRIZINE HCL 10MG TAB Qty: 90 for 90 ACTIVE Issu:12-23-23 days Sig: TAKE ONE TABLET BY MOUTH Refills: 0 Last:12-23-23 ONCE DAILY FOR ALLERGIES Expr:03-22-24 2) COLLAGENASE 250 UNT/GM TOP OINT Qty: ACTIVE Issu:01-27-24 150 for 30 days Sig: APPLY Refills: 2 Last:01-27-24 NICKEL-THICK LAYER TOPICALLY ONCE Expr:01-27-25 DAILY TO FOOT WOUNDS 3) GAUZE PAD 2IN X 2IN 8-PLY STERILE Qty: ACTIVE Issu:02-13-24 100 for 30 days Sig: APPLY 1 PAD Refills: 3 Last:02-14-24 TOPICALLY ONCE DAILY FOR WOUND CARE Expr:02-13-25 4) GAUZE PAD 4IN X 4IN 8-PLY STERILE Qty: ACTIVE Issu:02-13-24 100 for 30 days Sig: APPLY GAUZE Refills: 3 Last:02-14-24 TOPICALLY ONCE DAILY FOR WOUND CARE Expr:02-13-25 5) GLOVE VINYL LARGE PWDR-FREE NONSTERILE ACTIVE Issu:02-13-24 Qty: 100 for 30 days Sig: USE Refills: 3 Last:02-14-24 GLOVE(S) ONCE DAILY NEEDED TO Expr:02-13-25 PROTECT HANDS 6) KERLIX 4.5IN STERILE Qty: 10 for 30 ACTIVE Issu:02-13-24 days Sig: USE 1 ROLL TOPICALLY ONCE Refills: 3 Last:02-14-24 DAILY FOR WOUND CARE DIRECTED Expr:02-13-25 7) METFORMIN HCL 500MG 24HR SA TAB Qty: ACTIVE (S) Issu:01-10-24 180 for 90 days Sig: TAKE ONE TABLET Refills: 0 Last:10-14-24 BY MOUTH TWICE DAILY Expr:01-10-25 8) MUPIROCIN 2% OINT Qty: 22 for 30 days ACTIVE Issu:02-13-24 Sig: APPLY SMALL AMOUNT TOPICALLY ONCE Refills: 3 Last:02-14-24 DAILY FOR OPEN WOUNDS Expr:02-13-25 9) SODIUM CHLORIDE 0.9% PF INJ SYR 10ML ACTIVE Issu:02-13-24 Qty: 360 for 30 days Sig: INJECT 1 Refills: 3 Last:02-14-24 SYRINGE TOPICALLY ONCE DAILY PER WOUND Expr:02-13-25 10) TAPE,MEDIPORE H SOFT 1IN X 10YD 3M#[id number] ACTIVE Issu:02-13-24 Qty: 10 for 30 days Sig: USE 1 PIECE Refills: 3 Last:02-14-24 TOPICALLY ONCE DAILY FOR WOUND CARE Expr:02-13-25 DIRECTED Start Date Active Non-VA Medications Refills Expiration 1) Non-VA DICLOFENAC NA 1% TOP GEL Si ACTIVE GRAMS TOPICALLY FOUR TIMES A DAY 2) Non-VA DICLOFENAC NA 75MG EC TAB Sig: ACTIVE 75MG BY MOUTH TWICE DAILY 3) Non-VA METFORMIN (ONCE DAILY) TAB,SA ACTIVE SiMG BY MOUTH TWICE DAILY 4) Non-VA SILDENAFIL CITRATE 100MG TAB ACTIVE SiMG BY MOUTH ONCE DAILY NEEDED 14 Total Medications ALLERGIES: ========= CLINDAMYCIN, MORPHINE LAB HISTORY: CHEM 7 TREND LAB CUMULATIVE SELECTED Collection DT Spec GLUCOSE BUN CREATIN Sodium K+/Pot CL CO2 12/24/2023 14:35 SERUM 102 H 14 0.85 140 4.8 107 22 CBC TREND Collection DT Spec WBC RBC HGB HCT MCV MCH PLT 12/24/2023 14:35 BLOOD 6.05 4.99 10.4 L 34.7 L 69.5 L 20.8 L 373 HEMOGLOBIN A1C TREND Collection DT Spec HGBA1c 12/24/2023 14:35 BLOOD 5.7 H LIPID PANEL TREND Collection DT Spec CHOL HDL CHO/HDL LDL-c TRIG 12/24/2023 14:35 SERUM 133 35 L 3.8 83 74 LIVER PANEL TREND Collection DT Spec AST ALT T BILI ALK PEGGY T. PROT ALBUMIN 12/24/2023 14:35 SERUM 21 22 0.4 69 7.1 4.3 Collection DT Spec TSH 12/24/2023 14:35 SERUM 1.64 HISTORY: PERIOD OF SERVICE - [employer] FROM Mar TO Aug COMBAT SERVICE INDICATED: No VITAL SIGNS: Blood Pressure 165/93 (03/13/2024 12:58) Pulse 88 (03/13/2024 12:57) Respiration 16 (03/13/2024 12:57) Pulse Oximetry 97% (03/13/2024 12:57) Temperature 98.5 F [36.9 C] (03/13/2024 12:57) Pain 0 (03/13/2024 12:57) Height 71 in [180.3 cm] (03/13/2024 12:57) Weight 264.6 lb [120.02 kg] (03/13/2024 12:57) BMI BMI: 37.0 REVIEW OF SYSTEMS: not done EXAMINATION: not done ASSESSMENT/PLAN: 1. Hx of Hypertension: has been WNL off lisinopril 2. DM II: on metformin SA 500mg BID, seen by nutrition 02/18/24 12/24/23: FBS 102 - A1c 5.7% 3. Edema B/L LE's: using Flextouch Plus with trunk garment and bilateral legs by [employer] 4. Recurrent Shallow Ulcers B/L Feet: - continue antibiotic ointment topically, cover wounds with dry dressings, managed by [facility], seen by [place] podiatry 12/16/23, had appt w/vascular ([facility]) on 01/29/24, 03/11/24, w/next appts on 03/17/24 & 03/23/24 5. Osteoarthritis B/L Knees: on diclofenac 75mg BID, rec'd CSI's in the past with good results, last set 07/2023, vet requested these injections again, he cancelled physiatry appts twice and is now rescheduled for 04/23/24 6. Left Ear Pain: pt cancelled 03/09/24 appt w/[facility], now is rescheduled to 04/23/24 7. HISTORY OF NONCOMPLIANCE: with medications, treatments, & appts 8. Hx B/L Hip Replacements: will place PT consult per pt request bc my legs don't do what I want them to FOLLOW UP: as scheduled 05/04/24 - PACT 1 - Establish ========= UPCOMING APPOINTMENTS: 04/23/2024 13:00 CWM/NO/OTOLARYNGOLOGY 04/23/2024 14:00 CWM/NO/MED REHAB 1 PA 05/04/2024 15:30 CWM/SO/PACT 1 TRUER PINION AND WHEEL 10/21/2024 15:00 [facility]/OPTOMETRY/GUERRA/ No barriers; Patient understands and agrees to current treatment plan. If pt has any questions, concerns, or changes in current health status he/she will call or come in to the VA. Medication Reconciliation: Outpatient: Has the patient been [...] whether with a VA or non-VA provider. [facility] Link Data on this list may not be complete. Please check JLV. Allergies/ADRs (Tool #5) FACILITY ALLERGY/ADR -------- [facility] [place] [facility] [place] [facility]IN [facility] M[facility]PHINE Med Recon NoGlossary (Tool #1) INCLUDED IN THIS LIST: Alphabetical list of active outpatient prescriptions dispensed from this [place] (local) and dispensed from another [place] or [facility] facility (remote) as well as inpatient orders (local pending and active), local clinic medications, locally documented non-VA medications, and local prescriptions that have or been discontinued in the past 90 days. Non-VA Meds Last Documented On: Dec 02, 2023 NOTE The display of VA prescriptions dispensed from another [place] or [facility] facility (remote) is limited to active outpatient prescription entries matched to National Drug File at the originating site and may not include some items such as investigational drugs, compounds, etc. NOT INCLUDED IN THIS LIST: Medications self-entered by the patient into personal health records (i.e. [employer]) are NOT included in this list. Non-VA medications documented outside this [place], remote inpatient orders (regardless of status) and remote clinic medications are NOT included in this list. The patient and provider must always discuss medications the patient is taking, regardless of where the medication was dispensed or obtained. OUTPT BACITRACIN 500 UNT/GM TOP OINT (Status = ) APPLY SMALL AMOUNT TOPICALLY TWICE DAILY FOR INFECTION APPLY TO FOOT WOUNDS Rx# [id number] Last Released: 6/26/24 Qty/Days Supply: 90 Rx Expiration Date: 03/10/24 Refills Remainin Indication: FOR INFECTION OUTPT BETAMETHASONE VALERATE 0.1% OINT (Status = ) APPLY THIN LAYER TOPICALLY TWICE DAILY FOR ATOPIC DERMATITIS Rx# [id number] Last Released: 12/30/23 Qty/Days Supply: 45/30 Rx Expiration Date: 01/22/24 Refills Remainin Indication: FOR ATOPIC DERMATITIS OUTPT CETIRIZINE HCL 10MG TAB (Status = Active) TAKE ONE TABLET BY MOUTH ONCE DAILY FOR ALLERGIES Rx# [id number] Last Released: 12/23/23 Qty/Days Supply: 90 Rx Expiration Date: 03/22/24 Refills Remainin Indication: FOR ALLERGIES OUTPT COLLAGENASE 250 UNT/GM TOP OINT (Status = Active) APPLY NICKEL-THICK LAYER TOPICALLY ONCE DAILY TO FOOT WOUNDS Rx# [id number] Last Released: 01/28/24 Qty/Days Supply: 150/30 Rx Expiration Date: 01/27/25 [...] OSTEOARTHRITIS (DON'T CRUSH,BREAK OR CHEW) Last Filled: 02/15/24 (Active at [facility]) Rx Expiration Date: 08/27/24 Days Supply: 90 Remote GABAPENTIN 300MG CAP TAKE ONE CAPSULE BY MOUTH THREE TIMES A DAY NEEDED FOR CHRONIC PAIN. Last Filled: 01/23/24 (Active at [facility]) Rx Expiration Date: 05/20/24 Days Supply: 30 OUTPT GABAPENTIN 300MG CAP (Status = ) TAKE ONE CAPSULE BY MOUTH THREE TIMES A DAY Rx# [id number] Last Released: 12/11/23 Qty/Days Supply: 270/90 Rx Expiration Date: 03/10/24 Refills Remainin Indication: FOR NERVE PAIN OUTPT LEVOFLOXACIN 500MG TAB (Status = ) TAKE ONE TABLET BY MOUTH ONCE DAILY FOR 14 DAYS FOR INFECTION CAUSED BY BACTERIA Rx# [id number] Last Released: Qty/Days Supply: Rx Expiration Date: 02/29/24 Refills Remainin Indication: FOR INFECTION CAUSED BY BACTERIA OUTPT LIDOCAINE HCL 4% TOP SOLN (Status = ) APPLY DIRECTED TOPICALLY ONCE DAILY PRIOR TO DRESSING CHANGE Rx# [id number] Last Released: 01/28/24 Qty/Days Supply: 100 Rx Expiration Date: 02/21/24 Refills Remainin Non-VA METFORMIN (ONCE DAILY) TAB,SA TAKE 500MG BY MOUTH TWICE DAILY Patient wants to buy from Non-VA pharmacy. Medication prescribed by Non-VA provider. Indication: FOR TYPE 2 DIABETES MELLITUS OUTPT METFORMIN HCL 500MG 24HR SA TAB (Status = Active/Suspended) TAKE ONE TABLET BY MOUTH TWICE DAILY Rx# [id number] Last Released: 01/10/24 Qty/Days Supply: 180/90 Rx Expiration Date: 01/10/25 Refills Remainin Indication: FOR TYPE 2 DIABETES MELLITUS Remote METFORMIN HCL 500MG 24HR TAB,SA TAKE ONE TABLET BY MOUTH TWICE A DAY FOR PREDIABETES. *QUANTITY REDUCED DUE TO LIMITED SUPPLY* Last Filled: 02/04/24 (Active at [facility]) Rx Expiration Date: 01/20/25 Days Supply: 30 OUTPT MUPIROCIN 2% OINT (Status = Active) APPLY SMALL AMOUNT TOPICALLY ONCE DAILY FOR OPEN WOUNDS Rx# [id number] Last Released: 02/20/24 Qty/Days Supply: Rx Expiration Date: 02/13/25 Refills Remainin Indication: FOR OPEN WOUNDS Remote SILDENAFIL CITRATE 100MG TAB TAKE ONE TABLET BY MOUTH EVERY DAY NEEDED FOR ERECTILE DYSFUNCTION 1 HOUR PRIOR TO SEXUAL ACTIVITY (DO NOT EXCEED ONE DOSE IN A 24 HOUR PERIOD) Last Filled: 01/23/24 (Active at [facility]) Rx Expiration Date: 05/19/24 Days Supply: 30 Non-VA SILDENAFIL CITRATE 100MG TAB TAKE ONE TABLET BY MOUTH ONCE DAILY NEEDED Patient wants to buy from Non-[place] pharmacy. Medication prescribed by Non-VA provider. Indication: FOR ERECTILE DYSFUNCTION OUTPT SODIUM CHLORIDE 0.9% PF INJ SYR 10ML (Status = Active) INJECT 1 SYRINGE TOPICALLY ONCE DAILY PER WOUND Rx# [id number] Last Released: 02/20/24 Qty/Days Supply: Rx Expiration Date: 02/13/25 Refills Remainin Indication: CLEAN WOUND SUPPLIES OUTPT GAUZE PAD 2IN X 2IN 8-PLY STERILE (Status = Active) APPLY 1 PAD TOPICALLY ONCE DAILY FOR WOUND CARE Rx# [id number] Last Released: 02/18/24 Qty/Days Supply: 100 Rx Expiration Date: 02/13/25 Refills Remainin Indication: FOR WOUND CARE OUTPT GAUZE PAD 4IN X 4IN 8-PLY STERILE (Status = Active) APPLY GAUZE TOPICALLY ONCE DAILY FOR WOUND CARE Rx# [id number] Last Released: 02/19/24 Qty/Days Supply: 100 Rx Expiration Date: 02/13/25 Refills Remainin Indication: FOR WOUND CARE OUTPT GLOVE VINYL LARGE PWDR-FREE NONSTERILE (Status = Active) USE GLOVE(S) ONCE DAILY NEEDED TO PROTECT HANDS Rx# [id number] Last Released: 02/19/24 Qty/Days Supply: 100 Rx Expiration Date: 02/13/25 Refills Remainin Indication: TO PROTECT HANDS OUTPT KERLIX 4.5IN STERILE (Status = Active) USE 1 ROLL TOPICALLY ONCE DAILY FOR WOUND CARE DIRECTED Rx# [id number] Last Released: 02/19/24 Qty/Days Supply: 04/15 Rx Expiration Date: 02/13/25 Refills Remainin Indication: FOR WOUND CARE OUTPT TAPE,MEDIPORE H SOFT 1IN X 10YD #2861 (Status = Active) USE 1 PIECE TOPICALLY ONCE DAILY FOR WOUND CARE DIRECTED Rx# [id number] Last Released: 02/19/24 Qty/Days Supply: 04/15 Rx Expiration Date: 02/13/25 Refills Remainin Indication: FOR WOUND CARE /es/ ELI DUDLEY MD Primary Care Physician Signed: 03/13/2024 14:01 ELI DUDLEY
--- OUTSIDE RECORDS SUMMARY | 2024-10-12 18:58 | XMS_ITS | Encounter Summary ---
Author Name [facility] Organization [facility] [place] [facility] [place] Address [address] [place] [id number] Care Team Providers Care Vp Mobile Products Name Role Phone PIPO MEDEIROS Primary Care [...] 12, 2023 ADVANCE DIRECTIVE DISCUSSION JESSICA MESA [facility]
--- OUTSIDE RECORDS SUMMARY | 2024-10-12 18:58 | XMS_ITS | Encounter Summary ---
Author Name [facility] [place] [facility] [place] Organization [facility] [place] Address [address] [place] [address] Care Team Providers Care Demolition Expert Name Role Phone PIPO MEDEIROS Primary Care Provider LENY Suarez Primary Care Provider RICH Valencia Primary Care Provider Thien weber Selected Encounter This section includes the information on record at [place] for the Encounter. Date/Time Encounter Type Encounter [...] this document. The data comes from all [place] facilities. Date Advance Directives Provider Source November 12, 2023 ADVANCE DIRECTIVE DISCUSSION JESSICA MESA [facility]
--- OUTSIDE RECORDS SUMMARY | 2024-10-12 18:58 | XMS_ITS | Encounter Summary ---
Author Name [facility] [place] Organization [facility] [place] Address [address] [place] [id number] Care Team Providers Care Aluminum Pool Installer Name Role Phone PIPO MEDEIROS Primary Care Provider LENY Suarez Primary Care Provider RICH Valencia Primary Care Provider Thien weber Selected Encounter This section includes the information on record at [place] for the Encounter. Date/Time Encounter Type Encounter [...] this document. The data comes from all [place] facilities. Date Advance Directives Provider Source November 12, 2023 ADVANCE DIRECTIVE DISCUSSION JESSICA [facility]
--- OUTSIDE RECORDS SUMMARY | 2024-10-12 18:58 | XMS_ITS | Encounter Summary ---
Author Name [facility] [place] Organization [place] Address [address] [place] [address] Care Team Providers Care Dielectric Press Operator Name Role Phone PIPO MEDEIROS Primary Care Provider LENY Suarez Primary Care Provider RICH Valencia Primary Care Provider Thien weber Selected Encounter This section includes the information on record at [place] for the Encounter. Date/Time Encounter Type Encounter Description Reason Provider Source Jul 28, 2024 01:00 PM [facility] IVNTJ GRP EA ADDL WEIGHT MGMT & MOVE! PROG - GRP ICD-10-CM E66.811 Obesity, class 1 UDAY MILLER Caitlin Encounter Template Text not used by [place] Assessments - Encounter Diagnoses This section includes the primary and secondary diagnoses documented for the Encounter. Date/Time Primary/Secondary Diagnosis Diagnosis Name Provider Source Jul 28, 2024 02:29 PM PRIMARY Obesity, class 1 UDAY MILLER ([facility]) Jul 28, 2024 02:29 PM SECONDARY Body mass index [BMI] 32.0-32.9, adult UDAY MILLER ([facility]) Plan of Treatment: Future Appointments (+ 6 months) and Future Tests (+/- 45 days) The Plan of Treatment section includes future care activities for the patient from all [place] [facility]. This section includes future appointments and future orders which are active, pending or scheduled. Future Appointments This section includes appointments that were scheduled to occur 6 months from the date of the Encounter, up to a maximum of 20 appointments. The data comes from all [place] treatment facilities. Appointment Date/Time Appointment Type Appointme nt Facility Name Aug 04, 2024 01:00 PM AMBULATORY - NONE [facility] ([facility]) Aug 11, 2024 01:00 PM AMBULATORY - NONE [facility] ([facility]) Aug 17, 2024 07:15 AM AMBULATORY [place] [facility]IC[place] [facility] [place] [facility] Aug 24, 2024 02:00 PM AMBULATORY - MEDICINE [facility] [place] [facility] Aug 31, 2024 03:30 PM AMBULATORY - MEDICINE [facility] [place] [facility] Sep 14, 2024 11:30 AM AMBULATORY - MEDICINE [place] [facility] [place] [facility] Sep 29, 2024 02:30 PM AMBULATORY - MEDICINE [facility] Oct 08, 2024 10:00 AM AMBULATORY - RE[facility]AB [facility] [place] Oct 08, 2024 01:00 PM AMBULATORY - NONE [facility] [place] [facility] Oct 08, 2024 01:45 PM AMBULATORY - NONE [facility] [place] [facility] Oct 12, 2024 11:30 AM AMBULATORY - MEDICINE [facility] [place] [facility] October 15, 2024 07:00 AM AMBULATORY - MEDICINE [place] [facility] [place] [facility] October 16, 2024 01:00 PM AMBULATORY - MEDICINE [place] [facility] [place] [facility] October 21, 2024 03:00 PM AMBULATORY - MEDICINE [place] [facility] [place] [facility] October 22, 2024 01:00 PM AMBULATORY - REHAB MEDICIN E [facility] [place] [facility] November 02, 2024 02:00 PM AMBULATORY - MEDICINE [facility] Nov 18, 2024 09:30 AM AMBULATORY - MEDICINE [place] [facility] [place] [facility] Active, Pending, and Scheduled Orders This section includes a listing of several types of active, pending, and scheduled orders, including clinic medications orders, diagnostic test orders, procedure orders and consult orders; where the start date of the order is 45 days before the date of the Encounter or 45 days after the date of theEncounter. The data comes from all [facility] facilities. Test Date/Time Test Type Test Details Facility Name Aug 03, 2024 01:06 PM Consult Order COMMUNITY CARE-PAIN MANAGEMENT Cons Truck Greaser's Choice [facility] Aug 24, 2024 12:00 AM Laboratory - Chemistry Order OCCULT BLOOD FIT X1 SCREEN (MFP ONLY) STOOL FECES [facility] Vital Signs: All taken on the encounter date This section contains inpatient and outpatient Vital Signs collected on the date of the Encounter. Date/Time Temperature Pulse Blood Pressure Respiratory Rate SP02 Pain Height Weight Body Mass Index Source Jul 28, 2024 01:00 PM 233 33 [facility] [place] ([facility]) Advance Directives: All historical and current [...] November 12, 2023 ADVANCE DIRECTIVE DISCUSSION [facility] Radiology Reports: +/- 30 days of the [...] the Encounter. The data comes from all [facility]. Date/Time Radiology Report Provider Source Jul 22, 2024 02:20 PM FLUOROSCOPIC RODNEY NCE FOR NEEDLE PLACEMENT: COLLETTE ROSE [id number] -1970 M Ex Date: JUL 22, 2024@14:20 Req Phys: LEXI MONTOYA THI Pat Loc: [facility] MED REHAB BETY BROJAS MD (Req' Img Loc: [facility]/BUILDING 1 Service: [place] [facility] [address] (Case [id number] COMPLETE) FLUOROSCOPIC GUIDANCE FOR NEEDLE (RAD Detailed) CPT:95361 Reason for Study: genicular nerve block Clinical History: Report Status: Verified Date Reported: JUL 22, 2024 Date Verified: JUL 22, 2024 Senior Technical Business Analyst E-Sig:/ES/CLAUDIA MÉNDEZ JR Report: Study: Pain injection [...] Primary Interpreting Staff: CLAUDIA MÉNDEZ JR, Radiologist (Senior Technical Business Analyst) /CLAUDIA VALLES JR [facility] Encounter Notes: All associated encounter notes This section contains the clinical notes associated to the Encounter. Date/Time Encounter Note(s) Provider Source Jul 28, 2024 01:00 PM MOVE NOTE: LOCAL TITLE: WEIGHT MANAGEMENT/MOVE! OUTPATIENT GROUP NOTE STANDARD TITLE: MOVE NOTE DATE OF NOTE: JUL 28, 2024@13:00 ENTRY DATE: JUL 28, 2024@14:17:45 AUTHOR: UDAY MILLER COSIGNER: URGENCY: STATUS: COMPLETED Veterans participated in MOVE! Group Counseling via VVC on: 07/28/2024 The was provided with information on VVC and has given verbal consent to use group VVC services for their healthcare. The copy of the Group Telehealth Agreement has been mailed to the [place]. The [place]'s location/emergency contact number were confirmed. The Emergency Call Relay Center (E911) was available. The visit was locked for security and privacy. [place] identified with 2 identifiers: [x] Full Name [x] Address Veterans attended the 60-minute MOVE! group session on this date via VVC or by phone. MOVE! is a program designed to provide education about weight management skills to overweight and obese veterans. Veterans submitted their stated weights to staff. The group facilitators began the session by reviewing the previous weeks topic (Dining Out Successfully). Participants were asked to share their respective progress toward achieving their respective goals and to share their experiences with keeping a food and physical activity log over the past week. Positive feedback was given to the Veterans for their efforts. Session #14 (Manage Stress and Find Support) was then conducted using the MOVE! Workbook. Facilitators discussed the role of stress in weight management and overall health. The importance of relaxation and mindfulness for stress management was shared. Several techniques for Mindfulness-Based Stress Reduction were provided to the Veterans. Veterans were given a box of raisins. The tacker elastic band then led the group in the Raisin mindfulness exercise to reinforce how to use mindfulness when eating and drinking. Finally, Veterans were encouraged to maximize their support system. Veterans shared ideas of who they could ask/use as support, and in what ways they could be supported. The objectives accomplished at todays session were: 1. Discussed stressful situations and plan how to cope with them. 2. Taught Veterans stress management techniques. 3. Helped Veterans recognize how to find and ask for support. 4. Practiced Mindful eating techniques Participants were asked to set one healthy eating and physical activity goal to work on this week, continue recording weight daily, to log all food and beverages consumed daily, and to also log all physical activities daily. They were instructed to continue to bring their completed Food and Physical Activity Logs to every session. The next MOVE! group meeting will be held on 08/04/24. Today's Weight: 233 lb Weight Loss of -6.0 lb from last visit Dx: Obesity, Class I E66.811, Z68.32 /es/ Uday Miller, PhD Clinical Psychologist Signed: 07/28/2024 14:32 Receipt Acknowledged By: 07/29/2024 08:10 /jim/ SIMÓN CARVALHO RD,LDN STAFF DIETITIAN UDAY MILLER ([facility])
--- OUTSIDE RECORDS SUMMARY | 2024-10-12 18:59 | XMS_ITS ---
Author Name [facility] [place] Organization [facility] [place] Address [address] [place] [address] Care Team Providers Care Statistical Geneticist Name Role Phone PIPO MEDEIROS Primary Care Provider LENY Suarez Primary Care Provider RICH Valencia Primary Care Provider Thien weber Selected Encounter This section includes the information on record at [place] for the Encounter. Date/Time Encounter Type Encounter Description Reason Pro vider Source Aug 19, 2024 09:00 AM Outpatient Encounter PM&RS PHYSICIAN IHE Encounter Template Text not used by [place] Plan of Treatment: Future Appointments (+ 6 months) and Future Tests (+/- 45 days) The Plan of Treatment section includes future care activities for the patient from all [place] treatmentfacilities. This section includes future appointments and future orders which are active, pending or scheduled. Future Appointments This section includes appointments that were scheduled to occur 6 months from the date of the Encounter, up to a maximum of 20 appointments. The data comes from all [place] treatment facilities. Appointment Date/Time Appointment Type Appointme nt Facility Name Aug 24, 2024 02:00 PM AMBULATORY - MEDICINE [facility] Aug 31, 2024 03:30 PM [facility] [place] [facility] Sep 14, 2024 11:30 AM AMBULATORY - MEDICINE [facility] [place] [facility] Sep 29, 2024 02:30 PM AMBULATORY - MEDICINE [facility] Oct 08, 2024 10:00 AM AMBULATORY - REHAB MEDICIN [place] Oct 08, 2024 01:00 PM AMBULATORY - NONE [facility] [place] [facility] Oct 08, 2024 01:45 PM AMBULATORY - NONE [facility] [place] [facility] Oct 12, 2024 11:30 AM AMBULATORY - MEDICINE [facility] [place] [facility] October 15, 2024 07:00 AM AMBULATORY - MEDICINE [facility] [place] [facility] October 16, 2024 01:00 PM AMBULATORY - MEDICINE [facility] [place] [facility] October 21, 2024 03:00 PM AMBULATORY - MEDICINE [facility] [facility] October 22, 2024 01:00 PM AMBULATORY - REHAB MEDICIN E [facility] [place] [facility] November 02, 2024 02:00 PM AMBULATORY - MEDICINE [facility] Nov 18, 2024 09:30 AM AMBULATORY - MEDICINE [facility] [place] [facility] Active, Pending, and Scheduled Orders This section includes a listing of several types of active, pending, and scheduled orders, including clinic medications orders, diagnostic test orders, procedure orders and consult orders; where the start date of the order is 45 days before the date of the Encounter or 45 days after the date of theEncounter. The data comes from all [place] treatment facilities. Test Date/Time Test Type Test Details Facility Name Aug 03, 2024 01:06 PM Consult Order COMMUNITY CARE-PAIN MANAGEMENT Cons Generator Operator's Choice [place] [facility] [place] [facility] Aug 24, 2024 12:00 AM Laboratory - Chemistry Order OCCULT BLOOD FIT X1 SCREEN (MFP ONLY) STOOL FECES [facility] Sep 13, 2024 10:39 AM Consult Order COMMUNITY CARE-VASCULAR SURGERY Cons Generator Operator's Choice [place] Sep 29, 2024 12:00 AM Laboratory - Chemistry Order VITAMIN D (25-OH) BLOOD (SST-SERUM) [facility] Sep 29, 2024 12:00 AM Laboratory - Chemistry Order CBC AND DIFF (AUTO) BLOOD (LAV-BLOOD) [facility] Sep 29, 2024 12:00 AM Laboratory - Chemistry Order HEMOGLOBIN A1C PANEL BLOOD (LAV-BLOOD) [facility] Sep 29, 2024 12:00 AM Laboratory - Chemistry Order PSA BLOOD (SST-SERUM) [facility] Sep 29, 2024 12:00 AM Laboratory - Chemistry Order TSH BLOOD (SST-SERUM) [facility] Sep 29, 2024 12:00 AM Laboratory - Chemistry Order LIPID PANEL FASTING BLOOD (SST-SERUM) [facility] Sep 29, 2024 12:00 AM Laboratory - Chemistry Order BASIC METABOLIC PANEL (fasting) BLOOD (SST-SERUM) [facility] Sep 29, 2024 12:00 AM Laboratory - Chemistry Order MICROALBUMIN CREATININE RATIO PANEL URINE (RANDOM) [facility] Sep 29, 2024 12:00 AM Laboratory - Chemistry Order LIVER FUNCTION BLOOD (SST-SERUM) [facility] Advance Directives: All historical and current Section Date Range: From patient's date of to the date document was created. This section includes ALL of a patient's completed or amended [place] Advance and Rescinded Directives. The entries below indicate that a directive exists for the patient, but an actual copy is not included with this document. The data comes from all [place] facilities. Date Advance Directives Provider Source November 12, 2023 ADVANCE DIRECTIVE DISCUSSION JESSICA [facility] Radiology Reports: +/- 30 days [...] the Encounter. The data comes from all [place] treatment facilities. Date/Time Radiology Report Provider Source Jul 22, 2024 02:20 PM FLUOROSCOPIC RODNEY NCE FOR NEEDLE PLACEMENT: COLLETTE ROSE [id number] -1970 M Ex Date: JUL 22, 2024@14:20 Req Phys: LEXI MONTOYA Pat Loc: [facility] MED REHAB BETY BORJAS MD (Req' Img Loc: [facility]/BUILDING 1 Service: Unknown [place] [address] (Case [id number] COMPLETE) FLUOROSCOPIC GUIDANCE FOR NEEDLE (RAD Detailed) CPT:60847 Reason for Study: genicular nerve block Clinical History: Report Status: Verified Date Reported: JUL 22, 2024 Date Verified: JUL 22, 2024 Compliance Analyst E-Sig:/JIM/CLAUDIA MÉNDEZ JR Report: Study: Pain injection [...] Primary Interpreting Staff: CLAUDIA MÉNDEZ JR, Radiologist (Compliance Analyst) /CLAUDIA VALLES JR [facility] Encounter Notes: All associated encounter notes This section contains the clinical notes associated to the Encounter. Date/Time Encounter Note(s) Provider Source Aug 10, 2024 03:53 PM ACCOUNTING OF DISCLOSURES NOTE: LOCAL TITLE: STATE PRESCRIPTION DRUG MONITORING PROGRAM STANDARD TITLE: ACCOUNTING OF DISCLOSURES NOTE DATE OF NOTE: AUG 10, 2024@15:53:28 ENTRY DATE: AUG 10, 2024@15:53:28 AUTHOR: JIMMIE HERRERA EXP COSIGNER: URGENCY: STATUS: COMPLETED This PDMP query was submitted by Jimmie Herrera. The clinical justification for this PDMP query is to review controlled substances prescribed outside of the [place], and any additional information that may become available, as an important component of standard clinical care, and in accordance with [facility] policy. Patient information was shared with the PDMP [place]. No prescription(s) for controlled substances outside the [place] were found in the last 90 days. /jim/ JIMMIE HERRERA [facility] Signed: 08/10/2024 15:53 JIMMIE HERRERA [facility]
--- OUTSIDE RECORDS SUMMARY | 2024-10-12 18:59 | XMS_ITS | Encounter Summary ---
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 Date/Time Encounter Type Encounter Description Reason Provider Source Jul 22, 2024 02:00 PM OFFICE O/P EST HI 40 MIN PM&RS PHYSICIAN ICD-10-CM M17.0 Bilateral primary osteoarthritis of knee LEXI MONTOYA [facility] Encounter Template Text not used by [place] Assessments - Encounter Diagnoses This section includes the primary and secondary diagnoses documented for the Encounter. Date/Time Primary/Secondary Diagnosis Diagnosis Name Provider Source Jul 22, 2024 04:24 PM PRIMARY Bilateral primary osteoarthritis of knee LEXI MONTOYA [facility] Plan of Treatment: Future Appointments (+ 6 months) and Future Tests (+/- 45 days) The Plan of Treatment section includes future care activities for the patient from all [place] treatmentfacilities. This section includes future appointments and future orders which are active, pending or scheduled. Future Appointments This section includes appointments that were scheduled to occur 6 months from the date of the Encounter, up to a maximum of 20 appointments. The data comes from all [place] treatment facilities. Appointment Date/Time Appointment Type Appointme nt Facility Name Jul 28, 2024 01:00 PM AMBULATORY - NONE [facility] Aug 04, 2024 01:00 PM AMBULATORY - NONE [facility] Aug 11, 2024 01:00 PM AMBULATORY - NONE [facility] Aug 17, 2024 07:15 AM [facility] [place] [facility] Aug 24, 2024 02:00 PM AMBULATORY [facility]ICINE [facility] [place] [facility] Aug 31, 2024 03:30 PM AMBULATORY - MEDICINE [facility] [place] [facility] Sep 14, 2024 11:30 AM AMBULATORY [facility] MEDICINE [facility] [place] [facility] Sep 29, 2024 02:30 PM AMBULATORY - MEDICINE [facility] Oct 08, 2024 10:00 AM AMBULATORY - [facility] [place] Oct 08, 2024 01:00 PM AMBULATORY - NONE [facility] [place] [facility] Oct 08, 2024 01:45 PM AMBULATORY - NONE [facility] [place] [facility] Oct 12, 2024 11:30 AM AMBULATORY [facility]ICINE [facility] [place] [facility] October 15, 2024 07:00 AM AMBULATORY - MEDICINE [facility] [place] [facility] October 16, 2024 01:00 PM AMBULATORY - MEDICINE [facility] [place] [facility] October 21, 2024 03:00 PM AMBULATORY - MEDICINE [facility] [place] [facility] October 22, 2024 01:00 PM AMBULATORY - REHAB MEDICIN [facility] [place] [facility] November 02, 2024 02:00 PM AMBULATORY - MEDICINE [facility] Nov 18, 2024 09:30 AM AMBULATORY - MEDICINE [facility] [place] [facility] Active, Pending, and Scheduled Orders This section includes a listing of several types of active, pending, and scheduled orders, including clinic medications orders, diagnostic test orders, procedure orders and consult orders; where the start date of the order is 45 days before the date of the Encounter or 45 days after the date of theEncounter. The data comes from all [place] treatment facilities. Test Date/Time Test Type Test Details Facility Name Jun 12, 2024 02:35 PM Consult Order TELE-EYE S CREENING CONSULT - [facility] [employer] [facility] Aug 03, 2024 01:06 PM Consult Order COMMUNITY CARE-PAIN MANAGEMENT Cons [facility] [place] [facility] Aug 24, 2024 12:00 AM Laboratory - Chemistry Order OCCULT BLOOD FIT X1 SCREEN (MFP ONLY) STOOL [facility] Vital Signs: All taken on the encounter date This section contains inpatient and outpatient Vital Signs collected on the date of the Encounter. Date/Time Temperature Pulse Blood Pressure Respiratory Rate SP02 Pain Height Weight Body Mass Index Source Jul 22, 2024 03:35 PM 70 140/70 98 [facility] [place] [facility] Jul 22, 2024 02:37 PM 84 150/80 20 95 [facility] Advance Directives: All historical and current Section Date Range: From patient's date of to the date document was created. This section includes ALL of a patient's completed or amended [place] Advance and Rescinded Directives. The entries below indicate that a directive exists for the patient, but an actual copy is not included with this document. The data comes from all [facility]. Date Advance Directives Provider Source November 12, 2023 ADVANCE DIRECTIVE DISCUSSION [facility] Radiology Reports: +/- 30 days of [...] the Encounter. The data comes from all [place] treatment facilities. Date/Time Radiology Report Provider Source Jul 22, 2024 02:20 PM FLUOROSCOPIC RODNEY NCE FOR NEEDLE PLACEMENT: COLLETTE ROSE [id number] [phone] M Exm Date: JUL 22, 2024@14:20 Req Phys: MONTOYA,QUE KENJI THI Pat Loc: [facility] MED REHAB BETY BORJAS MD (Req' Img Loc: [facility]/BUILDING 1 Service: Unknown [place] [id number] (Case [id number] COMPLETE) FLUOROSCOPIC GUIDANCE FOR NEEDLE (RAD Detailed) CPT:97886 Reason for Study: genicular nerve block Clinical History: Report Status: Verified Date Reported: JUL 22, 2024 Date Verified: JUL 22, 2024 University Archivist E-Sig:/ES/CLAUDIA MÉNDEZ JR Report: Study: Pain injection [...] Primary Interpreting Staff: CLAUDIA MÉNDEZ JR, Radiologist (University Archivist) /CLAUDIA VALLES JR [facility] Encounter Notes: All associated encounter notes This section contains the clinical notes associated to the Encounter. Date/Time Encounter Note(s) Provider Source Jul 22, 2024 02:36 PM PHYSICAL MEDICINE REHAB NOTE: LOCAL TITLE: PM&R BACK/JOINT PROCEDURE NOTE STANDARD TITLE: PHYSICAL MEDICINE REHAB NOTE DATE OF NOTE: JUL 22, 2024@14:36 ENTRY DATE: JUL 22, 2024@14:36:32 AUTHOR: LEXI MONTOYA EXP COSIGNER: URGENCY: STATUS: COMPLETED PROCEDURE NOTE: GENICULAR NERVE BLOCKS PROCEDURE: Bilateral genicular nerve blocks with lidocaine under fluoroscopy guidance. INDICATION: bilateral knee pain due to severe osteoarthritis MEDICATIONS INJECTED: 120mg of 1% lidocaine total, divided equally between the 6 sites of both knees. Lot#: [id number] Exp: 01/10 LOCAL ANESTHETIC INJECTED: 1 mL of 1% lidocaine at each site. 60 mg of lidocaine total. CONTRAST AGENT USED: 1mL of Omnipaque 300 CONTRAST AGENT WASTED: 2mL of Omnipaque 300 SEDATION MEDICATIONS: None ESTIMATED BLOOD LOSS: None COMPLICATIONS: None HISTORY: Patient presents for follow-up of bilateral knee pain secondary to osteoarthritis. He denies any change in symptoms from last evaluation on 04/23/2024. He was told by orthopedic surgeon in [place] that he has goly-kl-[id number] knee osteoarthritis and would need surgery. He is here temporarily for work, and will pursue knee replacement when he returns to [place] later this year. In the meantime, he is looking for treatment options as pain can be upwards of 9/10 when it locks. Symptoms also worsen with prolonged walking. Symptoms improved with acetaminophen as needed, tramadol as needed, and relative rest. He has tried cortisone injection, physical therapy, and viscosupplementation x 1 in the past with suboptimal pain relief. He endorses intermittent swelling of the knees, but denies any erythema, or increased warmth. He has history of bilateral hip replacement and he denies any radicular symptoms from the hips. Denies fever, chills, or allergies to shellfish or shellfish products. EXAM: Vitals in chart. Awake, alert, in no apparent distress. Genuvalgum b/l, mild. Normal range of motion of bilateral knees without restrictions. Knees without erythema, effusion, or increased warmth bilaterally. Strength is 5/5 in bilateral lower extremities. Sensations intact to light touch. Ambulates with an antalgic gait, internal rotation of the hips with positive Trendelenburg. INFORMED CONSENT: Obtained verbally, and through IMED. TIME OUT NOTE TIME:Jul@14:36 [place] correctly stated: [X]Full name: COLLETTE ROSE [X]Last #: [id number] [X]: Jul PROVIDER NAME: Lexi Montoya DO STAFF NAME: Snow Marte RN LOCATION: Marked sites of injection on bilateral knees TECHNIQUE: With the patient lying in a supine position, the patient was prepped and draped in the usual sterile fashion using ChloraPrep and a fenestrated drape. The area above the target site was determined under fluoroscopy. Local anesthetic was given by raising a skin wheal and going down to the hub of a 30-gauge 1-inch needle. In the lateral fluoroscopic view, the left SUPERIOR MEDIAL GENICULAR NERVE was located at the midpoint of the femur at the superior medial epicondyle. The skin overlying this was anesthetized with alkalinized 1% lidocaine. The 25 gauge 1.5 inch hypodermic needle was advanced slowly and carefully to the epicondyle. Placement was confirmed with multiple fluoroscopic views and injection of Omnipaque 300. Aspiration was negative for blood or other substances. Lidocaine 2mL of a 1% solution was injected and the needle was withdrawn. In the lateral fluoroscopic view, the left SUPERIOR LATERAL GENICULAR NERVE was located at the midpoint of the femur at the superior lateral epicondyle. The skin overlying this was anesthetized with alkalinized 1% lidocaine. The 25 gauge 1.5 inch hypodermic needle was advanced slowly and carefully to the epicondyle. Placement was confirmed with multiple fluoroscopic views and injection of Omnipaque 300. Aspiration was negative for blood or other substances. Lidocaine 2mL of a 1% solution was injected and the needle was withdrawn. In the lateral fluoroscopic view, the left INFERIOR MEDIAL GENICULAR NERVE was located at the midpoint of the tibia at the inferior medial epicondyle. The skin overlying this was anesthetized with alkalinized 1% lidocaine. The 25 gauge 1.5 inch hypodermic needle was advanced slowly and carefully to the epicondyle. Placement was confirmed with multiple fluoroscopic views and injection of Omnipaque 300. Aspiration was negative for blood or other substances. Lidocaine 2mL of a 1% solution was injected and the needle was withdrawn. The above procedure was repeated on the contralateral side, targetting the superior medial genicular nerve, superior lateral genicular nerve, and the inferior medial genicular nerve. The procedure was completed without complications and was tolerated well. The patient was monitored after the procedure. The patient (or responsible libertarian) was given post-procedure and discharge instructions to follow at home. The patient was discharged in stable condition. Pre-procedure pain level: 6/10 Post-procedure pain level: 0/10 ASSESSMENT: 54-year-old gentleman with bilateral knee pain secondary to osteoarthritis. PLAN: - Bilateral genicular nerve blocks provided today as above. - Post-injection follow-up with PM&R [facility] in 2 weeks. - Pain log provided along with instructions to engage in daily routine activities that exacerbates pain and document as instructed. Provide pain log at or prior to follow-up in 2 weeks. - Con't acetaminophen up to 1000mg every 8 hours as needed. 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 Encouraged use of acetaminophen instead. If needed, alternate acetaminophen with Ibuprofen 600mg every 8 hours as needed. - Discharge instructions provided including the use of ice q2 hrs x 48 hrs prn post injection soreness/pain. - Continue home exercise program including stretching. - Continue all medications. - Contact me with any issues/questions MDM: 50 minutes Medication Reconciliation: Outpatient: Has the patient been taking medications as documented in the EMLR? YES: The patient has been taking medications as documented in the EMLR. Essential Medication List for Review used to complete this medication reconciliation. INCLUDED IN THIS LIST: Alphabetical list of active outpatient prescriptions dispensed from this [place] (local) and dispensed from another [place] or [facility] facility (remote) as well as inpatient orders [...] whether with a VA or non-VA provider. /jim/ LEXI MONTOYA DO BACTERIOLOGIST FISHERY Signed: 07/22/2024 16:24 LEXI MONTOYA [place] [facility] [place] [facility] Jul 22, 2024 02:16 PM DISCHARGE NOTE: LOCAL TITLE: DISCHARGE INSTRUCTIONS/OUTPATIENT STANDARD TITLE: DISCHARGE NOTE DATE OF NOTE: JUL 22, 2024@14:16 ENTRY DATE: JUL 22, 2024@14:16:39 AUTHOR: LEXI MONTOYA EXP COSIGNER: URGENCY: STATUS: COMPLETED Your ATTENDING PHYSICIAN for today's injection is: Lexi Montoya DO Reason for Visit: bilateral genicular nerve block - Physical/Activity Limitations: No strenous activity for 24 Hours - Diet: Resume Previous Diet - Medication reconciliation performed. Active Outpatient Medications (including Supplies): Active Outpatient Medications Status 1) BACITRACIN 500 UNT/GM TOP OINT APPLY SMALL AMOUNT TOPICALLY ACTIVE TWICE DAILY APPLY TO FOOT WOUNDS Indication: FOR INFECTION 2) CETIRIZINE HCL 10MG TAB TAKE ONE TABLET BY MOUTH ONCE DAILY ACTIVE (S) Indication: FOR ALLERGIES 3) COLLAGENASE 250 UNT/GM TOP OINT APPLY NICKEL-THICK LAYER ACTIVE TOPICALLY ONCE DAILY TO FOOT WOUNDS Indication: FOR SKIN ULCER 4) FERROUS SULFATE 325MG TAB TAKE ONE TABLET BY MOUTH ONCE ACTIVE DAILY Indication: TO SUPPLEMENT IRON 5) FLUTICASONE PROP 50MCG 120D NASAL INHL INSTILL 1 SPRAY INTO ACTIVE EACH NOSTRIL TWICE DAILY Indication: RHINITIS 6) GABAPENTIN 300MG CAP TAKE ONE CAPSULE BY MOUTH THREE TIMES A ACTIVE (S) DAY Indication: FOR NERVE PAIN 7) GAUZE PAD 2IN X 2IN 8-PLY STERILE APPLY 1 PAD TOPICALLY ONCE ACTIVE DAILY Indication: FOR WOUND CARE 8) GAUZE PAD 4IN X 4IN 8-PLY STERILE APPLY GAUZE TOPICALLY ONCE ACTIVE DAILY Indication: FOR WOUND CARE 9) GLOVE VINYL LARGE PWDR-FREE NONSTERILE USE GLOVE(S) ONCE ACTIVE DAILY NEEDED Indication: TO PROTECT HANDS 10) KERLIX 4.5IN STERILE USE 1 ROLL TOPICALLY ONCE DAILY ACTIVE DIRECTED Indication: FOR WOUND CARE 11) METFORMIN HCL 500MG 24HR SA TAB TAKE ONE TABLET BY MOUTH ACTIVE TWICE DAILY Indication: FOR TYPE 2 DIABETES MELLITUS 12) MUPIROCIN 2% OINT APPLY SMALL AMOUNT TOPICALLY ONCE DAILY ACTIVE Indication: FOR OPEN WOUNDS 13) PHENTERMINE 7.5/TOPIRAMATE 46MG SA CAP TAKE 1 CAPSULE BY ACTIVE (S) MOUTH EVERY MORNING WITH OR WITHOUT FOOD Indication: FOR WEIGHT LOSS MANAGEMENT 14) SODIUM CHLORIDE 0.9% PF INJ SYR 10ML INJECT 1 SYRINGE ACTIVE TOPICALLY ONCE DAILY PER WOUND Indication: CLEAN WOUND 15) TAPE,MEDIPORE H SOFT 1IN X 10YD 3M#[id number] USE 1 PIECE ACTIVE TOPICALLY ONCE DAILY DIRECTED Indication: FOR WOUND CARE Active Non-VA Medications Status 1) Non-VA DICLOFENAC NA 1% TOP GEL 2 GRAMS TOPICALLY FOUR TIMES ACTIVE A DAY Indication: FOR OSTEOARTHRITIS 2) Non-VA DICLOFENAC NA 75MG EC TAB 75MG BY MOUTH TWICE DAILY ACTIVE Indication: osteoarthritis 3) Non-VA METFORMIN (ONCE DAILY) TAB,SA 500MG BY MOUTH TWICE ACTIVE DAILY Indication: FOR TYPE 2 DIABETES MELLITUS 4) Non-VA SILDENAFIL CITRATE 100MG TAB 100MG BY MOUTH ONCE ACTIVE DAILY NEEDED Indication: FOR ERECTILE DYSFUNCTION 19 Total Medications No changes to current medications Resume your prior meds at you next regular scheduled dose except Aspirin, Plavix, Warfarin which can be restarted the next day if you are taking these medications. Medication Education 1. Take medications in the exact amount ordered by the clinician. Do not take more or less. 2. Keep each medication in the original and separate containers. 3. Ice every 2 hours as needed for post injection soreness/pain. Keep on for 15 minutes. Do not use heat within the first 48 hours unless specifically instructed by your doctor. 4. Keep a complete list of all your medications and share with all your health care providers, include all over the counter medications, vitamins or supplements. 5. Do not drink alcoholic beverage, drive or operate machinery, cook or make important decisions for twenty-four (24) hours. A responsible adult should remain with you for the next twenty-four hours and you should REST quietly during this time. Recommended plan for follow up: As scheduled Please call TELEPHONE ASSISTANCE if you experience: Fever 101.5, Dizziness or light-headedness, Redness, discharge, warmth to the touch or foul smelling discharge from wound, Shortness of breath, Nausea, vomiting, diarrhea, or no bowel movement for more than 48 hrs, Newly onset headache, Changes in behavior If you feel the medications are making you sick, your symptoms worsen or you are experiencing problems contact: TELEPHONE ASSISTANCE at [phone] or extension [phone] Or [phone] extension [phone] (WING Girard) or extension [phone] (TYREE Thakur) If you are in an emotional crisis, feeling suicidal or having any troubling or self-destructive or violent impulses - please call [phone] (or [phone]); press 1 for Veterans to ask for help 24hours per day. Discharge Instructions printed and given to patient: No. Verbal instructions provided due to COVID-19 restrictions. Patient/Caregiver verbalizes understanding of discharge instructions: Yes Diagnostic studies discussed with patient: N/A I have discussed these instructions with the patient/responsible adult and/or demonstrated appropriate care for the patient post discharge. A copy of these discharge instructions have been printed and given to the patient at the time of discharge. /jim/ LEXI MONTOYA DO BACTERIOLOGIST [employer]ERY Signed: 07/22/2024 14:17 LEXI MONTOYA [facility]
--- OUTSIDE RECORDS SUMMARY | 2024-10-12 18:59 | XMS_ITS ---
Author Name [facility] [place] Address [address] [place] [address] Care Team Providers Care Sofa Back Upholsterer Name Role Phone WALDEMAR PIPO Primary Care Provider LENY Suarez Primary Care Provider RICH Valencia Primary Care Provider Thien weber Selected Encounter This section includes the information on record at [place] for the Encounter. Date/Time Encounter Type Encounter Description Reason Pro vider Source Sep 08, 2024 02:35 PM Outpatient Encounter ADMIN PAT ACTIVTIES (MASNONCT) IHE Encounter Template Text not used by [place] Plan of Treatment: Future Appointments (+ 6 [...] data comes from all [place] treatment facilities. Appointment Date/Time Appointment Type Appointme nt Facility Name Sep 14, 2024 11:30 AM AMBULATORY - [facility]INE [facility] Sep 29, 2024 02:30 PM AMBULATORY - MEDICINE [facility] Oct 08, 2024 10:00 AM AMBULATORY - [place] Oct 08, 2024 01:00 PM AMBULATORY - NONE [facility] [place] [facility] Oct 08, 2024 01:45 PM AMBULATORY - NONE [facility] [place] [facility] Oct 12, 2024 11:30 AM AMBULATORY [...] REHAB MEDICIN E [facility] [place] [facility] November 02, 2024 02:00 PM AMBULATORY - MEDICINE [facility] Nov 18, 2024 09:30 AM AMBULATORY - MEDICINE [facility] [place] [facility] Active, Pending, and Scheduled Orders This section includes a listing of several types of active, pending, and scheduled orders, including clinic medications orders, diagnostic test orders, procedure orders and consult orders; where the start date of the order is 45 days before the date of the Encounter or 45 days after the date of theEncounter. The data comes from all [place] treatment facilities. Test Date/Time Test Type Test Details Facility Name Aug 03, 2024 01:06 PM Consult Order COMMUNITY CARE-PAIN MANAGEMENT Cons Speech Therapist's Choice [place] [facility] [place] [facility] Aug 24, 2024 12:00 AM Laboratory - Chemistry Order OCCULT BLOOD FIT X1 SCREEN (MFP ONLY) STOOL [facility] Sep 13, 2024 10:39 AM Consult Order COMMUNITY CARE-VASCULAR SURGERY Cons Speech Therapist's Choice [place] Sep 29, 2024 12:00 AM Laboratory - Chemistry Order VITAMIN D (25-OH) BLOOD (SST-SERUM) [facility] Sep 29, 2024 12:00 AM Laboratory - Chemistry Order CBC AND DIFF (AUTO) BLOOD (LAV-BLOOD) [facility] Sep 29, 2024 12:00 AM Laboratory - Chemistry Order HEMOGLOBIN A1C PANEL BLOOD (LAV-BLOOD) [facility] Sep 29, 2024 12:00 AM Laboratory - Chemistry Order TSH BLOOD (SST-SERUM) [facility] Sep 29, 2024 12:00 AM Laboratory - Chemistry Order LIPID PANEL FASTING BLOOD (SST-SERUM) [facility] Sep 29, 2024 12:00 AM Laboratory - Chemistry Order PSA BLOOD (SST-SERUM) [facility] Sep 29, 2024 12:00 AM Laboratory - Chemistry Order BASIC METABOLIC PANEL (fasting) BLOOD (SST-SERUM) [facility] Sep 29, 2024 12:00 AM Laboratory - Chemistry Order MICROALBUMIN CREATININE RATIO PANEL URINE (RANDOM) [facility] Sep 29, 2024 12:00 AM Laboratory - Chemistry Order LIVER FUNCTION BLOOD (SST-SERUM) [facility] Oct 08, 2024 06:02 PM Consult Order [facility] SURGICAL Cons Speech Therapist's Choice [place] Advance Directives: All historical and current Section Date Range: From patient's date of to the date document was created. This section includes ALL of a patient's completed or amended [place] Advance and Rescinded Directives. The entries below indicate that a directive exists for the patient, but an actual copy is not included with this document. The data comes from all [facility]. Date Advance Directives Provider Source November 12, [...] 08, 2024 02:23 PM SHOULDER,COMPLETE(RIGHT): COLLETTE ROSE [id number] -[id number] M Ex Date: OCT 08, 2024@14:23 Req Phys: LENY AGUILERA Loc: [facility] [address] (Req'g Loc) Img Loc: [facility]/BUILD[facility] 1 Service: Unknown [facility] [place] [address] (Case [id number] COMPLETE) SHOULDER,COMPLETE(RIGHT) (RAD Detailed) CPT:54922 Reason for Study: Possible biceps tendinopathy. Unable to lift right arm Clinical History: Report Status: Verified Date Reported: OCT 08, 2024 Date Verified: OCT 08, 2024 Associate Director Of Biostatistics E-Sig:/ES/CLAUDIA MÉNDEZ JR Report: Study: AP internally [...] Primary Interpreting Staff: CLAUDIA MÉNDEZ JR, Radiologist (Associate Director Of Biostatistics) /CLAUDIA VALLES JR [facility] Oct 08, 2024 01:14 PM MRI SHOULDER W/O CONTRAST (RIGHT): COLLETTE ROSE [id number] -[id number] M [facility] Date: OCT 08, 2024@13:14 Req Phys: LENY AGUILERA Loc: [facility] [address] [address] (Req'g Loc) Img Loc: [facility] MRI Service: [place] [address] (Case [id number] COMPLETE) MRI SHOULDER W/O CONTRAST (RIGHT)(MRI Detailed) CPT:00123 Reason for Study: Possible biceps tendon tear. Unknown trauma. Clinical History: Unable to lift right arm Report Status: Verified Date Reported: OCT 08, 2024 Date Verified: OCT 08, 2024 Associate Director Of Biostatistics E-Sig:/ES/CLAUDIA MÉNDEZ JR Report: Study: MRI of [...] Primary Interpreting Staff: CLAUDIA MÉNDEZ JR, Radiologist (Associate Director Of Biostatistics) /CLAUDIA VALLES JR [facility] Encounter Notes: All associated encounter notes This section contains the clinical notes associated to the Encounter. Date/Time Encounter Note(s) Provider Source Sep 08, 2024 05:21 PM ADDENDUM: LOCAL TITLE: Addendum STANDARD TITLE: ADDENDUM DATE OF NOTE: SEP 08, 2024@17:21:06 ENTRY DATE: SEP 08, 2024@17:21:07 AUTHOR: LENY AGUILERA COSIGNER: URGENCY: STATUS: COMPLETED Medications ordered for window pickup /jim/ LENY AGUILERA NP NURSE PRACTITIONER Signed: 09/08/2024 17:21 Receipt Acknowledged By: 09/09/2024 08:53 /jim/ VALENTE ELIZONDO REGISTERED NURSE ====== --- Original Document --- 09/08/24 PHARMACY MEDICATION MANAGEMENT: Medication Profile Sep 08, 2024@14:44:10 Page: 1 of 3 COLLETTE ROSE <A> PID: [id number] Ht(cm): 180.34 (03/13/2024) : Jul (54) Wt(kg): 104.33 (08/11/2024) SEX: MALE Non-VA Meds on File - Last Non-VA Entry on 12/02/23 CrCL: 116.7(est.) (CREAT: 0.85mg/dL 12/24/23) BSA (m2): 2.24 ISSUE LAST REF DAY # RX # DRUG QTY ST DATE FILL REM SUP ACTIVE----- -------- 1 [id number] BACITRACIN 500 UNT/GM TOP OINT 90 A> 06-25 01-09 0 90 2 [id number] CETIRIZINE HCL 10MG TAB 90 A> 06-08- 1 90 3 [id number] COLLAGENASE 250 UNT/GM TOP OINT 150 A> 01-26 0 30 4 [id number] DRESSING,OPTILOCK 4IN X 4IN #[id number] 30 A> 07-30 02-14 1 30 5 [id number] FERROUS SULFATE 325MG TAB 100 A> 04-24 0 90 6 [id number] FLUTICASONE PROP 50MCG 120D NASAL INHL S> 04-23 04-26 1 90 Qty: 3 7 [id number] GABAPENTIN 300MG CAP 270 A> - 03-13 0 90 8 [id number] GAUZE PAD 2IN X 2IN 8-PLY STERILE 100 A> 08-25 03-11 3 30 9 [id number] GAUZE PAD 4IN X 4IN 8-PLY STERILE 100 A> 08-25 03-11 3 30 IS REQUESTING ALL PRESCRIPTIONS TO BE MAILED OR SET FOR WINDOW INTERIOR WIRER AT [facility]. [facility] is having delivery issues getting prescriptions to [place] address /es/ MARLENY NAYELY YOKASTA PHARMACIST ADMIN Signed: 09/08/2024 14:46 Receipt Acknowledged By: 09/08/2024 16:27 /es/ VALENTE ELIZONDO REGISTERED NURSE 09/08/2024 17:16 /es/ LENY AGUILERA, JUWAN NURSE PRACTITIONER LENY AGUILERA [place] [facility] [facility] Sep 08, 2024 02:35 PM PHARMACY MEDICATION MGT NOTE: LOCAL TITLE: PHARMACY MEDICATION MANAGEMENT STANDARD TITLE: PHARMACY MEDICATION MGT NOTE DATE OF NOTE: SEP 08, 2024@14:35 ENTRY DATE: SEP 08, 2024@14:35:41 AUTHOR: MARLENY TEMPLETON EXP COSIGNER: URGENCY: STATUS: COMPLETED PHARMACY MEDICATION MANAGEMENT Has ADDENDA Medication Profile Sep 08, 2024@14:44:10 Page: 1 of 3 ROSECOLLETTE <A> PID: [id number] Ht(cm): 180.34 (03/13/2024) : Jul (54) Wt(kg): 104.33 (08/11/2024) SEX: MALE Non-VA Meds on File - Last Non-VA Entry on 12/02/23 CrCL: 116.7(est.) (CREAT: 0.85mg/dL 12/24/23) BSA (m2): 2.24 ISSUE LAST REF DAY # RX # DRUG QTY ST DATE FILL REM SUP ACTIVE----- -------- 1 [id number] BACITRACIN 500 UNT/GM TOP OINT 90 A> 06-25 01- 0 90 2 [id number] CETIRIZINE HCL 10MG TAB 90 A> 06-08 03-13 1 90 3 [id number] COLLAGENASE 250 UNT/GM TOP OINT 150 A> 01-26 11- 0 30 4 [id number] DRESSING,OPTILOCK 4IN X 4IN #[id number] 30 A> 07-30 02-14 1 30 5 [id number] FERROUS SULFATE 325MG TAB 100 A> 04-24 01-27 0 90 6 [id number] FLUTICASONE PROP 50MCG 120D NASAL INHL S> 04-23 1 90 Qty: 3 7 [id number] GABAPENTIN 300MG CAP 270 A> 06-08 03-13 0 90 8 [id number] GAUZE PAD 2IN X 2IN 8-PLY STERILE 100 A> 08-25 03- 3 30 9 [id number] GAUZE PAD 4IN X 4IN 8-PLY STERILE 100 A> 08-25 03- 3 30 IS REQUESTING ALL PRESCRIPTIONS TO BE MAILED OR SET FOR WINDOW INTERIOR WIRER AT [facility]. [facility] is having delivery issues getting prescriptions to [place] address /es/ MARLENY TEMPLETON PHARMACIST ADMIN Signed: 09/08/2024 14:46 Receipt Acknowledged By: 09/08/2024 16:27 /es/ VALENTE ELIZONDO REGISTERED NURSE 09/08/2024 17:16 /es/ LENY AGUILERA NP NURSE PRACTITIONER 09/08/2024 ADDENDUM STATUS: COMPLETED Medications ordered for window pickup /jim/ LENY AGUILERA NP NURSE PRACTITIONER Signed: 09/08/2024 17:21 Receipt Acknowledged By: * AWAITING SIGNATURE * VALENTE ELIZONDO ABIGAIL [facility]
--- OUTSIDE RECORDS SUMMARY | 2024-10-12 18:59 | XMS_ITS | Encounter Summary ---
Author Name Department [place] Organization [place] Address [address] [place] [id number] Care Team Providers Care Pattern Perforating Machine Operator Name Role Phone PIPO MEDEIROS Primary Care Provider LENY Suarez Primary Care Provider RICH Valencia Primary Care Provider Thien weber Selected Encounter This section includes the information on record at [place] for the Encounter. Date/Time Encounter Type Encounter [...] this document. The data comes from all [place] facilities. Date Advance Directives Provider Source November 12, 2023 ADVANCE DIRECTIVE DISCUSSION JESSICA [facility]
--- OUTSIDE RECORDS SUMMARY | 2024-10-12 18:59 | XMS_ITS ---
Author Name Department of [place] Organization [place] Address [address] [place] [address] Care Team Providers Care Charge Accounts Audit Clerk Name Role Phone WALDEMAR PIPO Primary Care Provider LENY Suarez Primary Care Provider RICH Valencia Primary Care Provider Thien weber Selected Encounter This section includes the information on record at [place] for the Encounter. Date/Time Encounter Type Encounter Description Reason Pro vider Source Jul 22, 2024 02:53 AM Outpatient Encounter ADMIN PAT ACTIVTIES (MASNONCT) IHE Encounter Template Text not used by [place] Plan of Treatment: Future Appointments (+ 6 months) and Future Tests (+/- 45 days) The Plan of Treatment section includes future care activities for the patient from all [place] treatmentfacilities. This section includes future appointments and future orders which are active, pending or scheduled. Future Appointments This section includes appointments that were scheduled to occur 6 months from the date of the Encounter, up to a maximum of 20 appointments. The data comes from all [place] treatment facilities. Appointment Date/Time Appointment Type Appointme nt Facility Name Jul 28, 2024 01:00 PM AMBULATORY - NONE [facility] Aug 04, 2024 01:00 PM AMBULATORY - NONE [facility] Aug 11, 2024 01:00 PM AMBULATORY - NONE [facility] Aug 17, 2024 07:15 AM AMBULATORY - MEDICINE [facility] [place] [facility] Aug 24, 2024 02:00 PM AMBULATORY - MEDICINE [facility] [place] [facility] Aug 31, 2024 03:30 PM AMBULATORY - MEDICINE [facility] [place] [facility] Sep 14, 2024 11:30 AM AMBULATORY - MEDICINE [facility] [place] [facility] Sep 29, 2024 02:30 PM [facility] Oct 08, 2024 10:00 AM AMBULATORY - REHAB MEDICIN E [place] Oct 08, 2024 01:00 PM AMBULATORY - NONE [facility] [place] [facility] Oct 08, 2024 01:45 PM AMBULATORY - NONE [facility] [place] [facility] Oct 12, 2024 11:30 AM AMBULATORY - MEDICINE [facility] [place] [facility] October 15, 2024 07:00 AM AMBULATORY - MEDICINE [facility] [place] [facility] October 16, 2024 01:00 PM AMBULATORY - MEDICINE [facility] [place] [facility] October 21, 2024 03:00 PM AMBULATORY - MEDICINE [facility] [place] [facility] October 22, 2024 01:00 PM AMBULATORY - REHAB MEDICIN E [facility] [place] [facility] November 02, 2024 02:00 PM AMBULATORY - MEDICINE [facility] Nov 18, 2024 09:30 AM AMBULATORY - MEDICINE [facility] [place] [facility] Active, Pending, and Scheduled Orders This section includes a listing of several types of active, pending, and scheduled orders, including clinic medications orders, diagnostic test orders, procedure orders and consult orders; where the start date of the order is 45 days before the date of the Encounter or 45 days after the date of theEncounter. The data comes from all [place] treatment facilities. Test Date/Time Test Type Test Details Facility Name Jun 12, 2024 02:35 PM Consult Order TELE-EYE S CREENING CONSULT - CBC Cons Tobacco Dipper's Choice [facility] Aug 03, 2024 01:06 PM Consult Order COMMUNITY CARE-PAIN MANAGEMENT [facility] Aug 24, 2024 12:00 AM Laboratory - Chemistry Order OCCULT BLOOD FIT X1 SCREEN (MFP ONLY) STOOL [facility] Vital Signs: All taken on the encounter date This section contains inpatient and outpatient Vital Signs collected on the date of the Encounter. Date/Time Temperature Pulse Blood Pressure Respiratory Rate SP02 Pain Height Weight Body Mass Index Source Jul 22, 2024 03:35 PM 70 140/70 98 [facility] [place] [facility] [facility] Jul 22, 2024 02:37 PM 84 150/80 20 95 [facility] Advance Directives: All historical and current Section Date Range: From patient's date of to the date document was created. This section includes ALL of a patient's completed or amended [place] Advance and Rescinded Directives. The entries below indicate that a directive exists for the patient, but an actual copy is not included with this document. The data comes from all [place] facilities. Date Advance Directives Provider Source November 12, 2023 ADVANCE DIRECTIVE DISCUSSION JESSICA [facility] Radiology Reports: +/- 30 days [...] the Encounter. The data comes from all [place] treatment facilities. Date/Time Radiology Report Provider Source Jul 22, 2024 02:20 PM FLUOROSCOPIC RODNEY NCE FOR NEEDLE PLACEMENT: COLLETTE ROSE [id number] -[id number] M Ex Date: JUL 22, 2024@14:20 Req Phys: LEXI MONTOYA Pat Loc: [facility] RE[facility] BETY BORJAS MD (Req' Img Loc: [facility] 1 Service: [facility] [place] [address] (Case [id number] COMPLETE) FLUOROSCOPIC GUIDANCE FOR NEEDLE (RAD Detailed) CPT:32038 Reason for Study: genicular nerve block Clinical History: Report Status: Verified Date Reported: JUL 22, 2024 Date Verified: JUL 22, 2024 I&C Tech E-Sig:/ES/CLAUDIA MÉNDEZ JR Report: Study: Pain injection [...] Primary Interpreting Staff: CLAUDIA MÉNDEZ JR, Radiologist (I&C Tech) /CLAUDIA VALLES JR [facility] Encounter Notes: All associated encounter notes This section contains the clinical notes associated to the Encounter. Date/Time Encounter Note(s) Provider Source Jul 22, 2024 02:54 AM PHARMACY NOTE: LOCAL TITLE: V1 PHARMACY CUSTOMER CARE MEDICATION RENEWAL STANDARD TITLE: PHARMACY NOTE DATE OF NOTE: JUL 22, 2024@02:54 ENTRY DATE: JUL 22, 2024@02:54:05 AUTHOR: SHELLI NARAYAN EXP COSIGNER: URGENCY: STATUS: COMPLETED V1 PHARMACY CUSTOMER CARE MEDICATION RENEWAL Has ADDENDA Date: Jul Division: [facility] referred by Pharmacy Call Center for medication renewal: Controlled substance Medications requested: [id number] PHENTERMINE 3.75/TOPIRAMATE 23MG SA CAP [id number] PHENTERMINE 7.5/TOPIRAMATE 46MG SA CAP Defer to primary care provider To be mailed . Please review and renew if appropriate. *This note was generated by [facility] Pharmacy Customer Care. If you have any questions or need assistance, do not contact this author. Please refer all questions to your local, on-site pharmacy departments. /jim/ SHELLI NARAYAN CPhT Beauty Consultant, [place]/Pharmacy Customer Care Signed: 07/22/2024 02:54 Receipt Acknowledged By: 07/22/2024 08:12 /jim/ VALENTE ELIZONDO REGISTERED NURSE 07/22/2024 07:57 /es/ LENY AGUILERA NP NURSE PRACTITIONER 07/22/2024 ADDENDUM STATUS: COMPLETED Patient had stopped this medication due to reported ADR. He was not approved for Contrave due to use of tramadol. Also discussed need for monitoring BP. RX placed on clinic hold; cannot be released until discussed with patient. Attempted to contact pt; left VM requesting return call. Will continue reaching out today. /jim/ Jennifer Schroeder PharmD Clinical Pharmacy Practitioner Signed: 07/22/2024 08:36 SHELLI NARAYAN [facility] Jul 22, 2024 02:54 AM PHARMACY NOTE: LOCAL TITLE: V1 PHARMACY CUSTOMER CARE MEDICATION RENEWAL STANDARD TITLE: PHARMACY NOTE DATE OF NOTE: JUL 22, 2024@02:54 ENTRY DATE: JUL 22, 2024@02:54:55 AUTHOR: SHELLI NARAYAN EXP COSIGNER: URGENCY: STATUS: COMPLETED V1 PHARMACY CUSTOMER CARE MEDICATION RENEWAL Has ADDENDA Date: Jul Division: [place] Pt referred by Pharmacy Call Center for medication renewal: Controlled substance Medications requested: [id number] TRAMADOL HCL 50MG TAB *The is requesting Window Manager Management* Defer to specialty clinic To be picked up. Please review and renew if appropriate. *This note was generated by [facility] Pharmacy Customer Care. If you have any questions or need assistance, do not contact this author. Please refer all questions to your local, on-site pharmacy departments. /rabia NARAYAN CPhT Beauty Consultant, [place]/Pharmacy Customer Care Signed: 07/22/2024 02:55 Receipt Acknowledged By: 08/03/2024 10:08 /jim/ BRIAN HERRERA [facility] * AWAITING SIGNATURE * LEXI MONTOYA [facility] 07/22/2024 09:29 /rabia Marte RN Med Rehab 07/22/2024 ADDENDUM STATUS: COMPLETED Defer to provider /rabia Marte RN Med Rehab Signed: 07/22/2024 09:28 SHELLI NARAYAN [facility]
--- OUTSIDE RECORDS SUMMARY | 2024-10-12 18:59 | XMS_ITS | Continuity of Care Document ---
Author Name [facility] Organization [facility] Care Team Providers Care Patient Services Technician Name Role Phone [facility] Unavailable Unavailable Problems Combined list of problems from Department of Defense and Veterans Affairs facilities. It does not include entries that were removed or entered in error. Problem Status Onset Date Problem Type Date of Resolution Comments Source Pain radiating to right shoulder Active 06/17/19 20 Condition Oct 13, 2019 Entered By: RANDALL COSBY Comment: NEAR EAST 2019, FELL AT HOME, PULLED ON RAIL , HURT RT SHOULDER. [facility] Served in service Active 06/17/18 88 Condition Oct 13, 2019 Entered By: RANDALL COSBY Comment: [id number]. JEM. [place]. DIMITRI AUGUST. [facility] Anemia Active Condition May 20 23 Entered By: RANDALL COSBY Comment: 05/2023: H/H 10.7/ 36.5. [facility] Avascular necrosis of the head of femur Active Condition [facility] Benign essential hypertension Active Condition [facility] Bilateral arthritis of knees Active Condition [facility] Chronic headache disorder Active Condition [facility] Chronic pain Active Condition [facility] Colonoscopy Screening Active Condition [facility] Edema Active Condition Dec 01 24 Entered By: ELI DUDLEY Comment: B/L lower extremities [place] Edema of lower extremity Active Condition [facility] Erectile dysfunction Active Condition [place] H/O: surgery Active Condition Jun 23, 2019 Entered By: RANDALL COSBY Comment: 04/07/2019: S/P RT SERENA, [facility], [place], [place]. DR FLORES. SEVERE OA.Jun 23, 2019 Entered By: RANDALL COSBY Comment: 01/20/19: S/P LEFT SERENA, [facility], DR FLORES, ADVANCED OA.Oct 13, 2019 Entered By: RANDALL COSBY Comment: S/P RT THUMB TENDON INJURY, 2011 [facility] Hip pain Active Condition [facility] History of colonoscopy Active Condition Oct 13, 2019 Entered By: RANDALL COSBY Comment: 09/2019: NEVER. [facility] History of male erectile disorder Active Condition [facility] Hypertension [facility]aired fasting glucose Active Condition [facility] Insomnia Active Condition [facility] Iron deficiency anemia Active Condition [facility] Low back pain [facility] Morbid obesity Active Condition [facility] Obesity Active Condition Oct 12 Entered By: RANDALL COSBY Comment: 06/2019: BMI 39+.Oct 13, 2019 Entered By: RANDALL COSBY Comment: 09/2019: BMI 33.7: 5'10:, 235# (HAS LOST 60# SINCE HIP SURGERIES). [facility] Obesity Active Condition [facility] Obstructive Sleep Apnea of Adult ([facility] [id number]) Active Condition Sep 29, 2024 Entered By: LENY AGUILERA Comment: PSG 2019: AHI 23.8 [facility] Osteoarthritis Active Condition Nov 152023 Entered By: ELI DUDLEY Comment: B/L Knee [facility] Pain of bilateral knee joints Active Condition Oct 13, 2019 Entered By: RANDALL COSBY Comment: 2020: SARAHI KNEE PAIN, SWELLS, HAS B/L EDEMA.Oct 13, 2019 Entered By: RANDALL COSBY Comment: 2019: B/L KNEE PAIN, SEEN PER ORTHO IN [place], INJECTIONS BOTH KNEES.Oct 13, 2019 Entered By: RANDALL COSBY Comment: 03/2018: [facility] XRAYS KNEES: OA CHANGES.May 20, 2023 Entered By: RANDALL COSBY Comment: 2020: CC ORTHO, STF/COL, SYNVISC INJECTIONS. [facility] Prediabetes Active Condition May 20, 2023 Entered By: RANDALL COSBY Comment: HGBA1C: 05/2023=6.8%. [facility] Scoliosis of lumbar spine Active Condition [facility] Social and personal history finding Active Condition May 24, 2020 Entered By: RANDALL COSBY Comment: . 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 TOB: NEVER. ETOH: SOCIAL. [facility] Thoracic spondylosis Active Condition [facility] Type 2 diabetes mellitus Active Condition [facility] Umbilical hernia Active Condition [facility] Umbilical hernia Active Condition Aug 06, 2019 Entered By: RANDALL COSBY Comment: 06/2019: H[facility]D [facility], TX'D [facility] Y.May 20, 2023 Entered By: RANDALL COSBY Comment: 2019: PLANNED SURGERY PER DR Wilmer MALDONADO, STF/COL, CX'D D/T COVID. [facility] Urticaria Active [facility] Venous stasis ulcer with edema of left lower leg Active Condition [facility] Ventral hernia Active Condition [facility] [place] [facility] Diabetes mellitus Inactive Condition 01/06/2019 [facility] Diagnosis: ICD-10-CM E66.9 Obesity, unspecified Active Diagnosis [facility] Diagnosis: ICD-10-CM R60.9 Edema, unspecified Active Diagnosis [facility] Diagnosis: ICD-10-CM K43.9 Ventral hernia without obstruction or gangrene Active Diagnosis [facility] Diagnosis: ICD-10-CM M17.0 Bilateral primary osteoarthritis of knee Active Diagnosis [facility] [place] [facility] Diagnosis: ICD-10-CM E66.811 Obesity, class 1 Active Diagnosis [facility] Diagnosis: ICD-10-CM E11.9 Type 2 diabetes mellitus without complications Active Diagnosis [facility] Diagnosis: ICD-10-CM Z96.643 Presence of artificial hip joint, bilateral Active Diagnosis [facility] Diagnosis: ICD-10-CM E66.812 Obesity, class 2 Active Diagnosis [facility] Diagnosis: ICD-10-CM M19.90 Unspecified osteoarthritis, unspecified site Active Diagnosis [facility] [place] [facility] Diagnosis: ICD-10-CM H68.102 Unspecified obstruction of Eustachian tube, left ear Active Diagnosis [facility] [place] [facility] Diagnosis: ICD-10-CM E66.09 Other obesity due to excess calories Active Diagnosis [place] Diagnosis: ICD-10-CM L60.0 Ingrowing nail Active Diagnosis [facility] Diagnosis: ICD-10-CM S91.302S Unspecified open wound, left foot, sequela Active Diagnosis [place] Diagnosis: ICD-10-CM S91.302A Unspecified open wound, left foot, initial encounter Active Diagnosis [facility] Diagnosis: ICD-10-CM Z65.9 Problem related to unspecified psychosocial circumstances Active Diagnosis [facility] Diagnosis: ICD-10-CM Z71.89 Other specified counseling Active Diagnosis [facility] Diagnosis: ICD-10-CM I10 Essential (primary) hypertension Active Diagnosis [facility] Medications Combined list of outpatient medications from Department of Defense and Veterans Affairs facilities.Medications provided include 1) outpatient medications from the last 15 months, and 2) patient-reported medications. Medication Details Route Status Patient Instructions Prescription Expires Prescription Number Last Dispense Date Ordering Provider Order Date Order Qty Source ASCORBIC ACID 500MG TAB TAKE ONE TABLET BY MOUTH ONCE DAILY FOR INADEQUA TE VITAMIN C FOR VITAMIN/ NUTRITIO N SUPPLEME NT ORAL ACTIVE 09/30/2025 [id number] Sofie AGUILERA AVID A 2024 100 [place] BACITRACIN 500UNT/GM OINT,TOP APPLY SMALL AMOUNT TOPICALL Y TWICE DAILY FOR INFECTIO N APPLY TO FOOT WOUNDS TOPICA L ACTIVE 12/07/2024 [id number] 5 Sofie AGUILERA AVID A 2024 90 [place] BACITRACIN 500UNT/GM OINT,TOP APPLY SMALL AMOUNT TOPICALL Y TWICE DAILY FOR INFECTIO N APPLY TO FOOT WOUNDS TOPICA L DISCONT INUED 09/23/2024 [id number] 5 Sofie AGUILERA AVID A 2024 90 [place] BACITRACIN 500UNT/GM OINT,TOP APPLY SMALL AMOUNT TOPICALL Y TWICE DAILY FOR INFECTIO N APPLY TO FOOT WOUNDS TOPICA L DISCONT INUED 09/06/2024 [id number] 4 oSfie AGUILERA AVID A 2023 90 [place] BACITRACIN 500UNT/GM OINT,TOP APPLY SMALL AMOUNT TOPICALL Y TWICE DAILY FOR INFECTIO N APPLY TO FOOT WOUNDS TOPICA L DISCONT INUED 03/10/2024 [id number] 4 Jennifer LINN 2023 90 [place] BETAMETHASO NE VALERATE 0.1% OINT,TOP APPLY THIN LAYER TOPICALL Y TWICE DAILY FOR ATOPIC DERMATIT IS TOPICA L 01/22/2024 [id number] ANTHONY DUDLEY SA 2023 45 [place] CETIRIZINE HCL 10MG TAB TAKE ONE TABLET BY MOUTH ONCE DAILY FOR ALLERGIE S ORAL SUSPEND ED 09/09/2025 [id number] 5 Sofie AGUILERA AVID A 2024 90 [place] CETIRIZINE HCL 10MG TAB TAKE ONE TABLET BY MOUTH ONCE DAILY FOR ALLERGIE S ORAL DISCONT INUED 06/09/2025 [id number] 5 Sofie AGUILERA AVID A 2023 90 [place] CETIRIZINE HCL 10MG TAB TAKE ONE TABLET BY MOUTH ONCE DAILY FOR ALLERGIE S ORAL DISCONT INUED 03/22/2024 [id number] ANTHONY DUDLEY SA 2023 90 [place] CIPROFLOXAC IN HCL 500MG TAB TAKE ONE TABLET BY MOUTH TWICE DAILY FOR INFECTIO N ORAL DISCONT INUED 07/25/2024 [id number] 5 DULCE DUARTE 2024 20 [facility] COLLAGENASE 250UNT/GM OINT,TOP APPLY NICKEL-T HICK LAYER TOPICALL Y ONCE DAILY TO FOOT WOUNDS TOPICA L ACTIVE 09/09/2025 [id number] 5 Sofei AGUILERA AVID A 2024 150 [place] COLLAGENASE 250UNT/GM OINT,TOP APPLY NICKEL-T HICK LAYER TOPICALL Y ONCE DAILY TO FOOT WOUNDS TOPICA L DISCONT INUED 01/27/2025 [id number] CLAUDIA LUBIN 2023 150 [facility] DICLOFENAC NA 1% GEL,TOP APPLY 2 GRAMS TOPICALL Y FOUR TIMES A DAY TOPICA L ACTIVE OCTAVIAANTHONY SA 2023 [place] DICLOFENAC NA 75MG TAB,EC TAKE ONE TABLET BY MOUTH TWICE A DAY WITH MEALS FOR OSTEOART HRITIS (DON'T CRUSH,BR EAK OR CHEW) ORAL 08/27/2024 [id number] JASON FRANCIS W 2023 180 [facility] DICLOFENAC NA 75MG TAB,EC TAKE ONE TABLET BY MOUTH TWICE DAILY ORAL ACTIVE ANTHONY DUDLEY SA 2023 [place] DICLOFENAC SODIUM 75 MG ORAL TBEC TAKE ONE TABLET BY MOUTH TWICE A DAY WITH MEALS FOR OSTEOART HRITIS (DON'T CRUSH,BR EAK OR CHEW) 08/27/2024 [id number] 4 LENY FRANCIS W 2023 180 [facility] FERROUS SO4 325MG TAB TAKE ONE TABLET BY MOUTH ONCE DAILY TO SUPPLEME NT IRON ORAL ACTIVE 09/09/2025 [id number] 5 Sofie AGUILERAD A 2024 100 [place] FERROUS SO4 325MG TAB TAKE ONE TABLET BY MOUTH ONCE DAILY TO SUPPLEME NT IRON ORAL DISCONT INUED 04/25/2025 [id number] 5 ANTHONY DUDLEY SA CRISTY 2023 100 [place] FLUTICASONE PROPIONATE 50MCG/SPRAY SOLN,NASAL, 16GM INSTILL 1 SPRAY INTO EACH NOSTRIL TWICE DAILY RHINITIS NASAL ACTIVE 09/09/2025 [id number] 5 Sofie AGUILERAD A 2024 3 [place] FLUTICASONE PROPIONATE 50MCG/SPRAY SOLN,NASAL, 16GM INSTILL 1 SPRAY INTO EACH NOSTRIL TWICE DAILY RHINITIS NASAL DISCONT INUED 04/24/2025 [id number] SAMUEL GAO 2023 3 [facility] GABAPENTIN 300MG CAP TAKE ONE CAPSULE BY MOUTH THREE TIMES A DAY NEEDED FOR CHRONIC PAIN. ORAL ACTIVE 05/09/2025 [id number] PARSON 2023 90 [facility] GABAPENTIN 300MG CAP TAKE ONE CAPSULE BY MOUTH THREE TIMES A DAY ORAL SUSPEND ED 09/09/2025 [id number] 5 Sofie AGUILERA AVID A 2024 270 [place] GABAPENTIN 300MG CAP TAKE ONE CAPSULE BY MOUTH THREE TIMES A DAY ORAL DISCONT INUED 06/09/2025 [id number] 5 Sofie AGUILERAD A 2023 270 [place] GABAPENTIN 300MG CAP TAKE ONE CAPSULE BY MOUTH THREE TIMES A DAY ORAL DISCONT INUED 03/10/2024 [id number] 4 Jennifer LINN 2023 270 [place] GABAPENTIN 300MG CAP TAKE ONE CAPSULE BY MOUTH THREE TIMES A DAY NEEDED FOR CHRONIC PAIN. ORAL DISCONT INUED 05/20/2024 [id number] 4 RITESH COSBY A 2022 90 [facility] LEVOFLOXACI N 500MG TAB TAKE ONE TABLET BY MOUTH ONCE DAILY FOR 14 DAYS FOR INFECTIO N CAUSED BY BACTERIA ORAL 02/29/2024 [id number] 4 DULCE DUARTE 2023 14 [facility] LIDOCAINE HCL 4% SOLN,TOP APPLY DIRECTED TOPICALL Y ONCE DAILY PRIOR TO DRESSING CHANGE TOPICA L 02/21/2024 [id number] 4 FORREST ROTHMAN 2023 100 [facility] METFORMIN HCL 500MG 24HR TAB,SA TAKE ONE TABLET BY MOUTH TWICE A DAY FOR PREDIABE FRANCIS. *QUANTIT Y REDUCED DUE TO LIMITED SUPPLY* ORAL ACTIVE 01/20/2025 [id number] 4 RITESH COSBY A 2023 60 [facility] METFORMIN HCL 500MG 24HR TAB,SA TAKE ONE TABLET BY MOUTH TWICE DAILY ORAL SUSPEND ED 09/09/2025 [id number] 5 Sofie AGUILERAD A 2024 180 [place] METFORMIN HCL 500MG 24HR TAB,SA TAKE ONE TABLET BY MOUTH TWICE DAILY ORAL DISCONT INUED 08/13/2025 [id number] 5 Sofie AGUILERA AVID A 2024 180 [place] METFORMIN HCL 500MG 24HR TAB,SA TAKE ONE TABLET BY MOUTH TWICE DAILY ORAL DISCONT INUED 01/10/2025 [id number] 4 ANTHONY DUDLEY SA CRISTY 2023 180 [place] METFORMIN HCL 500MG 24HR TAB,SA TAKE ONE TABLET BY MOUTH TWICE A DAY FOR PREDIABE FRANCIS. ORAL DISCONT INUED 05/19/2024 [id number] 4 RITESH COSBY A 2022 180 [facility] METHYLPREDN ISOLONE 4MG TAB TAKE SIX TABLETS BY MOUTH ONCE DAILY FOR 1 DAY, THEN TAKE FIVE TABLETS ONCE DAILY FOR 1 DAY, THEN TAKE FOUR TABLETS ONCE DAILY FOR 1 DAY, THEN TAKE THREE TABLETS ONCE DAILY FOR 1 DAY, THEN TAKE TWO TABLETS ONCE DAILY FOR 1 DAY, THEN TAKE ONE TABLET ONCE DAILY FOR 1 DAY ORAL 05/23/2024 [id number] 4 SAMUEL GAO USEBLE R 2023 21 [facility] MUPIROCIN 2% OINT,TOP APPLY SMALL AMOUNT TOPICALL Y ONCE DAILY FOR OPEN WOUNDS TOPICA L ACTIVE 02/13/2025 [id number] ANTHONY DUDLEY SA CRISTY 2023 22 [place] PHENTERMINE 11.25MG/TOP IRAMATE 69MG CAP,SA TAKE 1 CAPSULE BY MOUTH EVERY MORNING FOR WEIGHT LOSS MANAGEME NT WITH OR WITHOUT FOOD ORAL ACTIVE 10/14/2024 [id number] 5 Sofie AGUILERA AVID A 2024 30 [place] PHENTERMINE 3.75MG/TOPI RAMATE 23MG CAP,SA TAKE 1 CAPSULE BY MOUTH EVERY MORNING FOR WEIGHT LOSS MANAGEME NT WITH OR WITHOUT FOOD ORAL DISCONT INUED 06/18/2024 [id number] 4 Sofie AGUILERAD A 2023 14 [place] PHENTERMINE 7.5MG/TOPIR AMATE 46MG CAP,SA TAKE 1 CAPSULE BY MOUTH EVERY MORNING FOR WEIGHT LOSS MANAGEME NT WITH OR WITHOUT FOOD ORAL DISCONT INUED 08/21/2024 [id number] 5 Sofie AGUILERA AVID A 2024 30 [place] PHENTERMINE 7.5MG/TOPIR AMATE 46MG CAP,SA TAKE 1 CAPSULE BY MOUTH EVERY MORNING FOR WEIGHT LOSS MANAGEME NT WITH OR WITHOUT FOOD ORAL 09/11/2024 [id number] 5 Sofie AGUILERA AVID A 2024 30 [place] PHENTERMINE 7.5MG/TOPIR AMATE 46MG CAP,SA TAKE 1 CAPSULE BY MOUTH EVERY MORNING FOR WEIGHT LOSS MANAGEME NT AFTER COMPLETI NG 14 DAYS OF LOWER DOSE ORAL 06/18/2024 [id number] 4 Sofie AGUILERA A 2023 30 [place] SILDENAFIL CITRATE 100MG TAB TAKE ONE TABLET BY MOUTH EVERY DAY NEEDED FOR ERECTILE DYSFUNCT ION 1 HOUR PRIOR TO SEXUAL ACTIVITY (DO NOT EXCEED ONE DOSE IN A 24 HOUR PERIOD) ORAL ACTIVE 04/14/2025 [id number] 5 RITESH COSBY A 2023 18 [facility] SILDENAFIL CITRATE 100MG TAB TAKE ONE TABLET BY MOUTH EVERY DAY NEEDED FOR ERECTILE DYSFUNCT ION 1 HOUR PRIOR TO SEXUAL ACTIVITY (DO NOT EXCEED ONE DOSE IN A 24 HOUR PERIOD) ORAL DISCONT INUED 05/19/2024 [id number] 4 RITESH COSBY A 2022 6 [facility] SILDENAFIL CITRATE 100MG TAB TAKE ONE TABLET BY MOUTH ONCE DAILY NEEDED ORAL ACTIVE ANTHONY DUDLEY SA CRISTY 2023 [place] SODIUM CHLORIDE 0.9% (PF) INJ,SYRINGE ,10ML INJECT 1 SYRINGE TOPICALL Y ONCE DAILY PER WOUND TOPICA L ACTIVE 09/09/2025 [id number] 5 Sofie AGUILERAD A 2024 360 [place] SODIUM CHLORIDE 0.9% (PF) INJ,SYRINGE ,10ML INJECT 1 SYRINGE TOPICALL Y ONCE DAILY PER WOUND TOPICA L DISCONT INUED 02/13/2025 [id number] 4 ANTHONY DUDLEY SA CRISTY 2023 360 [place] TRAMADOL HCL 50MG TAB TAKE ONE TABLET BY MOUTH TWICE DAILY NEEDED FOR PAIN ORAL DISCONT INUED 09/13/2024 [id number] 5 BRIAN HERRERA 2024 60 [facility] TRAMADOL HCL 50MG TAB TAKE ONE TABLET BY MOUTH ONCE DAILY NEEDED FOR PAIN ORAL DISCONT INUED 09/02/2024 [id number] 5 BRIAN HERRERA 2024 20 [facility] TRAMADOL HCL 50MG TAB TAKE ONE TABLET BY MOUTH ONCE DAILY NEEDED FOR PAIN ORAL DISCONT INUED 07/15/2024 [id number] 5 BRIAN HERRERA 2024 20 [place] TRAMADOL HCL 50MG TAB TAKE ONE TABLET BY MOUTH TWICE DAILY NEEDED FOR MODERATE TO SEVERE PAIN ORAL 10/09/2024 [id number] 5 BRI[facility]ERRERA 2024 [facility] TRAMADOL HCL 50MG TAB TAKE ONE TABLET BY MOUTH TWICE DAILY NEEDED FOR PAIN ORAL 05/23/2024 [id number] BRIAN [facility]ERRERA 2023 [facility] Allergies, Adverse Reactions, Alerts Combined list of allergies from Department of Defense and Veterans Affairs facilities. It does not include entries that were removed or entered in error. Substance Category Reaction Severity Reaction type Status Date Reported Comments Source CLINDAMYCIN Propensity to adverse reactions to drug (finding) Eruption active 4 [facility] [place] [facility] MORPHINE Propensity to adverse reactions to drug (finding) active [facility] Immunizations Combined list of available immunizations from the Department of Defense and Veterans Affairs facilities. Immunization Series Date Given Administered By Site Reaction Lot Number CVX Code Drug [place] Status Comments Source TDAP 2017 115 complet ed [facility] Results Combined list of recent chemistry, hematology and other laboratory results from Department of Defense and Veterans Affairs, ranging from 15 months to all on record, depending upon the facility. Order Name Results Value Reference Range Date Interpretation Specimen Comments Source IRON & TIBC PANEL IRON BINDING CAPACITY [MASS/VOLUM E] IN SERUM OR PLASMA 528 ug/dL 204 - 475 04/23 H Specimen Type: SERUM No comment entered. Ordering Provider: ELI DUDLEY Report Released Date/Time: Feb 20, 2024 06:51 AM Reporting Lab: [address] [address] Performing Lab: [address] [place] [address] [facility] [place] [facility] IRON & TIBC PANEL IRON [MASS/VOLUM E] IN SERUM OR PLASMA 25 ug/dL 40 - 160 04/23 L Specimen Type: SERUM No comment entered. Ordering Provider: ELI DUDLEY Report Released Date/Time: Feb 20, 2024 06:51 AM Reporting Lab: [facility] [place] [place] [address] [address] Performing Lab: [facility] [place] [address] [address] [facility] [place] [facility] IRON & TIBC PANEL IRON/IRON BINDING CAPACITY.TO OLEGARIO [MASS RATIO] IN SERUM OR PLASMA 4.7 20.0 - 50.0 04/23 L Specimen Type: SERUM No comment entered. Ordering Provider: ELI DUDLEY Report Released Date/Time: Feb 20, 2024 06:51 AM Reporting Lab: [facility] [address] [address] Performing Lab: [facility] [place] [address] [address] [facility] [place] [facility] IRON & TIBC PANEL TRANSFERRIN [MASS/VOLUM E] IN SERUM OR PLASMA 400 mg/dL 200 - 360 04/23 H Specimen Type: SERUM No comment entered. Ordering Provider: ELI DUDLEY Report Released Date/Time: Feb 20, 2024 06:51 AM Reporting Lab: [facility] [place] [address] [address] Performing Lab: [facility] [place] [address] [address] [facility] [place] [facility] CBC AND DIFF (AUTO) LEUKOCYTES [#/VOLUME] IN BLOOD BY AUTOMATED COUNT 8.03 10*3/u L 4.50 - 11.00 04/23 Specimen Type: BLOOD No comment entered. Ordering Provider: ELI DUDLEY Report Released Date/Time: Feb 20, 2024 06:51 AM Reporting Lab: [facility] [place] [place] [facility] [address] [facility] [address] Performing Lab: [facility] [place] [facility] [address] [facility] [address] [facility] [place] [facility] CBC AND DIFF (AUTO) ERYTHROCYTE S [#/VOLUME] IN BLOOD BY AUTOMATED COUNT 4.88 10*6/u L 4.23 - 5.66 04/23 Specimen Type: BLOOD No comment entered. Ordering Provider: ELI DUDLEY Report Released Date/Time: Feb 20, 2024 06:51 AM Reporting Lab: [facility] [place] [facility] [address] [facility] [address] Performing Lab: [facility] [place] [facility] [address] [facility] [address] [facility] [place] [facility] CBC AND DIFF (AUTO) HEMOGLOBIN [MASS/VOLUM E] IN BLOOD 10.6 g/dL 12.8 - 17 04/23 L Specimen Type: BLOOD No comment entered. Ordering Provider: ELI DUDLEY Report Released Date/Time: Feb 20, 2024 06:51 AM Reporting Lab: [facility] [place] [place] [facility] [address] [facility] [address] Performing Lab: [facility] [place] [facility] [address] [facility] [address] [facility] CBC AND DIFF (AUTO) HEMATOCRIT [VOLUME FRACTION] OF BLOOD BY AUTOMATED COUNT 35.1 39.2 - 50.4 04/23 L Specimen Type: BLOOD No comment entered. Ordering Provider: ELI DUDLEY Report Released Date/Time: Feb 20, 2024 06:51 AM Reporting Lab: [facility] [place] [facility] [address] [facility] [address] Performing Lab: [facility] [place] [facility] [address] [facility] [address] [facility] [place] [facility] CBC AND DIFF (AUTO) MCV [ENTITIC VOLUME] BY AUTOMATED COUNT 71.9 fL 82 - 99 04/23 L Specimen Type: BLOOD No comment entered. Ordering Provider: ELI DUDLEY Report Released Date/Time: Feb 20, 2024 06:51 AM Reporting Lab: [facility] [place] [facility] [address] [facility] [address] Performing Lab: [facility] [place] [facility] [address] [facility] [address] [facility] [place] [facility] CBC AND DIFF (AUTO) MCHC [MASS/VOLUM E] BY AUTOMATED COUNT 30.2 g/dL 30.8 - 35.1 04/23 L Specimen Type: BLOOD No comment entered. Ordering Provider: ELI DUDLEY Report Released Date/Time: Feb 20, 2024 06:51 AM Reporting Lab: [facility] [place] [facility] [address] [facility] [address] Performing Lab: [facility] [place] [facility] [address] [facility] [address] [facility] CBC AND DIFF (AUTO) PLATELETS [#/VOLUME] IN BLOOD BY AUTOMATED COUNT 340 10*3/u L 140 - 360 04/23 Specimen Type: BLOOD No comment entered. Ordering Provider: ELI DUDLEY Report Released Date/Time: Feb 20, 2024 06:51 AM Reporting Lab: [facility] [place] [facility] [address] [facility] [address] Performing Lab[facility] [place] [facility] [address] [facility] [address] [facility] CBC AND DIFF (AUTO) ERYTHROCYTE DISTRIBUTIO N WIDTH [RATIO] BY AUTOMATED COUNT 16.2 12.0 - 16.0 04/23 H Specimen Type: BLOOD No comment entered. Ordering Provider: ELI DUDLEY Report Released Date/Time: Feb 20, 2024 06:51 AM Reporting Lab: [facility] [place] [facility] [address] [facility] [address] Performing Lab: [facility] [place] [facility] [address] [facility] [address] [facility] CBC AND DIFF (AUTO) MONOCYTES [#/VOLUME] IN BLOOD BY AUTOMATED COUNT 0.73 10*3/u L 0.30 - 1.10 04/23 Specimen Type: BLOOD No comment entered. Ordering Provider: ELI DUDLEY Report Released Date/Time: Feb 20, 2024 06:51 AM Reporting Lab: [facility] [address] [facility] [address] Performing Lab: [facility] [address] [facility] [address] [facility] [facility] CBC AND DIFF (AUTO) MCH [ENTITIC MASS] BY AUTOMATED COUNT 21.7 pg 26.2 - 32.6 04/23 L Specimen Type: BLOOD No comment entered. Ordering Provider: ELI DUDLEY Report Released Date/Time: Feb 20, 2024 06:51 AM Reporting Lab: [facility] [place] [facility] [address] [facility] [address] Performing Lab: [facility] [place] [address] [address] [facility] [place] [facility] CBC AND DIFF (AUTO) NEUTROPHILS /100 LEUKOCYTES IN BLOOD BY AUTOMATED COUNT 74.6 43.7 - 75.8 04/23 Specimen Type: BLOOD No comment entered. Ordering Provider: ELI DUDLEY Report Released Date/Time: Feb 20, 2024 06:51 AM Reporting Lab: [facility] [place] [address] [address] Performing Lab: [facility] [place] [address] [address] [facility] [place] [facility] CBC AND DIFF (AUTO) LYMPHOCYTES /100 LEUKOCYTES IN BLOOD BY AUTOMATED COUNT 12.5 14.0 - 42.3 04/23 L Specimen Type: BLOOD No comment entered. Ordering Provider: ELI DUDLEY Report Released Date/Time: Feb 20, 2024 06:51 AM Reporting Lab: [facility] [place] [facility] [address] [facility] [address] Performing Lab: [facility] [address] [place] [address] [facility] [place] CBC AND DIFF (AUTO) MONOCYTES/1 00 LEUKOCYTES IN BLOOD BY AUTOMATED COUNT 9.1 5.1 - 13.7 04/23 Specimen Type: BLOOD No comment entered. Ordering Provider: ELI DUDLEY Report Released Date/Time: Feb 20, 2024 06:51 AM Reporting Lab: [facility] [place] [address] [address] Performing Lab: [facility] [place] [facility] [address] [facility] [address] [facility] [place] [facility] CBC AND DIFF (AUTO) EOSINOPHILS /100 LEUKOCYTES IN BLOOD BY AUTOMATED COUNT 3.0 0.4 - 6.8 04/23 Specimen Type: BLOOD No comment entered. Ordering Provider: ELI DUDLEY Report Released Date/Time: Feb 20, 2024 06:51 AM Reporting Lab: [facility] [place] [address] [address] Performing Lab: [facility] [place] [address] [address] [facility] [place] [facility] CBC AND DIFF (AUTO) BASOPHILS/1 00 LEUKOCYTES IN BLOOD BY AUTOMATED COUNT 0.6 0.1 - 2.0 04/23 Specimen Type: BLOOD No comment entered. Ordering Provider: ELI DUDLEY Report Released Date/Time: Feb 20, 2024 06:51 AM Reporting Lab: [facility] [place] [address] [address] Performing Lab[facility] [place] [address] [address] [facility] [place] [facility] CBC AND DIFF (AUTO) NEUTROPHILS [#/VOLUME] IN BLOOD BY AUTOMATED COUNT 5.99 10*3/u L 2.20 - 7.60 04/23 Specimen Type: BLOOD No comment entered. Ordering Provider: ELI DUDLEY Report Released Date/Time: Feb 20, 2024 06:51 AM Reporting Lab: [facility] [place] [address] [address] Performing Lab: [facility] [place] [facility] [address] [facility] [address] [facility] [place] CBC AND DIFF (AUTO) LYMPHOCYTES [#/VOLUME] IN BLOOD BY AUTOMATED COUNT 1.00 10*3/u L 1.00 - 3.20 04/23 Specimen Type: BLOOD No comment entered. Ordering Provider: ELI DUDLEY Report Released Date/Time: Feb 20, 2024 06:51 AM Reporting Lab: [facility] [place] [facility] [address] [facility] [address] Performing Lab: [facility] [place] [facility] [address] [facility] [address] [facility] [place] [facility] CBC AND DIFF (AUTO) EOSINOPHILS [#/VOLUME] IN BLOOD BY AUTOMATED COUNT 0.24 10*3/u L 0.03 - 0.44 04/23 Specimen Type: BLOOD No comment entered. Ordering Provider: ELI DUDLEY Report Released Date/Time: Feb 20, 2024 06:51 AM Reporting Lab: [facility] [place] [facility] [address] [facility] [address] Performing Lab: [facility] [place] [address] [address] [facility] [place] [facility] CBC AND DIFF (AUTO) BASOPHILS [#/VOLUME] IN BLOOD BY AUTOMATED COUNT 0.05 10*3/u L 0.01 - 0.13 04/23 Specimen Type: BLOOD No comment entered. Ordering Provider: ELI DUDLEY Report Released Date/Time: Feb 20, 2024 06:51 AM Reporting Lab: [facility] [place] [address] [address] Performing Lab: [facility] [place] [address] [address] [facility] CBC AND DIFF (AUTO) IMMATURE GRANULOCYTE S/100 LEUKOCYTES IN BLOOD BY AUTOMATED COUNT 0.2 0.0 - 0.7 04/23 Specimen Type: BLOOD No comment entered. Ordering Provider: ELI DUDLEY Report Released Date/Time: Feb 20, 2024 06:51 AM Reporting Lab: [facility] [place] [address] [address] Performing Lab: [facility] [place] [address] [address] [facility] [place] [facility] CBC AND DIFF (AUTO) IMMATURE GRANULOCYTE S [#/VOLUME] IN BLOOD 0.02 10*3/u L 0.00 - 0.06 04/23 Specimen Type: BLOOD No comment entered. Ordering Provider: ELI DUDLEY Report Released Date/Time: Feb 20, 2024 06:51 AM Reporting Lab: [facility]ITALRL TRN [facility]OSPITALUSE[address] [address] Performing Lab: [facility]ITALRL TRN [facility] HOSPITALUSETS [address] [address] [facility]OSPITALRATMORE COMMUNITY HOSPITALN [facility] HOSPITALUSE [facility] CBC AND DIFF (AUTO) NRBC % 0.0 0.0 - 0.0 04/23 Specimen Type: BLOOD No comment entered. Ordering Provider: ELI DUDLEY Report Released Date/Time: Feb 20, 2024 06:51 AM Reporting Lab: [facility]OSPITALRHUNTSVILLE HOSPITAL SYSTEMTRN [facility] HOSPITALUSE[address] [address] Performing Lab: [facility]PITALRL TRN [facility] HOSPITALUSETS [address] [address] FOR[facility]OSPITALRATMORE COMMUNITY HOSPITALN [facility] HOSPITALUSE [facility] CBC AND DIFF (AUTO) NRBC, ABS 0.00 10*3/u L 0.00 - 0.00 04/23 Specimen Type: BLOOD No comment entered. Ordering Provider: ELI DUDLEY Report Released Date/Time: Feb 20, 2024 06:51 AM Reporting Lab: [facility]ITALRL [place]N [place] [address] [address] Performing Lab: [facility]PITALRL W[facility]N [facility] [address] [address] FOR[facility]LY [facility]OSPITALRATMORE COMMUNITY HOSPITALN [facility]HLANDSCHUSE [facility] FERRITIN FERRITIN [MASS/VOLUM E] IN SERUM OR PLASMA 7 ng/mL 20 - 300 04/23 L Specimen Type: SERUM No comment entered. Ordering Provider: ELI DUDLEY Report Released Date/Time: Feb 20, 2024 06:51 AM Reporting Lab: [facility] [place] [facility] [address] [facility] [address] Performing Lab: [facility] [place] [facility] [address] [facility] [address] [facility] [place] [facility] RETICULOC YTES RETICULOCYT ES [#/VOLUME] IN BLOOD 0.8 0.6 - 2.0 04/23 Specimen Type: BLOOD No comment entered. Ordering Provider: ELI DUDLEY Report Released Date/Time: Feb 20, 2024 06:51 AM Reporting Lab: [facility] [place] [address] [address] Performing Lab: [facility] [place] [address] [address] [facility] [place] RETICULOC YTES RETICULOCYT ES/100 ERYTHROCYTE S IN BLOOD BY AUTOMATED COUNT 37.6 10*3/u L 30.0 - 90.0 04/23 Specimen Type: BLOOD No comment entered. Ordering Provider: ELI DUDLEY Report Released Date/Time: Feb 20, 2024 06:51 AM Reporting Lab: [facility] [place] [address] [address] Performing Lab: [facility] [place] [address] [address] [facility] [place] [facility] RETICULOC YTES HEMOGLOBIN [ENTITIC MASS] IN RETICULOCYT ES BY AUTOMATED COUNT 24.1 27.9 - 42.0 04/23 L Specimen Type: BLOOD No comment entered. Ordering Provider: ELI DUDLEY Report Released Date/Time: Feb 20, 2024 06:51 AM Reporting Lab: [facility] [place] [address] [address] Performing Lab: [facility] [place] [address] [address] [facility] [place] [facility] LIVER FUNCTION PROTEIN [MASS/VOLUM E] IN SERUM OR PLASMA 7.1 g/dL 6.0 - 8.3 12/23 Specimen Type: SERUM No comment entered. Ordering Provider: ELI DUDLEY Report Released Date/Time: Dec 23, 2023 04:10 PM Reporting Lab: [facility] [place] [facility] [address] [facility] [address] Performing Lab: [facility] [place] [facility] [address] [facility] [address] [facility] [place] [facility] LIVER FUNCTION ALBUMIN [MASS/VOLUM E] IN SERUM OR PLASMA 4.3 g/dL 3.5 - 5.0 12/23 Specimen Type: SERUM No comment entered. Ordering Provider: ELI DUDLEY Report Released Date/Time: Dec 23, 2023 04:10 PM Reporting Lab: [facility] [place] [facility] [address] [facility] [address] Performing Lab: [facility] [place] [facility] [address] [facility] [address] [facility] [place] [facility] LIVER FUNCTION ALKALINE PHOSPHATASE [ENZYMATIC ACTIVITY/VO LUME] IN SERUM OR PLASMA 69 U/L 40 - 150 12/23 Specimen Type: SERUM No comment entered. Ordering Provider: ELI DUDLEY Report Released Date/Time: Dec 23, 2023 04:10 PM Reporting Lab: [facility] [place] [facility] [address] [facility] [address] Performing Lab: [facility] [place] [facility] [address] [facility] [address] [facility] [place] [facility] LIVER FUNCTION ASPARTATE AMINOTRANSF ERASE [ENZYMATIC ACTIVITY/VO LUME] IN SERUM OR PLASMA 21 U/L 5 - 34 12/23 Specimen Type: SERUM No comment entered. Ordering Provider: ELI DUDLEY Report Released Date/Time: Dec 23, 2023 04:10 PM Reporting Lab: [facility] [place] [facility] [address] [facility] [address] Performing Lab: [facility] [place] [facility] [address] [facility] [address] [facility] [place] [facility] LIVER FUNCTION ALANINE AMINOTRANSF ERASE [ENZYMATIC ACTIVITY/VO LUME] IN SERUM OR PLASMA 22 U/L 12/23 Specimen Type: SERUM No comment entered. Ordering Provider: ELI DUDLEY Report Released Date/Time: Dec 23, 2023 04:10 PM Reporting Lab: [facility] [place] [facility] [address] [facility] [address] Performing Lab: [facility] [place] [facility] [address] [facility] [address] [facility]ITALRL WSTRN [facility] HOSPITALUSE [facility] LIVER FUNCTION BILIRUBIN.T OTAL [MASS/VOLUM E] IN SERUM OR PLASMA 0.4 mg/dL 0.2 - 1.2 12/23 Specimen Type: SERUM No comment entered. Ordering Provider: ELI DUDLEY Report Released Date/Time: Dec 23, 2023 04:10 PM Reporting Lab: [facility] HOSPITALUSE[address] [address] Performing Lab: [facility] [place] [address] [address] FOR[facility]LY [facility]OSPITALRL WSTRN [facility] HOSPITALUSE [facility] LIPID PANEL FASTING CHOLESTEROL [MASS/VOLUM E] IN SERUM OR PLASMA 133 mg/dL 12/23 Specimen Type: SERUM No comment entered. Ordering Provider: ELI DUDLEY Report Released Date/Time: Dec 23, 2023 04:10 PM Reporting Lab: [facility] [place] [address] [address] Performing Lab: [facility] [place] [address] [address] [facility] [facility] HOSPITALUSE [facility] LIPID PANEL FASTING TRIGLYCERID E [MASS/VOLUM E] IN SERUM OR PLASMA 74 mg/dL 0 - 150 12/23 Specimen Type: SERUM No comment entered. Ordering Provider: ELI DUDLEY Report Released Date/Time: Dec 23, 2023 04:10 PM Reporting Lab: [facility] [place] [address] [address] Performing Lab: [facility] [place] [address] [address] [facility] LIPID PANEL FASTING CHOLESTEROL IN LDL [MASS/VOLUM E] IN SERUM OR PLASMA BY CALCULATION 83 mg/dL 0 - 129 12/23 Specimen Type: SERUM No comment entered. Ordering Provider: ELI DUDLEY Report Released Date/Time: Dec 23, 2023 04:10 PM Reporting Lab: [facility]OSPITALR WSTRN [facility] HOSPITALUSEOR[facility] [address] [facility] [address] Performing Lab: [facility] [place] [facility] [address] [facility] [address] [facility]PITALRHUNTSVILLE HOSPITAL SYSTEMTRN [facility] HIGHLANDSCHUSE [facility] LIPID PANEL FASTING CHOLESTEROL .TOTAL/CHOL ESTEROL IN HDL [MASS RATIO] IN SERUM OR PLASMA 3.8 12/23 Specimen Type: SERUM No comment entered. Ordering Provider: ELI DUDLEY Report Released Date/Time: Dec 23, 2023 04:10 PM Reporting Lab: [facility]MERLY [facility] HOSPITALRHUNTSVILLE HOSPITAL SYSTEMTRN [facility] HOSPITALUSE[address] [address] Performing Lab: [facility]MERLY [facility]OSPITALRL TRN [facility] HOSPITALUSETS [address] [address] FOR[facility]LY [facility]OSPITALRHUNTSVILLE HOSPITAL SYSTEMTRN [facility]OSPITALUSE [facility] LIPID PANEL FASTING CHOLESTEROL IN HDL [MASS/VOLUM E] IN SERUM OR PLASMA 35 mg/dL 40 - 60 12/23 L Specimen Type: SERUM No comment entered. Ordering Provider: ELI DUDLEY Report Released Date/Time: Dec 23, 2023 04:10 PM Reporting Lab: [facility]OSPITALRHUNTSVILLE HOSPITAL SYSTEMTRN [place] [address] [address] Performing Lab: [facility]OSPITALRL [facility]N [place] [address] [address] FOR[facility]PITALRHUNTSVILLE HOSPITAL SYSTEMTRN [place] [facility] BASIC METABOLIC PANEL (fasting) UREA NITROGEN [MASS/VOLUM E] IN SERUM OR PLASMA 14 mg/dL 7 - 25 12/23 Specimen Type: SERUM No comment entered. Ordering Provider: ELI DUDLEY Report Released Date/Time: Dec 23, 2023 04:11 PM Reporting Lab: [facility]PITALR WSTRN [facility]OSPITALUSE[address] [address] Performing Lab: [facility]OSPITALRL [place]N [place] [address] [place] [address] [facility]OSPITALRL WSTRN [place] [facility] BASIC METABOLIC PANEL (fasting) GLUCOSE [MASS/VOLUM E] IN SERUM OR PLASMA 102 mg/dL 65 - 100 12/23 H Specimen Type: SERUM No comment entered. Ordering Provider: ELI DUDLEY Report Released Date/Time: Dec 23, 2023 04:11 PM Reporting Lab: [facility]OSPITALRL WSTRN [place] [address] Performing Lab: [facility] [address] [facility] [address] [facility]OSPITALR WSN [facility] HOSPITALUSE [facility] BASIC METABOLIC PANEL (fasting) SODIUM [MOLES/VOLU ME] IN SERUM OR PLASMA 140 mmol/L 135 - 145 12/23 Specimen Type: SERUM No comment entered. Ordering Provider: ELI DUDLEY Report Released Date/Time: Dec 23, 2023 04:11 PM Reporting Lab: [facility]OSPITALRL TRN [address] [address] Performing Lab: [facility]PITALRL WSTRN [address]SE[address] [address] [facility]OSPITALRATMORE COMMUNITY HOSPITALN [facility] HOSPITALUSE [facility] BASIC METABOLIC PANEL (fasting) POTASSIUM [MOLES/VOLU ME] IN SERUM OR PLASMA 4.8 mmol/L 3.5 - 5.0 12/23 Specimen Type: SERUM No comment entered. Ordering Provider: ELI DUDLEY Report Released Date/Time: Dec 23, 2023 04:11 PM Reporting Lab: [facility]PITALRL [facility]STRN [place] [address] [address] Performing Lab: [facility] [address] [address] [facility]OSPITALRL WSTRN [place] [facility] BASIC METABOLIC PANEL (fasting) CHLORIDE [MOLES/VOLU ME] IN SERUM OR PLASMA 107 mmol/L 100 - 110 12/23 Specimen Type: SERUM No comment entered. Ordering Provider: ELI DUDLEY Report Released Date/Time: Dec 23, 2023 04:11 PM Reporting Lab: [facility] [address] [address] Performing Lab: [facility] [facility] [address] [facility] [address] [facility] [place] [facility] BASIC METABOLIC PANEL (fasting) CARBON DIOXIDE, TOTAL [MOLES/VOLU ME] IN SERUM OR PLASMA 22 meq/L 20 - 30 12/23 Specimen Type: SERUM No comment entered. Ordering Provider: ELI DUDLEY Report Released Date/Time: Dec 23, 2023 04:11 PM Reporting Lab: [facility] [place] [facility] [address] [facility] [address] Performing Lab: [place] [facility] [facility] HOSPITALUSE[address] [address] [facility]OSPITALRL WSTRN [facility] HOSPITALUSE [facility] BASIC METABOLIC PANEL (fasting) CREATININE [MASS/VOLUM E] IN SERUM OR PLASMA 0.85 mg/dL 0.50 - 1.40 12/23 Specimen Type: SERUM No comment entered. Ordering Provider: ELI DUDLEY Report Released Date/Time: Dec 23, 2023 04:11 PM Reporting Lab: [facility]PITALRL WSTRN [place] [address] [address] Performing Lab: [place] [facility] HOSPITALUSE[address] [address] [facility]PITALRL WSTRN [facility] HOSPITALUSE [facility] BASIC METABOLIC PANEL (fasting) GLOMERULAR FILTRATION RATE/1.73 SQ M.PREDICTED [VOLUME RATE/AREA] IN SERUM, PLASMA OR BLOOD BY CREATININE- BASED FORMULA (CKD-EPI 2020) >90mL/ min 60 12/23 Specimen Type: SERUM No comment entered. Ordering Provider: ELI DUDLEY Report Released Date/Time: Dec 23, 2023 04:11 PM Reporting Lab: [facility] [place] [address] [address] Performing Lab: [facility] [place] [address] [address] [facility]PITALRL TRN [facility]OSPITALUSE [facility] MICROALBU MIN CREATININ E RATIO PANEL MICROALBUMI N/CREATININ E [MASS RATIO] IN URINE 8.2 mg/g 0 - 29.9 12/23 Specimen Type: URINE No comment entered. Ordering Provider: ELI DUDLEY Report Released Date/Time: Dec 23, 2023 04:11 PM Reporting Lab: [facility]PITALRL [facility] [place] [address] [address] Performing Lab: [facility]PITALR WSTRN [facility] HOSPITALUSETS [address] [address] [facility]OSPITALRL WSTRN [place] [facility] MICROALBU MIN CREATININ E RATIO PANEL MICROALBUMI N [MASS/VOLUM E] IN URINE 1.2 mg/dL 12/23 Specimen Type: URINE No comment entered. Ordering Provider: ELI DUDLEY Report Released Date/Time: Dec 23, 2023 04:11 PM Reporting Lab: [facility]PITALRL [facility] [place] [address] [address] Performing Lab: [facility]OSPITALRL WSTRN [place] [address] [address] [facility]OSPITALRHUNTSVILLE HOSPITAL SYSTEMTRN [place] [facility] MICROALBU MIN CREATININ E RATIO PANEL CREATININE [MASS/VOLUM E] IN URINE 146.77 mg/dL 12/23 Specimen Type: URINE No comment entered. Ordering Provider: ELI DUDLEY Report Released Date/Time: Dec 23, 2023 04:11 PM Reporting Lab: [facility]PITALRL [facility]N [place] [address] [address] Performing Lab: [facility] [facility] HOSPITALUSETS [address] [address] FOR[facility]LY [facility]OSPITALRL TRN [facility] HIGHLANDSCHUSE [facility] HEMOGLOBI N A1C PANEL HEMOGLOBIN A1C/HEMOGLO BIN.TOTAL IN BLOOD BY HPLC 5.7 4.0 - 5.6 12/23 H Specimen Type: BLOOD Comment: Values obtained from A1C measurement s can vary. For atypical A1C assays, a reported value of 7.0 could actually be between 6.72 and 7.28 if measured by a reference method. A reported value of 9.0 could actually be between 8.73 and 9.27. Ref: http://www. ngsp.org/[place] Pdata.asp Ordering Provider: ELI DUDLEY Report Released Date/Time: Dec 23, 2023 04:11 PM Reporting Lab: [facility] [place] [facility] [address] [facility] [phone] Performing Lab[facility] [place] [facility] [address] [facility] [address] [facility] [place] [facility] TSH THYROTROPIN [UNITS/VOLU ME] IN SERUM OR PLASMA 1.64 u[IU]/ mL 0.35 - 5.00 12/23 Specimen Type: SERUM No comment entered. Ordering Provider: ELI DUDLEY Report Released Date/Time: Dec 23, 2023 04:11 PM Reporting Lab: [facility] [place] [facility] [address] [facility] [phone] Performing Lab[facility] [place] [facility] [address] [facility] [address] [facility] [facility] [place] [facility] Vital Signs Combined list of inpatient and outpatient Vital Signs from Department of Defense and Veterans Affairs, ranging from 12 months to all on record, depending upon the facility. Vital Sign Value Date Comments Source SYSTOLIC BLOOD PRESSURE 131 09/30/19 14:51:16 [facility] DIASTOLIC BLOOD PRESSURE 84 025 14:51:16 [facility] PULSE OXIMETRY 95 09/29/2024 14:51:16 [facility] WEIGHT 225 09/29/2024 14:51:16 [facility] BMI 31 kg/m2 09/29/2024 14:51:16 [facility] HEIGHT 71 09/29/2024 14:51:16 [facility] TEMPERATURE 98 09/29/2024 14:51:16 [facility] PULSE 78 09/29/2024 14:51:16 [facility] RESPIRATION 19 09/29/2024 14:51:16 [facility] PAIN 6 08/17/2024 07:17:24 [facility] [place] [facility] WEIGHT 230 08/11/2024 15:51:26 [facility] BMI 32 kg/m2 08/11/2024 15:51:26 [facility] WEIGHT 229 08/04/2024 13:00:00 [facility] BMI 32 kg/m2 08/04/2024 13:00:00 [facility] WEIGHT 233 07/28/2024 13:00:00 [facility] BMI 33 kg/m2 07/28/2024 13:00:00 [facility] Encounters Combined list of: 1) Encounters from Department of Veterans Affairs facilities going backup to the last 18 months, not all [place] inpatient encounters are included; 2) Encounters from the Department of Defense facilities going backup to 280 months. Location Location Details Encounter Type Encounter Number Reason For Visit Attending Provider ADM Date DC Date Status Disposition Source [employer] OUTPATIENT [id number] [facility] JAN JOCELYN 08/01 Released w/o Limitations [employer] [employer] OUTPATIENT [id number] [facility] J[facility] Christopher 10/11 Released w/o Limitations [employer](V A Periphe ral Vas Surg) [facility] Outpatient Encounter [id number] 05/06 [facility] Outpatient Encounter [id number] [id number] 05/07 [facility] Outpatient Encounter [id number] [id number] 05/10 [facility] Outpatient Encounter [id number] [id number] 05/13 [facility] Outpatient Encounter [id number] [id number] 05/17 [facility] Outpatient Encounter [id number] 05/19 [facility] Outpatient Encounter [id number] 05/20 [facility] OFFICE O/P EST HI 40-54 MIN [id number] [id number] Diagnos is: ICD-10- CM I10 Essenti al (primar y) hyperte nsion DECLFIDELIA,YARELIS N A 05/20 [facility] Outpatient Encounter [id number] 07/05 [facility] Outpatient Encounter [id number] [id number] 07/09 [facility] Outpatient Encounter [id number] [id number] 20 07/12 [facility] Outpatient Encounter [id number] 07/16 [facility] Outpatient Encounter [id number] [id number] 72 07/16 [facility] Outpatient Encounter [id number] [id number] Diagnos is: ICD-10- CM 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.89 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 GUILLERMO Saldaañ 07/16 [facility] Outpatient Encounter [id number] [id number] 18 08/14 [facility] OFF/OP CONSLTJ NEW/EST SF 20 [id number] [id number] 62 Diagnos is: ICD-10- CM M17.0 Bilater al primary osteoar thritis of knee MARIZA FRANCIS W 08/26 [facility] Outpatient Encounter [id number] [id number] 11/07 [facility] Outpatient Encounter [id number] 11/07 [facility]ESS[facility] [id number] [id number] Diagnos is: ICD-10- CM Z65.9 Problem related to unspeci fied psychos ocial circums tanSofie Perez 11/11 [facility] [place] [facility] Outpatient Encounter [id number] [id number] 11/21 [facility] [place] [facility] Outpatient Encounter [id number] [id number] 11/24 [facility] Encounter [id number] [id number] 11/25 [facility] Outpatient Encounter [id number] [id number] 11/25 [facility] Outpatient Encounter [id number] [id number] 55 Diagnos is: ICD-10- CM E11.9 Type 2 diabete s mellitu s without complic ations NISA MEDEIROS H 11/27 [facility] Out[facility] Encounter [id number] JACEK GIORDANO 11/27 [facility] Encounter [id number] [id number] 12/01 [facility] Encounter [id number] [id number] 12/01 [facility] Out[facility] Encounter [id number] [id number] 12/02 [facility] Encounter [id number] [id number] 12/02 [facility] [place] OFF/OP EST OCTOBER X REQ PHY/QHP [id number] [id number] 86 Diagnos is: ICD-10- CM S91.302 A Unspeci fied open wound, left foot, initial encount er KILEY CASAS IC K 12/10 [place] [facility] Out[facility] Encounter [id number] 12/10 [facility] [place] [facility] [place] OFFICE O/P NEW MOD 45 MIN [id number] [id number] Diagnos is: ICD-10- CM S91.302 S Unspeci fied open wound, left foot, sequela KAVEH,MARYLU MCCARTHY C 12/10 [place] [facility] [place] [facility] Outpatient Encounter [id number] 12/11 [facility] [place] [facility] Outpatient Encounter [id number] [id number] 12/12 [facility] [place] [facility] Outpatient Encounter [id number] 12/15 [facility] [place] [facility] OFFICE O/P NEW LOW 30 MIN [id number] [id number] Diagnos is: ICD-10- CM L60.0 Ingrowi GINI Sosa F 12/15 [facility] [place] [facility] [place] [facility] Outpatient Encounter [id number] [id number] 12[facility]19 [facility] [place] [place] [facility] [place] [facility] Outpatient Encounter [id number] 12[facility]19 [facility] [place] [facility] [facility] Outpatient Encounter [id number] 12/19 [facility] [place] [place] [facility] LD OFFICE O/P NEW MOD 45 MIN [id number] [id number] Diagnos is: ICD-10- CM E11.9 Type 2 diabete s mellitu s without complic ations RUBI DUDLEY 12/22 [facility] [place] [facility] [place] [facility] Outpatient Encounter [id number] [id number] 12/24 [facility] Outpatient Encounter [id number] [id number] 12/25 [facility] Outpatient Encounter [id number] 12/26 [facility] Outpatient Encounter [id number] [id number] 12/29 [facility] Out[facility] Encounter [id number] [id number] 12/30 [facility] Out[facility] Encounter [id number] [id number] 01/01 [facility] Out[facility] Encounter [id number] [id number] 01/02 [facility] Out[facility] Encounter [id number] [id number] 01/07 [facility] Out[facility] Encounter [id number] [id number] 01/09 [facility] Out[facility] Encounter [id number] [id number] 01/09 [facility] Out[facility] Encounter [id number] [id number] 01/13 [facility] Out[facility] Encounter [id number] 01/21 [facility] Out[facility] Encounter [id number] [id number] 01/22 [facility] Out[facility] Encounter [id number] [id number] 01/22 [facility] Out[facility] Encounter [id number] [id number]/23 [facility] Out[facility] Encounter [id number] [id number]/26 [facility] Out[facility] Encounter [id number] [id number] 01/27 [facility] Out[facility] Encounter [id number] [id number] 01/28 [facility] Out[facility] Encounter [id number] 1.01/29 [facility] Out[facility] Encounter [id number] 1.02/02 [facility] Encounter [id number] 1.02/04 [facility] Out[facility] Encounter [id number] [id number] [facility] Out[facility] Encounter [id number] 1.02/09 [facility]counter [id number] 1.02/09 [facility] [place] [id number] Diagnos is: ICD-10- CM E66.09 Other obesity due to excess calorie s JOSELINE DENNY Brenda 02/17 [place] [facility] Out[facility] Encounter [id number] 1.02/23 [facility] Encounter [id number]/03 [facility] Out[facility] Encounter [id number] 1.03/06 [facility] Out[facility] Encounter [id number] 1.03/11 [facility] [place] [facility] OFFICE O/P EST LOW 20 MIN [id number] Diagnos is: ICD-10- CM Z96.643 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 32 Diagnos is: ICD-10- CM Z96.643 Presenc e of artific ial hip joint, bilater LISSET Collins 03/27 [place] [facility] [place] [facility] Outpatient Encounter [id number] 04/10 [facility] [place] [place] [facility] Outpatient Encounter [id number] [id number] VINCharline White 04/13 [facility] [place] Outpatient Encounter [id number] 04/14 [place] [facility] [place] [facility] Outpatient Encounter [id number] 1.04/14 [facility] [place] [place] [facility] [place] THERAPEUTI C EXERCISES [id number] [id number] Diagnos is: ICD-10- CM Z96.643 Presenc e of artific ial hip joint, LISSET Baptsite 04/17 [facility] IEGIOVANNI MCCAULEY D ([facility]) HLTH BHV IVNTJ GRP EA ADDL [id number] [id number] Diagnos is: ICD-10- CM E66.812 Obesity , class 2 RATHKE,BELL RA 04/21 [facility] ([facility]) [place] THERAPEUTI C EXERCISES 01586-0.63 1BY. 83 Diagnos is: ICD-10- CM Z96.643 Presenc e of artific ial hip joint, LISSET Baptiste 04/21 [place] [facility] [place] [facility] Outpatient Encounter [id number] 04[facility]21 [facility] [place] [facility] [place] [facility] OFF/OP CNSLTJ NEW/EST MOD 40 [id number] 1. Diagnos is: ICD-10- CM H68.102 Unspeci fied obstruc tion of Eustach ryan tube, left ear LELIA GAO 04/23 [facility] [place] [place] [facility] [place] [facility] OFFICE O/P NEW HI 60 MIN [id number] 1. Diagnos is: ICD-10- CM M19.90 Unspeci fied osteoar thritis , unspeci fied site Sofie HERRERA 04/23 [facility] [place] [place] [facility] [place] [facility] MNGMENT TRAINING [id number] [id number] Diagnos is: ICD-10- CM Z96.643 Presenc e of artific ial hip joint, bilater LISSET Collins 04/24 [place] [facility] [place] [facility] Outpatient Encounter [id number] 04/24 [facility] [place] [place] [facility] [place] [facility] Outpatient Encounter [id number] [id number]/28 [facility] [place] [facility] PARISA Carrizales ([facility]) [facility] [id number] [id number] Diagnos is: ICD-10- CM E66.812 Obesity , class 2 LARIVIERE, SIMÓN A 04/28 [place] ([facility]) [facility] Outpatient Encounter [id number] 04/28 [place] [facility] [facility] MTMS BY PHARM ADDL 15 MIN [id number] [id number] Diagnos is: ICD-10- CM E66.9 Obesity , unspeci fied ST URBANO,JOCELYNN 04/29 [facility] [place] [facility] [place] Outpatient Encounter [id number] [id number] 05/04 [facility] [place] PARISA Carrizales ([facility]) [facility] [id number] [id number] Diagnos is: ICD-10- CM E66.811 Obesity , class 1 LARIVIERE, SIMÓN A 05/05 [place] ([facility]) [facility] [place] [place] [facility] Outpatient Encounter [id number] 05/06 [facility] [place] [facility] Outpatient Encounter [id number] [id number] 05/06 [facility] Outpatient Encounter [id number] [id number] 05/06 [facility] PARISA Carrizales ([facility]) [facility] [id number] [id number] Diagnos is: ICD-10- CM E66.812 Obesity , class 2 LARIVJONNY SIMÓN A 05/12 [facility] ([facility]) [facility] [place] [facility] MTMS BY PHARM EST 15 MIN [id number] [id number] Diagnos is: ICD-10- CM E66.9 Obesity , unspeci fied JOCELYNN RICKS 05/13 [facility] Out[facility] Encounter [id number] 05/15 [facility] QNHP OL DIG ASSMT&MGMT 5-10 [id number] [id number] Diagnos is: ICD-10- CM E66.9 Obesity , unspeci fied IDANIA MAXWELL A 05/15 [facility] Out[facility] Encounter [id number] [id number] 05/18 [facility] Out[facility] Encounter [id number] [id number] 05/19 [facility] Outpatient Encounter [id number] [id number] 05/20 [facility] [place] [place] [facility] [place] THERAPEUTI C EXERCISES [id number] [id number] Diagnos is: ICD-10- CM Z96.643 Presenc e of artific ial hip joint, karl bert DILLONHERLISSET 05/21 [place] [facility] [place] [facility] Outpatient Encounter [id number] [id number] 05/21 [facility] [place] [facility] PARISA Carrizales ([facility]) [facility] [id number] [id number] Diagnos is: ICD-10- CM E66.811 Obesity , class 1 LARIVIERE, SIMÓN A 06/02 [place] [facility] ([facility]) [place] [facility] [place] [facility] Outpatient Encounter [id number] [id number] 06/04 [facility] [place] [place] [facility] [place] SELF CARE MNGMENT TRAINING [id number] [id number] Diagnos is: ICD-10- CM Z96.643 Presenc e of artific ial hip joint, karl noel MENJIVAR, L[place]SET [place] [facility] [place] [facility] Outpatient Encounter [id number] [id number] 06/05 [facility] [place] [place] [facility] Outpatient Encounter [id number] [id number] 06/12 [facility] Outpatient Encounter [id number] [id number] 06/12 [facility] [place] [facility] Outpatient Encounter [id number] [id number] 06/19 [facility] [place] [place] [facility] LD MTMS BY PHARM COMPUTATIONAL GENETICIST 15 MIN [id number] [id number].[id number] Diagnos is: ICD-10- CM E11.9 Type 2 diabete s mellitu s without complic ations YOGESH TIRADO 06/23 [place] [facility] Out[facility] Encounter [id number] [id number]/25 [facility] Out[facility] Encounter [id number] [id number]/25 [facility] Outpatient Encounter [id number] [id number]/25 [facility] Out[facility] Encounter [id number] 1.06/29 [facility] Outpatient Encounter [id number] [id number] 06/30 [facility] Out[facility] Encounter [id number] 1.06/30 [facility] [place] Outpatient Encounter 28583-6.63 1BY. 25 07/02 [facility] MTMS BY PHARM COMPUTATIONAL GENETICIST 15 MIN [id number] [id number].[id number] 66 Diagnos is: ICD-10- CM E66.9 Obesity , unspeci fied CANDIDA,YOGESH IE 07/03 [facility] (631GE) NQHP OL DIG ASSMT&MGMT 5-10 [id number] [id number] 28 Diagnos is: ICD-10- CM E66.9 Obesity , unspeci fied JAN,QUE N 07/07 [facility] (631GE) [facility] Out[facility] Encounter [id number] [id number] 07/08 [facility] [place] ([facility]) [facility] BHV IVNTJ GRP EA ADDL [id number] [id number] Diagnos is: ICD-10- CM E66.811 Obesity , class 1 GAMALIELHARABELLA VALERO RA 07/14 [place] ([facility] [place] [facility] IV[facility]P EA ADDL [id number] [id number] 20 Diagnos is: ICD-10- CM E66.811 Obesity , class 1 ARABELLA MILLER RA 07/21 [place] ([facility]) [facility] Out[facility] Encounter [id number] [id number] 07/21 [facility] Out[facility] Encounter [id number] [id number] 07/22 [facility] [place] MTMS BY PHARM COMPUTATIONAL GENETICIST 15 MIN 51530-4.63 1BY.[id number] 82 Diagnos is: ICD-10- CM E66.9 Obesity , unspeci fied CANDIDA,YOGESH IE 07/22 [place] [facility] Outpatient Encounter [id number] [id number] 07/22 [facility] OFFICE O/P EST HI 40 MIN [id number] [id number] Diagnos is: ICD-10- CM M17.0 Bilater al primary osteoar thritis of knee LEXI MONTOYA [facility] 07/22 [facility] Out[facility] Encounter [id number] [id number] 07/22 [facility] [place] [place] [facility] IV[facility]P EA ADDL [id number] [id number] Diagnos is: ICD-10- CM E66.811 Obesity , class 1 GIGI MILLERU RA 07/28 [place] [facility]) [facility] Outpatient Encounter [id number] [id number] 07/28 [facility] [place] [place] [facility] [place] [facility] 35972-5.63 [id number] Diagnos is: ICD-10- CM E66.811 Obesity , class 1 LARCARRIE EASTMANIA A 08/04 [place] ([facility]) [facility] Out[facility] Encounter [id number] [id number] 08/06 [facility] Out[facility] Encounter [id number] [id number] 08/07 [facility] Out[facility] Encounter [id number] [id number] 08/10 [facility] [place] [place] [facility] [place] [facility]P EA ADDL [id number] [id number] 75 Diagnos is: ICD-10- CM E66.811 Obesity , class 1 ARABELLA MILLER RA 08/11 [place] ([facility]) [facility] OFFICE O/P EST LOW 20 MIN [id number] [id number] Diagnos is: ICD-10- CM M17.0 Bilater al primary osteoar thritis of knee Sofie HERRERA 08/17 [facility] Encounter [id number] [id number] 08/17 [facility] Out[facility] Encounter [id number] 08/19 [facility] En[facility] [id number] 08/19 [facility] [place] MT[facility] BY PHARM COMPUTATIONAL GENETICIST 15 MIN [id number] Diagnos is: ICD-10- CM E66.9 Obesity , unspeci fied CANDIDA,YOGESH IE 08/31 [place] [facility] Encounter [id number] 09/08 [facility] En[facility] [id number]/[id number] [facility] Encounter [id number] 09/11 [facility] [place] MT[facility] BY PHARM COMPUTATIONAL GENETICIST 15 MIN [id number] Diagnos is: ICD-10- CM E66.9 Obesity , unspeci fied CANDIDA,YOGESH IE 09/14 [place] [facility] Out[facility] Encounter [id number] 09/29 [facility] [place] O/P EST HI 40 MIN [id number] Diagnos is: ICD-10- CM K43.9 Ventral hernia without obstruc tion or gangren e REBECA AGUIELRA VID A 09/29 [place] [facility] Out[facility] Encounter [id number] REBECA AGUILERA VID A 09/29 [facility] Encounter [id number] 10/01 [facility]counter [id number] 10/01 [facility] Outpatient Encounter [id number] 10/05 [facility] [place]THC/PROS TC MGMT SBSQ ENC [id number] Diagnos is: ICD-10- CM R60.9 Edema, unspeci Charline Ulloa 10/08 [place] [facility] Outpatient Encounter [id number] MARCELLUS RUSSELL GIGI Keenan 10/11 [facility] MTMS BY PHARM COMPUTATIONAL GENETICIST 15 MIN [id number] Diagnos is: ICD-10- CM E66.9 Obesity , unspeci YOGESH Darnell 10/12 [facility] Outpatient Encounter [id number] 10/12 [facility] [place] [facility] Social History Combined list of available smoking, tobacco, and other social history from Department of Defense and Veterans Affairs facilities. Social History Type Response Date Comment Sourc e Tobacco smoking status NHIS VA-TOBACCO NEVER USED 12/23/2023 [facility] D History of tobacco use [place]-TOBACCO NEVER USED 05/20/2023 [facility] History of tobacco use [place]-TOBACCO NEVER USED 05/24/2020 [facility] History of tobacco use [place]-TOBACCO NEVER USED 06/19/2019 [facility] History of tobacco use VA-TOBACCO NEVER USED 01/09/2018 [facility] C History of tobacco use V16 LIFETIME NON-TOBACCO USER 04/16/2017 [facility] This section is an empty social history section. DoD Plan of Care List of future care activities from Department of Veterans Affairs facilities. Additional future care activities may be listed in the Assessment and Plan section. Date/Time Care Activity Care Activity Detail Facili ty 10/12/2024 AMBULATORY - MEDICINE [facility] Advance Directives List of completed, amended, or rescinded Advance Directives on record at [facility] facilities. An actual copy of the Directive is not included. Date Advance Directive Provider Source 11/12/2023 ADVANCE DIRECTIVE DISCUSSION JESSICA MESA [facility]
--- OUTSIDE RECORDS SUMMARY | 2024-10-12 18:59 | XMS_ITS | Encounter Summary ---
Author Name [facility] (MD) Organization [facility]) Address [address] [place] [address] Care Team Providers Care Stringer Up Soldering Machine Name Role Phone PIPO MEDEIROS Primary Care Provider LENY Suarez Primary Care Provider RICH Valencia Primary Care Provider Thien weber Selected Encounter This section includes the information on record at MD for the Encounter. Date/Time Encounter Type Encounter Description Reason Provider Source Dec 23, 2023 02:30 PM OFFICE O/P NEW MOD 45 MIN PRIMARY CARE/MEDICINE ICD-10-CM E11.9 Type 2 diabetes mellitus without complications ELI DUDLEY Caitlin Encounter Template Text not used by MD Assessments - Encounter Diagnoses This section includes the primary and secondary diagnoses documented for the Encounter. Date/Time Primary/Secondary Diagnosis Diagnosis Name Provider Source Dec 27, 2023 12:01 AM PRIMARY Type 2 diabetes mellitus without complications ELI DUDLEY Dec 27, 2023 12:01 AM SECONDARY Atopic dermatitis, unspecified ELI DUDLEY DALIA Dec 27, 2023 12:01 AM SECONDARY Obesity, unspecified ELI DUDLEY DALIA Dec 27, 2023 12:01 AM SECONDARY Pain in unspecified knee ELI DUDLEY [facility] Dec 27, 2023 12:01 AM SECONDARY Peripheral vascular disease, unspecified ELI DUDLEY CRISTY DALIA Dec 27, 2023 12:01 AM SECONDARY Unspecified osteoarthritis, unspecified site ELI DUDLEY [place] Plan of Treatment: Future Appointments (+ 6 months) and Future Tests (+/- 45 days) The Plan of Treatment section includes future care activities for the patient from [facility] This section includes future appointments and future orders which are active, pending or scheduled. Future Appointments This section includes appointments that were scheduled to occur 6 months from the date of the Encounter, up to a maximum of 20 appointments. The data comes from all MD treatment facilities. Appointment Date/Time Appointment Type Appointme nt Facility Name Dec 26, 2023 07:30 AM AMBULATORY - MEDICINE [facility] Dec 30, 2023 02:30 PM AMBULATORY - NONE [facility] [place] [facility] Jan 14, 2024 12:30 PM AMBULATORY - MEDICINE [facility] [place] [facility] Jan 29, 2024 03:00 PM AMBULATORY - MEDICINE [facility] [place] [facility] Jan 30, 2024 01:30 PM [facility]ULATORY [facility] MEDICINE [facility] [place] [facility] Jan 31, 2024 03:30 PM AM[facility]ULATORY [facility]ICINE [facility] [place] [facility] Feb 18, 2024 03:00 PM AMBULATORY - NONE [facility] [place] [facility] Feb 20, 2024 10:00 AM AM[facility]ULATORY - MEDICINE [facility] [place] [facility] Mar 13, 2024 12:30 PM AM[facility]ULATORY - MEDICINE [facility] [place] [facility] Mar 25, 2024 03:00 PM AMBULATORY - MEDICINE [facility] [place] [facility] Mar 27, 2024 08:00 AM AMBULATORY - REHAB MEDICIN [facility] Apr 17, 2024 03:00 PM AMBULATORY - REHAB MEDICIN [facility] Apr 21, 2024 01:00 PM AMBULATORY - NONE [facility] Apr 21, 2024 02:30 PM AMBULATORY - REHAB MEDICIN [facility] Apr 23, 2024 01:00 PM AMBULATORY - MEDICINE [facility] [place] [facility] Apr 23, 2024 02:00 PM AMBULATORY - MEDICINE [facility] [place] [facility] Apr 24, 2024 02:30 PM AMBULATORY - REHAB MEDICIN [facility] Apr 28, 2024 01:00 PM AMBULATORY - NONE [facility] Apr 28, 2024 02:30 PM AMBULATORY - REHAB MEDICIN [facility] Apr 29, 2024 01:30 PM [facility] MEDICINE [facility] Active, Pending, and Scheduled Orders This section includes a listing of several types of active, pending, and scheduled orders, including clinic medications orders, diagnostic test orders, procedure orders and consult orders; where the start date of the order is 45 days before the date of the Encounter or 45 days after the date of theEncounter. The data comes from all [facility]. Test Date/Time Test Type Test Details Facility Name Nov 16, 2023 12:00 AM Laboratory - Chemi stry Order CBC (WITH DIFF)_ BLOOD (EDTA WB) [facility] Nov 16, 2023 12:00 AM Laboratory - Chemi stry Order IRON PANEL (FE & UIBC)_ SERUM (GOLD) [facility] Nov 16, 2023 12:00 AM Laboratory - Chemi stry Order B12 & FOLATE_ SERUM (GOLD) [facility] Nov 16, 2023 12:00 AM Laboratory - Chemi stry Order LIPID PROFILE_ SERUM (GOLD) [facility] Nov 16, 2023 12:00 AM Laboratory - Chemi stry Order BASIC METABOLIC PROFILE_ SERUM (GOLD) [facility] Nov 16, 2023 12:00 AM Laboratory - Chemi stry Order HEMOGLOBIN A1C BLOOD (EDTA WB) [facility] Nov 16, 2023 12:00 AM Laboratory - Chemi stry Order GENERAL TOX (URINE)_ URINE (TOX) [facility] Lab Results: +/- 30 days of the encounter This section includes the Chemistry and Hematology Lab Results on record with MD for the patient. Radiology Reports and Pathology Reports are provided separately, in subsequent sections. Lab Results This section contains the Chemistry/Hematology Results that were resulted 30 days before or 30 daysafter the date of the Encounter. Date/Time Source Result Type Result - Unit Interpretation Reference Range Specimen Type Comment Dec 24, 2023 02:35 PM [facility] LIPID PANEL FASTING SERUM Specimen Type: SERUM No comment entered. Ordering Provider: ELI DUDLEY Report Released Date/Time: Dec 23, 2023 04:10 PM Reporting Lab: [facility] [address] [address] Performing Lab: [address] [address] CHOLESTEROL 133 mg/dL TRIGLYCERIDE 74 mg/dL 0-150 LDL calculated 83 mg/dL 0-129 CHOL/HDL 3.8 HDL CHOLESTEROL 35 mg/dL L 40-60 Dec 24, 2023 02:35 PM [facility] LIVER FUNCTION SERUM Specimen Type: SERUM No comment entered. Ordering Provider: ELI DUDLEY Report Released Date/Time: Dec 23, 2023 04:10 PM Reporting Lab: [facility] [address] [address] Performing Lab: [address] [address] PROTEIN,TOTAL 7.1 g/dL 6.0-8.3 ALBUMIN 4.3 g/dL 3.5-5.0 ALKALINE PHOSPHATASE 69 U/L 40-150 AST 21 U/L 5-34 ALT 22 U/L BILIRUBIN, TOTAL 0.4 mg/dL 0.2-1.2 Dec 24, 2023 02:35 PM [facility] BASIC METABOLIC PANEL (fasting) SERUM Specime n Type: SERUM No comment entered. Ordering Provider: ELI DUDLEY Report Released Date/Time: Dec 23, 2023 04:11 PM Reporting Lab: [address] [address] Performing Lab: [address] [address] UREA NITROGEN 14 mg/dL 7-25 GLUCOSE 102 mg/dL H 65-100 SODIUM 140 mmol/L 135-145 POTASSIUM 4.8 mmol/L 3.5-5.0 CHLORIDE 107 mmol/L 100-110 CO2 22 meq/L 20-30 CREATININE, Serum 0.85 mg/dL 0.50-1.40 eGFR(CKD-EPI 2020) >90 mL/min >60 Dec 24, 2023 02:35 PM [facility] MICROALBUMIN CREATININE RATIO PANEL URINE Spe cimen Type: URINE No comment entered. Ordering Provider: ELI DUDLEY Report Released Date/Time: Dec 23, 2023 04:11 PM Reporting [facility] [address] [address] Performing Lab: [facility] [address] [address] MICROALBUMIN/CREATININE RATIO 8.2 mg/g 0 -29.9 MICROALBUMIN,QUANTITATIVE 1.2 mg/dL RR U NAVAIL CREATININE URINE 146.77 mg/dL Dec 24, 2023 02:35 PM [facility] HEMOGLOBIN A1C PANEL BLOOD Specimen Type: [...] Dec 23, 2023 04:11 PM Reporting Lab: [facility] [address] [address] Performing Lab: [facility] [address] [address] HEMOGLOBIN A1C 5.7 H 4.0-5.6 Dec 24, 2023 02:35 PM [facility] TSH SERUM Specimen Type: SERUM No comment entered. Ordering Provider: ELI DUDLEY Report Released Date/Time: Dec 23, 2023 04:11 PM Reporting Lab: [facility] [address] [address] Performing Lab: [facility] [address] [address] TSH 1.64 u[IU]/mL 0.35-5.00 Dec 24, 2023 02:35 PM [facility] PSA SERUM Specimen Type: SERUM No comment entered. Ordering Provider: ELI DUDLEY Report Released Date/Time: Dec 23, 2023 04:11 PM Reporting Lab: [facility] [address] [address] Performing Lab: [address] [address] PSA 1.80 ng/mL 0.00-4.00 Dec 24, 2023 02:35 PM [facility] CBC AND DIFF (AUTO) BLOOD Specimen Type: BLOO D No comment entered. Ordering Provider: ELI DUDLEY Report Released Date/Time: Dec 23, 2023 04:11 PM Reporting Lab: [facility] [address] [address] Performing Lab: [address] [address] WBC 6.05 10*3/uL 4.50-11.00 RBC 4.99 10*6/uL [...] H 0.00-0.00 Dec 24, 2023 02:35 PM [facility] SMEAR EXAMINATION BLOOD Specimen Type: BLOOD Comment: LARGE PLATELETS SEEN Ordering Provider: ELI DUDLEY Report Released Date/Time: Dec 23, 2023 04:11 PM Reporting Lab: [facility] [address] [address] Performing Lab: [facility] [address] [address] PLT (smear review) ADEQ 10*3/uL MICROCYTOSIS 2+ HYPOCHROMIA 2+ OVALOCYTES 1+ Social History: Smoking Status (Most current) and Tobacco Use (All prior to encounter date) This section includes the most current, and the historical, smoking and tobacco- related health factors from the MD facility where the Encounter took place. Current Smoking Status This section includes the most current smoking, or tobacco-related health factor, from the MD facility where the Encounter took place. Date/Time Current Smoking Status Comment Facil [facility] Dec 23, 2023 02:30 PM VA-TOBACCO NEVER USED [facility] Advance Directives: All historical and current Section Date Range: From patient's date of to the date document was created. This section includes ALL of a patient's completed or amended VA Advance and Rescinded Directives. The entries below indicate that a directive exists for the patient, but an actual copy is not included with this document. The data comes from all MD facilities. Date Advance Directives Provider Source November 12, 2023 ADVANCE DIRECTIVE DISCUSSION [facility] Radiology Reports: +/- 30 days [...] the Encounter. The data comes from all MD treatment facilities. Date/Time Radiology Report Provider Source Dec 30, 2023 03:56 PM KNEE 3 VIEWS (LEFT ): COLLETTE ROSE [id number] [phone] M Exm Date: DEC 30, 2023@15:56 Req Phys: MAYITO-MELOKirt,ALEN AGUILAR Pat Loc: COM CARE-RADIOLOGY X-RAY (Req' Img Loc: [facility] Service: Unknown [facility] , (Case 64 COMPLETE) KNEE 1 OR 2 VIEWS (LEFT) (RAD Detailed) CPT:59577 Reason for Study: osteoarthritis knee (Case 65 COMPLETE) KNEES BILATERAL STANDING (RAD Detailed) CPT:56600 (Case 66 COMPLETE) KNEE 1 OR 2 VIEWS (RIGHT) (RAD Detailed) CPT:39965 Clinical History: Traveling request Report Status: Verified Date Reported: DEC 30, 2023 Date Verified: DEC 30, 2023 Pricer Bagger E-Sig:/ES/CLAUDIA MÉNDEZ JR Report: Study: AP weight-bearing views of the knees with lateral and sunrise views of the left and right knees. Comparison: None. Findings: Severe bilateral lateral joint compartment degenerative osteoarthritic versus post traumatic arthritic changes are present with [id number] appearance of the lateral femur and the [...] Primary Interpreting Staff: CLAUDIA MÉNDEZ JR, Radiologist (Pricer Bagger) /CLAUDIA VALLES JR [facility] Encounter Notes: All associated encounter notes This section contains the clinical notes associated to the Encounter. Date/Time Encounter Note(s) Provider Source Dec 23, 2023 02:52 PM PREVENTIVE MEDICIN E NURSING NOTE: LOCAL TITLE: CLINICAL REMINDERS/NURSING STANDARD TITLE: PREVENTIVE MEDICINE NURSING NOTE DATE OF NOTE: DEC 23, 2023@14:52 ENTRY DATE: DEC 23, 2023@14:52:13 AUTHOR: MARIA GUADALUPE DOWD COSIGNER: URGENCY: STATUS: COMPLETED Tobacco Pack Year History: Patient never smoked cigarettes or smoked FEWER THAN 100 cigarettes/lifetime Advance Directive Screen MH AD: Patient does not have a completed advance directive on file at any facility, VA or outside. S/he is not interested in completing one at this time. The patient received education about Advance Directives and written notification of his/her rights. Suicide Screen: C-SSRS Screening Drew Suicide Severity Rating Scale (C-SSRS) screener 1. Over the past month, have you wished you were or wished you could go to sleep and not wake up? No 2. Over the past month, have you had any actual thoughts of killing yourself? No 3. Over the past month, have you been thinking about how you might do this? Response not required due to responses to other questions. 4. Over the past month, have you had these thoughts and had some intention of acting on them? Response not required due to responses to other questions. 5. Over the past month, have you started to work out or worked out the details of how to kill yourself? Response not required due to responses to other questions. 6. If yes, at any time in the past month did you intend to carry out this plan? Response not required due to responses to other questions. 7. In your lifetime, have you ever done anything, started to do anything, or prepared to do anything to end your life (for example, collected pills, obtained a gun, gave away valuables, went to the roof but didn't jump)? No 8. If YES, was this within the past 3 months? Response not required due to responses to other questions. Toxic Exposure Screening: The [place]/caregiver was asked if they believe the experienced any toxic exposure(s), such as Airborne Hazards and Open Burn Pit, Forest Home War related exposures, Agent [place], Radiation, contaminated water at [place] or other such exposures, while serving in the [employer]. [place] has no concerns about toxic exposure(s) while serving in the [employer]. The /caregiver was informed that we will continue to ask this screening question every 5 years. They can contact their provider/healthcare team if they have concerns about exposures and would like to be screened sooner. Printed information was offered and provided if desired. BMI>30/>24.99 High Risk: Patient declines to discuss weight management. Patient declined weight discussion. Discussed revisiting at a future visit. Homelessness/Food Insecurity Screen: In the past 2 months, have you been living in stable housing that you own, rent, or stay in as part of a household? Yes - Living in stable housing. Are you worried or concerned that in the next 2 months you may NOT have stable housing that you own, rent, or stay in as part of a household? No - Not worried about housing near future The reports the following: Within the past 12 months, you worried whether your food would run out before you got money to buy more. Never true Within the past 12 months, the food you bought just didn't last and you didn't have money to get more. Never true Depression Screening: Perform PHQ-2 A PHQ-2 screen was performed. The score was 0 which is a negative screen for depression. Over the past two weeks, how often have you been bothered by the following problems? 1. Little interest or pleasure in doing things Not at all 2. Feeling down, depressed, or hopeless Not at all Hepatitis B Serology/Immunization: The patient declines to receive the recommended dose of Hepatitis B vaccine. Immunization: HEP B, UNSPECIFIED FORMULATION Refusal Reason: PATIENT DECISION Patient refuses all immunization(s) in the HepB group Date Documented: 12/23/23 14:54 Pneumococcal Conjugate Vaccine (PCV15/PCV20): Refuses PCV vaccine Immunization: PNEUMOCOCCAL CONJUGATE, UNSPECIFIED FORMULATION Refusal Reason: PATIENT DECISION Patient refuses all immunization(s) in the PneumoPCV group Date Documented: 12/23/23 14:54 Preferred Language: What is your, or your caregiver's preferred language for healthcare? Preferred Language: Gambian PTSD Screening: PC-PTSD-5 A PTSD screening test (PC-PTSD-5) was negative (score=0). IN THE PAST MONTH, have you ever had any experience that was so frightening, horrible or traumatic. For example: A serious accident or fire a physical or sexual assault or abuse An earthquake or flood A war Seeing someone be killed or seriously injured Having a loved one through homicide or suicide 1. Have you ever experienced this kind of event? NO 2. Had nightmares about the event(s) or thought about the event(s) when you did not want to? Response not required due to responses to other questions. 3. Tried hard not to think about the event(s) or went out of your way to avoid situations that reminded you of the event(s)? Response not required due to responses to other questions. 4. Been constantly on guard, watchful, or easily startled? Response not required due to responses to other questions. 5. [place] numb or detached from people, activities, or your surroundings? Response not required due to responses to other questions. 6. [place] guilty or unable to stop blaming yourself or others for the event(s) or any problems the event(s) may have caused? Response not required due to responses to other questions. Tobacco Use Screening: The patient has never used tobacco. Influenza Immunization: No influenza vaccination was received during the recent influenza season. Alcohol Use Screen (AUDIT-C): Alcohol Screen: SCREEN FOR ALCOHOL (AUDIT-C) An alcohol screening test (AUDIT-C) was negative (score=2). 1. How often did you have a drink containing alcohol in the past year? Consider a drink to be a 12 ounce can or bottle of regular beer, 8 ounces of malt liquor, a 5 ounce glass of table wine, or a 1.5 ounce shot of liquor (like scotch, gin, or vodka). Two to four times a month 2. How many drinks containing alcohol did you have on a typical day when you were drinking in the past year? One or two drinks 3. How often did you have six or more drinks on one occasion in the past year? Never COVID-19 Immunization: Referred to another clinic for immunization (desired vaccine unavailable at this location) Tdap Immunization: The patient declines to receive the recommended dose of Tdap vaccine. Immunization: TDAP Refusal Reason: PATIENT DECISION Patient refuses all immunization(s) in the TDAP group Date Documented: 12/23/23 14:55 Herpes Zoster (Shingles) Vaccine: The patient declines to receive the recommended dose of zoster (shingles) vaccine. Immunization: ZOSTER RECOMBINANT Refusal Reason: PATIENT DECISION Patient refuses all immunization(s) in the ZOSTER group Date Documented: 12/23/23 14:56 RHS Screen: RHS Screen Session Format: Face to Face Environmental Check Upon inquiry, the individual reports that the environment is safe to proceed. Informed Consent to Screen and Document The individual consents to proceed with screening. The individual consents to documentation of responses. PRIMARY SCREEN: In the past 12 months, how often did a current or former intimate partner (e.g., boyfriend, girlfriend, , , sexual partner): 1. Scream or curse at you Never 2. Insult or talk down to you Never 3. Threaten you with harm Never 4. Physically hurt you Never 5. Force or pressure you to have sexual contact against your will, or when you were unable to say no Never ?? The HITS tool (items 1-4 above) is US copyright protected by Sai Betts MD, and the user has full rights to use it throughout the MD system. PRIMARY SCREEN RESULT: The Primary Screen is NEGATIVE. The individual answered never to all forms of IPV above (i.e., answered never to all 5 items) The individual accepts education and/or resources: No EDUCATION: The individual indicated readiness to learn. Education offered during this session as noted above. The individual indicated understanding by asking relevant questions and making appropriate comments. No barriers to learning were observed or identified. Eye Care At-Risk Screen : Patient identified to be at risk for the following eye condition(s): DIABETIC RETINOPATHY: Diabetes Diagnosis Information: Encounter Diagnosis: 12/16/2023@11:45 E11.51 (ICD-10-CM) Type 2 Diabetes Mellitus with Diabetic Peripheral Angiopathy without Gangrene rank: SECONDARY Prov. Narr. - Type 2 Diabetes Mellitus with Diabetic Peripheral Angiopathy without Gangrene Action: No Referral Ordered: The patient declined/refused referral for Tele-Eye screening and Eye Clinic appointment. Comment: declined /es/ MARIA GUADALUPE DOWD LPN PACT 10 Signed: 12/23/2023 14:57 MARIA GUADALUPE DOWD Dec 23, 2023 12:45 PM PHYSICIAN NOTE: LOCAL TITLE: NOTE STANDARD TITLE: PHYSICIAN NOTE DATE OF NOTE: DEC 23, 2023@12:45 ENTRY DATE: DEC 23, 2023@12:45:10 AUTHOR: ELI DUDLEY EXP COSIGNER: URGENCY: STATUS: COMPLETED HISTORY OF PRESENT ILLNESS: COLLETTE ROSE, is a 53 yo MALE [place], who presents at the [facility] as a new patient visit. He is a travelling from [place]. He will be in [place] for the next year. Reviewed [facility] records. Last set of screening labs completed 05/17/23. He was seen by sick call 12/11/23 instaed of having a new pt visit that day bc he was 30 mins late for his appt. Active problems - Computerized Problem List is the source for the followin. Erectile dysfunction 2. Type 2 diabetes mellitus 3. Osteoarthritis 4. Umbilical hernia 5. Obesity 6. Edema 7. Colonoscopy Screening The following VA and Non-VA meds were reconciled with patient: Active Outpatient Medications (including Supplies): Start Date Active Non-VA Medications Refills Expiration ======= 1) Non-VA DICLOFENAC NA 1% TOP GEL Si ACTIVE GRAMS TOPICALLY FOUR TIMES A DAY 2) Non-VA DICLOFENAC NA 75MG EC TAB Sig: ACTIVE 75MG BY MOUTH TWICE DAILY 3) Non-VA GABAPENTIN TAB Si MG BY ACTIVE MOUTH THREE TIMES DAILY NEEDED 4) Non-VA METFORMIN (ONCE DAILY) TAB,SA ACTIVE SiMG BY MOUTH TWICE DAILY 5) Non-VA SILDENAFIL CITRATE 100MG TAB ACTIVE SiMG BY MOUTH ONCE DAILY NEEDED ALLERGIES: ========= CLINDAMYCIN, MORPHINE SURGICAL HISTORY: 01/20/19 - s/p left total hip replacement 04/07/19 - s/p right total hip replacement FAMILY HISTORY: Mother: [place] Father: Both parents at different times when vet was btwn 7-10 yrs old. Feli was raised by his mat aunt and uncle. When he came of age and ready to inherit his parents estate, he found out that his aunt & uncle used up all the money and he was left with nothing. He has not spoken to them since. SOCIAL HISTORY: x 14 yrs (second marriage), 1 son age 27, never smoked cigs, occ cigar, ETOH socially, born and raised in [facility], finishes 2 yrs college, HISTORY: PERIOD OF SERVICE - [employer] FROM Mar TO Aug COMBAT SERVICE INDICATED: No VITAL SIGNS: Blood Pressure 133/76 (12/23/2023 14:50) Pulse 106 (12/23/2023 14:50) Respiration 18 (12/23/2023 14:50) Pulse Oximetry 97% (12/23/2023 14:50) Temperature 97.9 F [36.6 C] (12/23/2023 14:50) Pain 0 (12/23/2023 14:50) Height 71 in [180.3 cm] (12/23/2023 14:50) Weight 277.4 lb [125.83 kg] (12/23/2023 14:50) BMI BMI: 38.8 REVIEW OF SYSTEMS: CARDIOVASCULAR: No chest pain RESPIRATORY: No SOB, no wheezing GASTROINTESTINAL: No abd pain, no N/V/D GENITOURINARY: No dysuria, no hematuria MUSCULOSKELETAL: +B/L knee pain, + ulcers on feet PSYCHIATRIC: No anxiety, no trouble sleeping, no depression NEUROLOGIC: No H/A, no numbness, no weakness, no tingling EXAMINATION: GENERAL: WD/WN , pleasant & in NAD HEENT: Moist mucosa NECK: Supple HEART: RRR, S1-S2, no murmurs LUNGS: CTA B/L, no wheezes ABDOMEN: Soft, NT/ND,+ BS x 4 Quads PERIPH PULSES: 2+ B/L EXTREMITIES: FROM x 4, no edema NEUROLOGIC: AAO x3, no focal findings ASSESSMENT/PLAN: 1. Hx of Hypertension: has been WNL off lisinopril 2. DM II: on metformin SA 500mg BID, will refer to nutrition for dietary guidance 05/17/23: FBS 111 - A1c 6.8% 4. Peripheral Neuropathy: prescribed gabapentin 300mg TID, but only taking it BID 3. Edema B/L LE's: mild, advised compression stockings daily 4. Recurrent Shallow Ulcers B/L Feet: - continue antibiotic ointment topically, cover wounds with dry dressings, he no[place]show[place] [facility] [place] 12/16/23, advised to reschedule appt, seen by podiatry 12/16/23, will place a vascular consult to further evaluate 5. Obesity: BMI ~39, counseled on weight loss, will refer to nutrtion for dietary guidance 6. Erectile Dysfunction: on sildenafil 100mg/day prn 7. Osteoarthritis B/L Knees: on diclofenac 75mg BID, rec'd CSI's in the past, last set 07/2023, vet is requesting this again, will place physiatry consult 08/27/23 Xrays B/L Knees: Severe degen change of the lateral greater than patellofemoral compartments with joint space loss of the lateral compartment and possibly at the patellofemoral compartment. Prominent marginal osteophytes throughout. Mild to mod degen change of the medial compartment also noted. Findings are significantly increased in severity sionce 2018. No significant joint effusion. Right knee slightly worse than left knee. 8. Colonoscopy Screening: NEVER, declines at this time 9. Atopic Dermatitis: will Rx zyrtec and betamethasone valerte 0.1% oint 10. Hx Noncompliance: with medications, treatments, & appts FOLLOW UP: 1 month - PACT 1 - Annual CPX - FBW prior ========= No barriers; Patient understands and agrees to [...] of active outpatient prescriptions dispensed from this MD (local) and dispensed from another MD or [facility] facility (remote) as well as [...] Allergies/ADRs (Tool #5) FACILITY ALLERGY/ADR -------- [facility] MORPHINE Med Recon NoGlossary (Tool #1) INCLUDED IN THIS LIST: Alphabetical list of active outpatient prescriptions dispensed from this MD (local) and dispensed from another MD or [facility] facility (remote) as well as inpatient orders (local pending and active), local clinic medications, locally documented non-VA medications, and local prescriptions that have or been discontinued in the past 90 days. Non-VA Meds Last Documented On: Dec 02, 2023 NOTE The display of VA prescriptions dispensed from another MD or [facility] facility (remote) is limited to active outpatient prescription entries matched to National Drug File at the originating site and may not include some items such as investigational drugs, compounds, etc. NOT INCLUDED IN THIS LIST: Medications self-entered by the patient into personal health records (i.e. [email or web address]) are NOT included in this list. Non-VA medications documented outside this MD, remote inpatient orders (regardless of status) and remote clinic medications are NOT included in this list. The patient and provider must always discuss medications the patient is taking, regardless of where the medication was dispensed or obtained. ------ OUTPT BACITRACIN 500 UNT/GM TOP OINT (Status = Active) APPLY SMALL AMOUNT TOPICALLY TWICE DAILY FOR INFECTION APPLY TO FOOT WOUNDS Rx# [id number] Last Released: 12/11/23 Qty/Days Supply: Rx Expiration Date: 03/10/24 Refills Remainin Indication: FOR INFECTION OUTPT BETAMETHASONE VALERATE 0.1% OINT (Status = Active) APPLY THIN LAYER TOPICALLY TWICE DAILY FOR ATOPIC DERMATITIS Rx# [id number] Last Released: 12/25/23 Qty/Days Supply: 4530 Rx Expiration Date: 01/22/24 Refills Remainin Indication: FOR ATOPIC DERMATITIS OUTPT CETIRIZINE HCL 10MG TAB (Status = Active) TAKE ONE TABLET BY MOUTH ONCE DAILY FOR ALLERGIES Rx# [id number] Last Released: 12/23/23 Qty/Days Supply: Rx Expiration Date: 03/22/24 Refills Remainin Indication: FOR ALLERGIES Non-VA DICLOFENAC NA 1% TOP GEL APPLY [...] (DON'T CRUSH,BREAK OR CHEW) Last Filled: 02/15/24 (Active/Suspended at [facility]) Rx Expiration Date: 08/27/24 Days Supply: 90 Remote GABAPENTIN 300MG CAP TAKE ONE CAPSULE BY MOUTH THREE TIMES A DAY NEEDED FOR CHRONIC PAIN. Last Filled: 12/14/23 (Active at [facility]) Rx Expiration Date: 05/20/24 Days Supply: 30 OUTPT GABAPENTIN 300MG CAP (Status = Active) TAKE ONE CAPSULE BY MOUTH THREE TIMES A DAY Rx# [id number] Last Released: 12/11/23 Qty/Days Supply: 270/90 Rx Expiration Date: 03/10/24 Refills Remainin Indication: FOR NERVE PAIN Non-VA METFORMIN (ONCE DAILY) TAB,SA TAKE 500MG BY MOUTH TWICE DAILY Patient wants to buy from Non-VA pharmacy. Medication prescribed by Non-VA provider. Indication: FOR TYPE 2 DIABETES MELLITUS Remote METFORMIN HCL 500MG 24HR TAB,SA TAKE ONE TABLET BY MOUTH TWICE A DAY FOR PREDIABETES. Last Filled: 02/04/24 (Active/Suspended at [facility]) Rx Expiration Date: 05/19/24 Days Supply: 90 Remote SILDENAFIL CITRATE 100MG TAB TAKE ONE TABLET BY MOUTH EVERY DAY NEEDED FOR ERECTILE DYSFUNCTION 1 HOUR PRIOR TO SEXUAL ACTIVITY (DO NOT EXCEED ONE DOSE IN A 24 HOUR PERIOD) Last Filled: 12/14/23 (Active at [facility]) Rx Expiration Date: 05/19/24 Days Supply: 30 Non-VA SILDENAFIL CITRATE 100MG TAB TAKE ONE TABLET BY MOUTH ONCE DAILY NEEDED Patient wants to buy from Non-VA pharmacy. Medication prescribed by Non-VA provider. Indication: FOR ERECTILE DYSFUNCTION ------ SUPPLIES ------ /jim/ ELI DUDLEY MD Primary Care Physician Signed: 12/27/2023 00:02 ELI DUDLEY [place]NA[place]
--- OUTSIDE RECORDS SUMMARY | 2024-10-12 18:59 | XMS_ITS | Encounter Summary ---
Author Name [facility] Address [address] [place] [address] Care Team Providers Care Betting Clerk Name Role Phone PIPO MEDEIROS Primary Care Provider LENY Suarez Primary Care Provider RICH Valencia Primary Care Provider Thien weber Selected Encounter This section includes the information on record at [facility] for the Encounter. Date/Time Encounter Type Encounter Description Reason Pro vider Source May 21, 2024 05:44 PM Outpatient Encounter ADMIN PAT ACTIVTIES (MASNONCT) [facility] Encounter Template Text not used by [facility] Plan of Treatment: Future Appointments (+ 6 months) and Future Tests (+/- 45 days) The Plan of Treatment section includes future care activities for the patient from all [place] treatmentfacilities. This section includes future appointments and future orders which are active, pending or scheduled. Future Appointments This section includes appointments that were scheduled to occur 6 months from the date of the Encounter, up to a maximum of 20 appointments. The data comes from all [place] treatment facilities. Appointment Date/Time Appointment Type Appointme nt Facility Name Jun 02, 2024 01:00 PM AMBULATORY - NONE [facility] Jun 05, 2024 02:30 PM [facility]ORY - [facility] Jun 19, 2024 07:30 AM [facility] Jun 23, 2024 11:30 AM AM[facility]UL[facility]ORY - [facility] Jun 25, 2024 01:00 PM AMBULATORY - [facility]ICIN [facility] Jun 25, 2024 02:00 PM [facility]ORY - [facility] Jul 03, 2024 02:00 PM AM[facility]UL[facility]ORY - MEDICINE [facility] Jul 14, 2024 01:00 PM AM[facility]ULATORY - NONE [facility] Jul 21, 2024 01:00 PM [facility]ORY - NONE [facility] Jul 22, 2024 10:00 AM [facility]ORY - [facility]IC[facility] Jul 22, 2024 02:00 PM AMBULATORY - [facility]AB [facility] Jul 28, 2024 01:00 PM AMBULATORY - NONE [facility] Aug 04, 2024 01:00 PM AMBULATORY - NONE [facility] Aug 11, 2024 01:00 PM AMBULATORY - NONE [facility] Aug 17, 2024 07:15 AM [facility]UL[facility]ORY - [facility]IC[facility] Aug 24, 2024 02:00 PM AM[facility] - [facility] Aug 31, 2024 03:30 PM AMBULATORY - MEDICINE [facility] Sep 14, 2024 11:30 AM AMBULATORY - MEDICINE [facility] Sep 29, 2024 02:30 PM AMBULATORY - MEDICINE [facility] Oct 08, 2024 10:00 AM AMBULATORY - REHAB [facility] Active, Pending, and Scheduled Orders This section includes a listing of several types of active, pending, and scheduled orders, including clinic medications orders, diagnostic test orders, procedure orders and consult orders; where the start date of the order is 45 days before the date of the Encounter or 45 days after the date of theEncounter. The data comes from all [place] treatment facilities. Test Date/Time Test Type Test Details Facility Name May 08, 2024 12:00 AM Laboratory - Chemi stry Order URINE DRUG PROFILE_ UA CUP URINE [facility] May 08, 2024 12:00 AM Laboratory - Chemi stry Order CBC (WITH DIFF)_ BLOOD (EDTA WB) [facility] May 08, 2024 12:00 AM Laboratory - Chemi stry Order LIPID PROFILE_ SERUM (GOLD) [facility] May 08, 2024 12:00 AM Laboratory - Chemi stry Order TSH SERUM (GOLD) [facility] May 08, 2024 12:00 AM Laboratory - Chemi stry Order HEMOGLOBIN A1C BLOOD (EDTA WB) [facility] May 08, 2024 12:00 AM Laboratory - Chemi stry Order MICROALBUMIN:CREAT RATIO_ UA CUP URINE [facility] May 08, 2024 12:00 AM Laboratory - Chemi stry Order COMP.METABOLIC PROFILE_ SERUM (GOLD) [facility] May 08, 2024 12:00 AM Laboratory - Chemi stry Order URINALYSIS_ UA CUP URINE [facility] Jun 12, 2024 02:35 PM Consult Order TELE-EYE S CREENING CONSULT - CBC Cons [facility] Lab Results: +/- 30 days of the encounter This section includes the Chemistry and Hematology Lab Results on record with [place] for the patient. Radiology Reports and Pathology Reports are provided separately, in subsequent sections. Lab Results This section contains the Chemistry/Hematology Results that were resulted 30 days before or 30 daysafter the date of the Encounter. Date/Time Source Result Type Result - Unit Interpretation Reference Range Specimen Type Comment Apr 23, 2024 03:19 PM [facility] IRON & TIBC PANEL SERUM Specimen Type: SERUM No comment entered. Ordering Provider: ELI DUDLEY Report Released Date/Time: Feb 20, 2024 06:51 AM Reporting Lab: [address] [address] Performing Lab: [address] [address] TIBC 528 ug/dL H 204-475 IRON 25 ug/dL L 40-160 Transferrin Saturation 4.7 L 20.0-50.0 Transferrin (TRF) 400 mg/dL H 200-360 Apr 23, 2024 03:19 PM [facility] FERRITIN SERUM Specimen Type: SERUM No comment entered. Ordering Provider: ELI DUDLEY Report Released Date/Time: Feb 20, 2024 06:51 AM Reporting Lab: [address] [address] Performing Lab: [address] [address] FERRITIN 7 ng/mL L 20-300 Apr 23, 2024 03:19 PM [facility] RETICULOCYTES BLOOD Specimen Type: BLOOD No comment entered. Ordering Provider: ELI DUDLEY Report Released Date/Time: Feb 20, 2024 06:51 AM Reporting Lab: [address] [address] Performing Lab: [address] [address] RETIC % 0.8 0.6-2.0 RETIC, ABS 37.6 10*3/uL 30.0-90.0 RET-HE % 24.1 L 27.9-42.0 Apr 23, 2024 03:19 PM [facility] CBC AND DIFF (AUTO) BLOOD Specimen Type: BLOO D No comment entered. Ordering Provider: ELI DUDLEY Report Released Date/Time: Feb 20, 2024 06:51 AM Reporting Lab: [address] [address] Performing Lab: [address] [address] WBC 8.03 10*3/uL 4.50-11.00 RBC 4.88 10*6/uL [...] 0.0 0.0-0.0 NRBC, ABS 0.00 10*3/uL 0.00-0.00 Advance Directives: All historical and current Section Date Range: From patient's date of to the date document was created. This section includes ALL of a patient's completed or amended VA Advance and Rescinded Directives. The entries below indicate that a directive exists for the patient, but an actual copy is not included with this document. The data comes from all [place] facilities. Date Advance Directives Provider Source November 12, 2023 ADVANCE DIRECTIVE DISCUSSION JESSICA MESA [facility] Encounter Notes: All associated encounter notes This section contains the clinical notes associated to the Encounter. Date/Time Encounter Note(s) Provider Source Jun 04, 2024 03:53 PM ADDENDUM: LOCAL TITLE: Addendum STANDARD TITLE: ADDENDUM DATE OF NOTE: JUN 04, 2024@15:53:24 ENTRY DATE: JUN 04, 2024@15:53:24 AUTHOR: WINSTON MARTE EXP COSIGNER: URGENCY: STATUS: COMPLETED Both Med Rehab Providers out until Saturday, will cc pcp to see if he would be willing to refill. /jim/ Winston Marte RN Med Rehab Signed: 06/04/2024 15:53 Receipt Acknowledged By: 06/15/2024 11:45 /jim/ LENY AGUILERA NP NURSE PRACTITIONER ====== --- Original Document --- 05/21/24 V1 PHARMACY CUSTOMER CARE MEDICATION RENEWAL: Date: May Division: [facility] referred by Pharmacy Call Center for medication renewal: Controlled substance Medications requested: [id number] TRAMADOL HCL 50MG TAB Defer to specialty clinic To be mailed . Please review and renew if appropriate. *This note was generated by [facility] Pharmacy Customer Care. If you have any questions or need assistance, do not contact this author. Please refer all questions to your local, on-site pharmacy departments. /jim/ DEANN MCKAY CPhT Sterile Processing Technician, [place]/Pharmacy Customer Care Signed: 05/21/2024 17:53 Receipt Acknowledged By: 06/15/2024 10:30 /jim/ BRIAN HERRERA [facility] 06/04/2024 ADDENDUM STATUS: COMPLETED [facility] called stating that he is out of Tramadol and that he has no pills left,asking for refill. /rabia ROSE ADVANCED GAS ENGINE OPERATOR COMPRESSORS Signed: 06/04/2024 15:34 Receipt Acknowledged By: 06/08/2024 07:42 /es/ Era Middleton LPN LPN 06/04/2024 15:52 /jim/ Winston Marte RN Med Rehab * AWAITING SIGNATURE * BRIAN HERRERA RACHAEL M [facility] Jun 04, 2024 03:31 PM ADDENDUM: LOCAL TITLE: Addendum STANDARD TITLE: ADDENDUM DATE OF NOTE: JUN 04, 2024@15:31:48 ENTRY DATE: JUN 04, 2024@15:31:49 AUTHOR: KARLEE ROSE EXP COSIGNER: URGENCY: STATUS: COMPLETED [facility] called stating that he is out of Tramadol and that he has no pills left,asking for refill. /rabia ROSE ADVANCED GAS ENGINE OPERATOR COMPRESSORS Signed: 06/04/2024 15:34 Receipt Acknowledged By: 06/08/2024 07:42 /jim/ Era Middleton LPN LPN 06/04/2024 15:52 /jim/ Winston Marte RN Med Rehab 08/03/2024 14:07 /[facility] --- Original Document --- 05/21/24 V1 PHARMACY CUSTOMER CARE MEDICATION RENEWAL: Date: May Division: [facility] referred by Pharmacy Call Center for medication renewal: Controlled substance Medications requested: [id number] TRAMADOL HCL 50MG TAB Defer to specialty clinic To be mailed . Please review and renew if appropriate. *This note was generated by [facility] Pharmacy Customer Care. If you have any questions or need assistance, do not contact this author. Please refer all questions to your local, on-site pharmacy departments. /rabia MCKAY CPhT Sterile Processing Technician, [place]/Pharmacy Customer Care Signed: 05/21/2024 17:53 Receipt Acknowledged By: 06/15/2024 10:30 /jim/ [facility] 06/04/2024 ADDENDUM STATUS: COMPLETED Both Med Rehab Providers out until Saturday, will cc pcp to see if he would be willing to refill. /jim/ Winston Marte RN Med Rehab Signed: 06/04/2024 15:53 Receipt Acknowledged By: 06/15/2024 11:45 /jim/ LENY AGUILERA NP NURSE PRACTITIONER [facility]LEE ROSE [facility] May 21, 2024 05:44 PM PHARMACY NOTE: LOCAL TITLE: V1 PHARMACY CUSTOMER CARE MEDICATION RENEWAL STANDARD TITLE: PHARMACY NOTE DATE OF NOTE: MAY 21, 2024@17:44 ENTRY DATE: MAY 21, 2024@17:45:03 AUTHOR: DEANN MCKAY COSIGNER: URGENCY: STATUS: COMPLETED V1 PHARMACY CUSTOMER CARE MEDICATION RENEWAL Has ADDENDA Date: May Division: [place] [facility] referred by Pharmacy Call Center for medication renewal: Controlled substance Medications requested: [id number] TRAMADOL HCL 50MG TAB Defer to specialty clinic To be mailed . Please review and renew if appropriate. *This note was generated by [facility] Pharmacy Customer Care. If you have any questions or need assistance, do not contact this author. Please refer all questions to your local, on-site pharmacy departments. /jim/ DEANN MCKAY CPhT Sterile Processing Technician, [place]/Pharmacy Customer Care Signed: 05/21/2024 17:53 Receipt Acknowledged By: 06/15/2024 10:30 /jim/ BRIAN HERRERA [facility] 06/04/2024 ADDENDUM STATUS: COMPLETED called stating that he is out of Tramadol and that he has no pills left,asking for refill. /jim/ KARLEE ROSE ADVANCED GAS ENGINE OPERATOR COMPRESSORS Signed: 06/04/2024 15:34 Receipt Acknowledged By: 06/08/2024 07:42 /es/ Era Middleton LPN LPN 06/04/2024 15:52 /jim/ Winston Marte RN Med Rehab * AWAITING SIGNATURE * BRIAN HERRERA 06/04/2024 ADDENDUM STATUS: COMPLETED Both Med Rehab Providers out until Saturday, will cc pcp to see if he would be willing to refill. /jim/ Winston Marte RN Med Rehab Signed: 06/04/2024 15:53 Receipt Acknowledged By: * AWAITING SIGNATURE * [facility]
--- OUTSIDE RECORDS SUMMARY | 2024-10-12 18:59 | XMS_ITS | Encounter Summary ---
Author Name [facility] [place] Organization [facility] [place] Address [address] [place] [address] Care Team Providers Care Spice Blender Name Role Phone PIPO MEDEIROS Primary Care Provider LENY Suarez Primary Care Provider RICH Valencia Primary Care Provider Thien weber Selected Encounter This section includes the information on record at [place] for the Encounter. Date/Time Encounter Type Encounter Description Reason Provider Source Sep 29, 2024 02:30 PM OFFICE O/P EST HI 40 MIN PRIMARY CARE/MEDICINE ICD-10-CM K43.9 Ventral hernia without obstruction or gangrene LENY AGUILERA Caitlin Encounter Template Text not used by [place] Assessments - Encounter Diagnoses This section includes the primary and secondary diagnoses documented for the Encounter. Date/Time Primary/Secondary Diagnosis Diagnosis Name Provider Source Sep 29, 2024 04:11 PM PRIMARY Ventral hernia without obstruction or gangrene LENY AGUILERA Sep 29, 2024 04:11 PM SECONDARY Iron deficiency anemia, unspecified LENY AGUILERA Sep 29, 2024 04:11 PM SECONDARY Male erectile dysfunction, unspecified LENY AGUILERA Sep 29, 2024 04:11 PM SECONDARY Obesity, unspecified LENY AGUILERA [place] Sep 29, 2024 04:11 PM SECONDARY Obstructive sleep apnea (adult) (pediatric) LENY AGUILERA [place] Sep 29, 2024 04:11 PM SECONDARY Type 2 diabetes mellitus without complications LENY AGUILERA Plan of Treatment: Future Appointments (+ 6 months) and Future Tests (+/- 45 days) The Plan of Treatment section includes future care activities for the patient from all [place] [facility]. This section includes future appointments and future orders which are active, pending or scheduled. Future Appointments This section includes appointments that were scheduled to occur 6 months from the date of the Encounter, up to a maximum of 20 appointments. The data comes from all [place] treatment [facility]. Appointment Date/Time Appointment Type Appointme nt Facility Name Oct 08, 2024 10:00 AM AMBULATORY - REHAB MEDICIN E [place] Oct 08, 2024 01:00 PM AMBULATORY - NONE [place] [facility] [place] [facility] Oct 08, 2024 01:45 PM AMBULATORY - NONE [place] [facility] [place] [facility] Oct 12, 2024 11:30 AM AMBULATORY - MEDICINE [place] [facility] [facility] October 15, 2024 07:00 AM AMBULATORY - MEDICINE [place] [facility] [facility] October 16, 2024 01:00 PM AMBULATORY - MEDICINE [place] [facility] [facility] October 21, 2024 03:00 PM AMBULATORY - MEDICINE [place] [facility] [facility] October 22, 2024 01:00 PM AMBULATORY - RE[facility]AB MEDICIN [facility] [place] [facility] November 02, 2024 02:00 PM AMBULATORY - MEDICINE [facility] Nov 18, 2024 09:30 AM AMBULATORY - MEDICINE [place] [facility] [place] [facility] [...] of theEncounter. The data comes from all [facility]. Test Date/Time Test Type Test Details Facility Name Aug 24, 2024 12:00 AM Laboratory - Chemi strceli Order OCCULT BLOOD FIT X1 SCREEN (MFP ONLY) [facility] [place] Sep 13, 2024 10:39 AM Consult Order COMMUNITY CARE-VASCULAR SURGERY Cons [facility] Sep 29, 2024 12:00 AM Laboratory - Chemi stry Order VITAMIN D (25-OH) BLOOD (SST-SERUM) [facility] Sep 29, 2024 12:00 AM Laboratory - Chemi stry Order CBC AND DIFF (AUTO) BLOOD (LAV-BLOOD) [facility] Sep 29, 2024 12:00 AM Laboratory - Chemi stry Order HEMOGLOBIN A1C PANEL BLOOD (LAV-BLOOD) [facility] Sep 29, 2024 12:00 AM Laboratory - Chemi stry Order PSA BLOOD (SST-SERUM) [facility] Sep 29, 2024 12:00 AM Laboratory - Chemi stry Order TSH BLOOD (SST-SERUM) [facility] Sep 29, 2024 12:00 AM Laboratory - Chemi stry Order LIPID PANEL FASTING BLOOD (SST-SERUM) [facility] Sep 29, 2024 12:00 AM Laboratory - Chemi stry Order BASIC METABOLIC PANEL (fasting) BLOOD (SST-SERUM) [facility] Sep 29, 2024 12:00 AM Laboratory - Chemi stry Order MICROALBUMIN CREATININE RATIO PANEL URINE (RANDOM) [facility] Sep 29, 2024 12:00 AM Laboratory - Chemi stry Order LIVER FUNCTION BLOOD (SST-SERUM) [facility] Oct 08, 2024 06:02 PM Consult Order COMMUNITY CARE-ORTHO SURGICAL Cons [facility] Vital Signs: All taken on the encounter date This section contains inpatient and outpatient Vital Signs collected on the date of the Encounter. Date/Time Temperature Pulse Blood Pressure Respiratory Rate SP02 Pain Height Weight Body Mass Index Source Sep 29, 2024 02:51 PM 98 78 131/84 19 95 71 225 31 [facility] Social History: Smoking Status (Most current) and [...] 23, 2023 02:30 PM VA-TOBACCO NEVER USED [place] Advance Directives: All historical and current Section [...] DIRECTIVE DISCUSSION JESSICA MESA [facility] Radiology Reports: +/- 30 days of the [...] the Encounter. The data comes from all [place] treatment facilities. Date/Time Radiology Report Provider Source Oct 08, 2024 02:23 PM SHOULDER,COMPLETE(RIGHT): COLLETTE ROSE [id number] -[id number] M Exm Date: OCT 08, 2024@14:23 Req Phys: LENY AGUILERA Loc: [facility] PACT 1 SKIDWAY WORKER (Req'g Loc) Img Loc: [facility] 1 Service: [facility] [place] [address] (Case [id number] COMPLETE) SHOULDER,COMPLETE(RIGHT) (RAD Detailed) CPT:12530 Reason for Study: Possible biceps tendinopathy. Unable to lift right arm Clinical History: Report Status: Verified Date Reported: OCT 08, 2024 Date Verified: OCT 08, 2024 Local Sales Associate E-Sig:/ES/CLAUDIA MÉNDEZ JR Report: Study: AP internally [...] Primary Interpreting Staff: CLAUDIA MÉNDEZ JR, Radiologist (Local Sales Associate) /CLAUDIA VALLES JR [facility] Oct 08, 2024 01:14 PM MRI SHOULDER W/O CONTRAST (RIGHT): COLLETTE ROSE [id number] -[id number] M Ex Date: OCT 08, 2024@13:14 Req Phys: LENY AGUILERA Loc: [facility] PACT 1 SKIDWAY WORKER (Req'g Loc) Img Loc: [facility] MRI Service: [place] [address] (Case [id number] COMPLETE) MRI SHOULDER W/O CONTRAST (RIGHT)(MRI Detailed) CPT:44948 Reason for Study: Possible biceps tendon tear. Unknown trauma. Clinical History: Unable to lift right arm Report Status: Verified Date Reported: OCT 08, 2024 Date Verified: OCT 08, 2024 Local Sales Associate E-Sig:/ES/CLAUDIA MÉNDEZ JR Report: Study: MRI of [...] Primary Interpreting Staff: CLAUDIA MÉNDEZ JR, Radiologist (Local Sales Associate) /EAD CLAUDIA MÉNDEZ JR [facility] Encounter Notes: All associated encounter notes This section contains the clinical notes associated to the Encounter. Date/Time Encounter Note(s) Provider Source Sep 29, 2024 02:48 PM PRIMARY CARE NURSE PRACTITIONER OUTPATIENT NOTE: LOCAL TITLE: NURSE PRACTITIONER OUTPATIENT NOTE STANDARD TITLE: PRIMARY CARE NURSE PRACTITIONER OUTPATIENT NOTE DATE OF NOTE: SEP 29, 2024@14:48 ENTRY DATE: SEP 29, 2024@14:48:03 AUTHOR: LENY AGUILERA COSIGNER: URGENCY: STATUS: COMPLETED NURSE PRACTITIONER OUTPATIENT NOTE Has ADDENDA PRIMARY CARE VISIT COLLETTE ROSE, is a 54 yo WHITE MALE [place] who presents at the [place] [facility]. TYPE OF VISIT: Face to face 54-year-old [place] with DM2, osteoarthritis, ED, and obesity (BMI 32) presented to the outpatient clinic in regular follow-up. This is his first visit in my clinic. He comes with multiple requests including renewal of compression stockings and he needs a new abdominal binder for umbilical hernia that has been present for more than 5 years. 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 He had bilateral knee injections in June by [place] physiatry. Reporting good benefit from that. He further notes that he suffered an unknown injury about 2 weeks ago and has since been unable to lift his right arm from the shoulder. He thinks he injured it while lifting weights. No pain with ROM and no change in grasp or forearm strength. He notes TTP at the proximal tip of the humerus on exam. No recent illnesses or ED/ visits. Labs from April were reviewed noting abnormal iron studies and mild anemia with H/H . He was started on iron supplementation. All medications were reconciled during this visit. 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 He has never smoked. He drinks alcohol occasionally. He uses marijuana edibles occasionally to help with sleep. 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 Because of this, he travels quite extensively between the restaurant. He exercises daily with cardio, weights, and aerobics. HISTORY: PERIOD OF SERVICE - [employer] FROM Mar TO Aug COMBAT SERVICE INDICATED: No MEDICAL HISTORY Active Problem Erectile dysfunction N52.9 12/02/2023 ELI DUDLEY Type 2 diabetes mellitus E11.9 12/02/2023 ELI DUDLEY Osteoarthritis M19.90 12/02/2023 ELI DUDLEY Umbilical hernia K42.9 12/02/2023 ELI DUDLEY Obesity E66.9 12/02/2023 ELI DUDLEY Edema R60.9 12/02/2023 ELI DUDLEY Colonoscopy Screening R69. 12/02/2023 ELI DUDLEY VITAL SIGNS: Temperature 98 F [36.7 C] (04/23/2024 13:40) Blood Pressure 140/70 (07/22/2024 15:35) Pulse 70 (07/22/2024 15:35) Respiration 20 (07/22/2024 14:37) Pain 6 (08/17/2024 07:17) BMI BMI: 32.1 Weight 230 lb [104.33 kg] (08/11/2024 15:51) Pulse Oximetry 98% (07/22/2024 15:35) ASSISTIVE DEVICES: None REVIEW OF SYSTEMS: CONSTITUTIONAL: No fevers, chills, weight loss/gain ENT: No sore throat, sneezing, congestion, rhinorrhea, anosmia, or ageusia. CARDIOVASCULAR: No chest pain, palpitations, or increased pedal edema RESPIRATORY: No SOB, cough, sputum, wheeze. GASTROINTESTINAL: Denies abd pain, N/V/D. No melena or hematochezia. No tenesmus or constipation. GENITOURINARY: No burning micturition. No urinary frequency or urgency. No nocturia. MUSCULOSKELETAL: No myalgias or arthralgias. PSYCHIATRIC: No new anxiety or depression. No sleep disturbance. NEUROLOGIC: No headaches, dizziness, numbness or tingling in the extremities, or unilateral weakness. EXAMINATION General: Well-appearing [place] in no obvious distress. Mental Status: Alert and oriented x4. Head: Normocephalic. Eyes: PERRLA. EOMI. Anicteric sclerae. ENT: Moist oral mucosa. Posterior pharynx unremarkable Neck: Supple. No JVD. No LAD. No bruit. Lungs: CTA. Normal chest excursion. Eupneic respirations. CV: Heart tones S1, S2. RRR. No M/G/R. No peripheral edema GI: Moderate to large hernia is easily reducible. No tenderness. Obese, soft abdomen. : No CVA tenderness. Ext: TTP at the proximal insertion of the right biceps tendon on the humerus. No gross deformities. Unable to lift right arm. Neuro: CN II through XII grossly intact. Normal speech. Integument: Skin warm and dry. No concerning lesions or rashes. Psych: Normal mood and affect. Normal judgment. ALLERGIES: ========= CLINDAMYCIN, MORPHINE >> HEALTH MAINTENANCE PREVENTIVE MEDICINE GOALS Info Only: [facility] Video Connect Capable DUE NOW Assess Statin Use - Lipids (CVD/DM) DUE NOW BMI>30/>24.99 High Risk Dec 22 Avg Risk Colorectal Cancer Screen May 21 Hemoglobin A1C Dec 23 Hepatitis B Serology/Immunization DUE NOW Hepatitis C Testing DUE NOW HIV Screening DUE NOW Home Telehealth (CCHT) Referral DUE NOW Pneumococcal Conjugate Vaccine (PCV15/PCDUE NOW Primary Care Provider Search DUE NOW Influenza Immunization DUE NOW Medication Reconciliation DUE NOW COVID-19 Immunization DUE NOW Tdap Immunization DUE NOW HTN Assess for Elevated BP>=140/90 DUE NOW Herpes Zoster (Shingles) Vaccine DUE NOW Opioid Drug Screening V2 DUE NOW Opioid Consent V2 DUE NOW PAVE Foot Check Dec 15 Eye Care At-Risk Eval (Provider) DUE NOW ASSESSMENT/PLAN: Active problems - Computerized Problem List is the source for the following: Erectile dysfunction: Reporting good effects from sildenafil prescribed at previous [facility]. Type 2 diabetes mellitus: Unknown glycemic control as no recent labs. HbA1c was 5.7% in December 2023. He follows a diabetic diet. Continue metformin. Encouraged him to get labs soon as possible. He voiced understanding. Declines statin. Ventral hernia: Moderate to large large, easily reducible ventral abdominal hernia since 2019. He has been seen in consult by general surgery who had planned for repair. This plan was abandoned during the COVID pandemic according to the . He has been lost to follow-up since. He declines general surgery referral today. We did discuss the dangers of not treating the umbilical hernia including strangulated colon. He voiced understanding. Obesity: Maintained on Qsymia by CPP. Obstructive sleep apnea: PSG in 2018 with AHI 28. Recommend CPAP. He has been lost to follow-up. States he does not tolerate CPAP and declines respiratory therapy referral today. Colonoscopy Screening: He is overdue for colonoscopy screening. Declines. Declines fit test. States no family history of colorectal cancers. No hematochezia or melena. Iron deficiency anemia: Unclear if stable as no labs since April when H/H was 10/35. He is maintained on ferrous sulfate and was instructed to continue. Adding vitamin C today. Pain in right shoulder: Exam suspicious for biceps tendon injury. There is TTP at the proximal insertion point. X-ray of the shoulder. Likely will need MRI. FOLLOW UP: RTC Below & sooner PRN UPCOMING APPOINTMENTS: 10/12/2024 11:30 [facility] PHONE PHARM PACT 1 10/15/2024 07:00 COM CARE-VAS SURGERY 10/16/2024 13:00 [facility] MED REHAB PA 1 10/21/2024 15:00 [facility] OPTOMETRY 3 10/22/2024 13:00 [facility] AUDIO EVAL 5 10/22/2024 14:00 [facility] ENT MD On the date of the encounter, I spent 50 minutes on some or all of the following: chart review, history, physical examination, treatment planning, education and counselling of the patient/family/caregiver, placing orders, communicating with other health care providers, and documentation in the electronic health record. No barriers; Patient understands and agrees to current treatment plan. If pt has any questions, concerns, or changes in current health status he/she will call or come in to the [facility]. Assess Statin Use - Lipids (CVD/DM): The patient declines to be treated with a statin. Medication Reconciliation: Outpatient: Has the patient been taking medications as documented in the EMLR? YES: The patient has been taking medications as documented in the EMLR. Essential Medication List for Review used to complete this medication reconciliation. INCLUDED IN THIS LIST: Alphabetical list of active outpatient prescriptions dispensed from this [place] (local) and dispensed from another [place] or [facility] facility (remote) as well as inpatient [...] with a VA or non-VA provider. /jim/ LENY AGUILERA NP NURSE PRACTITIONER Signed: 09/29/2024 16:11 10/08/2024 ADDENDUM STATUS: COMPLETED MRI right shoulder without contrast 10/04/2024 resulted: Findings: The study is suboptimal secondary to [...] The suprascapular and spinoglenoid notches are normal. I telephoned the patient and discussed these results in detail. He agrees to a referral to orthopedic surgery for definitive treatment. /jim/ LENY AGUILERA NP NURSE PRACTITIONER Signed: 10/08/2024 18:03 LENY AGUILERA [place]
--- OUTSIDE RECORDS SUMMARY | 2024-10-12 18:59 | XMS_ITS | Encounter Summary ---
Author Name [facility] [place] Organization [place] Address [address] [place] [address] Care Team Providers Care Dictating Machine Mechanic Name Role Phone PIPO MEDEIROS Primary Care Provider LENY Suarez Primary Care Provider RICH Valencia Primary Care Provider Thien weber Selected Encounter This section includes the information on record at [place] for the Encounter. Date/Time Encounter Type Encounter Description Reason Pro vider Source Jul 02, 2024 03:30 PM Outpatient Encounter PHYSICAL THERAPY IHE Encounter [...] 03, 2024 02:00 PM AMBULATORY - [place]ICINE [place] [facility] [facility] Jul 14, 2024 01:00 PM AMBULATORY - NONE [facility] Jul 21, 2024 01:00 PM AMBULATORY - NONE [facility] Jul 22, 2024 10:00 AM AMBULATORY - MEDICINE [place] [facility] [place] [place] [facility] Jul 22, 2024 02:00 PM AMBULATORY - REHAB MEDICIN [facility] [place] [facility] Jul 28, 2024 01:00 PM AMBULATORY - NONE [facility] Aug 04, 2024 01:00 PM AMBULATORY - NONE [facility] Aug 11, 2024 01:00 PM AMBULATORY - NONE [place] Aug 17, 2024 07:15 AM AMBULATORY - MEDICINE [place] [facility] [place] [facility] Aug 24, 2024 02:00 PM AMBULATORY - MEDICINE [place] [facility] [place] [facility] Aug 31, 2024 03:30 PM AMBULATORY - MEDICINE [place] [facility] [place] [facility] Sep 14, 2024 11:30 AM AMBULATORY - MEDICINE [place] [facility] [place] [facility] Sep 29, 2024 02:30 PM AMBULATORY - MEDICINE [facility] Oct 08, 2024 10:00 AM AMBULATORY - REHAB MEDICIN E [place] Oct 08, 2024 01:00 PM AMBULATORY - NONE [facility] [place] [facility] Oct 08, 2024 01:45 PM AMBULATORY - NONE [facility] [facility] Oct 12, 2024 11:30 AM AMBULATORY - MEDICINE [facility] [place] [facility] October 15, 2024 07:00 AM AMBULATORY - MEDICINE [place] [facility] [place] [facility] October 16, 2024 01:00 PM AMBULATORY - MEDICINE [place] [facility] [place] [facility] October 21, 2024 03:00 PM AMBULATORY - MEDICINE [place] [facility] [place] [facility] Active, Pending, and Scheduled [...] TELE-EYE S CREENING CONSULT - CBC Cons Jewel Bearing [facility] Aug 03, 2024 01:06 PM Consult Order COMMUNITY CARE-PAIN MANAGEMENT Cons Jewel Bearing [facility] Social History: Smoking Status (Most current) and Tobacco Use (All prior to encounter date) This section includes the most current, and the historical, smoking and tobacco- related health factors from the [place] facility where the Encounter took place. Current Smoking Status This section includes the most current smoking, or tobacco-related health factor, from the [place] facility where the Encounter took place. Date/Time Current Smoking Status Comment Facil ity Dec 23, 2023 02:30 PM VA-TOBACCO NEVER USED [place] Advance Directives: All historical and current Section [...] 12, 2023 ADVANCE DIRECTIVE DISCUSSION JESSICA MESA [facility] Radiology Reports: +/- 30 days of the [...] RODNEY NCE FOR NEEDLE PLACEMENT: COLLETTE ROSE [id number] -1970 M Ex Date: JUL 22, 2024@14:20 Req Phys: LEXI MONTOYA Pat Loc: [facility] MED REHAB BETY BORJAS MD (Req' Img Loc: [facility]/BUILDING 1 Service: Unknown [facility] [place] [address] (Case [id number] COMPLETE) FLUOROSCOPIC GUIDANCE FOR NEEDLE (RAD Detailed) CPT:68640 Reason for Study: genicular nerve block Clinical History: Report Status: Verified Date Reported: JUL 22, 2024 Date Verified: JUL 22, 2024 Centrifugal Station Operator E-Sig:/JIM/CLAUDIA MÉNDEZ JR Report: Study: Pain injection [...] Primary Interpreting Staff: CLAUDIA MÉNDEZ JR, Radiologist (Centrifugal Station Operator) /CLAUDIA VALLES JR [facility] Encounter Notes: All associated encounter notes This section contains the clinical notes associated to the Encounter. Date/Time Encounter Note(s) Provider Source Jul 02, 2024 04:00 PM PHYSICAL MEDICINE REHAB ADMINISTRATIVE NOTE: LOCAL TITLE: APPOINTMENT NO SHOW DISCHARGE THERAPY NOTE STANDARD TITLE: PHYSICAL MEDICINE REHAB ADMINISTRATIVE NOTE DATE OF NOTE: JUL 02, 2024@16:00 ENTRY DATE: JUL 02, 2024@16:00:05 AUTHOR: LISSET MENJIVAR EXP COSIGNER: URGENCY: STATUS: COMPLETED Patient's medical record was reviewed. Follow-up actions were determined and initiated: Please check/complete as applies: [ ] Telephoned Directly [ ] Re-scheduled for next available appt [ ] Sent a N0-show letter ( must call for appointment) [ ] Other (Emergent/Overbook, etc.): [X] PT WAS DISCHARGED FROM THERAPY DUE TO MULTIPLE CANCELLATIONS AND/OR NO-SHOWS. PLEASE CONSIDER PATIENT'S DESIRE TO ATTEND THERAPY BEFORE RE-INITIATING THIS CONSULT. /jim/ LISSET MENJIVAR DPT Physical Therapist Signed: 07/02/2024 16:00 LISSET MENJIVAR [place] Jun 15, 2024 10:35 AM ACCOUNTING OF DISC LOSURES NOTE: LOCAL TITLE: STATE PRESCRIPTION DRUG MONITORING PROGRAM STANDARD TITLE: ACCOUNTING OF DISCLOSURES NOTE DATE OF NOTE: JUN 15, 2024@10:35:11 ENTRY DATE: JUN 15, 2024@10:35:11 AUTHOR: JIMMIE HERRERA EXP COSIGNER: URGENCY: STATUS: COMPLETED This PDMP query was submitted by Jimmie Herrera. The clinical justification for this PDMP query is to review controlled substances prescribed outside of the [facility], and any additional information that may become available, as an important component of standard clinical care, and in accordance with [facility] policy. Patient information was shared with the PDMP [place]. No prescription(s) for controlled substances outside the [facility] were found in the last 90 days. usage reviewed. 20 tablets were utilized over a 2-month span. No request for early refills. No request for medication from others. /jim/ JIMMIE HERRERA [facility] Signed: 06/15/2024 10:38 JIMMIE HERRERA [place]
--- OUTSIDE RECORDS SUMMARY | 2024-10-12 19:00 | XMS_ITS | Encounter Summary ---
Author Name [facility] [place] [place] Organization [facility] [place] Address [address] [place] [address] Care Team Providers Care Net Making Supervisor Name Role Phone PIPO MEDEIROS Primary Care Provider LENY Suarez Primary Care Provider RICH Valencia Primary Care Provider Thien weber Selected Encounter This section includes the information on record at [place] for the Encounter. Date/Time Encounter Type Encounter Description Reason Provider Source Dec 11, 2023 02:30 PM OFF/OP EST OCTOBER X REQ PHY/QHP PRIMARY CARE/MEDICINE ICD-10-CM S91.302A Unspecified open wound, left foot, initial encounter SHELLI CASAS Caitlin Encounter Template Text not used by [place] Assessments - Encounter Diagnoses This section includes the primary and secondary diagnoses documented for the Encounter. Date/Time Primary/Secondary Diagnosis Diagnosis Name Provider Source Dec 11, 2023 03:43 PM PRIMARY Unspecified open wound, left foot, initial encounter SHELLI CASAS Dec 11, 2023 03:43 PM SECONDARY Unspecified open wound, right foot, initial encounter SHELLI CASAS Plan of Treatment: Future Appointments (+ 6 months) and Future Tests (+/- 45 days) The Plan of Treatment section includes [facility]. This section includes future appointments and future [...] 2023 12:00 PM AMBULATORY - MEDICINE [facility] Dec 16, 2023 10:30 AM AMBULATORY - MEDICINE [facility] [place] [facility] Dec 16, 2023 11:45 AM AMBULATORY - MEDICINE [facility] Dec 23, 2023 02:30 PM AMBULATORY - MEDICINE [facility] [place] [facility] Dec 26, 2023 07:30 AM AMBULATORY - MEDICINE [facility] Dec 30, 2023 02:30 PM AMBULATORY - NONE [facility] [place] [facility] Jan 14, 2024 12:30 PM AMBULATORY - MEDICINE [facility] [place] [facility] Jan 29, 2024 03:00 PM AMBULATORY - MEDICINE [facility] [place] [facility] Jan 30, 2024 01:30 PM AMBULATORY - MEDICINE [facility] [place] [facility] Jan 31, 2024 03:30 PM AMBULATORY - MEDICINE [facility] [place] [facility] Feb 18, 2024 03:00 PM AMBULATORY - NONE [facility] [place] [facility] Feb 20, 2024 10:00 AM AMBULATORY - MEDICINE [facility] [place] [facility] Mar 13, 2024 12:30 PM AMBULATORY - MEDICINE [facility] [place] [facility] Mar 25, 2024 03:00 PM AMBULATORY - MEDICINE [facility] [place] [facility] Mar 27, 2024 08:00 AM AMBULATORY [place] Apr 17, 2024 03:00 PM AMBULATORY - REHAB MEDICIN [facility] Apr 21, 2024 01:00 PM AMBULATORY - NONE [facility] Apr 21, 2024 02:30 PM AMBULATORY - REHAB MEDICIN [facility] Apr 23, 2024 01:00 PM AMBULATORY - [place]ICINE [place] [facility] [facility] Apr 23, 2024 02:00 PM AM[facility]ULATORY [facility]ICINE [facility] [place] [facility] Active, Pending, and Scheduled Orders This section [...] Order CBC (WITH DIFF)_ BLOOD (EDTA WB) [facility] Nov 16, 2023 12:00 AM Laboratory - Chemi stry Order B12 & FOLATE_ SERUM (GOLD) [facility] Nov 16, 2023 12:00 AM Laboratory - Chemi stry Order LIPID PROFILE_ SERUM (GOLD) [facility] Nov 16, 2023 12:00 AM Laboratory - Chemi stry Order IRON PANEL (FE & UIBC)_ SERUM (GOLD) [facility] Nov 16, 2023 12:00 AM Laboratory - Chemi stry Order BASIC METABOLIC PROFILE_ SERUM (GOLD) [facility] Nov 16, 2023 12:00 AM Laboratory - Chemi stry Order HEMOGLOBIN A1C BLOOD (EDTA WB) [facility] Nov 16, 2023 12:00 AM Laboratory - Chemi stry Order GENERAL TOX (URINE)_ URINE (TOX) [facility] Lab Results: +/- 30 days of the encounter This section includes the Chemistry and Hematology Lab Results on record with [place] for the patient. Radiology Reports and Pathology Reports are provided separately, in subsequent sections. Lab Results This section contains the Chemistry/Hematology Results that were resulted 30 days before or 30 daysafter the date of the Encounter. Date/Time Source Result Type Result - Unit Interpretation Reference Range Specimen Type Comment Dec 24, 2023 02:35 PM [facility] LIPID PANEL FASTING SERUM Specimen Type: SERUM No comment entered. Ordering Provider: ELI DUDLEY Report Released Date/Time: Dec 23, 2023 04:10 PM Reporting Lab: [address] [address] Performing Lab: [address] [address] CHOLESTEROL 133 mg/dL TRIGLYCERIDE 74 mg/dL 0-150 LDL calculated 83 mg/dL 0-129 CHOL/HDL 3.8 HDL CHOLESTEROL 35 mg/dL L 40-60 Dec 24, 2023 02:35 PM [facility] LIVER FUNCTION SERUM Specimen Type: SERUM No comment entered. Ordering Provider: ELI DUDLEY Report Released Date/Time: Dec 23, 2023 04:10 PM Reporting Lab: [address] [address] Performing Lab: [address] [address] PROTEIN,TOTAL 7.1 g/dL 6.0-8.3 ALBUMIN 4.3 g/dL 3.5-5.0 ALKALINE PHOSPHATASE 69 U/L 40-150 AST 21 U/L 5-34 ALT 22 U/L BILIRUBIN, TOTAL 0.4 mg/dL 0.2-1.2 Dec 24, 2023 02:35 PM [facility] BASIC METABOLIC PANEL (fasting) SERUM Specime n Type: SERUM No comment entered. Ordering Provider: ELI DUDLEY Report Released Date/Time: Dec 23, 2023 04:11 PM Reporting Lab: [address] [address] Performing Lab: [address] [address] UREA NITROGEN 14 mg/dL 7-25 GLUCOSE 102 mg/dL H 65-100 SODIUM 140 mmol/L 135-145 POTASSIUM 4.8 mmol/L 3.5-5.0 CHLORIDE 107 mmol/L 100-110 CO2 22 meq/L 20-30 CREATININE, Serum 0.85 mg/dL 0.50-1.40 eGFR(CKD-EPI 2020) >90 mL/min >60 Dec 24, 2023 02:35 PM [facility] MICROALBUMIN CREATININE RATIO PANEL URINE Spe cimen Type: URINE No comment entered. Ordering Provider: ELI DUDLEY Report Released Date/Time: Dec 23, 2023 04:11 PM Reporting Lab: [place] [address] [facility] [address] Performing Lab: [facility] [address] [facility] [address] MICROALBUMIN/CREATININE RATIO 8.2 mg/g 0 -29.9 MICROALBUMIN,QUANTITATIVE 1.2 mg/dL RR U NAVAIL CREATININE URINE 146.77 mg/dL Dec 24, 2023 02:35 PM [facility] HEMOGLOBIN A1C PANEL BLOOD Specimen Type: BLO [...] Dec 23, 2023 04:11 PM Reporting Lab: [address] [address] Performing Lab: [address] [address] HEMOGLOBIN A1C 5.7 H 4.0-5.6 Dec 24, 2023 02:35 PM [facility] TSH SERUM Specimen Type: SERUM No comment entered. Ordering Provider: ELI DUDLEY Report Released Date/Time: Dec 23, 2023 04:11 PM Reporting Lab: [address] [address] Performing Lab: [address] [address] TSH 1.64 u[IU]/mL 0.35-5.00 Dec 24, 2023 02:35 PM [facility] PSA SERUM Specimen Type: SERUM No comment entered. Ordering Provider: ELI DUDLEY Report Released Date/Time: Dec 23, 2023 04:11 PM Reporting Lab: [address] [address] Performing Lab: [address] [place] [address] PSA 1.80 ng/mL 0.00-4.00 Dec 24, 2023 02:35 PM [facility] CBC AND DIFF (AUTO) BLOOD Specimen Type: RAMILAO Sofie No comment entered. Ordering Provider: ELI DUDLEY Report Released Date/Time: Dec 23, 2023 04:11 PM Reporting Lab: [facility] [address] [facility] [address] Performing Lab: [facility] [address] [facility] [address] WBC 6.05 10*3/uL 4.50-11.00 RBC 4.99 10*6/uL [...] H 0.00-0.00 Dec 24, 2023 02:35 PM [facility] SMEAR EXAMINATION BLOOD Specimen Type: BLOOD Comment: LARGE PLATELETS SEEN Ordering Provider: ELI DUDLEY Report Released Date/Time: Dec 23, 2023 04:11 PM Reporting Lab: [facility] [address] [facility] [address] Performing Lab: [facility] [address] [facility] [address] PLT (smear review) ADEQ 10*3/uL MICROCYTOSIS 2+ HYPOCHROMIA 2+ OVALOCYTES 1+ Vital Signs: All taken on the encounter date This section contains inpatient and outpatient Vital Signs collected on the date of the Encounter. Date/Time Temperature Pulse Blood Pressure Respiratory Rate SP02 Pain Height Weight Body Mass Index Source Dec 11, 2023 03:12 PM 134/90 [place] Dec 11, 2023 02:50 PM 98.8 98 170/100 20 98 6 [facility] IE Advance Directives: All historical and current Section [...] 12, 2023 ADVANCE DIRECTIVE DISCUSSION JESSICA MESA [facility] Radiology Reports: +/- 30 [...] the Encounter. The data comes from all [place] treatment facilities. Date/Time Radiology Report Provider Source Dec 30, 2023 03:56 PM KNEE 3 VIEWS (LEFT ): ROSECOLLETTE Partida [id number] -1970 M Exm Date: DEC 30, 2023@15:56 Req Phys: ALEN SANCHEZ Pat Loc: [facility] CARE-RADIOLOGY X-RAY (Req' Img Loc: [facility] Service: Unknown [facility] , (Case [id number] COMPLETE) KNEE 1 OR 2 VIEWS (LEFT) (RAD Detailed) CPT:79008 Reason for Study: osteoarthritis knee (Case 65 COMPLETE) KNEES BILATERAL STANDING (RAD Detailed) CPT:32179 (Case 66 COMPLETE) KNEE 1 OR 2 VIEWS (RIGHT) (RAD Detailed) CPT:99979 Clinical History: Traveling request Report Status: Verified Date Reported: DEC 30, 2023 Date Verified: DEC 30, 2023 Property Worker E-Sig:/ES/CLAUDIA MÉNDEZ JR Report: Study: AP weight-bearing views of the knees with lateral and sunrise views of the left and right knees. Comparison: None. Findings: Severe bilateral lateral joint compartment degenerative osteoarthritic versus post traumatic arthritic changes are present with [id number] appearance of the lateral femur and the [...] Primary Interpreting Staff: CLAUDIA MÉNDEZ JR, Radiologist (Property Worker) /CLAUDIA VALLES JR [facility] Encounter Notes: All associated encounter notes This section contains the clinical notes associated to the Encounter. Date/Time Encounter Note(s) Provider Source Dec 11, 2023 03:13 PM PRIMARY CARE NOTE: LOCAL TITLE: WALK-IN NOTE PRIMARY CARE (T) STANDARD TITLE: PRIMARY CARE NOTE DATE OF NOTE: DEC 11, 2023@15:13 ENTRY DATE: DEC 11, 2023@15:14 AUTHOR: SHELLI CASAS COSIGNER: URGENCY: STATUS: COMPLETED Data: 53year old MALE Parksley reports to Primary Care clinic for Walk-In visit. Parksley's PCP does not have pact yet Today Vet walks in to clinic with complaint of wounds to bilateral feet. Last recorded Vital Signs are: Temperature:98.8 F [37.1 C] (12/11/2023 14:50) Pulse:98 (12/11/2023 14:50) Blood Pressure:134/90 (12/11/2023 15:12) Respiration:20 (12/11/2023 14:50) Pain:6 (12/11/2023 14:50) Vet reports current allergies are: Remote Allergy Data FACILITY ALLERGY/ADR -------- 520[facility]^[facility]^[address]19[place] Current Medications from Active Med list include: Active Outpatient Medications (including Supplies): Active Non-VA Medications Status = 1) Non-VA DICLOFENAC NA 1% TOP GEL 2 GRAMS TOPICALLY ACTIVE FOUR TIMES A DAY 2) Non-VA DICLOFENAC NA 75MG EC TAB 75MG BY MOUTH TWICE ACTIVE DAILY 3) Non-VA GABAPENTIN TAB 300 MG BY MOUTH THREE TIMES ACTIVE DAILY NEEDED 4) Non-VA METFORMIN (ONCE DAILY) TAB,SA 500MG BY MOUTH ACTIVE TWICE DAILY 5) Non-VA SILDENAFIL CITRATE 100MG TAB 100MG BY MOUTH ACTIVE ONCE DAILY NEEDED Action: states having off and on wounds to bilateral feet. Parksley states he is from [place] and will be in the area for about 1 year. reports going to [facility] for evaluation of bilateral feet pain and wounds. Reports x rays completed with no concerns for fractures States blood work done but no results. He was prescribed 10 days of antibiotics which are now completed He was told to follow up with [facility] [place] wound care and was seen 1 week ago. Reports orders were antibiotic ointment and cover. Next appointment next week. right dorsal foot with 2 wounds. Lateral aspect approx. 0.5 cm round. Mid dorsal area 1.5 x 3.o cm. small lesion between right great toe and second toe. left dorsal foot with scabbed area. small lesion between 3rd and 4th toes Advised to place gauze between toes. Advised to keep wounds covered. Compression wrap applied to bilateral lower legs. Advised to follow up with wound center. BP noted to be elevated. BP cuff issued and instructed on use. Advised to check daily and document. RTC for any new concerns. Parksley verbalized understanding. /jim/ SHELLI CASAS RN PRIMARY CARE RN Signed: 12/11/2023 15:43 SHELLI CASAS [place]
--- OUTSIDE RECORDS SUMMARY | 2024-10-12 19:00 | XMS_ITS | Encounter Summary ---
Author Name [facility] [place] Organization [facility] [place] Address [address] [place] [address] Care Team Providers Care Wood Block Artist Name Role Phone PIPO MEDEIROS Primary Care Provider LENY Suarez Primary Care Provider RICH Valencia Primary Care Provider Thien weber Selected Encounter This section includes the information on record at [place] for the Encounter. Date/Time Encounter Type Encounter Description Reason Provider Source Oct 08, 2024 10:00 AM ORTHC/PROSTC MGMT SBSQ ENC PHYSICAL THERAPY ICD-10-CM R60.9 Edema, unspecified LEIGHTON,TRISH N IHE Encounter Template Text not used by [place] Assessments - Encounter Diagnoses This section includes the primary and secondary diagnoses documented for the Encounter. Date/Time Primary/Secondary Diagnosis Diagnosis Name Provider Source Oct 08, 2024 10:47 AM PRIMARY Edema, unspecified RYAN MANZANARES Plan of Treatment: Future Appointments (+ 6 [...] - MEDICINE [facility] [place] [facility] October 15, 2024 07:00 AM AMBULATORY - MEDICINE [facility] [place] [facility] October 16, 2024 01:00 PM AMBULATORY - MEDICINE [facility] [place] [facility] October 21, 2024 03:00 PM AMBULATORY - MEDICINE [facility] [facility] October 22, 2024 01:00 PM AMBULATORY - REHAB MEDICIN E [facility] [place] [facility] November 02, 2024 02:00 PM AMBULATORY - MEDICINE [facility] Nov 18, 2024 09:30 AM AMBULATORY - MEDICINE [place] [facility] [place] [facility] Active, Pending, and Scheduled Orders This section includes a listing of several types of active, pending, and scheduled orders, including clinic medications orders, diagnostic test orders, procedure orders and consult orders; where the start date of the order is 45 days before the date of the Encounter or 45 days after the date of theEncounter. The data comes from all [facility] facilities. Test Date/Time Test Type Test Details Facility Name Aug 24, 2024 12:00 AM Laboratory - Chemi stry Order OCCULT BLOOD FIT X1 SCREEN (MFP ONLY) [facility] Sep 13, 2024 10:39 AM Consult Order [facility]GERY Cons Financial Reporting Specialist[facility] [place] Sep 29, 2024 12:00 AM Laboratory - Chemi stry Order CBC AND DIFF (AUTO) BLOOD (LAV-BLOOD) [facility] Sep 29, 2024 12:00 AM Laboratory - Chemi stry Order VITAMIN D (25-OH) BLOOD (SST-SERUM) [facility] Sep 29, 2024 12:00 AM Laboratory - Chemi stry Order HEMOGLOBIN A1C PANEL BLOOD (LAV-BLOOD) [facility] Sep 29, 2024 12:00 AM Laboratory - Chemi stry Order TSH BLOOD (SST-SERUM) [facility] Sep 29, 2024 12:00 AM Laboratory - Chemi stry Order PSA BLOOD (SST-SERUM) [facility] Sep 29, 2024 12:00 AM Laboratory - Chemi stry Order LIPID PANEL FASTING BLOOD (SST-SERUM) [facility] Sep 29, 2024 12:00 AM Laboratory - Chemi stry Order BASIC METABOLIC PANEL (fasting) BLOOD (SST-SERUM) [facility] Sep 29, 2024 12:00 AM Laboratory - Chemi stry Order LIVER FUNCTION BLOOD (SST-SERUM) [facility] Sep 29, 2024 12:00 AM Laboratory - Chemi stry Order MICROALBUMIN CREATININE RATIO PANEL URINE (RANDOM) [facility] Oct 08, 2024 06:02 PM Consult Order [facility]-ORTHO SURGICAL Cons Financial Reporting Specialist[facility] Choice [place] Social History: Smoking Status (Most current) and Tobacco Use (All prior to encounter date) This section includes the most current, and the historical, smoking and tobacco- related health factors from the [place] facility where the Encounter took place. Current Smoking Status This section includes the most current smoking, or tobacco-related health factor, from the [place] facility where the Encounter took place. Date/Time Current Smoking Status Comment Facil y Dec 23, 2023 02:30 PM VA-TOBACCO NEVER USED [place] Advance Directives: All historical and current Section Date Range: From patient's date of to the date document was created. This section includes ALL of a patient's completed or amended [place] Advance and Rescinded Directives. The entries below indicate that a directive exists for the patient, but an actual copy is not included with this document. The data comes from all [place] facilities. Date Advance Directives Provider Source November 12, 2023 ADVANCE DIRECTIVE DISCUSSION JESSICA MESA [facility] Radiology Reports: +/- 30 days of the [...] the Encounter. The data comes from all [place] treatment facilities. Date/Time Radiology Report Provider Source Oct 08, 2024 02:23 PM SHOULDER,COMPLETE(RIGHT): COLLETTE ROSE [id number] -1970 M Ex Date: OCT 08, 2024@14:23 Req Phys: LENY AGUILERA Loc: [facility] PACT 1 [place] (Req'g Loc) Img Loc: [facility] 1 Service: [place] [address] (Case [id number] COMPLETE) SHOULDER,COMPLETE(RIGHT) (RAD Detailed) CPT:98061 Reason for Study: Possible biceps tendinopathy. Unable to lift right arm Clinical History: Report Status: Verified Date Reported: OCT 08, 2024 Date Verified: OCT 08, 2024 Cupola Repairer E-Sig:/ES/CLAUDIA MÉNDEZ JR Report: Study: AP internally [...] Primary Interpreting Staff: CLAUDIA MÉNDEZ JR, Radiologist (Cupola Repairer) /EACLAUDIA BOWMAN JR [facility] Oct 08, 2024 01:14 PM MRI SHOULDER W/O CONTRAST (RIGHT): COLLETTE ROSE [id number] -1970 M [facility] Date: OCT 08, 2024@13:14 Req Phys: LENY AGUILERA Loc: [facility] PACT 1 [place] (Req'g Loc) Img Loc: [facility] MRI Service: [place] [address] (Case [id number] COMPLETE) MRI SHOULDER W/O CONTRAST (RIGHT)(MRI Detailed) CPT:06456 Reason for Study: Possible biceps tendon tear. Unknown trauma. Clinical History: Unable to lift right arm Report Status: Verified Date Reported: OCT 08, 2024 Date Verified: OCT 08, 2024 Cupola Repairer E-Sig:/ES/CLAUDIA MÉNDEZ JR Report: Study: MRI of [...] Primary Interpreting Staff: CLAUDIA MÉNDEZ JR, Radiologist (Cupola Repairer) /CLAUDIA VALLES JR [facility] Encounter Notes: All associated encounter notes This section contains the clinical notes associated to the Encounter. Date/Time Encounter Note(s) Provider Source Oct 08, 2024 10:45 AM PHYSICAL THERAPY C ONSULT: LOCAL TITLE: PHYSICAL THERAPY CONSULT STANDARD TITLE: PHYSICAL THERAPY CONSULT DATE OF NOTE: OCT 08, 2024@10:45 ENTRY DATE: OCT 08, 2024@10:45:49 AUTHOR: RYAN MANZANARES EXP COSIGNER: URGENCY: STATUS: COMPLETED Initial Evaluation date: Sep Progress Note Date: Treatment #: 0 Treatment time: 15 mins Diagnosis: Peripheral Vascular Disease Provider: PT Treatment Precautions: Patient identified by full name and date of PROSTHETIC CHECKOUT-Physical Therapy Pt was measured and ordered compression stockings and abdominal binders on this date, to be delivered to home and brief pt education regarding use and care of it them Measurements in inches R ankle: 23 Calf: 40 Thigh: L ankle: 24 Calf: 43 Thigh: (x) Pt is I and safe with use of equipment () Pt requires assistance: (x) Pt was educated to use, care, and safety of the equipment and demonstrated/verbalized understanding of same. () Pt was issued manual or written instructions. (x) Suggested pt call this therapist with any questions. (x) Goal of safe use of equipment met. No further services provided at this time. 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
--- OUTSIDE RECORDS SUMMARY | 2024-10-12 19:00 | XMS_ITS ---
Author Name [facility] [place] Organization [place] Address [address] [place] [address] Care Team Providers Care Panel Laminator Name Role Phone WALDEMAR PIPO Primary Care Provider LENY Suarez Primary Care Provider RICH Valencia Primary Care Provider Thien weber Selected Encounter This section includes the information on record at [place] for the Encounter. Date/Time Encounter Type Encounter Description Reason Pro vider Source Jun 05, 2024 03:50 PM Outpatient Encounter ADMIN PAT ACTIVTIES (MASNONCT) IHE Encounter Template Text not used by [place] Plan of Treatment: Future Appointments (+ 6 months) and Future Tests (+/- 45 days) The Plan of Treatment section includes future care activities for the patient from all [place] treatmentfacilities. This section includes future appointments and future orders which are active, pending or scheduled. Future Appointments This section includes appointments that were scheduled to occur 6 months from the date of the Encounter, up to a maximum of 20 appointments. The data comes from all [place] treatment facilities. Appointment Date/Time Appointment Type Appointme nt Facility Name Jun 19, 2024 07:30 AM AMBULATORY - MEDICINE [facility] Jun 23, 2024 11:30 AM [facility] [place] Jun 25, 2024 01:00 PM AMBULATORY - [facility] MEDICIN [facility] [place] [facility] Jun 25, 2024 02:00 PM AMBULATORY - MEDICINE [facility] [place] [facility] Jul 03, 2024 02:00 PM AM[facility]ULATORY [facility]IC[facility] [place] [facility] Jul 14, 2024 01:00 PM [facility]ULATORY - NONE [facility] Jul 21, 2024 01:00 PM [facility]ATORY - NONE [place] [facility] Jul 22, 2024 10:00 AM AM[facility]ULATORY [facility] [place] [facility] Jul 22, 2024 02:00 PM AMBULATORY - REHAB MEDICIN [facility] [place] [facility] Jul 28, 2024 01:00 PM AMBULATORY - NONE [place] [facility] Aug 04, 2024 01:00 PM AMBULATORY - NONE [place] [facility] Aug 11, 2024 01:00 PM AMBULATORY - NONE [place] [facility] Aug 17, 2024 07:15 AM [facility]ULATORY [facility] [place] [facility] Aug 24, 2024 02:00 PM AMBULATORY [facility] MEDICINE [facility] [place] [facility] Aug 31, 2024 03:30 PM AMBULATORY [facility] MEDICINE [facility] [place] [facility] Sep 14, 2024 11:30 AM AMBULATORY [facility] MEDICINE [facility] [place] [facility] Sep 29, 2024 02:30 PM AMBULATORY - MEDICINE [facility] Oct 08, 2024 10:00 AM AMBULATORY - REHAB MEDICIN E [place] Oct 08, 2024 01:00 PM AMBULATORY - NONE [facility] [place] [facility] Oct 08, 2024 01:45 PM AMBULATORY - NONE [facility] [place] [facility] Active, Pending, and Scheduled Orders This section includes a listing of several types of active, pending, and scheduled orders, including clinic medications orders, diagnostic test orders, procedure orders and consult orders; where the start date of the order is 45 days before the date of the Encounter or 45 days after the date of theEncounter. The data comes from all [place] treatment facilities. Test Date/Time Test Type Test Details Facility Name May 08, 2024 12:00 AM Laboratory - Chemi stry Order URINE DRUG PROFILE_ UA CUP URINE [facility] May 08, 2024 12:00 AM Laboratory - Chemi stry Order CBC (WITH DIFF)_ BLOOD (EDTA WB) [facility] May 08, 2024 12:00 AM Laboratory - Chemi stry Order LIPID PROFILE_ SERUM (GOLD) [facility] May 08, 2024 12:00 AM Laboratory - Chemi stry Order TSH SERUM (GOLD) [facility] May 08, 2024 12:00 AM Laboratory - Chemi stry Order HEMOGLOBIN A1C BLOOD (EDTA WB) [facility] May 08, 2024 12:00 AM Laboratory - Chemi stry Order COMP.METABOLIC PROFILE_ SERUM (GOLD) [facility] May 08, 2024 12:00 AM Laboratory - Chemi stry Order MICROALBUMIN:CREAT RATIO_ UA CUP URINE [facility] May 08, 2024 12:00 AM Laboratory - Chemi stry Order URINALYSIS_ UA CUP URINE [facility] Jun 12, 2024 02:35 PM Consult Order TELE-EYE S CREENING CONSULT - CBC Cons Rehabilitation Teacher's Choice [facility] Advance Directives: All historical and current Section Date Range: From patient's date of to the date document was created. This section includes ALL of a patient's completed or amended [place] Advance and Rescinded Directives. The entries below indicate that a directive exists for the patient, but an actual copy is not included with this document. The data comes from all [facility]. Date Advance Directives Provider Source November 12, 2023 ADVANCE DIRECTIVE DISCUSSION JESSICA MESA [facility] Encounter Notes: All associated encounter notes This section contains the clinical notes associated to the Encounter. Date/Time Encounter Note(s) Provider Source Jun 05, 2024 03:51 PM PHARMACY NOTE: LOCAL TITLE: V1 PHARMACY CUSTOMER CARE MEDICATION RENEWAL STANDARD TITLE: PHARMACY NOTE DATE OF NOTE: JUN 05, 2024@15:51 ENTRY DATE: JUN 05, 2024@15:51:26 AUTHOR: AYSE SANTIZO COSIGNER: URGENCY: STATUS: COMPLETED Date: May Division: [facility] referred by Pharmacy Call Center for medication renewal: Controlled substance Medications requested: [id number] TRAMADOL HCL 50MG TAB Defer to specialty clinic To be mailed . Please review and renew if appropriate. *This note was generated by [facility] Pharmacy Customer Care. If you have any questions or need assistance, do not contact this author. Please refer all questions to your local, on-site pharmacy departments. /jim/ AYSE SANTIZO CPhT Ceo & Founder, [place]/Pharmacy Customer Care Signed: 06/05/2024 15:51 Receipt Acknowledged By: 06/15/2024 10:40 /es/ [facility] Jun 05, 2024 03:50 PM PHARMACY NOTE: LOCAL TITLE: PHARMACY CUSTOMER [facility] MEDICATION RENEWAL STANDARD TITLE: PHARMACY NOTE DATE OF NOTE: JUN 05, 2024@15:50 ENTRY DATE: JUN 05, 2024@15:50:49 AUTHOR: AYSE SANTIZO EXP COSIGNER: URGENCY: STATUS: COMPLETED Date: May Division: [facility] referred by Pharmacy Call Center for medication renewal: Non-controlled/maintenance medication Medications requested: [id number] BACITRACIN 500 UNT/GM [place] [id number] GABAPENTIN 300MG CAP [id number] CETIRIZINE HCL 10MG TAB Defer to primary care provider To be mailed . Please review and renew if appropriate. *This note was generated by [facility] Pharmacy Customer Care. If you have any questions or need assistance, do not contact this author. Please refer all questions to your local, on-site pharmacy departments. /jim/ AYSE SANTIZO CPhT [employer]o [employer] Founder, [place]/Pharmacy Customer Care Signed: 06/05/2024 15:51 Receipt Acknowledged By: 06/05/2024 15:53 /es/ NURIA SOUSA RN REGISTERED NURSE for VALENTE ELIZONDO 06/08/2024 09:15 /es/ LENY AGUILERA NP NURSE PRACTITIONER [facility]
--- OUTSIDE RECORDS SUMMARY | 2024-10-12 19:00 | XMS_ITS | Encounter Summary ---
Author Name [facility] [place] [facility] [place] Organization [place] Address [address] [place] [address] Care Team Providers Care Barrel Coater Name Role Phone WALDEMAR PIPO Primary Care Provider LENY Suarez Primary Care Provider RICH Valencia Primary Care Provider Thien weber Selected Encounter This section includes the information on record at [place] for the Encounter. Date/Time Encounter Type Encounter Description Reason Provider Source Jul 07, 2024 04:14 PM [facility] OL DIG ASSMT&MGMT 5-10 CLINICAL PHARMACY ICD-10-CM E66.9 Obesity, unspecified MONTOYA,QUE N IHE Encounter Template Text not used by [place] Assessments - Encounter Diagnoses This section includes the primary and secondary diagnoses documented for the Encounter. Date/Time Primary/Secondary Diagnosis Diagnosis Name Provider Source Jul 07, 2024 04:25 PM PRIMARY Obesity, unspecified MONTOYA,QUE N [facility] ([id number]) Plan of Treatment: Future Appointments (+ 6 months) and Future Tests (+/- 45 days) The Plan of Treatment section includes future care activities for the patient from all [place] treatmentfacilities. This section includes future appointments and future orders which are active, pending or scheduled. Future Appointments This section includes appointments that were scheduled to occur 6 months from the date of the Encounter, up to a maximum of 20 appointments. The data comes from all [place] treatment facilities. Appointment Date/Time Appointment Type Appointme nt Facility Name Jul 14, 2024 01:00 PM AMBULATORY - NONE [facility] Jul 21, 2024 01:00 PM AMBULATORY - NONE [place] [facility] Jul 22, 2024 10:00 AM AMBULATORY [facility]ICINE [facility] [place] [facility] Jul 22, 2024 02:00 PM AMBULATORY - REHAB MEDICIN E [facility] [place] [facility] Jul 28, 2024 01:00 PM AMBULATORY - NONE [place] [facility] Aug 04, 2024 01:00 PM AMBULATORY - NONE [place] [facility] Aug 11, 2024 01:00 PM AMBULATORY - NONE [place] [facility] Aug 17, 2024 07:15 AM AMBULATORY - MEDICINE [facility] [place] [facility] Aug 24, 2024 02:00 PM AMBULATORY - MEDICINE [facility] [place] [facility] Aug 31, 2024 03:30 PM AMBULATORY - MEDICINE [facility] [place] [facility] Sep 14, 2024 11:30 AM AMBULATORY - MEDICINE [facility] [place] [facility] Sep 29, 2024 02:30 PM AMBULATORY - MEDICINE [facility] Oct 08, 2024 10:00 AM AMBULATORY - REHAB MEDICIN E [place] Oct 08, 2024 01:00 PM AMBULATORY - NONE [facility] [place] [facility] Oct 08, 2024 01:45 PM AMBULATORY - NONE [facility] [place] [facility] Oct 12, 2024 11:30 AM AMBULATORY - MEDICINE [facility] [place] [facility] October 15, 2024 07:00 AM AMBULATORY - MEDICINE [facility] [place] [facility] October 16, 2024 01:00 PM AMBULATORY - MEDICINE [facility] [place] [facility] October 21, 2024 03:00 PM AMBULATORY - MEDICINE [facility] [place] [facility] October 22, 2024 01:00 PM AMBULATORY - REHAB MEDICIN E [facility] [place] [facility] Active, Pending, and Scheduled Orders This section includes a listing of several types of active, pending, and scheduled orders, including clinic medications orders, diagnostic test orders, procedure orders and consult orders; where the start date of the order is 45 days before the date of the Encounter or 45 days after the date of theEncounter. The data comes from all [place] treatment facilities. Test Date/Time Test Type Test Details Facility Name Jun 12, 2024 02:35 PM Consult Order TELE-EYE S CREENING CONSULT - CBC [facility] [employer] [facility] Aug 03, 2024 01:06 PM Consult Order COMMUNITY CARE-PAIN MANAGEMENT Cons [employer] [facility] Advance Directives: All historical and current Section Date Range: From patient's date of to the date document was created. This section includes ALL of a patient's completed or amended [place] Advance and Rescinded Directives. The entries below indicate that a directive exists for the patient, but an actual copy is not included with this document. The data comes from all [place] facilities. Date Advance Directives Provider Source November 12, 2023 ADVANCE DIRECTIVE DISCUSSION JESSICA MESA [facility] Radiology Reports: +/- 30 days of the [...] the Encounter. The data comes from all [place] treatment facilities. Date/Time Radiology Report Provider Source Jul 22, 2024 02:20 PM FLUOROSCOPIC RODNEY NCE FOR NEEDLE PLACEMENT: ROSECOLLETTE Partida [id number] M Exm Date: JUL 22, 2024@14:20 Req Phys: LEXI MONTOYA Pat Loc: [facility] BETY BORJAS MD (Req' Img Loc: [facility]/BUILDING 1 Service: Unknown [facility] [address] (Case [id number] COMPLETE) FLUOROSCOPIC GUIDANCE FOR NEEDLE (RAD Detailed) CPT:40683 Reason for Study: genicular nerve block Clinical History: Report Status: Verified Date Reported: JUL 22, 2024 Date Verified: JUL 22, 2024 [employer] E-Sig:/ES/CLAUDIA MÉNDEZ JR Report: Study: Pain injection [...] Primary Interpreting Staff: CLAUDIA MÉNDEZ JR, Radiologist (Superintendent [employer]) /CLAUDIA VALLES JR [facility] Encounter Notes: All associated encounter notes This section contains the clinical notes associated to the Encounter. Date/Time Encounter Note(s) Provider Source Jul 07, 2024 04:14 PM PHARMACY CONSULT: LOCAL TITLE: CONSULT REPORT/PRIOR AUTH FACILITY PADR STANDARD TITLE: PHARMACY CONSULT DATE OF NOTE: JUL 07, 2024@16:14 ENTRY DATE: JUL 07, 2024@16:14:48 AUTHOR: LEXI MONTOYA EXP COSIGNER: URGENCY: STATUS: COMPLETED The medical record has been reviewed with regard to this restricted drug request. Medication requested: BUPROPION 90MG/NALTREXONE HCL 8MG SA TAB Medication indication: Obesity Medical history relevant to this request: Measurement DT WEIGHT LB(KG)[BMI] 06/02/2024 15:08 246(111.58)[34*] 05/12/2024 21:26 253(114.76)[35*] 05/05/2024 13:00 250(113.40)[35*] Per BP record: 03/13/24 166/89, 165/93mmHg 04/23/24 152/66, 140/90mmHg -- Pt is not on any med for BP The request does NOT meet criteria - Contraindication(s) exist to the medication/item being requested Comment: Uncontrolled hypertension is listed in the exclusion criteria Use of opiod is contraindicated - pt has active rx of tramadol NALTREXONE/BUPROPION (CONTRAVE) Exclusion Criteria [+] Uncontrolled hypertension [-] H/o seizure disorder, bulimia, or anorexia nervosa [+] Concurrent opoid use or use of opioids within the last 7-10 days Pt has tramadol rx written on 06/22/24 No refill but rx was recently prescribed in 04/2024 [-] Undergoing abrupt discontinuation of alcohol, benzodiazepines, barbiturates, and antiepoileptic drugs [-] Major depressive disorder especially in patients 24 years of age or younger unless a mental health consultation supports benefits of naltrexone- bupropion in patients at risk for suicidal thoughts or behaviors) Inclusion Criteria [+] Verifiable participation in a comprehensive lifestyle intervention that targets all three aspects of weight management: diet, physical activity, behavioral changes [+] BMI is >or= 30 OR BMI is >or= 27 with at least one weight-related comorbidity (sleep apnea, osteoarthritis, HTN, T2DM, HDL, metabolic syndrome, metabolic dysfunction-associate steatotic liver disease) Time spent: 5 minutes /jim/ LEXI MONTOYA PHARMD CLINICAL DOCUMENT COORDINATOR Signed: 07/07/2024 16:25 LEXI MONTOYA [facility] ([id number])
--- OUTSIDE RECORDS SUMMARY | 2024-10-12 19:00 | XMS_ITS | Encounter Summary ---
Author Name [place] Address [address] [place] [address] Care Team Providers Care Air Route Controller Name Role Phone PIPO MEDEIROS Primary Care Provider LENY Suarez Primary Care Provider RICH Valencia Primary Care Provider Thien weber Selected Encounter This section includes the information on record at [place] for the Encounter. Date/Time Encounter Type Encounter Description Reason Pro vider Source May 20, 2024 01:00 PM Outpatient Encounter AUDIOLOGY IHE Encounter Template Text not used by [place] Plan of Treatment: Future Appointments (+ 6 months) and Future Tests (+/- 45 days) The Plan of Treatment section includes future care activities for the patient from all [place] treatmentfacilities. This section includes future appointments and future orders which are active, pending or scheduled. Future Appointments This section includes appointments that were scheduled to occur 6 months from the date of the Encounter, up to a maximum of 20 appointments. The data comes from all [place] treatment facilities. Appointment Date/Time Appointment Type Appointme nt Facility Name May 21, 2024 03:00 PM AMBULATORY - REHAB MEDICIN E [place] Jun 02, 2024 01:00 PM AMBULATORY - NONE [place] ([facility]) Jun 05, 2024 02:30 PM AMBULATORY - REHAB MEDICIN E [place] Jun 19, 2024 07:30 AM [place] [place] [facility] Jun 23, 2024 11:30 AM AM[place]ORY [place] [facility] Jun 25, 2024 01:00 PM AMBULATORY - REHAB MEDICIN [place] [facility] [place] [facility] Jun 25, 2024 02:00 PM AMBULATORY - MEDICINE [place] [facility] Jul 03, 2024 02:00 PM AMBULATORY - [place]ICINE [place] [facility] Jul 14, 2024 01:00 PM AMBULATORY - NONE [place] [facility] Jul 21, 2024 01:00 PM AMBULATORY - NONE [place] [facility] Jul 22, 2024 10:00 AM AMBULATORY - MEDICINE [place] [facility] [place] [facility] Jul 22, 2024 02:00 PM AMBULATORY - REHAB MEDICIN [place] [facility] [place] [facility] Jul 28, 2024 01:00 PM AMBULATORY - NONE [place] [facility] Aug 04, 2024 01:00 PM AMBULATORY - NONE [place] [facility] Aug 11, 2024 01:00 PM AMBULATORY - NONE [place] [facility] Aug 17, 2024 07:15 AM AMBULATORY - MEDICINE [place] [facility] [place] [facility] Aug 24, 2024 02:00 PM AMBULATORY - MEDICINE [place] [facility] Aug 31, 2024 03:30 PM AMBULATORY - MEDICINE [place] [facility] Sep 14, 2024 11:30 AM AMBULATORY - MEDICINE [place] [facility] Sep 29, 2024 02:30 PM AMBULATORY - MEDICINE [facility] Active, Pending, and Scheduled Orders This section includes a listing of several types of active, pending, and scheduled orders, including clinic medications orders, diagnostic test orders, procedure orders and consult orders; where the start date of the order is 45 days before the date of the Encounter or 45 days after the date of theEncounter. The data comes from all [place] treatment facilities. Test Date/Time Test Type Test Details Facility Name May 08, 2024 12:00 AM Laboratory - Chemi stry Order URINE DRUG PROFILE_ UA CUP URINE SP [facility] May 08, 2024 12:00 AM Laboratory - Chemi stry Order CBC (WITH DIFF)_ BLOOD (EDTA WB) [facility] May 08, 2024 12:00 AM Laboratory - Chemi stry Order TSH SERUM (GOLD) [facility] May 08, 2024 12:00 AM Laboratory - Chemi stry Order LIPID PROFILE_ SERUM (GOLD) [facility] May 08, 2024 12:00 AM Laboratory - Chemi stry Order HEMOGLOBIN A1C BLOOD (EDTA WB) [facility] May 08, 2024 12:00 AM Laboratory - Chemi stry Order MICROALBUMIN:CREAT RATIO_ UA CUP URINE [facility] May 08, 2024 12:00 AM Laboratory - Chemi stry Order COMP.METABOLIC PROFILE_ SERUM (GOLD) [facility] May 08, 2024 12:00 AM Laboratory - Chemi stry Order URINALYSIS_ UA CUP URINE [facility] Jun 12, 2024 02:35 PM Consult Order TELE-EYE S CREENING CONSULT - CBC Cons Clinical Medical Transcriptionist's Choice [facility] Lab Results: +/- 30 days of the encounter This section includes the Chemistry and Hematology Lab Results on record with [place] for the patient. Radiology Reports and Pathology Reports are provided separately, in subsequent sections. Lab Results This section contains the Chemistry/Hematology Results that were resulted 30 days before or 30 daysafter the date of the Encounter. Date/Time Source Result Type Result - Unit Interpretation Reference Range Specimen Type Comment Apr 23, 2024 03:19 PM [facility] IRON & TIBC PANEL SERUM Specimen Type: SERUM No comment entered. Ordering Provider: ELI DUDLEY Report Released Date/Time: Feb 20, 2024 06:51 AM Reporting Lab: [facility] [address] [address] Performing Lab: [address] [address] TIBC 528 ug/dL H 204-475 IRON 25 ug/dL L 40-160 Transferrin Saturation 4.7 L 20.0-50.0 Transferrin (TRF) 400 mg/dL H 200-360 Apr 23, 2024 03:19 PM [facility] FERRITIN SERUM Specimen Type: SERUM No comment entered. Ordering Provider: ELI DUDLEY Report Released Date/Time: Feb 20, 2024 06:51 AM Reporting Lab: [address] [address] Performing Lab: [address] [address] FERRITIN 7 ng/mL L 20-300 Apr 23, 2024 03:19 PM [facility] RETICULOCYTES BLOOD Specimen Type: BLOOD No comment entered. Ordering Provider: ELI DUDLEY Report Released Date/Time: Feb 20, 2024 06:51 AM Reporting Lab: [address] [address] Performing Lab: [address] [address] RETIC % 0.8 0.6-2.0 RETIC, ABS 37.6 10*3/uL 30.0-90.0 RET-HE % 24.1 L 27.9-42.0 Apr 23, 2024 03:19 PM [facility] CBC AND DIFF (AUTO) BLOOD Specimen Type: BLOO D No comment entered. Ordering Provider: ELI DUDLEY Report Released Date/Time: Feb 20, 2024 06:51 AM Reporting Lab: [address] [address] Performing Lab: [address] [address] WBC 8.03 10*3/uL 4.50-11.00 RBC 4.88 10*6/uL [...] ALL of a patient's completed or amended [place] Advance and Rescinded Directives. The entries below indicate that a directive exists for the patient, but an actual copy is not included with this document. The data comes from all [place] facilities. Date Advance Directives Provider Source November 12, 2023 ADVANCE DIRECTIVE DISCUSSION JESSICA MESA [facility] Encounter Notes: All associated encounter notes This section contains the clinical notes associated to the Encounter. Date/Time Encounter Note(s) Provider Source May 20, 2024 02:38 PM CLERICAL NOTE: LOCAL TITLE: APPOINTMENT NO SHOW STANDARD TITLE: CLERICAL NOTE DATE OF NOTE: MAY 20, 2024@14:38 ENTRY DATE: MAY 20, 2024@14:38:29 AUTHOR: CRUZ CORDON COSIGNER: URGENCY: STATUS: COMPLETED Patient Name: COLLETTE ROSE Patient SSN: [id number] Date and time of Appointment No show : 05/20/24 13:00 PATIENT PHONE - PHONE NUMBER [CELLULAR] - Patient's medical record was reviewed. Follow-up actions were determined and initiated: Please check/complete as applies: [ ]Telephoned Directly [ ]Re-scheduled for next available appt [X]Sent a N0-show letter ( must call for appointment) [ ]Other (Emergent/Overbook, etc.): Additional Comments: Future Clinic Visits 05/21/2024 15:00 CWM/SO/PHYSICAL THERAPY B 06/19/2024 07:30 CWM/NO/OPTOMETRY 1 AM 07/22/2024 14:00 CWM/NO/MED REHAB/SPINE IN 09/21/2024 15:00 CWM/SO/PACT 1 STOCK UNLOADER 10/21/2024 15:00 NHM/OPTOMETRY/GUERRA/ /es/ CRUZ CORDON STAFF VOICE ENGINEER Signed: 05/20/2024 14:38 Receipt Acknowledged By: 05/20/2024 15:16 /jim/ ELI EATON LEAD HOMEMAKING REHABILITATION CONSULTANT [facility]
== END 2024-10-12 16:18 | disposition home or self-care (01) ==
LOC: HO.LAB 16:17
PROVIDERS: PCP Hospitalist; Visit Provider Radiology Vascular & Interventional Radiology
DX: Z01.818 Encounter for other preprocedural examination (principal)
CPT/HCPCS: 36415; 82565; 84520

== ENCOUNTER 2024-10-17 14:41 | Outpatient (REF) | payer OTHER, SELFPAY ==
[2024-10-17 15:44] LABS: Blood Urea Nitrogen 25 mg/dL (9-16); Estimated Glomerular Filt Rate > 60
== END 2024-10-17 14:42 | disposition home or self-care (01) ==
LOC: HO.HMGCLDS 14:41
PROVIDERS: Visit Provider Radiology Vascular & Interventional Radiology
DX: R79.89 Other specified abnormal findings of blood chemistry (principal); R94.4 Abnormal results of kidney function studies
CPT/HCPCS: 36415; 82565; 84520